=== PATIENT | male | born 1940 | race Two or more races ===

== ENCOUNTER 2017-04-09 17:23 | Inpatient (IN) | payer OTHER ==
[2017-04-09 17:38] VITALS: BMI 24.3
[2017-04-09] MEDS ORDERED: dilTIAZem HCL 50 MG/10 ML - 10 ML VIAL IVPUSH ONE ×2 (17:56→18:32)
[2017-04-09] MEDS ORDERED: ASPIRIN 81 MG CHEWABLE TABLETS PO ONE (17:56)
[2017-04-09] MEDS ORDERED: SODIUM CHLORIDE 1,000 ML IV ONE (17:57)
[2017-04-09] MEDS ORDERED: dilTIAZem HCL 50 MG/10 ML - 10 ML VIAL ONE (17:58)
[2017-04-09 18:06] LABS: BASOPHIL 0.3 % (0-2.0); EOSINOPHIL 2.3 % (0-4.5); MCH 33.9 pg (25.7-33.7); MCHC 34.9 g/dl (32.0-35.9); MEAN CELL VOLUME 97.1 fl (80-96); MEAN PLT VOLUME 10.5 fl (7.5-11.1); NEUTROPHILS 53.1 % (42.8-82.8); PLATELET COUNT 185 K/MM3 (134-434); RDW 13.5 % (11.9-15.9); WHITE BLOOD COUNT 7.1 K/mm3 (4.0-10.0)
[2017-04-09] MEDS ORDERED: dilTIAZem HCL 30 MG TABLET (FP) PO ONE (18:09)
[2017-04-09 18:16] LABS: INR 1.05 (0.82-1.09); PROTHROMBIN TIME (PATIENT) 11.6 SEC (9.98-11.88)
[2017-04-09] MEDS ORDERED: ASPIRIN 81 MG CHEWABLE TABLETS ONE (18:21)
[2017-04-09] MEDS ORDERED: dilTIAZem HCL 30 MG TABLET (FP) ONE (18:21)
[2017-04-09 18:35] LABS: ALBUMIN 3.6 g/dl (3.4-5.0); ANION GAP 14 (8-16); BILIRUBIN,TOTAL 0.2 mg/dL (0.2-1.0); CALCIUM 8.1 mg/dL (8.5-10.1); CO2 24 mmol/L (21-32); CREATININE 0.6 mg/dL (0.7-1.3); GLUCOSE,RANDOM 182 mg/dL (74-106); TOT PROT 7.8 g/dl (6.4-8.2)
[2017-04-09 18:37] LABS: ALK PHOS 143 U/L (45-117); CPK 99 IU/L (39-308); TROPONIN I < 0.02 ng/ml (0.00-0.05)
[2017-04-09 18:42] LABS: MAGNESIUM 2.1 mg/dL (1.8-2.4)
[2017-04-09] MEDS ORDERED: HEPARIN NA (PORCINE) 5,000 UNITS/ML 1ML VIAL IVPUSH ONE (19:10)
--- NOTE | 2017-04-09 19:12 | PDOC ---
History of Present Illness - General History Source: Patient Exam Limitations: No Limitations <Amelie Seymour - Last Filed: 04/09/17 22:20> <Pool Ziegler - Last Filed: 04/09/17 23:16> - General Chief Complaint: Chest Pain Stated Complaint: CHEST PAIN Time Seen by Provider: 04/09/17 17:55 - History of Present Illness Initial Comments: The patient is a 76 yo M with a past medical history significant for possible ETOH abuse and BPH who presents with chest pain. The patient states he at 1 pm today he began to feel chest pain, palpitations, feel lightheadedness and jaw pain. The patient states he typically has episodes of shortness of breath, palpitations and dry mouth that occur every 2-3 weeks but resolve spontanoeously. The patient states these episodes often subside when he drinks ETOH. The patient states his last drink was yesterday. The patient states he typically drinks 3-4 times per week. The patient states he doesn't take aspirin at baseline. Pt denies any recent history of fever/chills, cough, n/v, abd pain , back pain, neck pain, headache/dizziness. PMD: Dr wiley soriano. (Amelie Seymour) Past History <Amelie Seymour - Last Filed: 04/09/17 22:20> - Past Medical History Other medical history: URINARY - Psycho/Social/Smoking Cessation Hx Suicidal Ideation: No Smoking History: Never smoked Information on smoking cessation initiated: No <Pool Ziegler - Last Filed: 04/09/17 23:16> - Past Medical History Allergies/Adverse Reactions: Allergies Allergy/AdvReac Type Severity Reaction Status Date / Time No Known Allergies Allergy Verified 04/09/17 17:38 Home Medications: Ambulatory Orders Unobtainable [Unobtainable] 04/09/17 Review of Systems - Review of Systems Able to Perform ROS?: Yes <Amelie Seymour - Last Filed: 04/09/17 22:20> <Pool Ziegler - Last Filed: 04/09/17 23:16> - Review of Systems Comments:: Constitutional - Pt denies Fever, Chills, weakness, HEENT: +dry mouth. denies vision changes, sore throat Respiratory: Denies cough, sob, hemoptysis Cardiac: + chest pain, palpitations, lightheadedness. denies leg swelling Abd/GI: denies abd pain, nausea, vomiting, blood per rectum, melena, diarrhea : denies dysuria, frequency, discharge Musculskelatal - denies back pain, joint swelling skin - denies bruising, erythema, rash neurological: denies headache, numbness, focal weakness, tingling, ataxia, weakness hematologic: denies anemia, easy bruising, easy bleeding (Amelie Seymour) *Physical Exam <Amelie Seymour - Last Filed: 04/09/17 22:20> <Karlie,Pool - Last Filed: 04/09/17 23:16> - Vital Signs Last Vital Signs Temp Pulse Resp BP Pulse Ox 98.6 F 61 15 156/71 99 04/09/17 19:27 04/09/17 22:19 04/09/17 22:19 04/09/17 22:19 04/09/17 22:19 - Physical Exam Comments: GENERAL: The patient is awake, alert, and fully oriented, Nontoxic - in no acute distress. HEAD: Normocephalic, atraumatic. EYES: extraocular movements intact, sclera anicteric, conjunctiva clear. ENT: Normal voice, Moist mucous membranes. NECK: Normal range of motion, supple without lymphadenopathy, JVD, or masses. LUNGS: Breath sounds equal, clear to auscultation bilaterally. No wheezes, no crackles, no rales. HEART: irregularly irregular. tachcyardic, normal S1 and S2 without murmur, rub or gallop. ABDOMEN: Soft, nontender, normoactive bowel sounds. No guarding, no rebound. No masses. EXTREMITIES: Normal range of motion, no edema. NEUROLOGICAL: No facial assymetry, Normal speech, normal gait. PSYCH: Normal mood, normal affect. SKIN: Warm, Dry, normal turgor, no rashes or lesions noted. (Amelie Seymour) Heart Score/ECG Review <Amelie Seymour - Last Filed: 04/09/17 22:20> <Karlie,Pool - Last Filed: 04/09/17 23:16> - ECG Impressions Comment:: 04/09/17 20:25 Twelve-lead EKG was performed and reviewed by me. Irregularly irregular, rate of 164 Right bundle-branch block impression: A. fib with RVR 04/09/17 23:15 Twelve-lead EKG was performed and reviewed by me. ekg erfromed at 21:04 on 04/09/2017 There is normal sinus rhythm with a rate of 62 RBBB, LAFB (Pool Ziegler) ED Treatment Course - LABORATORY CBC & Chemistry Diagram: 04/09/17 18:00 04/09/17 18:00 <Amelie Seymour - Last Filed: 04/09/17 22:20> - LABORATORY CBC & Chemistry Diagram: 04/09/17 18:00 04/09/17 18:00 <Pool Ziegler - Last Filed: 04/09/17 23:16> - ADDITIONAL ORDERS Additional order review: Laboratory Results 04/09/17 04/09/17 04/09/17 18:18 18:10 18:00 INR PTT (Actin FS) 35.9 H Sodium Potassium Chloride Carbon Dioxide Anion Gap BUN Creatinine Creat Clearance w eGFR Random Glucose Calcium Magnesium Total Bilirubin AST ALT Alkaline Phosphatase Creatine Kinase Troponin I B-Natriuretic Peptide Total Protein Albumin TSH 3.85 H Alcohol, Quantitative 155.6 H* 04/09/17 04/09/17 04/09/17 18:00 18:00 18:00 INR 1.05 PTT (Actin FS) Sodium 142 Potassium 3.8 Chloride 104 Carbon Dioxide 24 Anion Gap 14 BUN 12 Creatinine 0.6 L Creat Clearance w eGFR > 60 Random Glucose 182 H Calcium 8.1 L Magnesium 2.1 Total Bilirubin 0.2 AST ALT Alkaline Phosphatase 143 H Creatine Kinase 99 Troponin I < 0.02 B-Natriuretic Peptide 101.97 Total Protein 7.8 Albumin 3.6 TSH Alcohol, Quantitative 04/09/17 18:00 RBC 4.72 MCV 97.1 H MCHC 34.9 RDW 13.5 MPV 10.5 Neutrophils % 53.1 Lymphocytes % 38.3 Monocytes % 6.0 Eosinophils % 2.3 Basophils % 0.3 - RADIOLOGY Radiology Studies Ordered: Category Date Time Status CHEST X-RAY PORTABLE* [RAD] Stat Radiology 04/09/17 17:56 Taken - Medications Given in the ED: ED Medications Discontinued Medications Generic Name Dose Route Start Last Admin Trade Name Freq PRN Reason Stop Dose Admin Aspirin 162 mg 04/09/17 17:56 04/09/17 18:21 Asa - PO 04/09/17 17:57 162 mg ONCE ONE Administration Diltiazem HCl 20 mg 04/09/17 17:56 04/09/17 18:05 Cardizem Injection - IVPUSH 04/09/17 17:57 20 mg ONCE ONE Administration Diltiazem HCl 30 mg 04/09/17 18:09 04/09/17 18:21 Cardizem - PO 04/09/17 18:10 30 mg ONCE ONE Administration Diltiazem HCl 10 mg 04/09/17 18:32 04/09/17 18:40 Cardizem Injection - IVPUSH 04/09/17 18:33 10 mg ONCE ONE Administration Heparin Sodium (Porcine) 5,000 unit 04/09/17 19:10 04/09/17 20:32 Heparin - IVPUSH 04/09/17 19:11 5,000 unit ONCE ONE Administration Sodium Chloride 1,000 mls @ 1,000 mls/hr 04/09/17 17:57 04/09/17 18:19 Normal Saline - IV 04/09/17 18:56 1,000 mls/hr .Q1H ONE Administration Metoprolol Tartrate 5 mg 04/09/17 20:18 04/09/17 20:32 Lopressor Injection - IVPUSH 04/09/17 20:19 5 mg ONCE ONE Administration Medical Decision Making <Amelie Seymour - Last Filed: 04/09/17 22:20> <Pool Ziegler - Last Filed: 04/09/17 23:16> - Medical Decision Making Call placed to Dr. Marks @ 20:20. Awaiting call back. Second call placed to Dr. Marks @ 20:46. Awaiting call back. Third call placed to Dr. Marks @ 21:17. Case was discussed. Paged Dr. Wilson (covering Dr. Adams) @21:24. Awaiting call back. Paged Dr. Wilson a second time @ 22:20. Awaiting call back. (Amelie Seymour) 04/09/17 19:38 76y M hx of frequent ETOH consumption presents with shortness of breath, patlpitations, chest pressure since 1pm. Pt arrived in rapid afib to 170s, appeared irregularly irregular. BP was slightly hypertensive. No signs of tremulous or tongue fasiculations. new onset afib labs were sent without primary causes including anemia, metabolic dernagement no clinical signs of withdrawal awaiting TSH I saw the patient immediately upon arrival the pts EKG noted for afib to 170s with RBB pt was given 20mg of dilitazem with improvemen tof HR t o120s. pt given anothe rbolus as he slowly increasd to 140s the pt will llikely need to be admitted for new afib 04/09/17 20:20 labs reviewed [id number] score of 2 will start pt on heparin pt HR averaging higher in the 160s will give pt 5mg toprol awaiting call back from dR. Marks for admission 04/09/17 21:[address] marks agree with admission for furthe rmanagment the pt also spontaneously cardioverted sinus rythum approx 30 minutes after metporlol CRITICAL CARE DOCUMENTATION: I spent ~35 minutes of Critical Care time, excluding separately billable procedures, involving high complexity decision making to assess, manipulate and support vital system function(s) to treat single or multiple vital organ system failure and/or to prevent further life threatening deterioration of the patient' s condition. 04/09/17 22:[address] wilson, agrees with managment recommends 25mg metolprolol tartrate (Pool Ziegler) *DC/Admit/Observation/Transfer <Amelie Seymour - Last Filed: 04/09/17 22:20> - Discharge Dispostion Admit: Yes <Pool Ziegler - Last Filed: 04/09/17 23:16> Diagnosis at time of Disposition: New onset a-fib Chest pain Qualifiers: Chest pain type: unspecified Qualified Code(s): R07.9 - Chest pain, unspecified - Discharge Dispostion Condition at time of disposition: Guarded - Referrals - Attestations Scribe Attestion: Documentation prepared by Amelie Seymour, acting as medical secretary teacher for Pool Ziegler MD, MD/DO. (Amelie Seymour)
[2017-04-09] MEDS ORDERED: HEPARIN INFUSION - 500 ML IVPB SCH (19:15)
[2017-04-09] MEDS ORDERED: HEPARIN NA (PORCINE) 5,000 UNITS/ML 1ML VIAL ONE (20:14)
[2017-04-09] MEDS ORDERED: HEPARIN INFUSION - 500 ML IVPB ONE (20:14)
[2017-04-09] MEDS ORDERED: METOPROLOL TARTRATE 5 MG/5 ML VIAL IVPUSH ONE (20:18)
[2017-04-09] MEDS ORDERED: METOPROLOL TARTRATE 5 MG/5 ML VIAL ONE (20:20)
[2017-04-09] MEDS ORDERED: METOPROLOL TARTRATE 25 MG TABLET (FP) PO ONE (22:35)
[2017-04-10] MEDS ORDERED: HEPARIN NA (PORCINE) 5,000 UNITS/ML 1ML VIAL IVPUSH PRN ×2 (01:56)
[2017-04-10] MEDS: HEPARIN INFUSION - 500 ML IVPB SCH ×4 (02:00→07:44)
[2017-04-10] MEDS ORDERED: LORazepam 0.5 MG TABLET PO PRN (02:07)
[2017-04-10 02:58] LABS: TROPONIN I 0.34 ng/ml (0.00-0.05)
[2017-04-10 08:05] LABS: BASOPHIL 0.9 % (0-2.0); MCHC 33.8 g/dl (32.0-35.9); MEAN CELL VOLUME 97.7 fl (80-96); MEAN PLT VOLUME 11.7 fl (7.5-11.1); NEUTROPHILS 53.6 % (42.8-82.8); PLATELET COUNT 181 K/MM3 (134-434); RDW 13.5 % (11.9-15.9); WHITE BLOOD COUNT 7.2 K/mm3 (4.0-10.0)
[2017-04-10 08:40] LABS: ALBUMIN 3.4 g/dl (3.4-5.0); ANION GAP 11 (8-16); BILIRUBIN,TOTAL 0.6 mg/dL (0.2-1.0); CALCIUM 8.1 mg/dL (8.5-10.1); CO2 28 mmol/L (21-32); CREATININE 0.6 mg/dL (0.7-1.3); GLUCOSE,RANDOM 127 mg/dL (74-106); SGOT/AST 30 U/L (15-37); SGPT/ALT 23 U/L (12-78); TOT PROT 6.8 g/dl (6.4-8.2)
[2017-04-10 08:41] LABS: ALK PHOS 111 U/L (45-117)
[2017-04-10] MEDS: THIAMINE HCL 100 MG TABLET (FP) PO SCH (09:39)
[2017-04-10] MEDS: ASPIRIN COATED 81 MG TABLET.EC PO SCH (09:39)
[2017-04-10] MEDS: FOLIC ACID 1 MG TABLET (FP) PO SCH (09:39)
[2017-04-10] MEDS: METOPROLOL SUCCINATE 25 MG TAB.SR.24H (FP) PO SCH (09:39)
--- NOTE | 2017-04-10 10:57 | CON.CARD ---
Consult Consult Specialty:: cardiology Reason for Consultation:: chest pain; tachycardia - History of Present Illness Chief Complaint: presently denies chest pain or dyspnea. History of Present Illness: The patient is a 76 [facility] man [facility] with a past medical history significant for acute/chronic ETOH abuse, ?AF (describes being on ?warfarin 10 mg alternating with 5 mg; howevere, INR 1.05), and BPH who presents with chest pain. The patient states he at 1 pm today he began to feel chest pain, palpitations, feel lightheadedness and jaw pain. The patient states he typically has episodes of shortness of breath, palpitations and dry mouth that occur every 2-3 weeks but resolve spontanoeously. The patient states these episodes often subside when he drinks ETOH. The patient states his last drink was yesterday. The patient states he typically drinks 3-4 times per week. The patient states he doesn't take aspirin at baseline. Pt denies any recent history of fever/chills, cough, n/v, abd pain, back pain, neck pain, headache/ dizziness. PMD: Dr wiley soriano. - History Source History Provided By: Patient, Medical Record Limitations to Obtaining History: Intoxication - Past Medical History Cardio/Vascular: Yes: AFIB, HTN Psych: Yes: Other (alcoholism) - Alcohol/Substance Use Hx Alcohol Use: Yes - Smoking History Smoking history: Never smoked Home Medications - Allergies Allergies/Adverse Reactions: Allergies Allergy/AdvReac Type Severity Reaction Status Date / Time No Known Allergies Allergy Verified 04/09/17 17:38 - Home Medications Home Medications: Ambulatory Orders Unobtainable [Unobtainable] 04/09/17 Family Disease History - Family Disease History Family History: Denies Review of Systems - Review of Systems Constitutional: reports: Loss of Appetite Eyes: reports: No Symptoms HENT: reports: No Symptoms Neck: reports: No Symptoms Cardiovascular: reports: Chest Pain Respiratory: reports: SOB on Exertion Gastrointestinal: reports: No Symptoms Genitourinary: reports: No Symptoms Musculoskeletal: reports: No Symptoms Integumentary: reports: No Symptoms Neurological: reports: Tremors (though denies presently), Unsteady Gait Psychiatric: reports: Other - Risk Factors Known Risk Factors: Yes: Age, Gender, Hypertension, Physical Inactivity Vital Signs: Vital Signs Temperature 98.1 F 04/10/17 07:45 Pulse Rate 57 L 04/10/17 07:45 Respiratory Rate 18 04/10/17 07:48 Blood Pressure 118/56 04/10/17 07:45 O2 Sat by Pulse Oximetry (%) 98 04/10/17 07:48 Constitutional: Yes: Calm Eyes: Yes: WNL HENT: Yes: WNL Respiratory: Yes: Regular Gastrointestinal: Yes: Soft Renal/: No: Anuria Cardiovascular: Yes: Regular Rate and Rhythm JVD: No Carotid Bruit: No PMI: Non-Displaced Heart Sounds: Yes: S1, Split S2, S4 Murmur: Yes: Systolic Murmur, Grade 1 Edema: No Peripheral Pulses WNL: Yes Integumentary: Yes: WNL Psychiatric: Yes: Other - Other Data Labs, Other Data: CBC, BMP 04/10/17 05:42 04/10/17 05:42 INR, PTT INR 1.05 (0.82-1.09) 04/09/17 18:00 Troponin, BNP 04/10/17 01:45 Troponin I 0.34 H D Troponin, BNP 04/10/17 01:45 Troponin I 0.34 H D Imaging - Results EKG: Image Reviewed (nsr; bifascicular blcck) Problem List - Problems (1) Chest pain Assessment/Plan: TNI < 0.02; f/u serially. F/u prior cardiac workup. Code(s): R07.9 - CHEST PAIN, UNSPECIFIED Qualifiers: Chest pain type: unspecified Qualified Code(s): R07.9 - Chest pain, unspecified (2) Atrial fibrillation Assessment/Plan: converted to NSR aftrer being given diltiazem and metoprolol. Continue metoprolol ER; f/u BP and HR. EKG. ECHO for LVEF, chamber sizes, valve status. Code(s): I48.91 - UNSPECIFIED ATRIAL FIBRILLATION
--- NOTE | 2017-04-10 11:21 | PN ---
Progress Note, Physician Chief Complaint: Pt alert; denies tremors or nausea (last alcoholic drink was in past 48 hours; alcohol level 156). History of Present Illness: The patient is a 76 yo man ([facility]), with a past medical history significant for acute/chronic ETOH abuse, ?AF (describes being on ?warfarin 10 mg alternating with 5 mg; howevere, INR 1.05), and BPH who presents with chest pain. The patient states he at 1 pm today he began to feel chest pain, palpitations, feel lightheadedness and jaw pain. The patient states he typically has episodes of shortness of breath, palpitations and dry mouth that occur every 2-3 weeks but resolve spontanoeously. The patient states these episodes often subside when he drinks ETOH. The patient states his last drink was yesterday. The patient states he typically drinks 3-4 times per week. The patient states he doesn't take aspirin at baseline. Pt denies any recent history of fever/chills, cough, n/v, abd pain, back pain, neck pain, headache/ dizziness. PMD: Dr wiley soriano. - Current Medication List Current Medications: Active Medications Aspirin (Ecotrin -) 81 mg PO DAILY [facility] Last Admin: 04/10/17 09:39 Dose: 81 mg Folic Acid (Folic Acid -) 1 mg PO DAILY [facility] Last Admin: 04/10/17 09:39 Dose: 1 mg Heparin Sodium (Porcine) (Heparin -) 1,000 unit IVPUSH PRN PRN PRN Reason: Heparin Heparin Sodium (Porcine) (Heparin -) 5,000 unit IVPUSH PRN PRN PRN Reason: Heparin Heparin Sodium/Dextrose (Heparin Infusion -) 500 mls @ 16 mls/hr IVPB TITR [facility] ; 800 UNITS/HR PRN Reason: Protocol Last Admin: 04/10/17 07:44 Dose: Not Given Lorazepam (Ativan -) 0.5 mg PO Q12H PRN PRN Reason: ANXIETY Metoprolol Succinate (Toprol Xl -) 25 mg PO DAILY [facility] Last Admin: 04/10/17 09:39 Dose: 25 mg Thiamine HCl (Vitamin B1 -) 100 mg PO DAILY [facility] Last Admin: 04/10/17 09:39 Dose: 100 mg - Objective Vital Signs: Vital Signs Temperature 98.1 F 04/10/17 07:45 Pulse Rate 57 L 04/10/17 07:45 Respiratory Rate 18 04/10/17 07:48 Blood Pressure 118/56 04/10/17 07:45 O2 Sat by Pulse Oximetry (%) 98 04/10/17 07:48 Constitutional: Yes: Calm Eyes: Yes: WNL HENT: Yes: WNL Neck: Yes: WNL Cardiovascular: Yes: Regular Rate and Rhythm, S1, S2 (split), S4 Respiratory: Yes: Regular ...Rectal Exam: Yes: Deferred Genitourinary: No: Anuria Peripheral Pulses WNL: Yes Integumentary: Yes: WNL Neurological: Yes: Tremors Psychiatric: Yes: Other Labs: CBC, BMP 04/10/17 05:42 04/10/17 05:42 INR, PTT INR 1.05 (0.82-1.09) 04/09/17 18:00 Abnormal Lab Results 04/10/17 04/10/17 04/10/17 00:45 01:45 05:42 MCV 97.7 H MPV 11.7 H D PTT (Actin FS) 165.7 H D Creatinine Random Glucose Calcium Troponin I 0.34 H D Triglycerides Total LDL Cholesterol 04/10/17 04/10/17 05:42 10:45 MCV MPV PTT (Actin FS) 63.1 H D Creatinine 0.6 L Random Glucose 127 H D Calcium 8.1 L Troponin I Triglycerides 232 H Total LDL Cholesterol 120 H Problem List - Problems (1) Chest pain Assessment/Plan: TNI < 0.02-->0.34 EKG: T wave abnoramilities infero-laterally. Add statin; ASA. Continue beta antionette. Coronary artery evaluation when stable. F/u ECHO for LVEF, wall motion. Code(s): R07.9 - CHEST PAIN, UNSPECIFIED Qualifiers: Chest pain type: unspecified Qualified Code(s): R07.9 - Chest pain, unspecified (2) Atrial fibrillation Assessment/Plan: converted to NSR aftrer being given diltiazem and metoprolol. Continue metoprolol ER; f/u BP and HR. IV heparin until PO AC started (? was on warfarin; however, INR 1.05). Pt's drinking habit makes anticoagulation problematic. EKG: bifascicular block. ECHO for LVEF, chamber sizes, valve status. Code(s): I48.91 - UNSPECIFIED ATRIAL FIBRILLATION (3) Alcoholism /alcohol abuse Assessment/Plan: det4ox protocol. Code(s): F10.20 - ALCOHOL DEPENDENCE, UNCOMPLICATED (4) Hypothyroid Assessment/Plan: elevated TSH; f/u free T3, free T4. Code(s): E03.9 - HYPOTHYROIDISM, UNSPECIFIED
[2017-04-10 11:43] LABS: CHOLESTEROL 193 mg/dL (50-200); LDL CHOLESTEROL (ONLY SJRH) 120 mg/dL (5-100)
[2017-04-10 11:44] LABS: FREE T4 0.86 ng/dl (0.76-1.16)
--- NOTE | 2017-04-10 12:44 | EKG ---
Test Reason : Blood Pressure : / mmHG Vent. Rate : 054 BPM Atrial Rate : 054 BPM P-R Int : 164 ms QRS Dur : 128 ms QT Int : 452 ms P-R-T Axes : 038 -87 065 degrees QTc Int : 428 ms SINUS BRADYCARDIA RIGHT BUNDLE BRANCH BLOCK LEFT ANTERIOR FASCICULAR BLOCK BIFASCICULAR BLOCK CANNOT RULE OUT INFERIOR INFARCT (CITED ON OR BEFORE 09-APR-2017) T WAVE ABNORMALITY, CONSIDER LATERAL ISCHEMIA ABNORMAL ECG WHEN COMPARED WITH ECG OF 09-APR-2017 21:04, NONSPECIFIC T WAVE ABNORMALITY NOW EVIDENT IN INFERIOR LEADS T WAVE INVERSION NOW EVIDENT IN ANTEROLATERAL LEADS Confirmed by BRIANA MONTESINOS MD ([id number]) on 04/10/2017 12:44:01 PM Referred By: Freeman MITCHELL Confirmed By:BRIANA MONTESINOS MD
--- NOTE | 2017-04-10 12:52 | EKG ---
Test Reason : Blood Pressure : / mmHG Vent. Rate : 164 BPM Atrial Rate : 166 BPM P-R Int : 000 ms QRS Dur : 118 ms QT Int : 260 ms P-R-T Axes : 000 249 028 degrees QTc Int : 429 ms ATRIAL FIBRILLATION WITH RAPID VENTRICULAR RESPONSE RIGHT BUNDLE BRANCH BLOCK ABNORMAL ECG WHEN COMPARED WITH ECG OF 18-APR-2009 17:12, ATRIAL FIBRILLATION HAS REPLACED SINUS RHYTHM VENT. RATE HAS INCREASED BY 79 BPM CRITERIA FOR INFERIOR INFARCT ARE NO LONGER PRESENT ST NOW DEPRESSED IN ANTEROLATERAL LEADS T WAVE INVERSION NOW EVIDENT IN ANTERIOR LEADS Confirmed by BRIANA MONTESINOS MD ([id number]) on 04/10/2017 12:52:06 PM Referred By: Confirmed By:BRIANA MONTESINOS MD
[2017-04-10] MEDS ORDERED: SODIUM CHLORIDE 0.45% 1,000 ML IV SCH (15:15)
[2017-04-10] MEDS: chlordiazePOXIDE HCL 25 MG CAPSULE PO SCH ×2 (15:16→21:15)
[2017-04-10] MEDS: DEXTROSE 5%-0.45% SALINE 1,000 ML IV SCH (15:17)
--- NOTE | 2017-04-10 15:49 | PN ---
Progress Note, Physician - Current Medication List Current Medications: Active Medications Aspirin (Ecotrin -) 81 mg PO DAILY [facility] Last Admin: 04/10/17 09:39 Dose: 81 mg Chlordiazepoxide HCl (Librium -) 25 mg PO Q6H-IV [facility] Last Admin: 04/10/17 15:16 Dose: 25 mg Folic Acid (Folic Acid -) 1 mg PO DAILY [facility] Last Admin: 04/10/17 09:39 Dose: 1 mg Heparin Sodium (Porcine) (Heparin -) 1,000 unit IVPUSH PRN PRN PRN Reason: Heparin Heparin Sodium (Porcine) (Heparin -) 5,000 unit IVPUSH PRN PRN PRN Reason: Heparin Heparin Sodium/Dextrose (Heparin Infusion -) 500 mls @ 16 mls/hr IVPB TITR [facility] ; 800 UNITS/HR PRN Reason: Protocol Last Titration: 04/10/17 11:56 Dose: 700 units/hr Dextrose/Sodium Chloride (D5-1/2ns -) 1,000 mls @ 75 mls/hr IV ASDIR [facility] Last Admin: 04/10/17 15:17 Dose: 75 mls/hr Lorazepam (Ativan -) 0.5 mg PO Q12H PRN PRN Reason: ANXIETY Last Admin: 04/10/17 13:20 Dose: 0.5 mg Metoprolol Succinate (Toprol Xl -) 25 mg PO DAILY [facility] Last Admin: 04/10/17 09:39 Dose: 25 mg Thiamine HCl (Vitamin B1 -) 100 mg PO DAILY [facility] Last Admin: 04/10/17 09:39 Dose: 100 mg - Objective Vital Signs: Vital Signs Temperature 98.1 F 04/10/17 07:45 Pulse Rate 57 L 04/10/17 07:45 Respiratory Rate 18 04/10/17 07:48 Blood Pressure 118/56 04/10/17 07:45 O2 Sat by Pulse Oximetry (%) 98 04/10/17 07:48 Labs: CBC, BMP 04/10/17 05:42 04/10/17 05:42 INR, PTT INR 1.05 (0.82-1.09) 04/09/17 18:00
--- NOTE | 2017-04-10 15:50 | HP ---
Admitting History and Physical - Admission History of Present Illness: Pt is a 76 y/o male w/ a PMH significant ETOH abuse(his last drink was yesterday ) and BPH. Pt presented to the ER with chest pain. The patient states he at 1 pm today he began to feel chest pain, palpitations, feel lightheadedness and jaw pain. The patient states he typically has episodes of shortness of breath, palpitations and dry mouth that occur every 2-3 weeks but resolve spontanoeously. The patient states these episodes often subside when he drinks ETOH. The patient states he typically drinks 3-4 times per week. In the ER pt found to be in rapid afib - Past Medical History Cardiovascular: Yes: AFIB, HTN Psych: Yes: Addictions - Past Surgical History Past Surgical History: Yes: None - Smoking History Smoking history: Never smoked - Alcohol/Substance Use Hx Alcohol Use: Yes Home Medications - Allergies Allergies/Adverse Reactions: Allergies Allergy/AdvReac Type Severity Reaction Status Date / Time No Known Allergies Allergy Verified 04/09/17 17:38 - Home Medications Home Medications: Ambulatory Orders Unobtainable [Unobtainable] 04/09/17 Family Disease History - Family Disease History Family History: Unremarkable Review of Systems - Review of Systems Constitutional: reports: No Symptoms Eyes: reports: No Symptoms HENT: reports: No Symptoms Neck: reports: No Symptoms Cardiovascular: reports: Palpitations, Shortness of Breath Respiratory: reports: SOB Gastrointestinal: reports: No Symptoms Physical Examination Vital Signs: Vital Signs Temperature 98.1 F 04/10/17 07:45 Pulse Rate 57 L 04/10/17 07:45 Respiratory Rate 18 04/10/17 07:48 Blood Pressure 118/56 04/10/17 07:45 O2 Sat by Pulse Oximetry (%) 98 04/10/17 07:48 Constitutional: Yes: No Distress Eyes: Yes: WNL HENT: Yes: WNL Neck: Yes: WNL, Supple Cardiovascular: Yes: Tachycardia Respiratory: Yes: WNL, Regular, CTA Bilaterally Gastrointestinal: Yes: WNL, Normal Bowel Sounds, Soft Musculoskeletal: Yes: WNL Extremities: Yes: WNL Edema: No Neurological: Yes: WNL, Alert, Oriented ...Motor Strength: WNL Labs: CBC, BMP 04/10/17 05:42 04/10/17 05:42 Problem List - Problems (1) Chest pain Assessment/Plan: Serial cpk/troponin Cardio consult Check echo Cont asa Code(s): R07.9 - CHEST PAIN, UNSPECIFIED Qualifiers: Chest pain type: unspecified Qualified Code(s): R07.9 - Chest pain, unspecified (2) New onset a-fib Assessment/Plan: Cont cardizem Cardio consult Serial cpk/troponin ?due to etoh abuse Code(s): I48.91 - UNSPECIFIED ATRIAL FIBRILLATION (3) Alcoholism /alcohol abuse Assessment/Plan: Cont thiamine/folic acid Ativan prn May need librium taper Code(s): F10.20 - ALCOHOL DEPENDENCE, UNCOMPLICATED (4) HTN (hypertension) Code(s): I10 - ESSENTIAL (PRIMARY) HYPERTENSION (5) BPH (benign prostatic hyperplasia) Code(s): N40.0 - BENIGN PROSTATIC HYPERPLASIA WITHOUT LOWER URINRY TRACT SYMP
[2017-04-11] MEDS: HEPARIN INFUSION - 500 ML IVPB SCH (02:00)
[2017-04-11] MEDS: chlordiazePOXIDE HCL 25 MG CAPSULE PO SCH ×4 (03:50→22:17)
[2017-04-11] MEDS: METOPROLOL SUCCINATE 25 MG TAB.SR.24H (FP) PO SCH (09:20)
[2017-04-11] MEDS: TAMSULOSIN HCL 0.4 MG CAP.ER.24H (FP) PO SCH (09:20)
[2017-04-11] MEDS: ASPIRIN COATED 81 MG TABLET.EC PO SCH (09:20)
[2017-04-11] MEDS: THIAMINE HCL 100 MG TABLET (FP) PO SCH (09:20)
[2017-04-11] MEDS: FOLIC ACID 1 MG TABLET (FP) PO SCH (09:20)
--- NOTE | 2017-04-11 10:42 | PN ---
Progress Note, Physician History of Present Illness: seen and examined today in nad. no overnight events. no new complaints. - Current Medication List Current Medications: Active Medications Aspirin (Ecotrin -) 81 mg PO DAILY [facility] Last Admin: 04/11/17 09:20 Dose: 81 mg Chlordiazepoxide HCl (Librium -) 25 mg PO Q6H-IV [facility] Last Admin: 04/11/17 09:20 Dose: 25 mg Folic Acid (Folic Acid -) 1 mg PO DAILY [facility] Last Admin: 04/11/17 09:20 Dose: 1 mg Heparin Sodium (Porcine) (Heparin -) 1,000 unit IVPUSH PRN PRN PRN Reason: Heparin Heparin Sodium (Porcine) (Heparin -) 5,000 unit IVPUSH PRN PRN PRN Reason: Heparin Heparin Sodium/Dextrose (Heparin Infusion -) 500 mls @ 16 mls/hr IVPB TITR RAMYA ; 800 UNITS/HR PRN Reason: Protocol Last Admin: 04/11/17 02:00 Dose: Not Given Dextrose/Sodium Chloride (D5-1/2ns -) 1,000 mls @ 75 mls/hr IV ASDIR [facility] Last Admin: 04/10/17 15:17 Dose: 75 mls/hr Lorazepam (Ativan -) 0.5 mg PO Q12H PRN PRN Reason: ANXIETY Last Admin: 04/10/17 13:20 Dose: 0.5 mg Metoprolol Succinate (Toprol Xl -) 25 mg PO DAILY [facility] Last Admin: 04/11/17 09:20 Dose: 25 mg Tamsulosin HCl (Flomax -) 0.4 mg PO DAILY@0830 [facility] Last Admin: 04/11/17 09:20 Dose: 0.4 mg Thiamine HCl (Vitamin B1 -) 100 mg PO DAILY [facility] Last Admin: 04/11/17 09:20 Dose: 100 mg - Objective Vital Signs: Vital Signs Temperature 97.9 F 04/11/17 07:10 Pulse Rate 57 L 04/11/17 07:10 Respiratory Rate 20 04/11/17 07:11 Blood Pressure 134/78 04/11/17 07:10 O2 Sat by Pulse Oximetry (%) 98 04/10/17 21:00 Constitutional: Yes: Well Nourished, No Distress, Calm Eyes: Yes: WNL, Conjunctiva Clear, EOM Intact, PERRL HENT: Yes: WNL, Atraumatic, Normocephalic Neck: Yes: WNL, Supple, Trachea Midline Cardiovascular: Yes: Regular Rate and Rhythm, S1, S2. No: Bradycardia, Tachycardia, Pulse Irregular, Bruit, JVD, Gallop, Murmur, Rub, S3, S4, Varicosities Respiratory: Yes: WNL, Regular, CTA Bilaterally. No: Rales, Rhonchi, Wheezes Gastrointestinal: Yes: WNL, Normal Bowel Sounds, Soft. No: Distention, Tenderness Musculoskeletal: Yes: WNL Extremities: Yes: WNL Edema: No Peripheral Pulses WNL: Yes Peripheral Pulses: Left Doralis Pedis: 2+, Right Dorsalis Pedis: 2+ Integumentary: Yes: WNL Neurological: Yes: Alert, Oriented Psychiatric: Yes: Alert, Oriented Labs: CBC, BMP 04/10/17 05:42 04/10/17 05:42 INR, PTT INR 1.05 (0.82-1.09) 04/09/17 18:00 - ....Imaging Chest X-ray: Report Reviewed, Image Reviewed EKG: Report Reviewed, Image Reviewed Other: Report Reviewed, Image Reviewed (tele-nsr, sb, pvcs, no afib since 4: 23am 04/10) Assessment/Plan Alcoholism Paroxysmal afib-likely etoh induced, unclear if newly diagnosed as pt had reported being prescribed warfarin Palpitations/chest tightness likely secondary to afib Recc PAfib-cont metoprolol, currently in NSR for past 24hours Clarify history and AC history, pt seems unreliable, if nonadherent with warfarin will be nonadherent with NOACs as well Correct hypothyroid f/up echo ETOH cessation essential Chest pain-atypical more likely associated with afib f/up echo cardiac enzymes did not sig trend up pt would benefit from an ischemic evaluation, this can either be done as an inpatient or soon after discharge as an outpatient
[2017-04-11 10:47] LABS: EOSINOPHIL 4.5 % (0-4.5); MCH 33.4 pg (25.7-33.7); MCHC 34.6 g/dl (32.0-35.9); MEAN CELL VOLUME 96.8 fl (80-96); MEAN PLT VOLUME 11.3 fl (7.5-11.1); NEUTROPHILS 53.5 % (42.8-82.8); PLATELET COUNT 150 K/MM3 (134-434); RDW 13.4 % (11.9-15.9)
[2017-04-11 11:20] LABS: ANION GAP 9 (8-16); BILIRUBIN,TOTAL 0.4 mg/dL (0.2-1.0); CALCIUM 8.2 mg/dL (8.5-10.1); CO2 26 mmol/L (21-32); CREATININE 0.6 mg/dL (0.7-1.3); GLUCOSE,RANDOM 213 mg/dL (74-106); SGOT/AST 25 U/L (15-37); SGPT/ALT 24 U/L (12-78); TOT PROT 6.7 g/dl (6.4-8.2); TROPONIN I 0.05 ng/ml (0.00-0.05)
[2017-04-11 11:28] LABS: ALK PHOS 122 U/L (45-117); THYROID STIMULATING HORMONE 6.85 uIU/ml (0.358-3.74)
--- NOTE | 2017-04-11 13:36 | CONSULT ---
Consult Detox [facility] Reason for Current Admission/Consult: Alcohol dependence Referred by:: Michelle Marks MD - History History of Present Illness: 76 y/o man with a long hx. of alcoholism is admitted because of AF with rapid VR. BAL 156 on admission. - History Source History Provided By: Patient, Medical Record - Alcohol/Substance Use Hx Alcohol Use: Yes - Current Drug/Alcohol Use Alcohol Route: Oral Frequency: 3-6 times per week Amount used: Beer 1-2(6packs) Date of Last Use: 04/09/17 - Past Medical History Cardio/Vascular: Yes: AFIB, HTN Psych: Yes: Addictions - Past Surgical History Past Surgical History: Yes: None - Significant Medical Findings: Laboratory Last Values WBC 5.3 K/mm3 (4.0-10.0) 04/13/17 06:00 RBC 4.51 M/mm3 (4.00-5.60) 04/13/17 06:00 Hgb 14.6 GM/dL (11.7-16.9) 04/13/17 06:00 Hct 43.9 % (35.4-49) 04/13/17 06:00 MCV 97.2 fl (80-96) H 04/13/17 06:00 MCH 32.5 pg (25.7-33.7) 04/13/17 06:00 MCHC 33.4 g/dl (32.0-35.9) 04/13/17 06:00 RDW 13.5 % (11.9-15.9) 04/13/17 06:00 Plt Count 159 K/MM3 (134-434) 04/13/17 06:00 MPV 11.4 fl (7.5-11.1) H 04/13/17 06:00 Neutrophils % 63.7 % (42.8-82.8) 04/13/17 06:00 Lymphocytes % 24.3 % (8-40) D 04/13/17 06:00 Monocytes % 6.4 % (3.8-10.2) 04/13/17 06:00 Eosinophils % 4.8 % (0-4.5) H 04/13/17 06:00 Basophils % 0.8 % (0-2.0) 04/13/17 06:00 INR 1.05 (0.82-1.09) 04/09/17 18:00 PTT (Actin FS) 36.4 SECONDS (26.9-34.4) H 04/13/17 07:00 Sodium 142 mmol/L (136-145) 04/13/17 05:35 Potassium 4.4 mmol/L (3.5-5.1) 04/13/17 05:35 Chloride 106 mmol/L (98-107) 04/13/17 05:35 Carbon Dioxide 27 mmol/L (21-32) 04/13/17 05:35 Anion Gap 9 (8-16) 04/13/17 05:35 BUN 12 mg/dL (7-18) D 04/13/17 05:35 Creatinine 0.6 mg/dL (0.7-1.3) L 04/13/17 05:35 Creat Clearance w eGFR > 60 (>60) 04/13/17 05:35 Random Glucose 127 mg/dL (74-106) H 04/13/17 05:35 Hemoglobin A1c % 6.7 % (4.8-6.0) H 04/12/17 05:35 Calcium 9.1 mg/dL (8.5-10.1) 04/13/17 05:35 Magnesium 2.1 mg/dL (1.8-2.4) 04/09/17 18:00 Total Bilirubin 0.4 mg/dL (0.2-1.0) 04/13/17 05:35 AST 37 U/L (15-37) D 04/13/17 05:35 ALT 29 U/L (12-78) D 04/13/17 05:35 Alkaline Phosphatase 122 U/L (45-117) H 04/13/17 05:35 Creatine Kinase 53 IU/L (39-308) 04/12/17 05:35 Troponin I 0.02 ng/ml (0.00-0.05) D 04/13/17 05:35 B-Natriuretic Peptide 101.97 pg/ml (5-450) 04/09/17 18:00 Total Protein 7.1 g/dl (6.4-8.2) 04/13/17 05:35 Albumin 3.3 g/dl (3.4-5.0) L 04/13/17 05:35 Triglycerides 232 mg/dL (35-160) H 04/10/17 05:42 Cholesterol 193 mg/dL (50-200) 04/10/17 05:42 Total LDL Cholesterol 120 mg/dL (5-100) H 04/10/17 05:42 HDL Cholesterol 41 mg/dL (40-60) 04/10/17 05:42 TSH 6.85 uIU/ml (0.358-3.74) H D 04/11/17 10:00 Free T4 0.86 ng/dl (0.76-1.16) 04/10/17 05:42 Free T3 4.8 pg/ml (2.0-4.4) H 04/10/17 05:42 Alcohol, Quantitative 155.6 mg/dl (0-5) H* 04/09/17 18:10 CIWA Score - CIWA Score Nausea/Vomitin-Mild Nausea/No Vomiting Muscle Tremors: 4-Moderate,w/Arms Extend Anxiety: 4-Mod. Anxious/Guarded Agitation: 4-Moderately Restless Paroxysmal Sweats: 3 Orientation: 0-Oriented Tacttile Disturbances: 0-None Auditory Disturbances: 0-None Visual Disturbances: 0-None Headache: 0-None Present CIWA-Ar Total Score: 16 Assessment Plan - Diagnosis (1) Alcohol dependence with uncomplicated withdrawal Status: Acute (2) Atrial fibrillation with rapid ventricular response Status: Acute - Plan Plan: Detox with librium, advise pt. to attend IOP at [facility] - Medication Detox Regimen/Protocol: Librium
[2017-04-11] MEDS ORDERED: chlordiazePOXIDE HCL 25 MG CAPSULE PO PRN (14:52)
[2017-04-11] MEDS: DEXTROSE 5%-0.45% SALINE 1,000 ML IV SCH (15:20)
[2017-04-11] MEDS: APIXABAN 5 MG TABLET PO SCH (22:17)
--- NOTE | 2017-04-11 22:20 | PN ---
Progress Note, Physician History of Present Illness: No new complaints Pt slightly tremulous - Current Medication List Current Medications: Active Medications Apixaban (Eliquis -) 5 mg PO BID [facility] Last Admin: 04/11/17 22:17 Dose: 5 mg Aspirin (Ecotrin -) 81 mg PO DAILY [facility] Last Admin: 04/11/17 09:20 Dose: 81 mg Chlordiazepoxide HCl (Librium -) 25 mg PO Q4H PRN PRN Reason: WITHDRAWAL(CONT SUBST) Stop: 04/14/17 14:51 Chlordiazepoxide HCl (Librium -) 50 mg PO [id number] [facility] Stop: 04/12/17 11:01 Last Admin: 04/11/17 22:17 Dose: 50 mg Chlordiazepoxide HCl (Librium -) 25 mg PO [id number] [facility] Stop: 04/13/17 11:01 Chlordiazepoxide HCl (Librium -) 15 mg PO [id number] [facility] Stop: 04/14/17 11:01 Folic Acid (Folic Acid -) 1 mg PO DAILY [facility] Last Admin: 04/11/17 09:20 Dose: 1 mg Heparin Sodium (Porcine) (Heparin -) 1,000 unit IVPUSH PRN PRN PRN Reason: Heparin Heparin Sodium (Porcine) (Heparin -) 5,000 unit IVPUSH PRN PRN PRN Reason: Heparin Dextrose/Sodium Chloride (D5-1/2ns -) 1,000 mls @ 75 mls/hr IV ASDIR [facility] Last Admin: 04/11/17 15:20 Dose: 75 mls/hr Lorazepam (Ativan -) 0.5 mg PO Q12H PRN PRN Reason: ANXIETY Last Admin: 04/10/17 13:20 Dose: 0.5 mg Metoprolol Succinate (Toprol Xl -) 25 mg PO DAILY [facility] Last Admin: 04/11/17 09:20 Dose: 25 mg Tamsulosin HCl (Flomax -) 0.4 mg PO DAILY@0830 [facility] Last Admin: 04/11/17 09:20 Dose: 0.4 mg Thiamine HCl (Vitamin B1 -) 100 mg PO DAILY [facility] Last Admin: 04/11/17 09:20 Dose: 100 mg - Objective Vital Signs: Vital Signs Temperature 98.7 F 04/11/17 18:00 Pulse Rate 60 04/11/17 18:00 Respiratory Rate 18 04/11/17 18:00 Blood Pressure 162/74 04/11/17 18:00 O2 Sat by Pulse Oximetry (%) 98 04/10/17 21:00 Neck: Yes: WNL, Supple Cardiovascular: Yes: WNL, Regular Rate and Rhythm Respiratory: Yes: WNL, Regular, CTA Bilaterally Gastrointestinal: Yes: WNL, Normal Bowel Sounds, Soft Labs: CBC, BMP 04/11/17 10:00 04/11/17 10:00 INR, PTT INR 1.05 (0.82-1.09) 04/09/17 18:00 Problem List - Problems (1) Chest pain Assessment/Plan: Pt for stress test in am Cont asa Code(s): R07.9 - CHEST PAIN, UNSPECIFIED Qualifiers: Chest pain type: unspecified Qualified Code(s): R07.9 - Chest pain, unspecified (2) New onset a-fib Assessment/Plan: Cont cardizem Heart rate controlled Pt now on eliquis Code(s): I48.91 - UNSPECIFIED ATRIAL FIBRILLATION (3) Alcoholism /alcohol abuse Assessment/Plan: Cont thiamine/folic acid Cont librium taper Code(s): F10.20 - ALCOHOL DEPENDENCE, UNCOMPLICATED (4) HTN (hypertension) Code(s): I10 - ESSENTIAL (PRIMARY) HYPERTENSION (5) BPH (benign prostatic hyperplasia) Code(s): N40.0 - BENIGN PROSTATIC HYPERPLASIA WITHOUT LOWER URINRY TRACT SYMP
[2017-04-12] MEDS: chlordiazePOXIDE HCL 25 MG CAPSULE PO SCH ×4 (05:43→22:11)
[2017-04-12 07:15] LABS: MCH 32.5 pg (25.7-33.7); MCHC 33.4 g/dl (32.0-35.9); MEAN CELL VOLUME 97.2 fl (80-96); MEAN PLT VOLUME 11.3 fl (7.5-11.1); PLATELET COUNT 136 K/MM3 (134-434); RDW 13.3 % (11.9-15.9); WHITE BLOOD COUNT 5.1 K/mm3 (4.0-10.0)
[2017-04-12 07:40] LABS: ALBUMIN 3.1 g/dl (3.4-5.0); ALK PHOS 111 U/L (45-117); ANION GAP 8 (8-16); BILIRUBIN,TOTAL 0.5 mg/dL (0.2-1.0); CALCIUM 8.2 mg/dL (8.5-10.1); CO2 29 mmol/L (21-32); CPK 53 IU/L (39-308); CREATININE 0.6 mg/dL (0.7-1.3); GLUCOSE,RANDOM 137 mg/dL (74-106); SGOT/AST 23 U/L (15-37); SGPT/ALT 23 U/L (12-78); TOT PROT 6.5 g/dl (6.4-8.2); TROPONIN I 0.04 ng/ml (0.00-0.05)
--- NOTE | 2017-04-12 13:19 | EKG ---
Test Reason : Blood Pressure : / mmHG Vent. Rate : 062 BPM Atrial Rate : 062 BPM P-R Int : 152 ms QRS Dur : 126 ms QT Int : 456 ms P-R-T Axes : 037 -85 040 degrees QTc Int : 462 ms NORMAL SINUS RHYTHM RIGHT BUNDLE BRANCH BLOCK LEFT ANTERIOR FASCICULAR BLOCK BIFASCICULAR BLOCK CANNOT RULE OUT INFERIOR INFARCT , AGE UNDETERMINED ABNORMAL ECG WHEN COMPARED WITH ECG OF 09-APR-2017 17:46, RHYTHM IS NOW CONVERTED TO SINUS RHYTHM FROM ATRIAL FIBRILLATION. ST-T WAVES ARE NOW NORMALISED IN COMPARABLE LEADS. CORRELATE CLINICALLY. Confirmed by TANVIR SIMONS MD ([id number]) on 04/12/2017 1:18:26 PM Referred By: Confirmed By:TANVIR SIMONS MD
[2017-04-12] MEDS: THIAMINE HCL 100 MG TABLET (FP) PO SCH (13:37)
[2017-04-12] MEDS: ASPIRIN COATED 81 MG TABLET.EC PO SCH (13:37)
[2017-04-12] MEDS: FOLIC ACID 1 MG TABLET (FP) PO SCH (13:37)
[2017-04-12] MEDS: APIXABAN 5 MG TABLET PO SCH (13:37)
[2017-04-12] MEDS: TAMSULOSIN HCL 0.4 MG CAP.ER.24H (FP) PO SCH (13:37)
[2017-04-12] MEDS: METOPROLOL SUCCINATE 25 MG TAB.SR.24H (FP) PO SCH (13:37)
--- NOTE | 2017-04-12 16:14 | PN ---
Progress Note, Physician - Current Medication List Current Medications: Active Medications Aspirin (Ecotrin -) 81 mg PO DAILY [facility] Last Admin: 04/12/17 13:37 Dose: 81 mg Chlordiazepoxide HCl (Librium -) 25 mg PO Q4H PRN PRN Reason: WITHDRAWAL(CONT SUBST) Stop: 04/14/17 14:51 Chlordiazepoxide HCl (Librium -) 25 mg PO [id number] [facility] Stop: 04/13/17 11:01 Chlordiazepoxide HCl (Librium -) 15 mg PO [id number] [facility] Stop: 04/14/17 11:01 Folic Acid (Folic Acid -) 1 mg PO DAILY [facility] Last Admin: 04/12/17 13:37 Dose: 1 mg Lorazepam (Ativan -) 0.5 mg PO Q12H PRN PRN Reason: ANXIETY Last Admin: 04/10/17 13:20 Dose: 0.5 mg Metoprolol Succinate (Toprol Xl -) 25 mg PO DAILY [facility] Last Admin: 04/12/17 13:37 Dose: 25 mg Tamsulosin HCl (Flomax -) 0.4 mg PO DAILY@0830 [facility] Last Admin: 04/12/17 13:37 Dose: 0.4 mg Thiamine HCl (Vitamin B1 -) 100 mg PO DAILY [facility] Last Admin: 04/12/17 13:37 Dose: 100 mg - Objective Vital Signs: Vital Signs Temperature 97.4 F L 04/12/17 15:02 Pulse Rate 72 04/12/17 15:02 Respiratory Rate 18 04/12/17 15:02 Blood Pressure 171/80 04/12/17 15:02 O2 Sat by Pulse Oximetry (%) 97 04/12/17 07:43 Labs: CBC, BMP 04/12/17 05:35 04/12/17 05:35 INR, PTT INR 1.05 (0.82-1.09) 04/09/17 18:00 Assessment/Plan Alcoholism Paroxysmal afib-likely etoh induced, unclear if newly diagnosed as pt had reported being prescribed warfarin Palpitations/chest tightness likely secondary to afib Chest pain NSVT Abnormal nuclear stress test Elevated troponin Recc Chest pain-with nsvt, slight elevated troponin, abnormal EKG, abnormal nuclear stress test -verbally nuclear stress test showed inferolateral ischemia -d/w pt and , will transfer to [facility] for cardiac cath for further definition of coronary anatomy and revascularization as needed -cont ASA and Toprol -start Lipitor -hold eliquis for cardiac cath PAfib-with episodes of RVR, sinus shoshana when in sinus rhythm -currently NSR -cont toprol xl 25mg daily -Clarify history and AC history, pt seems unreliable, if nonadherent with warfarin will be nonadherent with NOACs as well -Correct hypothyroid -f/up echo -ETOH cessation essential -hold eliquis for cardiac cath -EPS evaluation at [facility] -risk vs benefit of AC d/w pt and his and they expressed understanding, he reports bleeding in past that has since stopped and he is followed by a urologist, no other bleeding, no falls, but etoh abuse is a risk NSVT -cont toprol -ischemic evaluation with cardiac cath
--- NOTE | 2017-04-12 16:17 | PN ---
Progress Note, Physician History of Present Illness: seen and examined today in nad. no overnight events. no new complaints. - Current Medication List Current Medications: Active Medications Aspirin (Ecotrin -) 81 mg PO DAILY [facility] Last Admin: 04/12/17 13:37 Dose: 81 mg Atorvastatin Calcium (Lipitor -) 40 mg PO HS [facility] Chlordiazepoxide HCl (Librium -) 25 mg PO Q4H PRN PRN Reason: WITHDRAWAL(CONT SUBST) Stop: 04/14/17 14:51 Chlordiazepoxide HCl (Librium -) 25 mg PO [id number] [facility] Stop: 04/13/17 11:01 Chlordiazepoxide HCl (Librium -) 15 mg PO [id number] [facility] Stop: 04/14/17 11:01 Folic Acid (Folic Acid -) 1 mg PO DAILY [facility] Last Admin: 04/12/17 13:37 Dose: 1 mg Lorazepam (Ativan -) 0.5 mg PO Q12H PRN PRN Reason: ANXIETY Last Admin: 04/10/17 13:20 Dose: 0.5 mg Metoprolol Succinate (Toprol Xl -) 25 mg PO DAILY [facility] Last Admin: 04/12/17 13:37 Dose: 25 mg Tamsulosin HCl (Flomax -) 0.4 mg PO DAILY@0830 [facility] Last Admin: 04/12/17 13:37 Dose: 0.4 mg Thiamine HCl (Vitamin B1 -) 100 mg PO DAILY [facility] Last Admin: 04/12/17 13:37 Dose: 100 mg - Objective Vital Signs: Vital Signs Temperature 97.4 F L 04/12/17 15:02 Pulse Rate 72 04/12/17 15:02 Respiratory Rate 18 04/12/17 15:02 Blood Pressure 171/80 04/12/17 15:02 O2 Sat by Pulse Oximetry (%) 97 04/12/17 07:43 Constitutional: Yes: Well Nourished, No Distress, Calm Eyes: Yes: WNL, Conjunctiva Clear, EOM Intact, PERRL HENT: Yes: WNL, Atraumatic, Normocephalic Neck: Yes: WNL, Supple, Trachea Midline Cardiovascular: Yes: Regular Rate and Rhythm, S1, S2. No: Bradycardia, Tachycardia, Pulse Irregular, Bruit, JVD, Gallop, Murmur, Rub, S3, S4, Varicosities Respiratory: Yes: WNL, Regular, CTA Bilaterally. No: Rales, Rhonchi, Wheezes Gastrointestinal: Yes: WNL, Normal Bowel Sounds, Soft. No: Distention, Tenderness Musculoskeletal: Yes: WNL Extremities: Yes: WNL Edema: No Peripheral Pulses WNL: Yes Peripheral Pulses: Left Doralis Pedis: 2+, Right Dorsalis Pedis: 2+ Integumentary: Yes: WNL Neurological: Yes: WNL, Alert, Oriented, Cran Nerves II-XII Intact ...Motor Strength: WNL Psychiatric: Yes: WNL, Alert, Oriented Labs: CBC, BMP 04/12/17 05:35 04/12/17 05:35 INR, PTT INR 1.05 (0.82-1.09) 04/09/17 18:00 - ....Imaging Chest X-ray: Report Reviewed, Image Reviewed EKG: Report Reviewed, Image Reviewed Other: Report Reviewed, Image Reviewed (tele-sinus bradyc 50s, nsvt 11beats yesterday, pafib) Assessment/Plan Alcoholism Paroxysmal afib-likely etoh induced, unclear if newly diagnosed as pt had reported being prescribed warfarin Palpitations/chest tightness likely secondary to afib Chest pain NSVT Abnormal nuclear stress test Elevated troponin Recc Chest pain-with nsvt, slight elevated troponin, abnormal EKG, abnormal nuclear stress test -verbally nuclear stress test showed inferolateral ischemia -d/w pt and , will transfer to [facility] for cardiac cath for further definition of coronary anatomy and revascularization as needed -cont ASA and Toprol -start Lipitor -hold eliquis for cardiac cath PAfib-with episodes of RVR, sinus shoshana when in sinus rhythm -currently NSR -cont toprol xl 25mg daily -Clarify history and AC history, pt seems unreliable, if nonadherent with warfarin will be nonadherent with NOACs as well -Correct hypothyroid -f/up echo -ETOH cessation essential -hold eliquis for cardiac cath -EPS evaluation at [facility] -risk vs benefit of AC d/w pt and his and they expressed understanding, he reports bleeding in past that has since stopped and he is followed by a urologist, no other bleeding, no falls, but etoh abuse is a risk NSVT -cont toprol -ischemic evaluation with cardiac cath
[2017-04-12] MEDS ORDERED: chlordiazePOXIDE HCL 25 MG CAPSULE PO SCH (17:00)
[2017-04-12] MEDS ORDERED: ATORVASTATIN CA 40 MG TABLET (FP) PO SCH (22:00)
--- NOTE | 2017-04-12 22:14 | PN ---
Progress Note, Physician History of Present Illness: No new complaints No chest pain - Current Medication List Current Medications: Active Medications Aspirin (Ecotrin -) 81 mg PO DAILY [facility] Last Admin: 04/12/17 13:37 Dose: 81 mg Atorvastatin Calcium (Lipitor -) 40 mg PO HS [facility] Last Admin: 04/12/17 22:11 Dose: 40 mg Chlordiazepoxide HCl (Librium -) 25 mg PO Q4H PRN PRN Reason: WITHDRAWAL(CONT SUBST) Stop: 04/14/17 14:51 Chlordiazepoxide HCl (Librium -) 25 mg PO [id number] [facility] Stop: 04/13/17 11:01 Last Admin: 04/12/17 22:11 Dose: 25 mg Chlordiazepoxide HCl (Librium -) 15 mg PO [id number]-YTV [facility] Stop: 04/14/17 11:01 Folic Acid (Folic Acid -) 1 mg PO DAILY [facility] Last Admin: 04/12/17 13:37 Dose: 1 mg Lorazepam (Ativan -) 0.5 mg PO Q12H PRN PRN Reason: ANXIETY Last Admin: 04/10/17 13:20 Dose: 0.5 mg Metoprolol Succinate (Toprol Xl -) 25 mg PO DAILY [facility] Last Admin: 04/12/17 13:37 Dose: 25 mg Tamsulosin HCl (Flomax -) 0.4 mg PO DAILY@0830 [facility] Last Admin: 04/12/17 13:37 Dose: 0.4 mg Thiamine HCl (Vitamin B1 -) 100 mg PO DAILY [facility] Last Admin: 04/12/17 13:37 Dose: 100 mg - Objective Vital Signs: Vital Signs Temperature 98.0 F 04/12/17 17:00 Pulse Rate 59 L 04/12/17 17:00 Respiratory Rate 20 04/12/17 17:00 Blood Pressure 152/74 04/12/17 17:00 O2 Sat by Pulse Oximetry (%) 97 04/12/17 07:43 Constitutional: Yes: No Distress HENT: Yes: WNL Neck: Yes: WNL, Supple Cardiovascular: Yes: WNL, Regular Rate and Rhythm Respiratory: Yes: WNL, Regular, CTA Bilaterally Gastrointestinal: Yes: WNL, Normal Bowel Sounds, Soft Labs: CBC, BMP 04/12/17 05:35 04/12/17 05:35 INR, PTT INR 1.05 (0.82-1.09) 04/09/17 18:00 Problem List - Problems (1) Chest pain Assessment/Plan: Stress test abnormal for inferiolateral ischemia As per cardio Pt to be transferred for cardiac cath Cont asa/lipitor/toprol Trend troponin Code(s): R07.9 - CHEST PAIN, UNSPECIFIED Qualifiers: Chest pain type: unspecified Qualified Code(s): R07.9 - Chest pain, unspecified (2) New onset a-fib Assessment/Plan: Cont cardizem Eliquis on hold for cardiac cath Code(s): I48.91 - UNSPECIFIED ATRIAL FIBRILLATION (3) Alcoholism /alcohol abuse Assessment/Plan: Cont thiamine/folic acid Cont librium taper Code(s): F10.20 - ALCOHOL DEPENDENCE, UNCOMPLICATED (4) HTN (hypertension) Code(s): I10 - ESSENTIAL (PRIMARY) HYPERTENSION (5) BPH (benign prostatic hyperplasia) Code(s): N40.0 - BENIGN PROSTATIC HYPERPLASIA WITHOUT LOWER URINRY TRACT SYMP
[2017-04-13] MEDS: chlordiazePOXIDE HCL 25 MG CAPSULE PO SCH ×2 (05:00→12:09)
[2017-04-13 07:28] LABS: BASOPHIL 0.8 % (0-2.0); EOSINOPHIL 4.8 % (0-4.5); MCH 32.5 pg (25.7-33.7); MCHC 33.4 g/dl (32.0-35.9); MEAN CELL VOLUME 97.2 fl (80-96); MEAN PLT VOLUME 11.4 fl (7.5-11.1); NEUTROPHILS 63.7 % (42.8-82.8); PLATELET COUNT 159 K/MM3 (134-434); RDW 13.5 % (11.9-15.9); WHITE BLOOD COUNT 5.3 K/mm3 (4.0-10.0)
[2017-04-13 08:11] LABS: ALBUMIN 3.3 g/dl (3.4-5.0); ANION GAP 9 (8-16); BILIRUBIN,TOTAL 0.4 mg/dL (0.2-1.0); CALCIUM 9.1 mg/dL (8.5-10.1); CO2 27 mmol/L (21-32); CREATININE 0.6 mg/dL (0.7-1.3); GLUCOSE,RANDOM 127 mg/dL (74-106); SGOT/AST 37 U/L (15-37); SGPT/ALT 29 U/L (12-78); TOT PROT 7.1 g/dl (6.4-8.2)
[2017-04-13 08:14] LABS: ALK PHOS 122 U/L (45-117); TROPONIN I 0.02 ng/ml (0.00-0.05)
[2017-04-13] MEDS: METOPROLOL SUCCINATE 25 MG TAB.SR.24H (FP) PO SCH (09:47)
[2017-04-13] MEDS: FOLIC ACID 1 MG TABLET (FP) PO SCH (09:48)
[2017-04-13] MEDS: ASPIRIN COATED 81 MG TABLET.EC PO SCH (09:48)
[2017-04-13] MEDS: THIAMINE HCL 100 MG TABLET (FP) PO SCH (09:48)
[2017-04-13] MEDS: TAMSULOSIN HCL 0.4 MG CAP.ER.24H (FP) PO SCH (09:48)
--- NOTE | 2017-04-13 14:36 | PN ---
Progress Note, Physician History of Present Illness: seen and examined today in [facility]. no overnight events. no new complaints. - Current Medication List Current Medications: Active Medications Aspirin (Ecotrin -) 81 mg PO DAILY [facility] Last Admin: 04/13/17 09:48 Dose: 81 mg Atorvastatin Calcium (Lipitor -) 40 mg PO HS [facility] Last Admin: 04/12/17 22:11 Dose: 40 mg Chlordiazepoxide HCl (Librium -) 25 mg PO Q4H PRN PRN Reason: WITHDRAWAL(CONT SUBST) Stop: 04/14/17 14:51 Chlordiazepoxide HCl (Librium -) 15 mg PO [id number] [facility] Stop: 04/14/17 11:01 Folic Acid (Folic Acid -) 1 mg PO DAILY [facility] Last Admin: 04/13/17 09:48 Dose: 1 mg Metoprolol Succinate (Toprol Xl -) 25 mg PO DAILY [facility] Last Admin: 04/13/17 09:47 Dose: 25 mg Tamsulosin HCl (Flomax -) 0.4 mg PO DAILY@0830 [facility] Last Admin: 04/13/17 09:48 Dose: 0.4 mg Thiamine HCl (Vitamin B1 -) 100 mg PO DAILY [facility] Last Admin: 04/13/17 09:48 Dose: 100 mg - Objective Vital Signs: Vital Signs Temperature 98.7 F 04/13/17 10:00 Pulse Rate 76 04/13/17 10:00 Respiratory Rate 18 04/13/17 10:00 Blood Pressure 142/57 04/13/17 10:00 O2 Sat by Pulse Oximetry (%) 96 04/13/17 09:00 Constitutional: Yes: Well Nourished, No Distress, Calm Eyes: Yes: WNL, Conjunctiva Clear, EOM Intact, PERRL HENT: Yes: WNL, Atraumatic, Normocephalic Neck: Yes: WNL, Supple, Trachea Midline Cardiovascular: Yes: WNL, Regular Rate and Rhythm, S1, S2. No: Bradycardia, Tachycardia, Pulse Irregular, Bruit, JVD, Gallop, Murmur, Rub, S3, S4, Varicosities Respiratory: Yes: WNL, Regular, CTA Bilaterally. No: Rales, Rhonchi, Wheezes Gastrointestinal: Yes: WNL, Normal Bowel Sounds, Soft. No: Distention, Tenderness Musculoskeletal: Yes: WNL Extremities: Yes: WNL Edema: No Peripheral Pulses WNL: Yes Peripheral Pulses: Left Doralis Pedis: 2+, Right Dorsalis Pedis: 2+ Integumentary: Yes: WNL Neurological: Yes: WNL, Alert, Oriented, Cran Nerves II-XII Intact ...Motor Strength: WNL Psychiatric: Yes: WNL, Alert, Oriented Labs: CBC, BMP 04/13/17 06:00 04/13/17 05:35 INR, PTT INR 1.05 (0.82-1.09) 04/09/17 18:00 - ....Imaging Chest X-ray: Report Reviewed, Image Reviewed EKG: Report Reviewed, Image Reviewed Other: Report Reviewed, Image Reviewed (tele-sinus shoshana 40-50s, pvcs, couplets , no further pafib or nsvt) Assessment/Plan Alcoholism Paroxysmal afib-likely etoh induced, unclear if newly diagnosed as pt had reported being prescribed warfarin Palpitations/chest tightness likely secondary to afib Chest pain NSVT Abnormal nuclear stress test Elevated troponin Recc Chest pain-with nsvt, slight elevated troponin, abnormal EKG, abnormal nuclear stress test -nuclear stress test showed mod inferolateral ischemia with normal LVEF -echo showed grossly normal LV systolic function, mod to sev AR -will transfer to [facility] for cardiac cath for further definition of coronary anatomy and revascularization as needed -cont ASA and Toprol -cont Lipitor -hold eliquis for cardiac cath PAfib-with episodes of RVR, sinus shoshana when in sinus rhythm -currently NSR, sinus bradycardia -may have some tachy shoshana syndrome but overall tolerated at this point -cont toprol xl 25mg daily -Clarify history and AC history, pt seems unreliable, if nonadherent with warfarin will be nonadherent with NOACs as well -Correct hypothyroid -echo as above -ETOH cessation essential -hold eliquis for cardiac cath -EPS evaluation at [facility] -risk vs benefit of AC d/w pt and his and they expressed understanding, he reports bleeding in past that has since stopped and he is followed by a urologist, no other bleeding, no falls, but etoh abuse is a risk, plan to resume full AC after cardiac cath and monitor closely for bleeding NSVT-none since yesterday -cont toprol -ischemic evaluation with cardiac cath
[2017-04-13 14:50] VITALS: BP 134/66; PULSE 58; TEMP 98
[2017-04-13] MEDS ORDERED: chlordiazePOXIDE 5 MG CAPSULE PO SCH ×2 (17:00)
== END 2017-04-13 17:04 | disposition short-term general hospital (02) | DRG 309 ==
LOC: JER 17:23 → JERBED 20:22 → J4W 23:12
PROVIDERS: ADMIT Internal Medicine; ATTEND Internal Medicine
DX: I48.0 Paroxysmal atrial fibrillation (principal); F10.230 Alcohol dependence with withdrawal, uncomplicated; I45.2 Bifascicular block; Y90.6 Blood alcohol level of 120-199 mg/100 ml; N40.0 Benign prostatic hyperplasia without lower urinary tract symptoms; Z79.01 Long term (current) use of anticoagulants; I45.10 Unspecified right bundle-branch block; E03.9 Hypothyroidism, unspecified; I10 Essential (primary) hypertension
CPT/HCPCS: 36415; 71010-TC; 78452-TC; 80053; 80061; 80307; 83036; 83721; 83735; 83880; 84439; 84443; 84481; 84484; 85025; 85027; 85610; 85730; 93005; 93010; 93017; 93306-TC; 99285-25; A9502; J1644

== ENCOUNTER 2018-07-09 16:27 | Inpatient (IN) | payer OTHER ==
[2018-07-09 16:32] VITALS: BMI 23.8
--- NOTE | 2018-07-09 16:37 | PDOC ---
History of Present Illness - General Chief Complaint: Palpitations Stated Complaint: CHEST PAIN Time Seen by Provider: 07/09/18 16:34 - History of Present Illness Initial Comments: 07/09/18 17:06 The patient is a 77 year old male with a history of HTN, HLD, Afib, Alcohol abuse who presents for evaluation of chest pain, palpitations, and shortness of breath. The patient reports that he has been experiencing chest pain for many weeks for which he follows with Dr. Gaitan. He notes that today, he experienced worsening left sided chest pain with associated palpitations and shortness of breath prompting his presentation to the ED for further evaluation. On EMS arrival, the patient was noted to be in SVT in a rate of 190. He was given 6 of adenosine and then 12 mg of adenosine followed by another 12mg of adenosine. The patient was noted to be in afib with RVR and was given 5mg of lopressor prior to presentation in the ED. The patient otherwise denies fevers, chills, headache, nausea, vomiting, abdominal pain, or changes with urination or bowel movements. Past History - Past Medical History Allergies/Adverse Reactions: Allergies Allergy/AdvReac Type Severity Reaction Status Date / Time No Known Allergies Allergy Verified 07/09/18 16:30 Home Medications: Ambulatory Orders Unobtainable 04/09/17 COPD: No HTN: Yes - Suicide/Smoking/Psychosocial Hx Smoking History: Never smoked Hx Alcohol Use: Yes Drug/Substance Use Hx: No Hx Substance Use Treatment: No Review of Systems - Review of Systems Comments:: 07/09/18 17:10 Constitutional: No fevers, chills, fatigue, malaise HEENT: No Rhinorrhea, nasal congestion, visual changes Cardiovascular: Chest pain, Palpitations. No syncope, lightheadedness Respiratory: SOB. No Cough, Hemoptysis, Gastrointestinal: No Abdominal pain, Nausea, Vomiting, Constipation, Diarrhea, Melena Genitourinary: No Dysuria, Frequency, Urgency, Hesitancy, Hematuria, Flank pain Musculoskeletal: No Myalgia, arthralgia Skin: No rashes, itching, bruising, pallor Neurologic: No Headache, Dizziness, Numbness, Weakness, or Tingling Psychiatric: No Hallucinations. No SI or HI *Physical Exam - Vital Signs Last Vital Signs Temp Pulse Resp BP Pulse Ox 97.8 F 87 20 152/80 100 07/09/18 16:30 07/09/18 16:30 07/09/18 16:30 07/09/18 16:30 07/09/18 16:30 - Physical Exam Comments: 07/09/18 17:11 General Appearance: Nourished. No Apparent Distress HEENT: No Pharyngeal Erythema, Tonsillar Exudate, Tonsillar Erythema Neck: No Cervical Lymphadenopathy Respiratory/Chest: Lungs Clear, Normal Breath Sounds. No Crackles, Rales, Rhonchi, Wheezing Cardiovascular: Regular Rhythm, Regular Rate. No Murmur, Gallops, Rubs Gastrointestinal/Abdominal: Normal Bowel Sounds, Soft. No Guarding, Rebound, Tenderness Musculoskeletal: No CVA Tenderness Extremity: Normal Capillary Refill Integumentary: Normal Color, Dry, Warm Neurologic: Fully Oriented, Alert, Normal Mood/Affect, Normal Response, Heart Score/ECG Review #1 ECG reviewed & interpreted by me at: 17:11 07/09/18 17:12 Normal Sinus Rhythm Right bundle branch block Left anterior fasicular block HR 88 Unchanged from 04/10/17 ED Treatment Course - LABORATORY CBC & Chemistry Diagram: 07/09/18 16:38 07/09/18 16:38 - RADIOLOGY Radiology Studies Ordered: Category Date Time Status CHEST X-RAY PORTABLE* [RAD] Stat Radiology 07/09/18 16:34 Ordered Medical Decision Making - Medical Decision Making 07/09/18 17:13 The patient is a 77 year old male with a history of HTN, HLD, Afib, Alcohol abuse who presents for evaluation of chest pain, palpitations, and shortness of breath. On arrival to the ED, the patient was in normal sinus rhythm with a normal HR. Differential includes but is not limited to: ACS, Arrhythmia, Thyroid disfunction, Infections, Metabolic Derangement. Given the patient's history and physical exam, we will obtain a cbc, cmp, troponin, bnp, tsh, ekg, chest plain film to evaluate further. We will treat the patient with asa and continue to monitor and reassess. The patient will likely require admission for further management. 07/09/18 18:02 CBC, cmp, troponin, bnp, are unremarkable. Chest plain film is unremarkable. We discussed the case with Dr. Booth with cardiology who recommended treatment with a heparin drip and will evaluate the patient tomorrow. We discussed the case with the admitting team who accepted the patient for admission. *DC/Admit/Observation/Transfer Diagnosis at time of Disposition: Palpitations Chest pain Qualifiers: Chest pain type: unspecified Qualified Code(s): R07.9 - Chest pain, unspecified - Discharge Dispostion Condition at time of disposition: Stable Decision to Admit order: Yes - Referrals Referrals: Dorinda Guzman MD [Primary Care Provider] - - Patient Instructions - Post Discharge Activity
[2018-07-09 16:45] LABS: BASO % 0.5 % (0-2.0); EOS % 0.9 % (0-4.5); HEMATOCRIT 43.8 % (35.4-49); HEMOGLOBIN 14.9 GM/dL (11.7-16.9); LYMPH % 27.3 % (8-40); MCH 31.9 pg (25.7-33.7); MEAN CELL VOLUME 93.8 fl (80-96); MEAN PLT VOLUME 10.4 fl (7.5-11.1); MONO % 6.2 % (3.8-10.2); NEUT % 65.1 % (42.8-82.8); PLATELET COUNT 170 K/MM3 (134-434); RBC 4.67 M/mm3 (4.00-5.60); RDW 13.6 % (11.9-15.9); WHITE BLOOD COUNT 7.5 K/mm3 (4.0-10.0)
[2018-07-09] MEDS ORDERED: ASPIRIN 81 MG CHEWABLE TABLETS PO ONE (16:49)
--- NOTE | 2018-07-09 16:49 | PDOC ---
Attending Attestation - HPI HPI: 07/09/18 17:01 The patient is a 77 year old male with a significant PMH of etoh abuse, BPH, and afib who presents to the emergency department via EMS with worsening chest pain and shortness of breath since earlier today. As per EMS , the patient was found with an SVT at 190 which broke after 6 mg and 12 of adenosine. The patient then became afib with RBR on 5 of lopressor. The patient has normal sinus at time of exam but still reports some left sided chest pain. The patient denies any other symptoms or complaints. PCP: Dr. Guzman Documentation prepared by Tanmay Chaudhary, acting as medical review specialist for Jacy Wright MD. <Tanmay Chaudhary - Last Filed: 07/09/18 17:02> - Physicial Exam PE: 07/09/18 17:59 GENERAL: Well developed, well nourished. Awake and alert. No acute distress. HEENT: Normocephalic, atraumatic. PERRLA, EOMI. No conjunctival pallor. Sclera are non- icteric. Moist mucous membranes. Oropharynx is clear. NECK: Supple. Full ROM. No JVD. Carotid pulses 2+ and symmetric, without bruits. No thyromegaly. No lymphadenopathy. CARDIOVASCULAR: Regular rate and rhythm. No murmurs, rubs, or gallops. Distal pulses are 2+ and symmetric. PULMONARY: No evidence of respiratory distress. Lungs clear to auscultation bilaterally. No wheezing, rales or rhonchi. ABDOMINAL: Soft. Non-tender. Non-distended. No rebound or guarding. No organomegaly. Normoactive bowel sounds. EXTREMITIES: No cyanosis. No clubbing. No edema. No calf tenderness. SKIN: Warm and dry. Normal capillary refill. No rashes. No jaundice. NEUROLOGICAL: Alert, awake, appropriate. No motor deficits in the in face, upper extremities and lower extremities. Normoreflexic in the upper and lower extremities. Normal speech. Toes are down-going bilaterally. Gait is normal without ataxia. PSYCHIATRIC: Cooperative. Good eye contact. Appropriate mood and affect. Documentation prepared by Sina Herrmann, acting as medical review specialist for Jacy Wright MD. <Sina Herrmann - Last Filed: 07/09/18 18:48> - Resident Resident Name: MayaOrlin - ED Attending Attestation I have performed the following: I have examined & evaluated the patient, The case was reviewed & discussed with the resident, I agree w/resident's findings & plan, Exceptions are as noted - Medical Decision Making 07/09/18 16:49 77 yo male had an episode of SVT @ 190's and received adenosine, IV lopressor 07/09/18 17:42 patient had avember 13 that showed no chest pain and complaining of throat pain ST depressions in leads V2 and V3. during exercise, mild in intensity reversible defect in the inferior lateral base to the mid ventricle consistent with ischemia. imp CAD,SVT ,chest pain plan admit tele cards Dr Gaitan 07/09/18 21:14 <Jacy Wright - Last Filed: 07/09/18 21:15> Heart Score/ECG Review - ECG Impressions Comment:: 07/09/18 17:47 Final conclusion No chest pain but complained of throat pain 1mm ST depression in leads V2-3 during exercise which resolved during recovery Medium sized, mild intensity rversible defect in the inferolateral wall base to mid ventricle consistent with ischemia Normal LV systolic function with LVEF 65% with basal inferolateral hypokinesis. Documentation prepared by Sina Herrmann, acting as medical review specialist for Jacy Wright MD. <Sina Herrmann - Last Filed: 07/09/18 18:48>
[2018-07-09 16:54] LABS: INR 0.99 (0.83-1.09); PROTHROMBIN TIME (PATIENT) 11.7 SEC (9.7-13.0)
[2018-07-09 16:56] LABS: ACTIVATED PTT 34.4 SECONDS (25.2-36.5)
[2018-07-09] MEDS ORDERED: ASPIRIN 81 MG CHEWABLE TABLETS ONE (17:06)
[2018-07-09 17:13] LABS: ALK PHOS 133 U/L (45-117); ANION GAP 13 MMOL/L (8-16); BILIRUBIN,TOTAL 0.3 mg/dL (0.2-1); BLOOD UREA NITROGEN 10 mg/dL (7-18); CALCIUM 8.8 mg/dL (8.5-10.1); CHLORIDE 106 mmol/L (98-107); CO2 24 mmol/L (21-32); CREATININE 0.8 mg/dL (0.55-1.3); GLUCOSE,RANDOM 109 mg/dL (74-106); N-TERMINAL BNP 131.9 pg/ml (5-450); POTASSIUM 3.7 mmol/L (3.5-5.1); SGOT/AST 30 U/L (15-37); SGPT/ALT 25 U/L (13-61); SODIUM 143 mmol/L (136-145); TOT PROT 8.2 g/dl (6.4-8.2)
[2018-07-09] MEDS ORDERED: HEPARIN NA (PORCINE) 5,000 UNITS/ML 1ML VIAL IVPUSH PRN ×2 (18:02)
--- NOTE | 2018-07-09 18:21 | HP ---
CHIEF COMPLAINT: chest pain, shortness of breath, palpitations PCP: Dr. Guzman HISTORY OF PRESENT ILLNESS: Patient is a 77 year old male with a significant past medical history of BPH, hypertension, HLD, atrial fibrillation and ETOH Abuse (drinks vodka, half pint per day-on most days of the week-last drink today at 2pm). He is brought into the ED via ambulance when began to experience acute left sided chest pain 10/10 , shortness of breath, dizziness, nausea and palpitations today at home. He has been experiencing intermittent chest pain for a few weeks but today, the chest pain became severe, and felt his heart racing and short of breath prompting his family to call EMS. On EMS arrival, he was reported to be in SVT and was given adenosine 6mg>12mg. He was then reported to be in atrial fibrillation with RVR and was also given Lopressor 5mg en route to the ED. On admission, patient was laying in the bed, in no acute distress. NSR 80s on cardiac rn. BP 150/90. 97% oxygen-room air. Son and at bedside. Patient states he takes Eliquis 5mg BID but has not taken it since Tuesday. He also takes "another medication" for this heart that is 75mg but cannot recall name. He reports that he takes his cardiac medications only when he is not drinking ETOH, but admits to drinking 3-4 times per week. *unable to verify home meds as pt did not recall name, and his pharmacy [facility] [place] [facility] was closed* ER course was notable for: (1) heparin drip (2) ekg afib rvr, rbbb (3) trop negative x 1 (4) negative d dimer Recent Travel: PAST MEDICAL HISTORY: BPH, hypertension, HLD, atrial fibrillation and ETOH Abuse (drinks vodka, half pint per day-on most days of the week-last drink today at 2pm). PAST SURGICAL HISTORY: denies Social History: Smoking: denies Alcohol: 1/2 pint of vodka a few times per week Drugs: denies Family History: Allergies No Known Allergies Allergy (Verified 07/09/18 16:30) HOME MEDICATIONS: Home Medications Medication Instructions Recorded Unobtainable 04/09/17 PHYSICAL EXAMINATION Vital Signs - 24 hr 07/09/18 16:30 Temperature 97.8 F Pulse Rate 87 Respiratory 20 Rate Blood Pressure 152/80 O2 Sat by Pulse 100 Oximetry (%) GENERAL: Awake, alert, and fully oriented, in no acute distress. HEAD: Normal with no signs of trauma. EYES: Pupils equal, round and reactive to light, extraocular movements intact, sclera anicteric, conjunctiva clear. No lid lag. EARS, NOSE, THROAT: Ears normal, nares patent, oropharynx clear without exudates. Moist mucous membranes. NECK: Normal range of motion, supple without lymphadenopathy, JVD, or masses. LUNGS: Breath sounds equal, clear to auscultation bilaterally. No wheezes HEART: NSR cardiac monitr ABDOMEN: Soft, nontender, not distended, normoactive bowel sounds, no guarding, no rebound, no masses. No hepatomegaly or splenomegaly. MUSCULOSKELETAL: Normal range of motion at all joints. No bony deformities or tenderness. No CVA tenderness. UPPER EXTREMITIES: No peripheral edema. LOWER EXTREMITIES: No peripheral edema. NEUROLOGICAL: Normal speech. Normal gait. PSYCHIATRIC: Cooperative. Good eye contact. Appropriate mood and affect. Laboratory Results - last 24 hr 07/09/18 07/09/18 07/09/18 16:38 16:38 16:38 WBC 7.5 RBC 4.67 Hgb 14.9 Hct 43.8 MCV 93.8 MCH 31.9 MCHC 34.0 RDW 13.6 Plt Count 170 MPV 10.4 Absolute Neuts (auto) 4.9 Neutrophils % 65.1 Lymphocytes % 27.3 Monocytes % 6.2 Eosinophils % 0.9 D Basophils % 0.5 Nucleated RBC % 0 PT with INR 11.70 INR 0.99 PTT (Actin FS) 34.4 Sodium 143 Potassium 3.7 Chloride 106 Carbon Dioxide 24 Anion Gap 13 BUN 10 Creatinine 0.8 Creat Clearance w eGFR > 60 Random Glucose 109 H Calcium 8.8 Total Bilirubin 0.3 AST 30 ALT 25 Alkaline Phosphatase 133 H Creatine Kinase 84 Troponin I 0.05 B-Natriuretic Peptide 131.9 Total Protein 8.2 Albumin 4.0 TSH 3.91 H D ASSESSMENT/PLAN: Patient is a 77 year old male with a significant past medical history of BPH, hypertension, HLD, atrial fibrillation and ETOH Abuse (drinks vodka, half pint per day-on most days of the week-last drink today at 2pm). He is brought into the ED via ambulance when began to experience acute left sided chest pain 10/10 , shortness of breath, dizziness, nausea and palpitations today at home. He has been experiencing intermittent chest pain for a few weeks but today, the chest pain became severe, and felt his heart racing and short of breath prompting his family to call EMS. On EMS arrival, he was reported to be in SVT and was given adenosine 6mg>12mg. He was then reported to be in atrial fibrillation with RVR and was also given Lopressor 5mg en route to the ED. Card: chest pain. acute Rule out ACS trop negative x 1, trend follow up prior cardiac workup Monitor on tele Given ASA 324 in ED. continue asa 81mg daily Atrial fibrillation NSR on cardiac rn. given adenosine and lopressor Started on heparin drip states non compliance with eliquis Started on metoprolol 50mg bid stress test on 07/04/2018-med sized mild intensity refersible defect in the inf. wall base to mid vent.consistent with ischemia. cardiology consult Shortness of breath, improving chest xray shows clear lung rios oxygen prn Negative d dimer Hypertension. On metoprolol, monitor HLD. chronic lipid panel in a.m. Lipitor 40mg daily Psyche Alcohol abuse Low CIWA score, last drink of vodka today at 2pm. no hand tremors on exam, no other neurological signs. will give banana bag Librium 50mg prn for signs of withdrawal start folate, thiamine. consider detox/rehab consult. fen banana bag monitor electrolytes, magnesium prophy heparin gtt Visit type - Emergency Visit Emergency Visit: Yes ED Registration Date: 07/09/18 Care time: The patient presented to the Emergency Department on the above date and was hospitalized for further evaluation of their emergent condition. - New Patient This patient is new to me today: Yes Date on this admission: 07/09/18 - Critical Care Critical Care patient: No
[2018-07-09] MEDS ORDERED: METOPROLOL TARTRATE 5 MG/5 ML VIAL IVPUSH PRN (18:25)
[2018-07-09] MEDS ORDERED: HEPARIN INFUSION - 25,000 UNITS/500 ML INFUS.BAG IVPB ONE (18:26)
[2018-07-09] MEDS ORDERED: chlordiazePOXIDE HCL 25 MG CAPSULE PO PRN (18:28)
[2018-07-09] MEDS: HEPARIN - 25,000 UNIT in SODIUM CHLORIDE 495 ML IV SCH (18:33)
[2018-07-09] MEDS ORDERED: FOLIC ACID INJECTION - 1 MG, THIAMINE HCL 100 MG, MULTIVIT INJECTION ADULT 10 ML in SOD... IVPB ONE (18:45)
[2018-07-09] MEDS ORDERED: ATORVASTATIN CA 40 MG TABLET (FP) PO ONE (21:29)
[2018-07-09] MEDS ORDERED: CLOPIDOGREL BISULFATE 300 MG TABLET PO ONE (22:43)
--- NOTE | 2018-07-09 23:08 | HOSP ---
Physical Examination Vital Signs: Vital Signs Temperature 97.7 F 07/09/18 21:00 Pulse Rate 72 07/09/18 21:00 Respiratory Rate 18 07/09/18 21:00 Blood Pressure 149/74 07/09/18 21:00 O2 Sat by Pulse Oximetry (%) 96 07/09/18 21:00 Labs: CBC, BMP 07/09/18 16:38 07/09/18 16:38 Hospitalist Encounter Assessment: I was called for this patient admitted with chest pain. Repeat troponin was 5. Patient was seen by me, he is asymptomatic with normal physical exam. EKG is unchanged. He is on heparin drip, received ASA, statin, bblocker. Ordered Plavix loading dose.
[2018-07-10] MEDS ORDERED: dilTIAZem HCL 30 MG TABLET (FP) PO SCH
[2018-07-10 06:55] LABS: BASO % 0.8 % (0-2.0); EOS % 3.4 % (0-4.5); HEMATOCRIT 40.8 % (35.4-49); HEMOGLOBIN 13.3 GM/dL (11.7-16.9); LYMPH % 38.4 % (8-40); MCH 30.9 pg (25.7-33.7); MCHC 32.5 g/dl (32.0-35.9); MEAN CELL VOLUME 94.9 fl (80-96); MEAN PLT VOLUME 10.7 fl (7.5-11.1); MONO % 6.3 % (3.8-10.2); NEUT % 51.1 % (42.8-82.8); PLATELET COUNT 147 K/MM3 (134-434); RBC 4.29 M/mm3 (4.00-5.60); WHITE BLOOD COUNT 5.5 K/mm3 (4.0-10.0)
--- NOTE | 2018-07-10 08:44 | PN ---
Progress Note, Physician History of Present Illness: 77 year old male with a significant past medical history of BPH, hypertension, HLD, atrial fibrillation and ETOH Abuse (drinks vodka, half pint per day-on most days of the week-last drink today at 2pm). He is brought into the ED via ambulance when began to experience acute left sided chest pain 10/10, shortness of breath, dizziness, nausea and palpitations today at home. He has been experiencing intermittent chest pain for a few weeks but today, the chest pain became severe, and felt his heart racing and short of breath prompting his family to call EMS. On EMS arrival, he was reported to be in SVT and was given adenosine 6mg>12mg. He was then reported to be in atrial fibrillation with RVR and was also given Lopressor 5mg en route to the ED. Patient had a stress test which showed ischemia - Current Medication List Current Medications: Active Medications Aspirin (Ecotrin -) 81 mg PO DAILY [facility] Atorvastatin Calcium (Lipitor -) 40 mg PO HS [facility] Chlordiazepoxide HCl (Librium -) 50 mg PO Q6H PRN PRN Reason: withdrawals Folic Acid (Folic Acid -) 1 mg PO DAILY [facility] Heparin Sodium (Porcine) (Heparin -) 1,000 unit IVPUSH PRN PRN PRN Reason: Heparin Heparin Sodium (Porcine) (Heparin -) 5,000 unit IVPUSH PRN PRN PRN Reason: Heparin Heparin Sodium (Porcine) 25, (000 unit/ Sodium Chloride) 500 mls @ 20 mls/hr IV TITR [facility]; Protocol Last Admin: 07/09/18 18:33 Dose: 1,000 unit/hr, 20 mls/hr Metoprolol Succinate (Toprol Xl -) 50 mg PO BID [facility] Last Admin: 07/09/18 21:43 Dose: 50 mg Metoprolol Tartrate (Lopressor Injection -) 5 mg IVPUSH Q4H PRN PRN Reason: tachycardia Thiamine HCl (Vitamin B1 -) 100 mg PO DAILY [facility] - Objective Vital Signs: Vital Signs Temperature 98 F 07/10/18 05:00 Pulse Rate 54 L 07/10/18 05:00 Respiratory Rate 18 07/10/18 05:00 Blood Pressure 146/71 07/10/18 05:00 O2 Sat by Pulse Oximetry (%) 96 07/09/18 21:00 Cardiovascular: Yes: S1, S2 Respiratory: Yes: Regular, CTA Bilaterally Gastrointestinal: Yes: Normal Bowel Sounds, Soft Labs: CBC, BMP 07/10/18 05:30 INR, PTT INR 0.99 (0.83-1.09) 07/09/18 16:38 Problem List - Problems (1) Myocardial infarct Assessment/Plan: -Poisive stress test -Follow trop -Cardiology--for cath -On heparin/statin/b-antionette -Tele Code(s): I21.9 - ACUTE MYOCARDIAL INFARCTION, UNSPECIFIED (2) Chest pain Assessment/Plan: -Resolved -As above Code(s): R07.9 - CHEST PAIN, UNSPECIFIED Qualifiers: Chest pain type: unspecified Qualified Code(s): R07.9 - Chest pain, unspecified (3) Atrial fibrillation Assessment/Plan: -On heparin Code(s): I48.91 - UNSPECIFIED ATRIAL FIBRILLATION (4) HTN (hypertension) Assessment/Plan: -Controlled Code(s): I10 - ESSENTIAL (PRIMARY) HYPERTENSION
[2018-07-10 09:16] LABS: ALBUMIN 3.3 g/dl (3.4-5.0); ALK PHOS 107 U/L (45-117); ANION GAP 8 MMOL/L (8-16); BILIRUBIN,TOTAL 0.4 mg/dL (0.2-1); BLOOD UREA NITROGEN 12 mg/dL (7-18); CALCIUM 7.9 mg/dL (8.5-10.1); CHLORIDE 108 mmol/L (98-107); CHOLESTEROL 181 mg/dL (50-200); CO2 24 mmol/L (21-32); CREATININE 0.6 mg/dL (0.55-1.3); GLUCOSE,RANDOM 117 mg/dL (74-106); HDL CHOLESTEROL 55 mg/dL (40-60); MAGNESIUM 2.1 mg/dL (1.8-2.4); POTASSIUM 3.7 mmol/L (3.5-5.1); SGOT/AST 43 U/L (15-37); SGPT/ALT 21 U/L (13-61); SODIUM 140 mmol/L (136-145); TOT PROT 6.8 g/dl (6.4-8.2); TRIGLYCERIDES 121 mg/dL (0-150)
[2018-07-10] MEDS: THIAMINE HCL 100 MG TABLET (FP) PO SCH (09:55)
[2018-07-10] MEDS: FOLIC ACID 1 MG TABLET (FP) PO SCH (09:56)
[2018-07-10] MEDS: ASPIRIN COATED 81 MG TABLET.EC PO SCH (09:56)
--- NOTE | 2018-07-10 14:49 | CON.CARD ---
Consult Consult Specialty:: Cardiology Referred by:: Louis Reason for Consultation:: chest pain, paf - History of Present Illness Chief Complaint: chest pain History of Present Illness: 77 year old man with pmh afib dx 03/2017, cad s/p stent 03/2017, at [facility], prior etoh abuse, HTN, admitted with chest pain, found to be in atrial fibrillation with RVR, converted to NSR. Pt states that since 04/2018 he has had approx 3-4 episodes of chest pain. States that when he is walking up hills he feels dyspnea on exertion and throat tightness. Echo 07/04/18: normal EF 60%, trace MR/TR, trace to mild AI Nuclear Stress Test 07/04/18: ST depressions v2, v3. medium sized, mild intensity inferolateral defect from base to mid ventricle, EF 65%. - History Source History Provided By: Patient, Medical Record Limitations to Obtaining History: No Limitations - Past Medical History Cardio/Vascular: Yes: AFIB, HTN Psych: Yes: Addictions - Past Surgical History Past Surgical History: Yes: None - Alcohol/Substance Use Hx Alcohol Use: Yes - Smoking History Smoking history: Never smoked Have you smoked in the past 12 months: No Home Medications - Allergies Allergies/Adverse Reactions: Allergies Allergy/AdvReac Type Severity Reaction Status Date / Time No Known Allergies Allergy Verified 07/09/18 16:30 - Home Medications Home Medications: Ambulatory Orders Apixaban [Eliquis] 1 tab PO BID 07/09/18 Metoprolol Tartrate 75 mg PO DAILY 07/09/18 Vital Signs: Vital Signs Temperature 98.3 F 07/10/18 09:00 Pulse Rate 54 L 07/10/18 09:00 Respiratory Rate 18 07/10/18 09:00 Blood Pressure 133/62 07/10/18 09:00 O2 Sat by Pulse Oximetry (%) 98 07/10/18 09:00 - Other Data Labs, Other Data: CBC, BMP 07/10/18 05:30 07/10/18 05:30 INR, PTT INR 0.99 (0.83-1.09) 07/09/18 16:38 Troponin, BNP 07/09/18 07/09/18 07/10/18 16:38 21:43 05:30 Troponin I 0.05 5.44 H* Cancelled B-Natriuretic Peptide 131.9 07/10/18 07/10/18 05:30 05:30 Troponin I 4.29 H* Cancelled B-Natriuretic Peptide Troponin, BNP 07/09/18 07/09/18 07/10/18 16:38 21:43 05:30 Troponin I 0.05 5.44 H* Cancelled B-Natriuretic Peptide 131.9 07/10/18 07/10/18 05:30 05:30 Troponin I 4.29 H* Cancelled B-Natriuretic Peptide Imaging - Results Chest X-ray: Report Reviewed EKG: Report Reviewed (nsr rbbb) Assessment/Plan 77 year old man with pmh afib dx 03/2017, cad s/p stent 03/2017, at [facility], prior etoh abuse, HTN, admitted with chest pain, found to be in atrial fibrillation with RVR, converted to NSR. Pt states that since 04/2018 he has had approx 3-4 episodes of chest pain. States that when he is walking up hills he feels dyspnea on exertion and throat tightness. Echo 07/04/18: normal EF 60%, trace MR/TR, trace to mild AI Nuclear Stress Test 07/04/18: ST depressions v2, v3. medium sized, mild intensity inferolateral defect from base to mid ventricle, EF 65%. 1. Unstable angina -risk factors and abnormal stress test on medications, history of prior stent. -continue asa, plavix and heparin -transfer to [facility] 07/11/18 for cardiac catheterization. 2. PAF -holding Eliquis -Continue BB -need to get prior records from [facility]
[2018-07-10] MEDS: HEPARIN - 25,000 UNIT in SODIUM CHLORIDE 495 ML IV SCH ×2 (15:32→18:39)
--- NOTE | 2018-07-10 18:28 | EKG ---
Test Reason : Blood Pressure : / mmHG Vent. Rate : 064 BPM Atrial Rate : 064 BPM P-R Int : 160 ms QRS Dur : 136 ms QT Int : 454 ms P-R-T Axes : 043 -81 038 degrees QTc Int : 468 ms NORMAL SINUS RHYTHM RIGHT BUNDLE BRANCH BLOCK LEFT ANTERIOR FASCICULAR BLOCK BIFASCICULAR BLOCK ABNORMAL ECG WHEN COMPARED WITH ECG OF 09-JUL-2018 16:44, T WAVE INVERSION NO LONGER EVIDENT IN INFERIOR LEADS Confirmed by BRUNA ALANIZ MD ([id number]) on 07/10/2018 6:28:32 PM Referred By: Confirmed By:BRUNA ALANIZ MD
--- NOTE | 2018-07-10 18:29 | EKG ---
Test Reason : Blood Pressure : / mmHG Vent. Rate : 088 BPM Atrial Rate : 088 BPM P-R Int : 162 ms QRS Dur : 136 ms QT Int : 414 ms P-R-T Axes : 026 -79 -12 degrees QTc Int : 500 ms NORMAL SINUS RHYTHM RIGHT BUNDLE BRANCH BLOCK LEFT ANTERIOR FASCICULAR BLOCK BIFASCICULAR BLOCK CANNOT RULE OUT INFERIOR INFARCT (CITED ON OR BEFORE 09-APR-2017) ABNORMAL ECG WHEN COMPARED WITH ECG OF 10-APR-2017 12:00, VENT. RATE HAS INCREASED BY 34 BPM T WAVE INVERSION NO LONGER EVIDENT IN ANTEROLATERAL LEADS QT HAS LENGTHENED Confirmed by CORBIN CHUN, BRUNA ([id number]) on 07/10/2018 6:29:24 PM Referred By: Confirmed By:BRUNA ALANIZ MD
[2018-07-10] MEDS ORDERED: ATORVASTATIN CA 40 MG TABLET (FP) PO SCH (22:00)
[2018-07-11 07:17] VITALS: TEMP 97.6
--- NOTE | 2018-07-11 08:51 | PN ---
Progress Note, Physician Chief Complaint: no chest pain tele neg History of Present Illness: 77 year old man with pmh afib dx 03/2017, cad s/p stent 03/2017, at [facility], prior etoh abuse, HTN, admitted with chest pain, found to be in atrial fibrillation with RVR, converted to NSR. Pt states that since 04/2018 he has had approx 3-4 episodes of chest pain. States that when he is walking up hills he feels dyspnea on exertion and throat tightness. Troponin I normal then elevated to 5. Echo 07/04/18: normal EF 60%, trace MR/TR, trace to mild AI Nuclear Stress Test 07/04/18: ST depressions v2, v3. medium sized, mild intensity inferolateral defect from base to mid ventricle, EF 65%. awaiting transfer to [facility] for cardiac catheterization. - Current Medication List Current Medications: Active Medications Aspirin (Ecotrin -) 81 mg PO DAILY [facility] Last Admin: 07/10/18 09:56 Dose: 81 mg Atorvastatin Calcium (Lipitor -) 40 mg PO HS [facility] Last Admin: 07/10/18 22:14 Dose: 40 mg Chlordiazepoxide HCl (Librium -) 50 mg PO Q6H PRN PRN Reason: withdrawals Last Admin: 07/10/18 22:17 Dose: 50 mg Folic Acid (Folic Acid -) 1 mg PO DAILY [facility] Last Admin: 07/10/18 09:56 Dose: 1 mg Heparin Sodium (Porcine) (Heparin -) 1,000 unit IVPUSH PRN PRN PRN Reason: Heparin Heparin Sodium (Porcine) (Heparin -) 5,000 unit IVPUSH PRN PRN PRN Reason: Heparin Heparin Sodium (Porcine) 25, (000 unit/ Sodium Chloride) 500 mls @ 20 mls/hr IV TITR RAMYA; Protocol Last Admin: 07/10/18 18:39 Dose: 850 unit/hr, 17 mls/hr Metoprolol Succinate (Toprol Xl -) 50 mg PO BID [facility] Last Admin: 07/10/18 22:14 Dose: 50 mg Metoprolol Tartrate (Lopressor Injection -) 5 mg IVPUSH Q4H PRN PRN Reason: tachycardia Thiamine HCl (Vitamin B1 -) 100 mg PO DAILY [facility] Last Admin: 07/10/18 09:55 Dose: 100 mg - Objective Vital Signs: Vital Signs Temperature 97.6 F 07/11/18 05:20 Pulse Rate 52 L 07/11/18 05:20 Respiratory Rate 20 07/11/18 05:20 Blood Pressure 141/61 07/11/18 05:20 O2 Sat by Pulse Oximetry (%) 98 07/10/18 21:00 Constitutional: Yes: No Distress, Calm Eyes: Yes: Conjunctiva Clear, EOM Intact HENT: Yes: Atraumatic, Normocephalic Neck: Yes: Supple, Trachea Midline Cardiovascular: Yes: Regular Rate and Rhythm Respiratory: Yes: CTA Bilaterally Gastrointestinal: Yes: Normal Bowel Sounds, Soft Extremities: Yes: WNL Edema: No Peripheral Pulses WNL: Yes Labs: CBC, BMP 07/10/18 05:30 07/10/18 05:30 INR, PTT INR 0.99 (0.83-1.09) 07/09/18 16:38 Assessment/Plan 77 year old man with pmh afib dx 03/2017, cad s/p stent 03/2017, at [facility], prior etoh abuse, HTN, admitted with chest pain, found to be in atrial fibrillation with RVR, converted to NSR. Pt states that since 04/2018 he has had approx 3-4 episodes of chest pain. States that when he is walking up hills he feels dyspnea on exertion and throat tightness. Echo 07/04/18: normal EF 60%, trace MR/TR, trace to mild AI Nuclear Stress Test 07/04/18: ST depressions v2, v3. medium sized, mild intensity inferolateral defect from base to mid ventricle, EF 65%. 1. NSTEMI -recent abnormal stress test on medications, history of prior stent. -continue asa, plavix and heparin -transfer to [facility] today for cardiac catheterization with possible PCI. 2. PAF -holding Eliquis -Continue BB -need to get prior records from [facility]
--- NOTE | 2018-07-11 09:25 | DS ---
Physical Examination Vital Signs: Vital Signs Temperature 97.6 F 07/11/18 05:20 Pulse Rate 52 L 07/11/18 05:20 Respiratory Rate 20 07/11/18 05:20 Blood Pressure 141/61 07/11/18 05:20 O2 Sat by Pulse Oximetry (%) 98 07/10/18 21:00 Cardiovascular: Yes: S1, S2 Respiratory: Yes: Regular, CTA Bilaterally Gastrointestinal: Yes: Normal Bowel Sounds, Soft. No: Tenderness Labs: CBC, BMP 07/10/18 05:30 07/10/18 05:30 Discharge Summary Reason For Visit: CHEST PAIN, PALPITATIONS Current Active Problems Chest pain (Acute) Myocardial infarct (Acute) Palpitations (Acute) Hospital Course: - Problems (1) Myocardial infarct Assessment/Plan: -Positive stress test -Follow trop -Cardiology--for cath -On heparin/statin/b-antionette -Tele Code(s): I21.9 - ACUTE MYOCARDIAL INFARCTION, UNSPECIFIED (2) Chest pain Assessment/Plan: -Resolved -As above Code(s): R07.9 - CHEST PAIN, UNSPECIFIED Qualifiers: Chest pain type: unspecified Qualified Code(s): R07.9 - Chest pain, unspecified (3) Atrial fibrillation Assessment/Plan: -On heparin Code(s): I48.91 - UNSPECIFIED ATRIAL FIBRILLATION (4) HTN (hypertension) Assessment/Plan: -Controlled Code(s): I10 - ESSENTIAL (PRIMARY) HYPERTENSION Condition: Stable - Instructions Referrals: Dorinda Guzman MD [Primary Care Provider] - - Home Medications Comprehensive Discharge Medication List: Ambulatory Orders Apixaban [Eliquis] 1 tab PO BID 07/09/18 Metoprolol Tartrate 75 mg PO DAILY 07/09/18
[2018-07-11] MEDS: ASPIRIN COATED 81 MG TABLET.EC PO SCH (09:35)
[2018-07-11] MEDS: THIAMINE HCL 100 MG TABLET (FP) PO SCH (09:35)
[2018-07-11] MEDS: FOLIC ACID 1 MG TABLET (FP) PO SCH (09:35)
[2018-07-11 12:11] VITALS: BP 132/59; PULSE 55
== END 2018-07-11 12:00 | disposition home or self-care (01) | DRG 282 ==
LOC: JER 16:27 → JERBED 17:41 → J4W 20:30 → OBSVTOIN 07-10 08:25
PROVIDERS: ADMIT Family Medicine; ATTEND Family Medicine
DX: I21.4 Non-ST elevation (NSTEMI) myocardial infarction (principal); E78.5 Hyperlipidemia, unspecified; I10 Essential (primary) hypertension; F10.10 Alcohol abuse, uncomplicated; N40.0 Benign prostatic hyperplasia without lower urinary tract symptoms; I48.0 Paroxysmal atrial fibrillation
CPT/HCPCS: 36415; 71045-TC-FY; 80053; 80061; 82550; 82553; 83036; 83721; 83735; 83880; 84443; 84484; 85025; 85379; 85610; 85730; 93005; 93010; 99284-25; G0378; J1644; J7030

== ENCOUNTER 2018-09-19 13:51 | Inpatient (IN) | payer OTHER ==
[2018-09-19] MEDS ORDERED: ADENOSINE 6 MG/2 ML VIAL IVPUSH ONE (14:13)
--- NOTE | 2018-09-19 14:23 | PDOC ---
History of Present Illness - General Stated Complaint: CHEST PAIN Time Seen by Provider: 09/19/18 14:09 History Source: Patient Exam Limitations: No Limitations - History of Present Illness Initial Comments: 09/19/18 14:20 The patient is a 78M with a PMH of a-fib, HTN, and possible EtOH abuse who presents to the ER from PCP's office for evaluation of CP. The patient states that he had 1 hour of retrosternal CP without radiation associated with diaphoresis and nausea with SOB. He went to his PCP's office who gave him 325 asa, plavix, and sent him to our facility. The patient complains of palpitations but states he feels "a little better". The patient denies active CP now. The patient admits to having multiple episodes of pain similar to this in the past year, most recently in June, but does not remember what they did except for transfer him to another facility. Past History - Past Medical History Allergies/Adverse Reactions: Allergies Allergy/AdvReac Type Severity Reaction Status Date / Time No Known Allergies Allergy Verified 09/19/18 14:14 Home Medications: Ambulatory Orders Apixaban [Eliquis] 1 tab PO BID 07/09/18 Metoprolol Tartrate 100 mg PO DAILY 07/09/18 Aspirin 81 mg PO DAILY 09/19/18 Atorvastatin Ca [Lipitor] 80 mg PO HS 09/19/18 Clopidogrel Bisulfate [Plavix] 75 mg PO DAILY 09/19/18 Lisinopril 20 mg PO DAILY 09/19/18 Rosuvastatin Calcium [Crestor] 10 mg PO DAILY 09/19/18 Cardiac Disorders: Yes (AFIB) COPD: No HTN: Yes Hypercholesterolemia: Yes - Suicide/Smoking/Psychosocial Hx Smoking History: Never smoked Have you smoked in the past 12 months: No Information on smoking cessation initiated: No Hx Alcohol Use: No Drug/Substance Use Hx: No Hx Substance Use Treatment: No Review of Systems - Review of Systems Able to Perform ROS?: Yes Comments:: 09/19/18 15:31 GENERAL/CONSTITUTIONAL: No fever or chills. No weakness. HEAD, EYES, EARS, NOSE AND THROAT: No change in vision. No ear pain or discharge. No sore throat. CARDIOVASCULAR: Positive for CP and palpitations. RESPIRATORY: Positive for shortness of breath and diaphoresis. No cough, wheezing, or hemoptysis. GASTROINTESTINAL: No nausea, vomiting, diarrhea, constipation, or abdominal pain. GENITOURINARY: No dysuria, frequency, hematuria, or change in urination. MUSCULOSKELETAL: No joint or muscle swelling or pain. No neck or back pain. SKIN: No rash or lesions. NEUROLOGIC: No headache, numbness, tingling, focal weakness, loss of consciousness, or change in strength/sensation. Is the patient limited Setswana proficient: No *Physical Exam - Vital Signs Last Vital Signs Temp Pulse Resp BP Pulse Ox 98.2 F 148 H 18 183/108 H 97 09/19/18 14:14 09/19/18 14:14 09/19/18 14:14 09/19/18 14:14 09/19/18 14:14 - Physical Exam Comments: 09/19/18 15:35 GENERAL: Well developed, well nourished. Awake and alert. In mild distress. HEENT: Normocephalic, atraumatic. Hearing grossly normal. Moist mucous membranes. PERRLA, EOMI. No conjunctival pallor. Sclera are non-icteric. NECK: Supple. Full ROM. No JVD. CARDIOVASCULAR: Tachycardic with regular rhythm. No murmurs, rubs, or gallops. PULMONARY: No evidence of respiratory distress. Lungs clear to auscultation bilaterally. No wheezing, rales or rhonchi. ABDOMINAL: Soft. Non-tender. Non-distended. No rebound or guarding. GENITOURINARY: No CVA tenderness bilaterally. MUSCULOSKELETAL: Normal range of motion at all joints. No bony deformities or tenderness. EXTREMITIES: No cyanosis. No clubbing. No edema. No calf tenderness or swelling. SKIN: Warm and dry. Normal capillary refill. No rashes. No jaundice. NEUROLOGICAL: Alert, awake, appropriate. Cranial nerves 2-12 grossly intact. Normal speech. Gait is normal without ataxia. PSYCHIATRIC: Cooperative. Good eye contact. Appropriate mood and affect. Moderate Sedation - Procedure Monitoring Vital Signs: Procedure Monitoring Vital Signs Temperature 98.2 F 09/19/18 14:14 Pulse Rate 148 H 09/19/18 14:14 Respiratory Rate 18 09/19/18 14:14 Blood Pressure 183/108 H 09/19/18 14:14 O2 Sat by Pulse Oximetry (%) 97 09/19/18 14:14 ED Treatment Course - LABORATORY CBC & Chemistry Diagram: 09/19/18 14:00 09/19/18 14:00 Medical Decision Making - Medical Decision Making 09/19/18 15:44 The patient is a 78M with a PMH of a-fib, HTN, and possible EtOH abuse who presents to the ER from his PCP's office for concerning CP (ACS). Pt was already given medications at PCP's office, Dr. Guzman. Upon arrival, the patient was noted to be in sinus tach which converted to SVT. Pt converted to NSR with the use of vagal maneuvers. Pt is currently stable and in NSR. Hemodynamically stable with his pain being "a little better". Will d/w cards and admit to our facility. Trop and mag WNL. CBC WNL. 09/19/18 15:49 CXR negative on preliminary read. Pending official read. 09/19/18 15:55 I have endorsed the patient to Dr. Guzman for admission. He requests Dr. Couch for consultation. *DC/Admit/Observation/Transfer Diagnosis at time of Disposition: Palpitations, Atrial fibrillation with rapid ventricular response Atrial fibrillation Qualifiers: Atrial fibrillation type: unspecified Qualified Code(s): I48.91 - Unspecified atrial fibrillation - Discharge Dispostion Condition at time of disposition: Guarded Decision to Admit order: Yes - Referrals Referrals: Dorinda Guzman MD [Primary Care Provider] - - Patient Instructions - Post Discharge Activity
--- NOTE | 2018-09-19 14:25 | PDOC ---
Attending Attestation - HPI HPI: 09/19/18 15:34 70 year old male with a PMH of CAD, [place], paroxysmal AFIB on eliquis , HTN, abnormal myocardial stress test (06/2018) BIBEMS who presents to the emergency department for evaluation of intermittent episodes of R sided chest pain. Patient was at doctors office this morning where he felt right sided chest pain with associated diaphoresis and nausea. Patient had PCI done in June 2018. EMS reports patient was given 4 baby aspirin, 300mg of plavix, and a 100mg of metoprolol at 1:35pm at PCPs office. PCP: Dr. 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 Gaitan - Medical Decision Making Documentation prepared by Fabiano Garcia, acting as medical oncology physician for Cici Syed MD. <Fabiano Garcia - Last Filed: 09/19/18 16:17> - Resident Resident Name: Derik Hanks - ED Attending Attestation I have performed the following: I have examined & evaluated the patient, The case was reviewed & discussed with the resident, I agree w/resident's findings & plan - HPI HPI: 09/19/18 16:09 - Physicial Exam PE: 09/19/18 14:28 NAD, EOMI, PERRL, MMM, nl conjunctiva, anicteric; neck supple. lungs clear, + tachycardia, no murmurs. abdomen soft nontender. BERNARD x4, no focal neuro deficits. No peripheral edema. normal color for ethnicity, WWP - Critical Care Time Total Critical Care Time: 40 (SVT/arrhythmia) Critical Care Statement: The care of this patient involved high complexity decision making to prevent further life threatening deterioration of the patient 's condition and/or to evaluate & treat vital organ system(s) failure or risk of failure. - Medical Decision Making I, Cici Syed MD, attest that this document has been prepared under my direction and personally reviewed by me in its entirety. I further attest, that it accurately reflects all work, treatment, procedures and medical decision -making performed by me. See HPI for details DDx chest pain: ACS, coronary vasospasm, NSTEMI, arrhythmia, SVT, AVNRT, unstable angina, PUD, esophageal spasm, GERD, gastritis, costochondritis, pneumonia, pleurisy, pericarditis/myocarditis. dehydration, electrolyte/ metabolic derangements. unlikely PE/dissection with history. Vital signs reviewed, +tachycardic, normal respirations and mildly hypertensive. Prior notes reviewed, including admissions, discharges and consultations. laboratory results and imaging reviewed, basic labs and lytes wnl, notable for hypothyroid state. Mg normal CXR_clear, no edema/effusion. Cardiac panel_neg trop. EKG SVT, no interval abnormalities, incomplete RBBB, ST and T wave segments and morphology abnormal. Nonspecific T wave abnormalities with depressions in ST segment anterior leads likely rate related. ED course: HEART score elevated, in moderate category, admit for r/o ACS and tele given recent PCI/CAD history in 06/2018. valsalva performed at bedside for SVT that slowed down the rate to 90s-100s, with P waves returning back to sinus rhythm on multiple checks no additional BB/CCB, adenosine required 'BP improving on own. already had extra dose of metoprolol at pcp office already received PO ASA and Plavix. cards cs to Dr Martinez, who had PCI Performed admit for arrhythmia, r/o ACS and cards eval for sx and SVT presentation. 09/19/18 16:09 09/19/18 19:32 <Cici Syed - Last Filed: 09/19/18 19:32> Heart Score/ECG Review - History History: Moderately suspicious - Electrocardiogram EKG: Significant ST-depression - Age Age: >/= 65 - Risk Factors Risk Factors Heart Score: Yes Hx Hypercholesterolemia, Yes Hx Hypertension Based on the list above the patient has:: 1-2 risk factors - Troponin Troponin: </= normal limit - Score Heart Score - Total: 6 - ECG Impressions Normal ECG: No Comment:: 09/19/18 16:16 EKG SVT rate 140s, no interval abnormalities, incomplete RBBB, ST and T wave segments and morphology abnormal. Nonspecific T wave abnormalities with depressions in ST segment anterior leads likely rate related. <Cici Syed - Last Filed: 09/19/18 19:32>
[2018-09-19] MEDS ORDERED: ASPIRIN 81 MG CHEWABLE TABLETS PO ONE (14:26)
[2018-09-19 14:49] LABS: BASO % 0.7 % (0-2.0); EOS % 1.4 % (0-4.5); HEMATOCRIT 38.9 % (35.4-49); HEMOGLOBIN 13.1 GM/dL (11.7-16.9); LYMPH % 23.4 % (8-40); MCH 29.6 pg (25.7-33.7); MCHC 33.7 g/dl (32.0-35.9); MEAN CELL VOLUME 87.9 fl (80-96); MEAN PLT VOLUME 11.1 fl (7.5-11.1); NEUT % 65.5 % (42.8-82.8); PLATELET COUNT 178 K/MM3 (134-434); RBC 4.43 M/mm3 (4.00-5.60); WHITE BLOOD COUNT 7.6 K/mm3 (4.0-10.0)
[2018-09-19 15:02] LABS: INR 1.01 (0.83-1.09); PROTHROMBIN TIME (PATIENT) 11.9 SEC (9.7-13.0)
[2018-09-19 15:21] LABS: ALBUMIN 3.9 g/dl (3.4-5.0); ALK PHOS 163 U/L (45-117); ANION GAP 7 MMOL/L (8-16); BILIRUBIN,TOTAL 0.4 mg/dL (0.2-1); BLOOD UREA NITROGEN 13 mg/dL (7-18); CALCIUM 8.4 mg/dL (8.5-10.1); CHLORIDE 101 mmol/L (98-107); CO2 30 mmol/L (21-32); CREATININE 0.7 mg/dL (0.55-1.3); GLUCOSE,RANDOM 134 mg/dL (74-106); POTASSIUM 3.7 mmol/L (3.5-5.1); SGOT/AST 21 U/L (15-37); SGPT/ALT 21 U/L (13-61); SODIUM 137 mmol/L (136-145); TOT PROT 8.2 g/dl (6.4-8.2)
--- NOTE | 2018-09-19 16:41 | CON.CARD ---
Consult Consult Specialty:: Cardiology Referred by:: Dr. Guzman Reason for Consultation:: Chest pain, arrhythmia - History of Present Illness Chief Complaint: chest pain History of Present Illness: 78 year old man with pmhPafibwith RVRdx 03/2017on eliquis considered for ablation in the past, pafib with RVR on last admission 06/2018,[facility], most recently PCI with GRIFFIN RCA 2017 [facility] with plan for possible staged PCI for chronic total occluded LCx, Moderate to severe Aortic regurgitation in the past, prior etoh abuse, HTN,HLD He was admitted to [facility] 07/10/18 with chest pain and found to be in Afib with RVR that spontaneously converted to NSR and with a Troponin I of 5 with relatively normal CK level transferred to [facility] for cardiac cath andfound to have results as below [facility] and severe dLAD with mild prox and mid LAD disease He did well post PCI with no further chest pain. Pt was then seen in the office after discharge 06/2018 and c/o GI bleeding. He went to GI Dr. Kennedy that day but did not follow up after that. He states that he did have a colonoscopy but does not know the results and that he was considered for EGD but was not done. He went to routine office visit with PMD Dr. Guzman today and while in the exam room began feeling substernal chest pressure. He was sent to the ER where he was found to have PSVT at 147 bpm that broke with Valsalva prior to receiving medications. He was seen and examined in the ER in [facility]. No further chest pain currently. States he ran out of Aspirin this week tuesday and did not get a refill. states he has been taking his Plavix and Eliquis as well as his other meds. Denies etoh use. No sob, pnd, orthopnea, or LE edema. Echo(07/04/18): Nl EF-60% NST (07/04/18): ST depressions V2-V3 Medium sized, mild intensity inferolateral defect from base-->mid LV, EF-65% ECHO 07/12/18 Interpretation Summary Normal left ventricular wall motion and ejection fraction. Mild to moderate aortic valve regurgitation. Mild mitral valve regurgitation. Normal right ventricular function. Cardiac Cath The ejection fraction is to be 55%. 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 - History Source History Provided By: Patient, Medical Record Limitations to Obtaining History: Language Barrier - Past Medical History Cardio/Vascular: Yes: AFIB, CAD, HTN Psych: Yes: Addictions - Past Surgical History Past Surgical History: Yes: None - Alcohol/Substance Use Hx Alcohol Use: No - Smoking History Smoking history: Never smoked Have you smoked in the past 12 months: No Home Medications - Allergies Allergies/Adverse Reactions: Allergies Allergy/AdvReac Type Severity Reaction Status Date / Time No Known Allergies Allergy Verified 09/19/18 14:14 - Home Medications Home Medications: Ambulatory Orders Apixaban [Eliquis] 1 tab PO BID 07/09/18 Metoprolol Tartrate 100 mg PO DAILY 07/09/18 Aspirin 81 mg PO DAILY 09/19/18 Atorvastatin Ca [Lipitor] 80 mg PO HS 09/19/18 Clopidogrel Bisulfate [Plavix] 75 mg PO DAILY 09/19/18 Lisinopril 20 mg PO DAILY 09/19/18 Rosuvastatin Calcium [Crestor] 10 mg PO DAILY 09/19/18 Family Disease History - Family Disease History Family History: Denies Review of Systems - Review of Systems Constitutional: denies: No Symptoms, Chills, Diaphoresis, Fever, Lethargy, Loss of Appetite, Malaise, Night Sweats, Unintentional Wgt. Loss, Weakness, Other Eyes: denies: No Symptoms, Blind Spots, Blurred Vision, Double Vision, Eye Pain , Floaters, Photophobia, Recent Change in Vision, Other HENT: denies: No Symptoms, Difficult Swallowing, Ear Discharge, Ear Pain, Epistaxis, Gingival Bleeding, Hearing Loss, Mouth Swelling, Nasal Congestion, Ocular Prosthesis, Throat Pain, Toothache, Ringing in Ears, Other Neck: denies: No Symptoms, Decreased ROM, Lumps, Pain on Movement, Stiffness, Swollen Glands, Tenderness, Other Cardiovascular: reports: Chest Pain. denies: No Symptoms, Edema, Palpitations, Shortness of Breath, Other Respiratory: denies: No Symptoms, Cough, Exercise Intolerance, Hemoptysis, Orthopnea, PND, Snoring, SOB, SOB on Exertion, Wheezing, Other Gastrointestinal: denies: No Symptoms, Abdominal Pain, Bloating, Constipation, Diarrhea, Dysphagia, Indigestion, Melena, Nausea, Rectal Bleeding, Vomiting, Vomiting Blood, Other Breasts: denies: No Symptoms Reported, See HPI, Breast Implants, Discharge from Nipple, Lumps, Pain, Skin Changes, Other Musculoskeletal: denies: No Symptoms, Back Pain, Crepitus, Decreased ROM, Extremity Pain, Joint Pain, Joint Swelling, Muscle Pain, Muscle Cramps, Muscle Weakness, Other Integumentary: denies: No Symptoms, Blister, Bruising, Change in Color, Eczema, Erythema, Incision, Lesions, Lump, Pallor, Pruritis, Rash, Wound, Other Neurological: denies: No Symptoms, Change in LOC, Change in Speech, Confusion, Dizziness, Headache, Incoordination, Numbness, Parasthesia, Pre-Existing Deficit , Seizure, Syncope, Tremors, Unsteady Gait, Weakness, Other Endocrine: denies: No Symptoms, Excessive Sweating, Flushing, Increased Hunger, Increased Thirst, Intolerance to Cold, Intolerance to Heat, Unexplained Weight Gain, Unexplained Weight Loss, Other Hematology/Lymphatic: denies: No Symptoms, Easily Bruised, Excessive Bleeding, Swollen Glands, Other Psychiatric: denies: No Symptoms, Altered Sleep Pattern, Anxiety, Depression, Hallucinations, Panic, Paranoia, Suicidal, Other - Risk Factors Known Risk Factors: Yes: Diabetes Mellitus, Hypercholesterolemia, Hypertension, Prior KS /Emb Stroke Vital Signs: Vital Signs Temperature 98.2 F 09/19/18 14:14 Pulse Rate 62 09/19/18 16:24 Respiratory Rate 20 09/19/18 15:51 Blood Pressure 162/87 09/19/18 15:51 O2 Sat by Pulse Oximetry (%) 98 09/19/18 15:51 Constitutional: Yes: Well Nourished, No Distress, Calm Eyes: Yes: WNL, Conjunctiva Clear, EOM Intact, PERRL HENT: Yes: WNL, Atraumatic, Normocephalic Neck: Yes: WNL, Supple, Trachea Midline Respiratory: Yes: WNL, Regular, CTA Bilaterally. No: Rales, Rhonchi, Tachypnea , Wheezes Gastrointestinal: Yes: WNL, Normal Bowel Sounds, Soft. No: Distention, Tenderness Renal/: Yes: WNL Cardiovascular: Yes: WNL, Regular Rate and Rhythm. No: Bradycardia, Tachycardia , Pulse Irregular, Gallop, Rub, Varicosities JVD: No Carotid Bruit: No PMI: Non-Displaced Heart Sounds: Yes: S1, S2. No: Split S2, S3, S4, Clicks, Gallop, Rub, Bruit Murmur: No: Systolic Murmur, Diastolic Murmur Musculoskeletal: Yes: WNL Extremities: Yes: WNL Edema: No Peripheral Pulses WNL: Yes Peripheral Pulses: 2+ Left Doralis Pedis, 2+ Right Dorsalis Pedis Integumentary: Yes: WNL Neurological: Yes: WNL, Alert, Oriented, Cran Nerves II-XII Intact ...Motor Strength: WNL Psychiatric: Yes: WNL, Alert, Oriented - Other Data Labs, Other Data: CBC, BMP 09/19/18 14:00 09/19/18 14:00 INR, PTT INR 1.01 (0.83-1.09) 09/19/18 14:00 Troponin, BNP 09/19/18 14:00 Troponin I 0.02 Troponin, BNP 09/19/18 14:00 Troponin I 0.02 PSVT 147bpm with a RBBB, full EKG in NSR pending Echo: Report Reviewed Prior Cardiac Procedures: PTCA with Stent Imaging - Results Chest X-ray: Report Reviewed, Image Reviewed EKG: Report Reviewed, Image Reviewed Other: Report Reviewed, Image Reviewed Assessment/Plan 78 year old man with pmhPafibwith RVRdx 03/2017on eliquis considered for ablation in the past, pafib with RVR on last admission 06/2018,[facility], most recently PCI with GRIFFIN RCA 2017 [facility] with plan for possible staged PCI for chronic total occluded LCx, Moderate to severe Aortic regurgitation in the past, prior etoh abuse, HTN,HLD He was admitted to [facility] 07/10/18 with chest pain and found to be in Afib with RVR that spontaneously converted to NSR and with a Troponin I of 5 with relatively normal CK level transferred to [facility] for cardiac cath andfound to have results as below underwent PCI with GRIFFIN pRCA to [facility] with residual occluded LCx and severe dLAD with mild prox and mid LAD disease He did well post PCI with no further chest pain. Pt was then seen in the office after discharge 06/2018 and c/o GI bleeding. He went to GI Dr. Kennedy that day but did not follow up after that. He states that he did have a colonoscopy but does not know the results and that he was considered for EGD but was not done. He went to routine office visit with PMD Dr. Guzman today and while in the exam room began feeling substernal chest pressure. He was sent to the ER where he was found to have PSVT at 147 bpm that broke with Valsalva prior to receiving medications. He was seen and examined in the ER in [place]. No further chest pain currently. States he ran out of Aspirin this week tuesday and did not get a refill. states he has been taking his Plavix and Eliquis as well as his other meds. Denies etoh use. No sob, pnd, orthopnea, or LE edema. Echo(07/04/18): Nl EF-60% NST (07/04/18): ST depressions V2-V3 Medium sized, mild intensity inferolateral defect from base-->mid LV, EF-65% ECHO 07/12/18 Interpretation Summary Normal left ventricular wall motion and ejection fraction. Mild to moderate aortic valve regurgitation. Mild mitral valve regurgitation. Normal right ventricular function. Cardiac Cath The ejection fraction is to be 55%. 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 -normal LV function on echo as above -pain maybe due to tachyarrhythmia -pain resolved when back in NSR -1st set cardiac enzymes wnl -pt does have known CAD with prior PCIs last 06/2018 PCI RCA with GRIFFIN, ran out of his Aspirin -admit to tele -serial ekgs and cardiac enzymes -resume home ASA 81mg daily, Plavix 75mg daily -cont Toprol XL 100mg daily -if cardiac enzymes trend up start heparin gtt -recent GI bleed after PCI when on ASA, Plavix, ELiquis -need to confirm with GI Dr. 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
[2018-09-19] MEDS ORDERED: APIXABAN 5 MG TABLET PO ONE (22:28)
[2018-09-19] MEDS ORDERED: METOPROLOL TARTRATE 50 MG TABLET (FP) ONE (22:28)
[2018-09-19] MEDS ORDERED: ATORVASTATIN CA 80 MG TABLET (FP) ONE (22:29)
[2018-09-19] MEDS: APIXABAN 5 MG TABLET PO SCH (22:35)
[2018-09-19] MEDS: METOPROLOL TARTRATE 50 MG TABLET (FP) PO SCH (22:35)
[2018-09-19] MEDS: ATORVASTATIN CA 80 MG TABLET (FP) PO SCH (22:35)
[2018-09-20 02:32] VITALS: BMI 29.9
[2018-09-20 06:33] LABS: BASO % 0.9 % (0-2.0); EOS % 3.3 % (0-4.5); HEMATOCRIT 35.7 % (35.4-49); HEMOGLOBIN 11.9 GM/dL (11.7-16.9); LYMPH % 31.9 % (8-40); MCH 29.2 pg (25.7-33.7); MCHC 33.2 g/dl (32.0-35.9); MEAN CELL VOLUME 87.9 fl (80-96); MEAN PLT VOLUME 10.8 fl (7.5-11.1); NEUT % 54.9 % (42.8-82.8); PLATELET COUNT 168 K/MM3 (134-434); RBC 4.07 M/mm3 (4.00-5.60); RDW 15.4 % (11.9-15.9); WHITE BLOOD COUNT 5.3 K/mm3 (4.0-10.0)
[2018-09-20 07:43] LABS: ALBUMIN 3.3 g/dl (3.4-5.0); ALK PHOS 133 U/L (45-117); ANION GAP 8 MMOL/L (8-16); BILIRUBIN,TOTAL 0.5 mg/dL (0.2-1); BLOOD UREA NITROGEN 13 mg/dL (7-18); CALCIUM 8.2 mg/dL (8.5-10.1); CHLORIDE 106 mmol/L (98-107); CO2 27 mmol/L (21-32); CREATININE 0.6 mg/dL (0.55-1.3); GLUCOSE,RANDOM 110 mg/dL (74-106); POTASSIUM 4.3 mmol/L (3.5-5.1); SGOT/AST 20 U/L (15-37); SGPT/ALT 18 U/L (13-61); SODIUM 141 mmol/L (136-145); TOT PROT 6.8 g/dl (6.4-8.2)
--- NOTE | 2018-09-20 10:27 | PN ---
Progress Note, Physician History of Present Illness: Patient evaluated and case discussed with Dr. Kennedy Patient was admitted for SVT. Consulted to see patient due to history of GI bleed. Current medication regimen includes Aspirin, Eliquis, and Plavix. 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 Patient has history of rectal bleeding due to presence of radiation proctitis in past. Complains of heartburn. Denies rectal bleeding, blood in stool, melena, abdominal pain, unexplained weight loss. - Current Medication List Current Medications: Active Medications Apixaban (Eliquis -) 5 mg PO BID [facility] Last Admin: 09/19/18 22:35 Dose: 5 mg Aspirin (Asa -) 81 mg PO DAILY [facility] Atorvastatin Calcium (Lipitor -) 80 mg PO HS [facility] Last Admin: 09/19/18 22:35 Dose: 80 mg Clopidogrel Bisulfate (Plavix -) 75 mg PO DAILY [facility] Lisinopril (Prinivil) 20 mg PO DAILY [facility] Metoprolol Tartrate (Lopressor -) 50 mg PO BID [facility] Last Admin: 09/19/18 22:35 Dose: 50 mg - Objective Vital Signs: Vital Signs Temperature 98.4 F 09/20/18 05:35 Pulse Rate 50 L 09/20/18 05:35 Respiratory Rate 18 09/20/18 05:35 Blood Pressure 126/69 09/20/18 05:35 O2 Sat by Pulse Oximetry (%) 99 09/20/18 02:10 Constitutional: Yes: Well Nourished, No Distress, Calm Eyes: Yes: Conjunctiva Clear Cardiovascular: Yes: Bradycardia Respiratory: Yes: Regular, CTA Bilaterally Gastrointestinal: Yes: Normal Bowel Sounds, Soft, Other (tympany). No: WNL, Abdomen, Obese, Ascites, Distention, Hematemesis, Hemorrhoids, Hepatomegaly, Hernia, Hyperactive Bowel Sounds, Hypoactive Bowel Sounds, Melena, Palpable Mass , Pulsatile Mass, Rectal Bleeding, Splenomegaly, Tenderness, Tenderness, Epigastrium, Tenderness, Rebound, Vomiting Neurological: Yes: Alert, Oriented Psychiatric: Yes: Alert, Oriented Additional Findings/Remarks: Patient admits to drinking 2 pints of vodka in a week x 20 yrs Labs: CBC, BMP 09/20/18 05:30 09/20/18 05:30 INR, PTT INR 1.01 (0.83-1.09) 09/19/18 14:00 Active Medications Generic Name Dose Route Start Last Admin Trade Name Diamond PRN Reason Stop Dose Admin Apixaban 5 mg 09/19/18 22:00 09/19/18 22:35 Eliquis - PO 5 mg BID RAMYA Administration Aspirin 81 mg 09/20/18 10:00 Asa - PO DAILY RAMYA Atorvastatin Calcium 80 mg 09/19/18 22:00 09/19/18 22:35 Lipitor - PO 80 mg HS RAMYA Administration Clopidogrel Bisulfate 75 mg 09/20/18 10:00 Plavix - PO DAILY RAMYA Lisinopril 20 mg 09/20/18 10:00 Prinivil PO DAILY [facility] Metoprolol Tartrate 50 mg 09/19/18 22:00 09/19/18 22:35 Lopressor - PO 50 mg BID RAMYA Administration Pantoprazole Sodium 40 mg 09/21/18 10:00 Protonix - PO DAILY [facility] Home Medications Medication Instructions Recorded Apixaban [Eliquis] 1 tab PO BID 07/09/18 Metoprolol Tartrate 100 mg PO DAILY 07/09/18 Aspirin 81 mg PO DAILY 09/19/18 Atorvastatin Ca [Lipitor] 80 mg PO HS 09/19/18 Clopidogrel Bisulfate [Plavix] 75 mg PO DAILY 09/19/18 Lisinopril 20 mg PO DAILY 09/19/18 Rosuvastatin Calcium [Crestor] 10 mg PO DAILY 09/19/18 Problem List - Problems (1) Anemia Assessment/Plan: > 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
[2018-09-20] MEDS: APIXABAN 5 MG TABLET PO SCH (13:18)
[2018-09-20] MEDS: LISINOPRIL 20 MG TABLET (FP) PO SCH (13:18)
[2018-09-20] MEDS: METOPROLOL TARTRATE 50 MG TABLET (FP) PO SCH ×2 (13:18→21:53)
[2018-09-20] MEDS: ASPIRIN 81 MG CHEWABLE TABLETS PO SCH (13:18)
[2018-09-20] MEDS: CLOPIDOGREL BISULFATE 75 MG TABLET (FP) PO SCH (13:18)
[2018-09-20 14:43] LABS: URINE APPEARANCE CLEAR; URINE BILIRUBIN NEGATIVE (<2.0 mg/dL); URINE COLOR YELLOW; URINE GLUCOSE (UA) NEGATIVE (NEGATIVE); URINE KETONE NEGATIVE (NEGATIVE); URINE LEUK ESTERASE NEGATIVE (NEGATIVE); URINE NITRITE NEGATIVE (NEGATIVE); URINE PROTEIN 1+ (NEGATIVE)
[2018-09-20 14:51] LABS: URINE MUCUS RARE
--- NOTE | 2018-09-20 14:56 | EKG ---
Test Reason : Blood Pressure : / mmHG Vent. Rate : 060 BPM Atrial Rate : 060 BPM P-R Int : 156 ms QRS Dur : 136 ms QT Int : 474 ms P-R-T Axes : 031 -83 055 degrees QTc Int : 474 ms NORMAL SINUS RHYTHM RIGHT BUNDLE BRANCH BLOCK LEFT ANTERIOR FASCICULAR BLOCK BIFASCICULAR BLOCK ABNORMAL ECG WHEN COMPARED WITH ECG OF 19-SEP-2018 14:15, SIGNIFICANT CHANGES HAVE OCCURRED Confirmed by LUIS FOSTER MD ([id number]) on 09/20/2018 2:56:11 PM Referred By: Confirmed By:LUIS FOSTER MD
--- NOTE | 2018-09-20 14:57 | EKG ---
Test Reason : Blood Pressure : / mmHG Vent. Rate : 147 BPM Atrial Rate : 150 BPM P-R Int : 000 ms QRS Dur : 124 ms QT Int : 350 ms P-R-T Axes : 000 257 023 degrees QTc Int : 547 ms WIDE QRS TACHYCARDIA RIGHT BUNDLE BRANCH BLOCK INFERIOR INFARCT , AGE UNDETERMINED ABNORMAL ECG WHEN COMPARED WITH ECG OF 09-JUL-2018 22:54, WIDE QRS TACHYCARDIA HAS REPLACED SINUS RHYTHM VENT. RATE HAS INCREASED BY 83 BPM Confirmed by LUIS FSOTER MD ([id number]) on 09/20/2018 2:57:16 PM Referred By: Confirmed By:LUIS FOSTER MD
--- NOTE | 2018-09-20 15:00 | EKG ---
Test Reason : Blood Pressure : / mmHG Vent. Rate : 141 BPM Atrial Rate : 166 BPM P-R Int : 000 ms QRS Dur : 120 ms QT Int : 310 ms P-R-T Axes : 000 260 016 degrees QTc Int : 474 ms ATRIAL FIBRILLATION WITH RAPID VENTRICULAR RESPONSE RIGHT BUNDLE BRANCH BLOCK ABNORMAL ECG WHEN COMPARED WITH ECG OF 19-SEP-2018 14:05, ATRIAL FIBRILLATION HAS REPLACED WIDE QRS TACHYCARDIA Confirmed by KRISTIN CHUN, LUIS ([id number]) on 09/20/2018 3:00:17 PM Referred By: Confirmed By:LUIS FOSTER MD
--- NOTE | 2018-09-20 15:02 | EKG ---
Test Reason : Blood Pressure : / mmHG Vent. Rate : 098 BPM Atrial Rate : 098 BPM P-R Int : 160 ms QRS Dur : 122 ms QT Int : 364 ms P-R-T Axes : 039 260 017 degrees QTc Int : 464 ms SINUS RHYTHM WITH PREMATURE ATRIAL COMPLEXES RIGHT BUNDLE BRANCH BLOCK ABNORMAL ECG WHEN COMPARED WITH ECG OF 19-SEP-2018 14:15, SINUS RHYTHM HAS REPLACED ATRIAL FIBRILLATION ST NO LONGER DEPRESSED IN ANTERIOR LEADS Confirmed by KRISTIN CHUN, LUIS ([id number]) on 09/20/2018 3:01:56 PM Referred By: Confirmed By:LUIS FOSTER MD
--- NOTE | 2018-09-20 15:59 | PN ---
Progress Note, Physician History of Present Illness: seen and examined today in [facility]. stress test was done today, pt had chest pain during exam. - Current Medication List Current Medications: Active Medications Apixaban (Eliquis -) 5 mg PO BID [facility] Last Admin: 09/20/18 13:18 Dose: 5 mg Aspirin (Asa -) 81 mg PO DAILY [facility] Last Admin: 09/20/18 13:18 Dose: 81 mg Atorvastatin Calcium (Lipitor -) 80 mg PO HS [facility] Last Admin: 09/19/18 22:35 Dose: 80 mg Clopidogrel Bisulfate (Plavix -) 75 mg PO DAILY [facility] Last Admin: 09/20/18 13:18 Dose: 75 mg Lisinopril (Prinivil) 20 mg PO DAILY [facility] Last Admin: 09/20/18 13:18 Dose: 20 mg Metoprolol Tartrate (Lopressor -) 50 mg PO BID [facility] Last Admin: 09/20/18 13:18 Dose: 50 mg Pantoprazole Sodium (Protonix -) 40 mg PO DAILY [facility] - Objective Vital Signs: Vital Signs Temperature 97.6 F 09/20/18 14:22 Pulse Rate 51 L 09/20/18 14:22 Respiratory Rate 20 09/20/18 14:22 Blood Pressure 122/56 L 09/20/18 14:22 O2 Sat by Pulse Oximetry (%) 98 09/20/18 09:00 Constitutional: Yes: No Distress, Calm Eyes: Yes: Conjunctiva Clear, EOM Intact, PERRL HENT: Yes: Atraumatic, Normocephalic Neck: Yes: Supple, Trachea Midline Cardiovascular: Yes: Regular Rate and Rhythm, S1, S2. No: Bradycardia, Tachycardia, Pulse Irregular, Bruit, JVD, Gallop, Murmur, Rub, S3, S4, Varicosities Respiratory: Yes: Regular, CTA Bilaterally. No: Rales, Rhonchi, Wheezes Gastrointestinal: Yes: Normal Bowel Sounds, Soft. No: Distention, Tenderness Musculoskeletal: Yes: WNL Extremities: Yes: WNL Edema: No Peripheral Pulses WNL: Yes Peripheral Pulses: Left Doralis Pedis: 2+, Right Dorsalis Pedis: 2+ Neurological: Yes: Alert, Oriented Psychiatric: Yes: Alert, Oriented Labs: CBC, BMP 09/20/18 05:30 09/20/18 05:30 INR, PTT INR 1.01 (0.83-1.09) 09/19/18 14:00 - ....Imaging Chest X-ray: Report Reviewed, Image Reviewed EKG: Report Reviewed, Image Reviewed Other: Report Reviewed, Image Reviewed (tele-nsr, sinus shoshana, no further PSVT or afib) Assessment/Plan 78 year old man with pmhPafibwith RVRdx 03/2017on eliquis considered for ablation in the past, pafib with RVR on last admission 06/2018,[facility], most recently PCI with GRIFFIN RCA 2017 [facility] with plan for possible staged PCI for chronic total occluded LCx, Moderate to severe Aortic regurgitation in the past, prior etoh abuse, HTN,HLD He was admitted to [facility] 07/10/18 with chest pain and found to be in Afib with RVR that spontaneously converted to NSR and with a Troponin I of 5 with relatively normal CK level transferred to [facility] for cardiac cath andfound to have results as below [facility] and severe dLAD with mild prox and mid LAD disease He did well post PCI with no further chest pain. Pt was then seen in the office after discharge 06/2018 and c/o GI bleeding. He went to GI Dr. Kennedy that day but did not follow up after that. He states that he did have a colonoscopy but does not know the results and that he was considered for EGD but was not done. He went to routine office visit with PMD Dr. Guzman today and while in the exam room began feeling substernal chest pressure. He was sent to the ER where he was found to have PSVT at 147 bpm that broke with Valsalva prior to receiving medications. He was seen and examined in the ER in [facility]. No further chest pain currently. States he ran out of Aspirin this week tuesday and did not get a refill. states he has been taking his Plavix and Eliquis as well as his other meds. Denies etoh use. No sob, pnd, orthopnea, or LE edema. Echo(07/04/18): Nl EF-60% NST (07/04/18): ST depressions V2-V3 Medium sized, mild intensity inferolateral defect from base-->mid LV, EF-65% ECHO 07/12/18 Interpretation Summary Normal left ventricular wall motion and ejection fraction. Mild to moderate aortic valve regurgitation. Mild mitral valve regurgitation. Normal right ventricular function. Cardiac Cath The ejection fraction is to be 55%. 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 -normal LV function on echo as above -pain maybe due to tachyarrhythmia -pain resolved when back in NSR -cardiac enzymes wnl -pt does have known CAD with prior PCIs last 06/2018 PCI RCA with GRIFFIN, ran out of his Aspirin -admit to tele -cont home ASA 81mg daily, Plavix 75mg daily -cont Toprol XL 100mg daily -recent GI bleed after PCI when on ASA, Plavix, ELiquis -GI note appreciated, as per note no contraindication to AC regimen as above -does have known other CAD including total occluded LCx for which staged PCI was being considered -Nuclear stress test was done today--pt did not reach target heart rate, test was stopped due to chest pain, inferior wall ischemia was seen at achieved heart rate. -will transfer for cardiac cath to 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 or as outpatient Aortic Regurgitation-moderate to severe in the past -currently euvolemic -last echo as above showed mild to mod AR, mild MR -follow as outpatient HTN- -cont Toprol and lisinopril ETOH abuse-denies currently -confirm none recently and monitor for DTs
--- NOTE | 2018-09-20 17:34 | HP ---
Admitting History and Physical - Primary Care Physician PCP: Dorinda Guzman - Admission Chief Complaint: Chest pain History of Present Illness: 70 year old male with a PMH of CAD, GA, paroxysmal AFIB on eliquis , HTN, abnormal myocardial stress test (06/2018) BIBEMS who presents to the emergency department for evaluation of intermittent episodes of R sided chest pain. Patient was at doctors office this morning where he felt right sided chest pain with associated diaphoresis and nausea. Patient had PCI done in June 2018. EMS reports patient was given 4 baby aspirin, 300mg of plavix, and a 100mg of metoprolol at 1:35pm at PCPs office. Had positive stress test done today Seen by Cardiology AC on hold for Cardiac cath in AM. Pt to be transferred to [facility]. - Past Medical History Cardiovascular: Yes: AFIB, CAD, HTN Psych: Yes: Addictions - Past Surgical History Past Surgical History: Yes: None - Smoking History Smoking history: Never smoked Have you smoked in the past 12 months: No - Alcohol/Substance Use Hx Alcohol Use: No Home Medications - Allergies Allergies/Adverse Reactions: Allergies Allergy/AdvReac Type Severity Reaction Status Date / Time No Known Allergies Allergy Verified 09/19/18 14:14 - Home Medications Home Medications: Ambulatory Orders Apixaban [Eliquis] 1 tab PO BID 07/09/18 Metoprolol Tartrate 100 mg PO DAILY 07/09/18 Aspirin 81 mg PO DAILY 09/19/18 Atorvastatin Ca [Lipitor] 80 mg PO HS 09/19/18 Clopidogrel Bisulfate [Plavix] 75 mg PO DAILY 09/19/18 Lisinopril 20 mg PO DAILY 09/19/18 Rosuvastatin Calcium [Crestor] 10 mg PO DAILY 09/19/18 Review of Systems - Review of Systems Constitutional: reports: No Symptoms Eyes: reports: No Symptoms HENT: reports: No Symptoms Neck: reports: No Symptoms Cardiovascular: reports: Chest Pain Respiratory: reports: No Symptoms Gastrointestinal: reports: No Symptoms Genitourinary: reports: No Symptoms Breasts: reports: No Symptoms Reported Musculoskeletal: reports: No Symptoms Integumentary: reports: No Symptoms Neurological: reports: No Symptoms Endocrine: reports: No Symptoms Hematology/Lymphatic: reports: No Symptoms Psychiatric: reports: No Symptoms Physical Examination Vital Signs: Vital Signs Temperature 97.6 F 09/20/18 14:22 Pulse Rate 51 L 09/20/18 14:22 Respiratory Rate 20 09/20/18 14:22 Blood Pressure 122/56 L 09/20/18 14:22 O2 Sat by Pulse Oximetry (%) 98 09/20/18 09:00 Constitutional: Yes: Well Nourished, No Distress, Calm Cardiovascular: Yes: Regular Rate and Rhythm Respiratory: Yes: Regular Gastrointestinal: Yes: Normal Bowel Sounds, Soft Musculoskeletal: Yes: WNL Extremities: Yes: WNL Edema: No Peripheral Pulses WNL: Yes Neurological: Yes: Alert, Oriented Psychiatric: Yes: Alert, Oriented Labs: CBC, BMP 09/20/18 05:30 09/20/18 05:30 Problem List - Problems (1) Atrial fibrillation with rapid ventricular response Assessment/Plan: -Tele monitor -Eliquis on hold for cardiac cath-resume post procedure -rate controlled Code(s): I48.91 - UNSPECIFIED ATRIAL FIBRILLATION (2) Chest pain Assessment/Plan: -Nuclear stress test done today--pt unable to reach target heart rate, test was stopped due to chest pain, inferior wall ischemia was seen at achieved heart rate. -Cardiac cath in AM -Pt to be transferred to [facility] past midnight Code(s): R07.9 - CHEST PAIN, UNSPECIFIED Qualifiers: Chest pain type: unspecified Qualified Code(s): R07.9 - Chest pain, unspecified (3) Hypothyroid Assessment/Plan: -Check FT4 before considering initiating therapy -Likely Euthyroid sick syndrome in event of acute cardiac disease Code(s): E03.9 - HYPOTHYROIDISM, UNSPECIFIED Assessment/Plan see problem list Spoke to Son and at bedside
[2018-09-20] MEDS: ATORVASTATIN CA 80 MG TABLET (FP) PO SCH (21:53)
[2018-09-21] MEDS: ASPIRIN 81 MG CHEWABLE TABLETS PO SCH (09:10)
[2018-09-21] MEDS: CLOPIDOGREL BISULFATE 75 MG TABLET (FP) PO SCH (09:11)
[2018-09-21] MEDS: LISINOPRIL 20 MG TABLET (FP) PO SCH (09:11)
[2018-09-21] MEDS: METOPROLOL TARTRATE 50 MG TABLET (FP) PO SCH (09:11)
--- NOTE | 2018-09-21 09:29 | PN ---
Progress Note, Physician History of Present Illness: Patient evaluated and case discussed with Dr. Kennedy Patient is being transferred to [facility] for cardiac cath today. Denies rectal bleeding, blood in stool, melena, abdominal pain, unexplained weight loss. - Current Medication List Current Medications: Active Medications Aspirin (Asa -) 81 mg PO DAILY [facility] Last Admin: 09/21/18 09:10 Dose: 81 mg Atorvastatin Calcium (Lipitor -) 80 mg PO HS [facility] Last Admin: 09/20/18 21:53 Dose: 80 mg Clopidogrel Bisulfate (Plavix -) 75 mg PO DAILY [facility] Last Admin: 09/21/18 09:11 Dose: 75 mg Lisinopril (Prinivil) 20 mg PO DAILY [facility] Last Admin: 09/21/18 09:11 Dose: 20 mg Metoprolol Tartrate (Lopressor -) 50 mg PO BID [facility] Last Admin: 09/21/18 09:11 Dose: Not Given Pantoprazole Sodium (Protonix -) 40 mg PO DAILY [facility] Last Admin: 09/21/18 09:11 Dose: 40 mg - Objective Vital Signs: Vital Signs Temperature 97.8 F 09/21/18 06:00 Pulse Rate 46 L 09/21/18 06:00 Respiratory Rate 20 09/21/18 06:00 Blood Pressure 115/48 L 09/21/18 06:00 O2 Sat by Pulse Oximetry (%) 97 09/20/18 20:13 Constitutional: Yes: No Distress, Calm Eyes: Yes: Conjunctiva Clear Neck: Yes: Supple Cardiovascular: Yes: Bradycardia Respiratory: Yes: Regular, CTA Bilaterally Gastrointestinal: Yes: Normal Bowel Sounds, Soft. No: WNL, Abdomen, Obese, Ascites, Distention, Hematemesis, Hemorrhoids, Hepatomegaly, Hernia, Hyperactive Bowel Sounds, Hypoactive Bowel Sounds, Melena, Palpable Mass, Pulsatile Mass, Rectal Bleeding, Splenomegaly, Tenderness, Tenderness, Epigastrium, Tenderness, Rebound, Vomiting, Other Musculoskeletal: Yes: WNL Neurological: Yes: Alert, Oriented Labs: CBC, BMP 09/20/18 05:30 09/20/18 05:30 INR, PTT INR 1.01 (0.83-1.09) 09/19/18 14:00 Home Medication List Medication Instructions Recorded Confirmed Type Apixaban [Eliquis] 1 tab PO BID 07/09/18 09/19/18 History Metoprolol Tartrate 100 mg PO DAILY 07/09/18 09/19/18 History Aspirin 81 mg PO DAILY 09/19/18 09/19/18 History Atorvastatin Ca [Lipitor] 80 mg PO HS 09/19/18 09/19/18 History Clopidogrel Bisulfate [Plavix] 75 mg PO DAILY 09/19/18 09/19/18 History Lisinopril 20 mg PO DAILY 09/19/18 09/19/18 History Rosuvastatin Calcium [Crestor] 10 mg PO DAILY 09/19/18 09/19/18 History Active Medications Generic Name Dose Route Start Last Admin Trade Name Freq PRN Reason Stop Dose Admin Aspirin 81 mg 09/20/18 10:00 09/21/18 09:10 Asa - PO 81 mg DAILY RAMYA Administration Atorvastatin Calcium 80 mg 09/19/18 22:00 09/20/18 21:53 Lipitor - PO 80 mg HS RAMYA Administration Clopidogrel Bisulfate 75 mg 09/20/18 10:00 09/21/18 09:11 Plavix - PO 75 mg DAILY RAMYA Administration Lisinopril 20 mg 09/20/18 10:00 09/21/18 09:11 Prinivil PO 20 mg DAILY RAMYA Administration Metoprolol Tartrate 50 mg 09/19/18 22:00 09/21/18 09:11 Lopressor - PO Not Given BID RAMYA Pantoprazole Sodium 40 mg 09/21/18 10:00 09/21/18 09:11 Protonix - PO 40 mg DAILY RAMYA Administration Problem List - Problems (1) Anemia Assessment/Plan: > 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
[2018-09-21] MEDS ORDERED: PANTOPRAZOLE 40 MG TABLET (FP) PO SCH (10:00)
[2018-09-21 10:17] VITALS: BP 140/68; PULSE 41; TEMP 98.2
--- NOTE | 2018-09-21 16:23 | PN ---
Progress Note (short form) - Note Progress Note: Cardiac cath done today at [facility]. Findings similar to previous cardiac cath. RCA stent patent. 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 distal LAD disease. No PCI performed today. 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 LCx most likely culprit for patients angina and ischemia.
== END 2018-09-21 10:36 | disposition short-term general hospital (02) | DRG 282 ==
LOC: JER 13:51 → JERBED 15:49 → J4W 09-20 02:14
PROVIDERS: ADMIT Family Medicine; ATTEND Family Medicine
DX: I21.4 Non-ST elevation (NSTEMI) myocardial infarction (principal); I10 Essential (primary) hypertension; F10.10 Alcohol abuse, uncomplicated; E78.5 Hyperlipidemia, unspecified; I48.0 Paroxysmal atrial fibrillation; I25.10 Atherosclerotic heart disease of native coronary artery without angina pectoris; Z95.5 Presence of coronary angioplasty implant and graft; I35.1 Nonrheumatic aortic (valve) insufficiency; D64.9 Anemia, unspecified
CPT/HCPCS: 36415; 71045-TC-FY; 78452-TC; 80053; 81003; 81015; 82550; 83036; 83735; 84439; 84443; 84484; 85025; 85610; 93005; 93010; 93017; 99285-25; A9502

== ENCOUNTER 2018-11-23 10:31 | Inpatient (IN) | payer OTHER ==
--- NOTE | 2018-11-23 11:24 | PDOC ---
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 The pain is rated 5/10. He denies any nausea or vomiting. He states that he feels warm and hot whenever the blood comes out. His stool is diarrhea in form and bloody. His problems began yesterday afternoon around 12 midday and then they continued throughout the night. The bloody diarrhea is not painful. Denies recent fevers or chills. Last time he was in the hospital was [facility] 2 weeks prior and he endorses taking antibiotics at that time. The patient says he ate many vegetables and fruits yesterday but nothing else. PCP: Dr. Guzman GI: Brent Promotions Manager: Laz Gaitan Social Hx: Denies smoking, alcohol, or other substance usage Allergies: NKA, NKDA PSH: Left eye surgery - 1989 Past History - Past Medical History Allergies/Adverse Reactions: Allergies Allergy/AdvReac Type Severity Reaction Status Date / Time No Known Allergies Allergy Verified 09/19/18 14:14 Home Medications: Ambulatory Orders Apixaban [Eliquis] 1 tab PO BID 07/09/18 Aspirin 81 mg PO DAILY 09/19/18 Atorvastatin Ca [Lipitor] 80 mg PO HS 09/19/18 Lisinopril 20 mg PO DAILY 09/19/18 Clopidogrel Bisulfate [Clopidogrel] 75 mg PO DAILY 11/23/18 Folic Acid 1 mg PO DAILY 11/23/18 Metoprolol Succinate 100 mg PO DAILY 11/23/18 Multivit-Min/Iron Fum/Folic AC [Wprbu-Chdserc-Awolepwb Tablet] 1 tab PO DAILY Cardiac Disorders: (Yes, paroxysmal AFib) COPD: No HTN: Yes Hypercholesterolemia: Yes - Surgical History Cardiac Surgery: Yes (PCI) GI Surgery: No - Immunization History Immunization Up to Date: No - Suicide/Smoking/Psychosocial Hx Smoking History: Never smoked Have you smoked in the past 12 months: No Information on smoking cessation initiated: No Hx Alcohol Use: No Drug/Substance Use Hx: No Hx Substance Use Treatment: No Review of Systems - Review of Systems Able to Perform ROS?: Yes Comments:: CONSTITUTIONAL: Absent: fever, no chills, no fatigue EYES: Absent: visual changes ENT: Absent: ear pain, no sore throat CARDIOVASCULAR: Absent: chest pain, no palpitations RESPIRATORY: Absent: cough, no SOB GI: Present: Abdominal pain, diarrhea. Absent: no nausea, no vomiting, no constipation GENITOURINARY: Absent: dysuria, no frequency, no hematuria MUSKULOSKELETAL: Absent: back pain, no arthralgia, no myalgia SKIN: Absent: rash NEURO: Absent: headache *Physical Exam - Vital Signs Last Vital Signs Temp Pulse Resp BP Pulse Ox 98.4 F 80 16 107/48 L 99 11/23/18 10:41 11/23/18 10:41 11/23/18 10:41 11/23/18 10:41 11/23/18 11:00 - Physical Exam Comments: GENERAL: Well-appearing, well-nourished. No apparent distress. HEENT: Normocephalic, atraumatic. PERRL, EOM intact. CARDIOVASCULAR: Normal S1, S2. Regular rate and rhythm. PULMONARY: No evidence of respiratory distress. Lungs clear to auscultation bilaterally. No wheezing, rales or rhonchi. ABDOMEN: Normal bowel sounds. Mild tenderness to deep palpation in the isiah-umbilical area. Soft, non-distended. EXTREMITIES: Normal ROM in all four extremities. No gross deformities. SKIN: Warm, dry. No rash NEUROLOGICAL: No focal neurological deficits. ED Treatment Course - LABORATORY CBC & Chemistry Diagram: 11/23/18 12:20 11/23/18 11:39 Medical Decision Making - Medical Decision Making 78 yo M w a pmh of CAD, CA, paroxysmal AFIB on eliquis , HTN, abnormal myocardial stress test (06/2018) presents to the ER with 6 episodes of rectal bleeding that was associated with isiah-umbilical abdominal pain. The pain is rated 5/10. He denies any nausea or vomiting. He states that he feels warm and hot whenever the blood comes out. His stool is diarrhea in form and bloody. His problems began yesterday afternoon around 12 midday and then they continued throughout the night. The bloody diarrhea is not painful. Denies recent fevers or chills. Last time he was in the hospital was [facility] 2 weeks prior and he endorses taking antibiotics at that time. The patient says he ate many vegetables and fruits yesterday but nothing else. VS: Diastolic bp low, otherwise wnl. DDx IBNLT: Upper GI bleed vs lower. hemorrhoids, diverticular bleed, angiodysplasion, colon cancer, anal fissure, IBD, ischemic colitis, elliquis related bleed, c-diff, PUD, gastroenteritis, infectious bloody diarrhea. Plan: Labs, Stool occult and c-diff, CTAP, EKG, IV hydration, re-assess. Patient is drinking oral contrast and will get CTAP at 2:30 Hb is decreased to 7.3 associated with CAD - Will give patient blood transfusion and then admit to [facility] Patient was scoped by Dr. Kennedy in July Probably a diverticular bleed vs radiation proctitis. Consult GI: Dr. Kennedy - Patient had scope inDecember which showed multiple diverticular disease all over - hence it being the most likely source for this patient's GI bleed. Will give the patient multiple units of PRBC and a good amount of IV hydration then admit to the ICU for further care. *DC/Admit/Observation/Transfer Diagnosis at time of Disposition: Rectal bleed, Hypotension, Anemia - Discharge Dispostion Condition at time of disposition: Stable Decision to Admit order: Yes - Referrals - Patient Instructions - Post Discharge Activity
--- NOTE | 2018-11-23 11:39 | PDOC ---
Attending Attestation - Resident Resident Name: Jake Friedman - ED Attending Attestation I have performed the following: I have examined & evaluated the patient, The case was reviewed & discussed with the resident, I agree w/resident's findings & plan, Exceptions are as noted - HPI HPI: 11/23/18 11:34 78 yo male h/;o afib, cad htn hld recent cardiac cath with stents 2 weeks ago, here with c/o rectal bleed and abd pain. pain and bloody stools started yesterday evening. today happened again. large bright red blood mixed with small stool. has had same in the past. has had colonoscopy with inflammation in past by DR Daley. no n/v no cp not lightheaded. currently on eliquis, asa 81, and plavix 75. no f/c no travel. 11/23/18 11:39 - Physicial Exam PE: 11/23/18 11:36 awake alert NAD lungs clear bilaterally heart rrr no m rg abd soft mild llq and rlq ttp. no rebound no guarding. ext wwp no edema no calf tenderness. skin warm and dry. - Medical Decision Making 11/23/18 11:38 78 yo on two antiplatelet agents, and eliquis here with bloody stool. ttp on left lower quadrant. differential diverticulitis, colitis, ischemia. plan labs ua ekg type and screen coags. ct a/p pt isidra likely require admission. lactate. 11/23/18 11:42 chart review. pt with h/o diverticulosis on old ct a/p. likely diverticular bleed isidra obtain ct a/p with constrast. po and IV 11/23/18 15:51 ct with diverticuli, no colitis. pt anemic with hgb 7. will given 2 units prbc. second line placed. ICU consulted due to large bloody BM in ed. accepted to ICU. dr daley consulted. repeat bp 112/ 39 Heart Score/ECG Review #1 General ECG Interpretation: Sinus Rhythm, Normal Intervals, No acute ischemic changes Compared to previous ECG there are: Other (rBBB, no st elevation or depression. comparison 09/20/18)
[2018-11-23] MEDS ORDERED: SODIUM CHLORIDE 0.9% 500 ML INFUS.BAG IV ONE ×2 (11:41→14:34)
[2018-11-23] MEDS ORDERED: SODIUM CHLORIDE 1,000 ML IV STA (11:41)
[2018-11-23 12:30] LABS: BASO % 0.6 % (0-2.0); EOS % 1.1 % (0-4.5); HEMATOCRIT 22.8 % (35.4-49); HEMOGLOBIN 7.4 GM/dL (11.7-16.9); LYMPH % 14.8 % (8-40); MCH 26.3 pg (25.7-33.7); MCHC 32.2 g/dl (32.0-35.9); MEAN CELL VOLUME 81.6 fl (80-96); MEAN PLT VOLUME 9.9 fl (7.5-11.1); MONO % 6.6 % (3.8-10.2); NEUT % 76.9 % (42.8-82.8); PLATELET COUNT 220 K/MM3 (134-434); RDW 16.5 % (11.9-15.9); WHITE BLOOD COUNT 8.3 K/mm3 (4.0-10.0)
[2018-11-23 12:43] LABS: INR 1.08 (0.83-1.09); PROTHROMBIN TIME (PATIENT) 12.7 SEC (9.7-13.0)
[2018-11-23 12:46] LABS: ACTIVATED PTT 33.4 SECONDS (25.2-36.5)
[2018-11-23 13:01] LABS: ALBUMIN 3.3 g/dl (3.4-5.0); ALK PHOS 144 U/L (45-117); ANION GAP 5 MMOL/L (8-16); BILIRUBIN,TOTAL 0.2 mg/dL (0.2-1); BLOOD UREA NITROGEN 16 mg/dL (7-18); CALCIUM 8.2 mg/dL (8.5-10.1); CHLORIDE 106 mmol/L (98-107); CO2 26 mmol/L (21-32); CREATININE 0.7 mg/dL (0.55-1.3); GLUCOSE,RANDOM 138 mg/dL (74-106); POTASSIUM 4.8 mmol/L (3.5-5.1); SGOT/AST 14 U/L (15-37); SGPT/ALT 15 U/L (13-61); SODIUM 138 mmol/L (136-145)
--- NOTE | 2018-11-23 15:39 | CONSULT ---
Consultation: REQUESTING PROVIDER: Dr. Fernandez CONSULT REQUEST: We have been asked to medically evaluate this patient for GI bleeding. HISTORY OF PRESENT ILLNESS: 78 year old male with PMH diverticulosis (last colonoscopy 08/03/[address] Kennedy), AF on Eliquis, HTN, HLD, recent coronary stenting (x2 08/2018), CAD, OR presented to ED for blood in stool x2 days. Pt stated yesterday there was a small amount of red blood mixed in the stool, and today had 4 episodes of red blood mixed in stool that was a larger amount than yesterday. Pt stated he has lower abdominal pain that started today. Pt denied chest pain, shortness of breath, fever, chills, nausea, vomiting. Pt had active bleeding in the ED, around 500cc. REVIEW OF SYSTEMS: CONSTITUTIONAL: Absent: fever, chills, diaphoresis, generalized weakness, malaise, loss of appetite, weight change HEENT: Absent: rhinorrhea, nasal congestion, throat pain, throat swelling, difficulty swallowing, mouth swelling, ear pain, eye pain, visual changes CARDIOVASCULAR: Absent: chest pain, syncope, palpitations, irregular heart rate, lightheadedness , peripheral edema RESPIRATORY: Absent: cough, shortness of breath, dyspnea with exertion, orthopnea, wheezing, stridor, hemoptysis GASTROINTESTINAL: admitted to: abdominal pain, blood in stool Absent: abdominal distension, nausea, vomiting, diarrhea, constipation. GENITOURINARY: Absent: dysuria, frequency, urgency, hesitancy, hematuria, flank pain, genital pain MUSCULOSKELETAL: Absent: myalgia, arthralgia, joint swelling, back pain, neck pain SKIN: Absent: rash, itching, pallor HEMATOLOGIC/IMMUNOLOGIC: Absent: easy bleeding, easy bruising, lymphadenopathy, frequent infections ENDOCRINE: Absent: unexplained weight gain, unexplained weight loss, heat intolerance, cold intolerance NEUROLOGIC: Absent: headache, focal weakness or paresthesias, dizziness, unsteady gait, seizure, mental status changes, bladder or bowel incontinence PSYCHIATRIC: Absent: anxiety, depression, suicidal or homicidal ideation, hallucinations. PHYSICAL EXAMINATION Vital Signs - 24 hr 11/23/18 11/23/18 11/23/18 10:41 11:00 12:20 Temperature 98.4 F Pulse Rate 80 Pulse Rate [ 58 L Apical] Respiratory 16 18 Rate Blood Pressure 107/48 L Blood Pressure 111/59 L [Right Arm] O2 Sat by Pulse 99 99 99 Oximetry (%) 11/23/18 14:00 Temperature Pulse Rate Pulse Rate [ 61 Apical] Respiratory 18 Rate Blood Pressure Blood Pressure 104/58 L [Right Arm] O2 Sat by Pulse 99 Oximetry (%) GENERAL: Awake, alert, and fully oriented, in no acute distress. HEAD: Normal with no signs of trauma. EYES: Pupils equal, round and reactive to light, extraocular movements intact, sclera anicteric, conjunctiva clear. No lid lag. EARS, NOSE, THROAT: Ears normal, nares patent, oropharynx clear without exudates. Moist mucous membranes. NECK: Normal range of motion, supple without lymphadenopathy, JVD, or masses. LUNGS: Breath sounds equal, clear to auscultation bilaterally. No wheezes, and no crackles. No accessory muscle use. HEART: Regular rate and rhythm, normal S1 and S2 without murmur, rub or gallop. ABDOMEN: Soft, nontender, distended, decreased bowel sounds, no guarding, no rebound, no masses. No hepatomegaly or splenomegaly. MUSCULOSKELETAL: Normal range of motion at all joints. No bony deformities or tenderness. No CVA tenderness. UPPER EXTREMITIES: 2+ pulses, warm, well-perfused. No cyanosis. No clubbing. Cap refill <2 seconds. No peripheral edema. LOWER EXTREMITIES: 2+ pulses, warm, well-perfused. No calf tenderness. No peripheral edema. NEUROLOGICAL: Cranial nerves II-XII intact. Normal speech. Normal gait. PSYCHIATRIC: Cooperative. Good eye contact. Appropriate mood and affect. SKIN: Warm, dry, normal turgor, no rashes or lesions noted. Laboratory Results - last 24 hr 11/23/18 11/23/18 11/23/18 11:39 12:20 12:20 WBC 8.3 RBC 2.80 L Hgb 7.4 L Hct 22.8 L D MCV 81.6 MCH 26.3 MCHC 32.2 RDW 16.5 H Plt Count 220 MPV 9.9 Absolute Neuts (auto) 6.4 Neutrophils % 76.9 D Lymphocytes % 14.8 D Monocytes % 6.6 Eosinophils % 1.1 Basophils % 0.6 Nucleated RBC % 0 PT with INR 12.70 INR 1.08 PTT (Actin FS) 33.4 Sodium 138 Potassium 4.8 Chloride 106 Carbon Dioxide 26 Anion Gap 5 L BUN 16 Creatinine 0.7 Creat Clearance w eGFR 108.79 Random Glucose 138 H Lactic Acid Calcium 8.2 L Total Bilirubin 0.2 AST 14 L ALT 15 Alkaline Phosphatase 144 H Creatine Kinase 57 Troponin I 0.02 Total Protein 7.0 Albumin 3.3 L Stool Occult Blood Blood Type Antibody Screen Crossmatch 11/23/18 11/23/18 11/23/18 12:20 12:25 12:25 WBC RBC Hgb Hct MCV MCH MCHC RDW Plt Count MPV Absolute Neuts (auto) Neutrophils % Lymphocytes % Monocytes % Eosinophils % Basophils % Nucleated RBC % PT with INR INR PTT (Actin FS) Sodium Potassium Chloride Carbon Dioxide Anion Gap BUN Creatinine Creat Clearance w eGFR Random Glucose Lactic Acid 1.8 Calcium Total Bilirubin AST ALT Alkaline Phosphatase Creatine Kinase Troponin I Total Protein Albumin Stool Occult Blood Positive Blood Type O POSITIVE Antibody Screen Negative Crossmatch See Detail Vital Signs Temperature 97.5 F L 11/23/18 15:49 Pulse Rate 70 11/23/18 15:49 Respiratory Rate 16 11/23/18 15:49 Blood Pressure 112/39 L 11/23/18 15:49 O2 Sat by Pulse Oximetry (%) 96 11/23/18 15:49 ASSESSMENT/PLAN: 8 year old male with PMH diverticulosis (last colonoscopy 08/03/[address] Kennedy ), AF on Eliquis, HTN, HLD, recent coronary stenting (x2 08/2018), CAD, OR presented to ED for blood in stool x2 days. Pt had active GI bleeding in ED, around 500 cc. NEURO -Alert and oriented -Continue to monitor RESPIRATORY -No labored breathing, no shortness of breath on room air -Continue to monitor CARDIOVASCULAR #HX Coronary Stenting/CAD -Hold home Plavix 75 mg PO daily -Hold home ASA 81 mg PO daily -Cardiology consulted #HX Atrial Fibrillation -DC Eliquis #HX HTN -Hold home Lisinopril 20 mg PO daily while hypotensive -Hold home Metoprolol 100 mg PO daily while hypotensive #HX HLD -Continue home Lipitor 80 mg PO HS GI #Suspected Lower GIB -Hx diverticulosis on last colonoscopy 07/2019 -2U PRBC ordered -2L NS being given in ED -NPO -No protonix drip -CT abdomen/pelvis IV/PO contrast: sigmoid diverticulosis without diverticulitis. HEMATOLOGY -H/H 7.4/.8 -2U PRBC ordered FEN -NPO -2L normal saline in ED -NS 75 cc/hour -Monitor electrolytes -No kendy Dispo: ICU Visit type - Emergency Visit Emergency Visit: Yes ED Registration Date: 11/23/18 Care time: The patient presented to the Emergency Department on the above date and was hospitalized for further evaluation of their emergent condition. - New Patient This patient is new to me today: Yes Date on this admission: 11/23/18 - Critical Care Critical Care patient: Yes Total Critical Care Time (in minutes): 35 Critical Care Statement: The care of this patient involved high complexity decision making to prevent further life threatening deterioration of the patient 's condition and/or to evaluate & treat vital organ system(s) failure or risk of failure.
--- NOTE | 2018-11-23 15:43 | PN ---
Progress Note, Physician Chief Complaint: patient in bed feeling tired per he had BRPBR 4 episodes at home yesterday and today in ER he had a bigger episode of hematochezia with stool and complaining of abdominal pain no chest pain no lightheadedness h/;o afib, cad htn hld recent cardiac cath with stents 2 weeks ago, . has had colonoscopy with inflammation in past by DR Daley. currently on eliquis, asa 81 , and plavix 75. no f/c no travel. - Objective Vital Signs: Vital Signs Temperature 98.4 F 11/23/18 10:41 Pulse Rate 61 11/23/18 14:00 Respiratory Rate 18 11/23/18 14:00 Blood Pressure 104/58 L 11/23/18 14:00 O2 Sat by Pulse Oximetry (%) 99 11/23/18 14:00 Constitutional: Yes: Calm Cardiovascular: Yes: Regular Rate and Rhythm, S1, S2 Respiratory: Yes: CTA Bilaterally Gastrointestinal: Yes: Normal Bowel Sounds, Soft Edema: No Neurological: Yes: Alert, Oriented Labs: CBC, BMP 11/23/18 12:20 11/23/18 11:39 INR, PTT INR 1.08 (0.83-1.09) 11/23/18 12:20 Assessment/Plan GIB NPO transfuse [address] daley consult recheck cbc every [address] scan noted telemetry- monitor vitals hold all AC aspirin plavix and eliquis Dr nixon cardiology given low/borderline BP hold lopressors and lisinopril for now lipid panel
[2018-11-23] MEDS ORDERED: PANTOPRAZOLE SODIUM 80 MG in SODIUM CHLORIDE 100 ML IVPB SCH (15:45)
--- NOTE | 2018-11-23 15:47 | HP ---
Admitting History and Physical - Primary Care Physician PCP: Dorinda Guzman - Admission Chief Complaint: Bright red blood per rectum History of Present Illness: per he had BRPBR 4 episodes at home yesterday and today in ER he had a bigger episode of hematochezia with stool and complaining of abdominal pain no chest pain no lightheadedness h/;o afib, cad htn hld recent cardiac cath with stents 2 weeks ago, . has had colonoscopy with inflammation in past by DR Daley. currently on eliquis, asa 81 , and plavix 75. no f/c no travel. History Source: Patient, Family Member - Past Medical History Cardiovascular: Yes: AFIB, CAD, HTN Psych: Yes: Addictions - Past Surgical History Past Surgical History: Yes: None - Smoking History Smoking history: Never smoked Have you smoked in the past 12 months: No - Alcohol/Substance Use Hx Alcohol Use: No Home Medications - Allergies Allergies/Adverse Reactions: Allergies Allergy/AdvReac Type Severity Reaction Status Date / Time No Known Allergies Allergy Verified 09/19/18 14:14 - Home Medications Home Medications: Ambulatory Orders Apixaban [Eliquis] 1 tab PO BID 07/09/18 Aspirin 81 mg PO DAILY 09/19/18 Atorvastatin Ca [Lipitor] 80 mg PO HS 09/19/18 Lisinopril 20 mg PO DAILY 09/19/18 Clopidogrel Bisulfate [Clopidogrel] 75 mg PO DAILY 11/23/18 Folic Acid 1 mg PO DAILY 11/23/18 Metoprolol Succinate 100 mg PO DAILY 11/23/18 Multivit-Min/Iron Fum/Folic AC [Gqdgt-Hwiprmt-Mbrnzpyc Tablet] 1 tab PO DAILY Review of Systems - Review of Systems Constitutional: reports: Other (tired) Gastrointestinal: reports: Abdominal Pain Physical Examination Vital Signs: Vital Signs Temperature 98.4 F 11/23/18 10:41 Pulse Rate 61 11/23/18 14:00 Respiratory Rate 18 11/23/18 14:00 Blood Pressure 104/58 L 11/23/18 14:00 O2 Sat by Pulse Oximetry (%) 99 11/23/18 14:00 Constitutional: Yes: Calm Cardiovascular: Yes: Regular Rate and Rhythm, S1, S2 Respiratory: Yes: CTA Bilaterally Gastrointestinal: Yes: Soft, Distention Edema: No Neurological: Yes: Alert, Oriented Labs: CBC, BMP 11/23/18 12:20 11/23/18 11:39 Imaging - Results Cat Scan: Report Reviewed (sigmoid diverticulosis) Assessment/Plan GIB NPO transfuse [address] daley consult recheck cbc every [address] scan noted telemetry- monitor vitals hold all AC aspirin plavix and eliquis Dr nixon cardiology given low/borderline BP hold lopressors and lisinopril for now lipid panel
[2018-11-23] MEDS ORDERED: PANTOPRAZOLE SODIUM 40 MG VIAL ONE (15:53)
--- NOTE | 2018-11-23 15:58 | EKG ---
Test Reason : Blood Pressure : / mmHG Vent. Rate : 060 BPM Atrial Rate : 060 BPM P-R Int : 148 ms QRS Dur : 132 ms QT Int : 458 ms P-R-T Axes : 009 -54 052 degrees QTc Int : 458 ms NORMAL SINUS RHYTHM RIGHT BUNDLE BRANCH BLOCK LEFT ANTERIOR FASCICULAR BLOCK BIFASCICULAR BLOCK ABNORMAL ECG WHEN COMPARED WITH ECG OF 20-SEP-2018 13:42, NONSPECIFIC T WAVE ABNORMALITY NO LONGER EVIDENT IN INFERIOR LEADS NONSPECIFIC T WAVE ABNORMALITY NO LONGER EVIDENT IN LATERAL LEADS Confirmed by WILLY CHUN, CELINE ([id number]) on 11/23/2018 3:58:30 PM Referred By: Confirmed By:CELINE AGUILERA MD
--- NOTE | 2018-11-23 17:09 | CON.CARD ---
Consult Consult Specialty:: Cardiology Reason for Consultation:: CAD/GI bleeding - History of Present Illness History of Present Illness: 78 M with diverticulosis, Paroxysmal Afib on Eliquis severe 3 VD with normal EF sp multivessel PCI last steting was on 10/30 and then 11/14/18. Had been on Eiquis , ASA and Plavix. Admitted after recurrent BRBPR. No chest pain, dyspnea or dizziness. Last took Eliquis 2 days ago and took ASA and Plavix today. - History Source Limitations to Obtaining History: No Limitations - Past Medical History Cardio/Vascular: Yes: AFIB, CAD, HTN Psych: Yes: Addictions - Past Surgical History Past Surgical History: Yes: None - Alcohol/Substance Use Hx Alcohol Use: No - Smoking History Smoking history: Never smoked Have you smoked in the past 12 months: No Home Medications - Allergies Allergies/Adverse Reactions: Allergies Allergy/AdvReac Type Severity Reaction Status Date / Time No Known Allergies Allergy Verified 09/19/18 14:14 - Home Medications Home Medications: Ambulatory Orders Apixaban [Eliquis] 1 tab PO BID 07/09/18 Aspirin 81 mg PO DAILY 09/19/18 Atorvastatin Ca [Lipitor] 80 mg PO HS 09/19/18 Lisinopril 20 mg PO DAILY 09/19/18 Clopidogrel Bisulfate [Clopidogrel] 75 mg PO DAILY 11/23/18 Folic Acid 1 mg PO DAILY 11/23/18 Metoprolol Succinate 100 mg PO DAILY 11/23/18 Multivit-Min/Iron Fum/Folic AC [Qdlyx-Qeajddk-Tcgingin Tablet] 1 tab PO DAILY Review of Systems - Review of Systems Constitutional: reports: No Symptoms Eyes: reports: No Symptoms HENT: reports: No Symptoms Neck: reports: No Symptoms Cardiovascular: reports: No Symptoms Respiratory: reports: No Symptoms Genitourinary: reports: No Symptoms Breasts: reports: No Symptoms Reported Musculoskeletal: reports: No Symptoms Integumentary: reports: No Symptoms Neurological: reports: No Symptoms Endocrine: reports: No Symptoms Hematology/Lymphatic: reports: Easily Bruised Vital Signs: Vital Signs Temperature 97.9 F 11/23/18 16:04 Pulse Rate 70 11/23/18 16:04 Respiratory Rate 18 11/23/18 16:04 Blood Pressure 122/75 11/23/18 16:04 O2 Sat by Pulse Oximetry (%) 99 11/23/18 16:04 Constitutional: Yes: Well Nourished, No Distress Eyes: Yes: WNL, Conjunctiva Clear HENT: Yes: Atraumatic, Normocephalic Neck: Yes: Supple, Trachea Midline Respiratory: Yes: Regular, CTA Bilaterally Gastrointestinal: Yes: Normal Bowel Sounds, Soft Renal/: Yes: WNL Cardiovascular: Yes: Regular Rate and Rhythm JVD: No Carotid Bruit: No PMI: Non-Displaced Heart Sounds: Yes: S1, S2 Murmur: No: Systolic Murmur, Diastolic Murmur Edema: No Peripheral Pulses WNL: Yes - Other Data Labs, Other Data: CBC, BMP 11/23/18 12:20 11/23/18 11:39 INR, PTT INR 1.08 (0.83-1.09) 11/23/18 12:20 Troponin, BNP 11/23/18 11:39 Troponin I 0.02 Troponin, BNP 11/23/18 11:39 Troponin I 0.02 NSR LAHB and RBBB Problem List - Problems (1) CAD (coronary artery disease) Code(s): I25.10 - ATHSCL HEART DISEASE OF [place] CORONARY ARTERY W/O ANG PCTRS (2) Anemia Code(s): D64.9 - ANEMIA, UNSPECIFIED (3) Hypotension Code(s): I95.9 - HYPOTENSION, UNSPECIFIED (4) Rectal bleed Code(s): K62.5 - HEMORRHAGE OF ANUS AND RECTUM (5) Atrial fibrillation Code(s): I48.91 - UNSPECIFIED ATRIAL FIBRILLATION Qualifiers: Atrial fibrillation type: unspecified Qualified Code(s): I48.91 - Unspecified atrial fibrillation Assessment/Plan 78 M with diverticulosis, Paroxysmal Afib on Eliquis severe 3 VD with normal EF sp multivessel PCI last steting was on 10/30 and then 11/14/18. Had been on Eiquis , ASA and Plavix. Admitted after recurrent BRBPR. No chest pain, dyspnea or dizziness. Last took Eliquis 2 days ago and took ASA and Plavix today. Recent PCI/stent due to multivessel CAD and ID. Normal LV function Given active GI bleeding, agree with holding DAPT and AC. Will decide regarding optimal antithrombotic therapy and AC once bleeding has resolved (DPAT alone vs Plavix +Eliquis) Reduce Metoprolol 50mg BID.
--- NOTE | 2018-11-23 17:25 | CON.GI ---
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 He denies Chest pain , LOC and abdominal pain. He received oral contrast which seem to have increased his bopwel movement. He was seen n the ER. He had stable vital signs and no further bleeding episodes. Case was discussed with Dr Fields, the patient is to be aditted at the ICU and patient to reecive 2 units of PRBC - Past Medical History Cardio/Vascular: Yes: AFIB, CAD, HTN Psych: Yes: Addictions - Past Surgical History Past Surgical History: Yes: None - Alcohol/Substance Use Hx Alcohol Use: No - Smoking History Smoking history: Never smoked Have you smoked in the past 12 months: No Home Medications - Allergies Allergies/Adverse Reactions: Allergies Allergy/AdvReac Type Severity Reaction Status Date / Time No Known Allergies Allergy Verified 09/19/18 14:14 - Home Medications Home Medications: Ambulatory Orders Apixaban [Eliquis] 1 tab PO BID 07/09/18 Aspirin 81 mg PO DAILY 09/19/18 Atorvastatin Ca [Lipitor] 80 mg PO HS 09/19/18 Lisinopril 20 mg PO DAILY 09/19/18 Clopidogrel Bisulfate [Clopidogrel] 75 mg PO DAILY 11/23/18 Folic Acid 1 mg PO DAILY 11/23/18 Metoprolol Succinate 100 mg PO DAILY 11/23/18 Multivit-Min/Iron Fum/Folic AC [Tuxlu-Nhkwuhv-Ycchcxjg Tablet] 1 tab PO DAILY Physical Exam-GI Vital Signs: Vital Signs Temperature 97.9 F 11/23/18 17:04 Pulse Rate 70 11/23/18 17:04 Respiratory Rate 18 11/23/18 17:04 Blood Pressure 122/75 11/23/18 17:04 O2 Sat by Pulse Oximetry (%) 99 11/23/18 17:04 Constitutional: Yes: Well Nourished Eyes: Yes: Conjunctiva Clear HENT: Yes: Atraumatic Neck: Yes: Supple Cardiovascular: Yes: Regular Rate and Rhythm Respiratory: Yes: CTA Bilaterally ...Palpate: Yes: Soft. No: Firm/Rigid, Guarding, Hepatomegaly, Pulsatile Mass, Splenomegaly, Tenderness Labs: CBC, BMP 11/23/18 12:20 11/23/18 11:39 INR, PTT INR 1.08 (0.83-1.09) 11/23/18 12:20 Problem List - Problems (1) Rectal bleed Assessment/Plan: r/o diverticular bleeding vs secondary to bleeding from radiation proctitis R> transfuse to Hgb [place] 8 IV Protonix daily cardiology follow-up Code(s): K62.5 - HEMORRHAGE OF ANUS AND RECTUM
[2018-11-23] MEDS ORDERED: SODIUM CHLORIDE 1,000 ML IV SCH (18:00)
[2018-11-23] MEDS: PANTOPRAZOLE SODIUM 40 MG VIAL IVPUSH SCH (19:00)
[2018-11-23] MEDS ORDERED: ATORVASTATIN CA 80 MG TABLET (FP) PO SCH (22:00)
[2018-11-24 01:32] LABS: HEMATOCRIT 27.4 % (35.4-49); HEMOGLOBIN 9.1 GM/dL (11.7-16.9); MCH 27.7 pg (25.7-33.7); MCHC 33.3 g/dl (32.0-35.9); MEAN CELL VOLUME 83.3 fl (80-96); MEAN PLT VOLUME 10.5 fl (7.5-11.1); PLATELET COUNT 160 K/MM3 (134-434); RBC 3.29 M/mm3 (4.00-5.60); RDW 15.9 % (11.9-15.9)
[2018-11-24 06:23] LABS: HEMATOCRIT 24.4 % (35.4-49); HEMOGLOBIN 8.2 GM/dL (11.7-16.9); MCH 27.7 pg (25.7-33.7); MCHC 33.5 g/dl (32.0-35.9); MEAN CELL VOLUME 82.5 fl (80-96); MEAN PLT VOLUME 10.2 fl (7.5-11.1); PLATELET COUNT 148 K/MM3 (134-434); RBC 2.96 M/mm3 (4.00-5.60); RDW 15.3 % (11.9-15.9); WHITE BLOOD COUNT 6.2 K/mm3 (4.0-10.0)
[2018-11-24 06:59] LABS: ALBUMIN 2.6 g/dl (3.4-5.0); ALK PHOS 112 U/L (45-117); ANION GAP 8 MMOL/L (8-16); BILIRUBIN,TOTAL 0.4 mg/dL (0.2-1); BLOOD UREA NITROGEN 9 mg/dL (7-18); CHLORIDE 113 mmol/L (98-107); CHOLESTEROL 90 mg/dL (50-200); CO2 24 mmol/L (21-32); CREATININE 0.6 mg/dL (0.55-1.3); GLUCOSE,RANDOM 97 mg/dL (74-106); HDL CHOLESTEROL 28 mg/dL (40-60); POTASSIUM 3.9 mmol/L (3.5-5.1); SGOT/AST 14 U/L (15-37); SGPT/ALT 12 U/L (13-61); SODIUM 145 mmol/L (136-145); TOT PROT 5.2 g/dl (6.4-8.2); TRIGLYCERIDES 129 mg/dL (0-150)
[2018-11-24 07:12] LABS: CALCIUM 6.5 mg/dL (8.5-10.1)
--- NOTE | 2018-11-24 07:17 | PN ---
Physical Exam: SUBJECTIVE: Patient seen and examined at bedside, reported 1 episode of bloody diarrhea overnight. Pt had no other complaints. OBJECTIVE: Vital Signs Period Temp Pulse Resp BP Sys/Rankin Pulse Ox Last 24 Hr 97.5 F-99.6 F 55-80 12-18 91-143/39-75 96-99 GENERAL: The patient is awake, alert, and fully oriented, in no acute distress. HEAD: Normal with no signs of trauma. EYES: PERRL, extraocular movements intact, sclera anicteric, conjunctiva clear. No ptosis. ENT: Ears normal, nares patent, oropharynx clear without exudates, moist mucous membranes. NECK: Trachea midline, full range of motion, supple. LUNGS: Breath sounds equal, clear to auscultation bilaterally, no wheezes, no crackles, no accessory muscle use. HEART: Regular rate and rhythm, S1, S2 without murmur, rub or gallop. ABDOMEN: Soft, nontender, nondistended, decreased bowel sounds, no guarding, no rebound, no hepatosplenomegaly, no masses. EXTREMITIES: 2+ pulses, warm, well-perfused, no edema. NEUROLOGICAL: Cranial nerves II through XII grossly intact. Normal speech, gait not observed. PSYCH: Normal mood, normal affect. SKIN: Warm, dry, normal turgor, no rashes or lesions noted Laboratory Results - last 24 hr 11/23/18 11/23/18 11/23/18 11:39 12:20 12:20 WBC 8.3 RBC 2.80 L Hgb 7.4 L Hct 22.8 L D MCV 81.6 MCH 26.3 MCHC 32.2 RDW 16.5 H Plt Count 220 MPV 9.9 Absolute Neuts (auto) 6.4 Neutrophils % 76.9 D Lymphocytes % 14.8 D Monocytes % 6.6 Eosinophils % 1.1 Basophils % 0.6 Nucleated RBC % 0 PT with INR 12.70 INR 1.08 PTT (Actin FS) 33.4 Sodium 138 Potassium 4.8 Chloride 106 Carbon Dioxide 26 Anion Gap 5 L BUN 16 Creatinine 0.7 Creat Clearance w eGFR 108.79 Random Glucose 138 H Lactic Acid Calcium 8.2 L Magnesium Total Bilirubin 0.2 AST 14 L ALT 15 Alkaline Phosphatase 144 H Creatine Kinase 57 Troponin I 0.02 Total Protein 7.0 Albumin 3.3 L Triglycerides Cholesterol Total LDL Cholesterol HDL Cholesterol Stool Occult Blood Blood Type Antibody Screen Crossmatch 11/23/18 11/23/18 11/23/18 12:20 12:25 12:25 WBC RBC Hgb Hct MCV MCH MCHC RDW Plt Count MPV Absolute Neuts (auto) Neutrophils % Lymphocytes % Monocytes % Eosinophils % Basophils % Nucleated RBC % PT with INR INR PTT (Actin FS) Sodium Potassium Chloride Carbon Dioxide Anion Gap BUN Creatinine Creat Clearance w eGFR Random Glucose Lactic Acid 1.8 Calcium Magnesium Total Bilirubin AST ALT Alkaline Phosphatase Creatine Kinase Troponin I Total Protein Albumin Triglycerides Cholesterol Total LDL Cholesterol HDL Cholesterol Stool Occult Blood Positive Blood Type O POSITIVE Antibody Screen Negative Crossmatch See Detail 11/24/18 11/24/18 11/24/18 00:40 05:30 05:30 WBC 8.0 6.2 RBC 3.29 L 2.96 L Hgb 9.1 L 8.2 L Hct 27.4 L D 24.4 L MCV 83.3 82.5 MCH 27.7 27.7 MCHC 33.3 33.5 RDW 15.9 15.3 Plt Count 160 D 148 MPV 10.5 10.2 Absolute Neuts (auto) Neutrophils % Lymphocytes % Monocytes % Eosinophils % Basophils % Nucleated RBC % PT with INR INR PTT (Actin FS) Sodium 145 Potassium 3.9 Chloride 113 H Carbon Dioxide 24 Anion Gap 8 BUN 9 Creatinine 0.6 Creat Clearance w eGFR 129.97 Random Glucose 97 Lactic Acid Calcium 6.5 L* Magnesium 2.0 Total Bilirubin 0.4 AST 14 L ALT 12 L Alkaline Phosphatase 112 Creatine Kinase 61 Troponin I 0.07 H Total Protein 5.2 L Albumin 2.6 L Triglycerides 129 Cholesterol 90 Total LDL Cholesterol 52 HDL Cholesterol 28 L Stool Occult Blood Blood Type Antibody Screen Crossmatch Active Medications Generic Name Dose Route Start Last Admin Trade Name Freq PRN Reason Stop Dose Admin Atorvastatin Calcium 80 mg 11/23/18 22:00 11/23/18 21:12 Lipitor - PO 80 mg HS RAMYA Administration Pantoprazole Sodium 40 mg 11/23/18 19:00 11/23/18 19:00 Protonix Iv IVPUSH 40 mg DAILY RAMYA Administration ASSESSMENT/PLAN: 78 year old male with PMH diverticulosis (last colonoscopy 08/03/[address] Kennedy), AF on Eliquis, HTN, HLD, prostate CA, recent coronary stenting (x2 2018), CAD, [place] presented to ED for blood in stool x2 days. Pt had active GI bleeding in ED, around 500 cc. NEURO -Alert and oriented -Continue to monitor RESPIRATORY -No labored breathing, no shortness of breath on room air -Continue to monitor CARDIOVASCULAR #HX Coronary Stenting/CAD -Hold home Plavix 75 mg PO daily -Hold home ASA 81 mg PO daily -Cardiology consulted #HX Atrial Fibrillation -Hold Eliquis #HX HTN -Hold home Lisinopril 20 mg PO daily while hypotensive -Hold home Metoprolol 100 mg PO daily while hypotensive #HX HLD -Continue home Lipitor 80 mg PO HS GI #Suspected Lower GIB -Hx diverticulosis on last colonoscopy 07/2019 -2U PRBC given 11/23/18 -2L NS given in ED -NPO -Protonix 40 mg IV daily per GI -No protonix drip -CT abdomen/pelvis IV/PO contrast: sigmoid diverticulosis without diverticulitis. HEMATOLOGY -H/H 7.4/22.8>>9.1/27.4>>8.2/24.4 -2U PRBC given 11/23/18 -Continue to monitor FEN -NPO -2L normal saline in ED -NS 75 cc/hour -Monitor electrolytes -Replete calcium s/p 2U PRBC -No larry Dispo: TELE Visit type - Emergency Visit Emergency Visit: Yes ED Registration Date: 11/23/18 Care time: The patient presented to the Emergency Department on the above date and was hospitalized for further evaluation of their emergent condition. - New Patient This patient is new to me today: No - Critical Care Critical Care patient: Yes Total Critical Care Time (in minutes): 35 Critical Care Statement: The care of this patient involved high complexity decision making to prevent further life threatening deterioration of the patient 's condition and/or to evaluate & treat vital organ system(s) failure or risk of failure. - Discharge Referral Referred to [facility] Med P.C.: No
[2018-11-24] MEDS ORDERED: CALCIUM GLUCONATE 10% - 1,000 MG/10 ML VIAL IVPUSH ONE (07:44)
[2018-11-24] MEDS: PANTOPRAZOLE SODIUM 40 MG VIAL IVPUSH SCH (09:34)
[2018-11-24] MEDS ORDERED: FUROSEMIDE 40 MG/4 ML INJECTABLE VIAL IVPUSH SCH (09:52)
--- NOTE | 2018-11-24 09:52 | PN ---
Progress Note, Physician - Current Medication List Current Medications: Active Medications Atorvastatin Calcium (Lipitor -) 80 mg PO HS [facility] Last Admin: 11/23/18 21:12 Dose: 80 mg Pantoprazole Sodium (Protonix Iv) 40 mg IVPUSH DAILY [facility] Last Admin: 11/24/18 09:34 Dose: 40 mg - Objective Vital Signs: Vital Signs Temperature 99.6 F 11/24/18 02:00 Pulse Rate 55 L 11/24/18 08:00 Respiratory Rate 15 11/24/18 08:18 Blood Pressure 136/86 11/24/18 08:00 O2 Sat by Pulse Oximetry (%) 99 11/24/18 08:18 Labs: CBC, BMP 11/24/18 05:30 11/24/18 05:30 INR, PTT INR 1.08 (0.83-1.09) 11/23/18 12:20 Assessment/Plan GIB NPO transfuse [address] daley consult recheck cbc every [address] scan noted telemetry- monitor vitals hold all AC aspirin plavix and eliquis Dr nixon cardiology given low/borderline BP hold lopressors and lisinopril for now lipid panel
[2018-11-24 11:13] LABS: PLATELET ESTIMATE ADEQUATE
--- NOTE | 2018-11-24 12:21 | PN ---
Teaching Attending Note Name of Resident: Nusrat Calvin ATTENDING PHYSICIAN STATEMENT I saw and evaluated the patient. I reviewed the resident's note and discussed the case with the resident. I agree with the resident's findings and plan as documented. SUBJECTIVE: Patient seen and examined in the ICU. Awake and alert. Small bloody BM this AM but was. Hemodynamics stable. No CP or SOB. Intake & Output 11/21/18 11/22/18 11/23/18 11/24/18 23:59 23:59 23:59 23:59 Intake Total 3350 Output Total 850 Balance 2500 Weight 157 lb 2 oz Last Vital Signs Temp Pulse Resp BP Pulse Ox 98.3 F 56 L 13 144/46 L 99 11/24/18 10:07 11/24/18 10:07 11/24/18 10:07 11/24/18 10:07 11/24/18 08:18 Active Medications Atorvastatin Calcium (Lipitor -) 80 mg PO HS [facility] Last Admin: 11/23/18 21:12 Dose: 80 mg Furosemide (Lasix Injection -) 40 mg IVPUSH [employer] [facility] Stop: 11/24/18 22:00 Pantoprazole Sodium (Protonix Iv) 40 mg IVPUSH DAILY [facility] Last Admin: 11/24/18 09:34 Dose: 40 mg GENERAL: The patient is awake, alert, and fully oriented, in no acute distress. HEAD: Normal with no signs of trauma. EYES: sclera anicteric, conjunctiva clear. No ptosis. ENT: Ears normal, nares patent, oropharynx clear without exudates, moist mucous membranes. NECK: Trachea midline, full range of motion, supple. LUNGS: Breath sounds equal, clear to auscultation bilaterally, no wheezes, no crackles, no accessory muscle use. HEART: Regular rate and rhythm, S1, S2 without murmur, rub or gallop. ABDOMEN: Soft, nontender, nondistended, decreased bowel sounds, no guarding, no rebound, no hepatosplenomegaly, no masses. EXTREMITIES: 2+ pulses, warm, well-perfused, no edema. NEUROLOGICAL: Non-focal PSYCH: Normal mood, normal affect. SKIN: Warm, dry, normal turgor, no rashes or lesions noted Laboratory Results - last 24 hr 11/23/18 11/23/18 11/23/18 11:39 12:20 12:20 WBC 8.3 Corrected WBC (auto) RBC 2.80 L Hgb 7.4 L Hct 22.8 L D MCV 81.6 MCH 26.3 MCHC 32.2 RDW 16.5 H Plt Count 220 MPV 9.9 Absolute Neuts (auto) 6.4 Total Counted Neutrophils % 76.9 D Neutrophils % (Manual) Lymphocytes % 14.8 D Lymphocytes % (Manual) Monocytes % 6.6 Monocytes % (Manual) Eosinophils % 1.1 Eosinophils % (Manual) Basophils % 0.6 Nucleated RBC % 0 Platelet Estimate Platelet Comment PT with INR 12.70 INR 1.08 PTT (Actin FS) 33.4 Sodium 138 Potassium 4.8 Chloride 106 Carbon Dioxide 26 Anion Gap 5 L BUN 16 Creatinine 0.7 Creat Clearance w eGFR 108.79 Random Glucose 138 H Lactic Acid Calcium 8.2 L Magnesium Total Bilirubin 0.2 AST 14 L ALT 15 Alkaline Phosphatase 144 H Creatine Kinase 57 Troponin I 0.02 Total Protein 7.0 Albumin 3.3 L Triglycerides Cholesterol Total LDL Cholesterol HDL Cholesterol Stool Occult Blood Blood Type Antibody Screen Crossmatch 11/23/18 11/23/18 11/23/18 12:20 12:25 12:25 WBC Corrected WBC (auto) RBC Hgb Hct MCV MCH MCHC RDW Plt Count MPV Absolute Neuts (auto) Total Counted Neutrophils % Neutrophils % (Manual) Lymphocytes % Lymphocytes % (Manual) Monocytes % Monocytes % (Manual) Eosinophils % Eosinophils % (Manual) Basophils % Nucleated RBC % Platelet Estimate Platelet Comment PT with INR INR PTT (Actin FS) Sodium Potassium Chloride Carbon Dioxide Anion Gap BUN Creatinine Creat Clearance w eGFR Random Glucose Lactic Acid 1.8 Calcium Magnesium Total Bilirubin AST ALT Alkaline Phosphatase Creatine Kinase Troponin I Total Protein Albumin Triglycerides Cholesterol Total LDL Cholesterol HDL Cholesterol Stool Occult Blood Positive Blood Type O POSITIVE Antibody Screen Negative Crossmatch See Detail 11/24/18 11/24/18 11/24/18 00:40 05:30 05:30 WBC 8.0 6.2 Corrected WBC (auto) RBC 3.29 L 2.96 L Hgb 9.1 L 8.2 L Hct 27.4 L D 24.4 L MCV 83.3 82.5 MCH 27.7 27.7 MCHC 33.3 33.5 RDW 15.9 15.3 Plt Count 160 D 148 MPV 10.5 10.2 Absolute Neuts (auto) Total Counted 100 Neutrophils % No Result Required. Neutrophils % (Manual) 73.0 Lymphocytes % No Result Required. Lymphocytes % (Manual) 18.0 Monocytes % Monocytes % (Manual) 6 Eosinophils % Eosinophils % (Manual) 3.0 Basophils % Nucleated RBC % Platelet Estimate Adequate Platelet Comment PT with INR INR PTT (Actin FS) Sodium 145 Potassium 3.9 Chloride 113 H Carbon Dioxide 24 Anion Gap 8 BUN 9 Creatinine 0.6 Creat Clearance w eGFR 129.97 Random Glucose 97 Lactic Acid Calcium 6.5 L* Magnesium 2.0 Total Bilirubin 0.4 AST 14 L ALT 12 L Alkaline Phosphatase 112 Creatine Kinase 61 Troponin I 0.07 H Total Protein 5.2 L Albumin 2.6 L Triglycerides 129 Cholesterol 90 Total LDL Cholesterol 52 HDL Cholesterol 28 L Stool Occult Blood Blood Type Antibody Screen Crossmatch 11/24/18 05:30 WBC Cancelled Corrected WBC (auto) Cancelled RBC Cancelled Hgb Cancelled Hct Cancelled MCV Cancelled MCH Cancelled MCHC Cancelled RDW Cancelled Plt Count Cancelled MPV Cancelled Absolute Neuts (auto) Cancelled Total Counted Neutrophils % Cancelled Neutrophils % (Manual) Lymphocytes % Cancelled Lymphocytes % (Manual) Monocytes % Cancelled Monocytes % (Manual) Eosinophils % Cancelled Eosinophils % (Manual) Basophils % Cancelled Nucleated RBC % Cancelled Platelet Estimate Cancelled Platelet Comment Cancelled PT with INR INR PTT (Actin FS) Sodium Potassium Chloride Carbon Dioxide Anion Gap BUN Creatinine Creat Clearance w eGFR Random Glucose Lactic Acid Calcium Magnesium Total Bilirubin AST ALT Alkaline Phosphatase Creatine Kinase Troponin I Total Protein Albumin Triglycerides Cholesterol Total LDL Cholesterol HDL Cholesterol Stool Occult Blood Blood Type Antibody Screen Crossmatch ASSESSMENT/PLAN: Suspected Acute Diverticular Bleed (?) component of bleeding from proctitis History of diverticulosis (last colonoscopy 08/03/[address] Kennedy) AFib on Eliquis HTN HLD Prostate CA Recent coronary stenting (x2 08/2018) CAD AMI Follow H & H AC and anti-platelet on hold Normal transfusion threshold: Hb mg/dL O2 as needed Mechanical VTE prophylaxis PO when OK with GI IVF Cardiac Telemetry monitoring Dr Malhotra
--- NOTE | 2018-11-24 13:14 | PN.GI ---
GI Progress Note Subjective: saw the patient in the ICU this morning, no active bleeding for more than 12 hours - Objective Vital Signs: Vital Signs Temperature 98.3 F 11/24/18 10:07 Pulse Rate 56 L 11/24/18 10:07 Respiratory Rate 13 11/24/18 10:07 Blood Pressure 144/46 L 11/24/18 10:07 O2 Sat by Pulse Oximetry (%) 99 11/24/18 08:18 Constitutional: Well Nourished Eyes: Yes: Conjunctiva Clear HENT: Yes: Atraumatic Neck: Yes: Supple Cardiovascular: Yes: Regular Rate and Rhythm Respiratory: Yes: CTA Bilaterally ...Palpate: Yes: Soft. No: Firm/Rigid, Guarding, Hepatomegaly, Mass, Pulsatile Mass, Splenomegaly, Tenderness Labs: CBC, BMP 11/24/18 05:30 11/24/18 05:30 INR, PTT INR 1.08 (0.83-1.09) 11/23/18 12:20 Problem List - Problems (1) Rectal bleed Assessment/Plan: hold AC for another 24 hours if no bleeding start on Heparin drip clear liquids Code(s): K62.5 - HEMORRHAGE OF ANUS AND RECTUM
--- NOTE | 2018-11-24 15:18 | PN ---
Progress Note, Physician Chief Complaint: Telem NSR No arrhythmia No chest pain Still with rectal bleeding although less. History of Present Illness: 78 M with diverticulosis, Paroxysmal Afib on Eliquis severe 3 VD with normal EF sp multivessel PCI last steting was on 10/30 and then 11/14/18. Had been on Eiquis , ASA and Plavix. Admitted after recurrent BRBPR. No chest pain, dyspnea or dizziness. - Current Medication List Current Medications: Active Medications Atorvastatin Calcium (Lipitor -) 80 mg PO HS [facility] Last Admin: 11/23/18 21:12 Dose: 80 mg Furosemide (Lasix Injection -) 40 mg IVPUSH RN [facility] Stop: 11/24/18 22:00 Last Admin: 11/24/18 13:56 Dose: 40 mg Pantoprazole Sodium (Protonix Iv) 40 mg IVPUSH DAILY [facility] Last Admin: 11/24/18 09:34 Dose: 40 mg - Objective Vital Signs: Vital Signs Temperature 98.2 F 11/24/18 14:00 Pulse Rate 59 L 11/24/18 14:00 Respiratory Rate 11 11/24/18 14:00 Blood Pressure 151/66 11/24/18 14:00 O2 Sat by Pulse Oximetry (%) 99 11/24/18 08:18 Constitutional: Yes: Well Nourished, No Distress Eyes: Yes: Conjunctiva Clear, EOM Intact HENT: Yes: Atraumatic, Normocephalic Neck: Yes: Supple, Trachea Midline Cardiovascular: Yes: Regular Rate and Rhythm, S1, S2 Respiratory: Yes: Regular, CTA Bilaterally Gastrointestinal: Yes: Normal Bowel Sounds Labs: CBC, BMP 11/24/18 05:30 11/24/18 05:30 INR, PTT INR 1.08 (0.83-1.09) 11/23/18 12:20 Problem List - Problems (1) CAD (coronary artery disease) Code(s): I25.10 - ATHSCL HEART DISEASE OF [place] CORONARY ARTERY W/O ANG PCTRS (2) Anemia Code(s): D64.9 - ANEMIA, UNSPECIFIED (3) Hypotension Code(s): I95.9 - HYPOTENSION, UNSPECIFIED (4) Rectal bleed Code(s): K62.5 - HEMORRHAGE OF ANUS AND RECTUM (5) Atrial fibrillation Code(s): I48.91 - UNSPECIFIED ATRIAL FIBRILLATION Qualifiers: Atrial fibrillation type: unspecified Qualified Code(s): I48.91 - Unspecified atrial fibrillation Assessment/Plan 78 M with diverticulosis, radiation proctitis, previous prostate CA, Paroxysmal Afib on Eliquis severe 3 VD with normal EF sp multivessel PCI last stenting was on 10/30 and then 11/14/18. Had been on Eiquis, ASA and Plavix. Admitted after recurrent BRBPR. No chest pain, dyspnea or dizziness. Last took Eliquis 2 days ago and took ASA and Plavix today. Recent PCI/stent in addition to PAF Normal LV function Given active GI bleeding, agree with holding DAPT and AC. Will decide regarding optimal antithrombotic therapy and AC once bleeding has resolved and in consultation with GI. Would eventually consider placing on Plavix+Eliquis and stop ASA or any other NSAID. Mild TP elevation is due to demand medicated ischemia from GI bleeding.
[2018-11-24 17:21] LABS: BASO % 0.6 % (0-2.0); EOS % 2.7 % (0-4.5); HEMATOCRIT 30.2 % (35.4-49); HEMOGLOBIN 9.9 GM/dL (11.7-16.9); LYMPH % 22.9 % (8-40); MCH 26.7 pg (25.7-33.7); MCHC 32.8 g/dl (32.0-35.9); MEAN CELL VOLUME 81.2 fl (80-96); MEAN PLT VOLUME 10.3 fl (7.5-11.1); MONO % 7.4 % (3.8-10.2); NEUT % 66.4 % (42.8-82.8); PLATELET COUNT 162 K/MM3 (134-434); RBC 3.72 M/mm3 (4.00-5.60); RDW 16.1 % (11.9-15.9); WHITE BLOOD COUNT 6.5 K/mm3 (4.0-10.0)
[2018-11-24] MEDS: ATORVASTATIN CA 80 MG TABLET (FP) PO SCH (21:32)
[2018-11-24 22:04] LABS: BASO % 0.6 % (0-2.0); EOS % 2.6 % (0-4.5); HEMATOCRIT 30.4 % (35.4-49); HEMOGLOBIN 10.1 GM/dL (11.7-16.9); LYMPH % 18.7 % (8-40); MCH 26.8 pg (25.7-33.7); MCHC 33.3 g/dl (32.0-35.9); MEAN CELL VOLUME 80.4 fl (80-96); MEAN PLT VOLUME 10.1 fl (7.5-11.1); MONO % 6.8 % (3.8-10.2); NEUT % 71.3 % (42.8-82.8); PLATELET COUNT 176 K/MM3 (134-434); RBC 3.79 M/mm3 (4.00-5.60); RDW 16.8 % (11.9-15.9); WHITE BLOOD COUNT 8.3 K/mm3 (4.0-10.0)
[2018-11-25 06:21] LABS: BASO % 0.6 % (0-2.0); EOS % 2.5 % (0-4.5); HEMATOCRIT 26.1 % (35.4-49); HEMOGLOBIN 8.6 GM/dL (11.7-16.9); LYMPH % 18.3 % (8-40); MCH 26.6 pg (25.7-33.7); MCHC 33.1 g/dl (32.0-35.9); MEAN CELL VOLUME 80.5 fl (80-96); MEAN PLT VOLUME 9.8 fl (7.5-11.1); MONO % 6.2 % (3.8-10.2); NEUT % 72.4 % (42.8-82.8); PLATELET COUNT 181 K/MM3 (134-434); RBC 3.24 M/mm3 (4.00-5.60); RDW 16.4 % (11.9-15.9); WHITE BLOOD COUNT 7.3 K/mm3 (4.0-10.0)
[2018-11-25 07:35] LABS: ALBUMIN 2.9 g/dl (3.4-5.0); ALK PHOS 115 U/L (45-117); ANION GAP 10 MMOL/L (8-16); BILIRUBIN,TOTAL 0.8 mg/dL (0.2-1); BLOOD UREA NITROGEN 17 mg/dL (7-18); CALCIUM 8.2 mg/dL (8.5-10.1); CHLORIDE 106 mmol/L (98-107); CO2 25 mmol/L (21-32); CREATININE 0.7 mg/dL (0.55-1.3); GLUCOSE,RANDOM 97 mg/dL (74-106); MAGNESIUM 2.2 mg/dL (1.8-2.4); PHOSPHOROUS 4.9 mg/dL (2.5-4.9); POTASSIUM 3.8 mmol/L (3.5-5.1); SGOT/AST 15 U/L (15-37); SGPT/ALT 14 U/L (13-61); SODIUM 140 mmol/L (136-145)
[2018-11-25] MEDS: PANTOPRAZOLE SODIUM 40 MG VIAL IVPUSH SCH (09:34)
--- NOTE | 2018-11-25 09:51 | PN.GI ---
GI Progress Note Subjective: For Dr. Kennedy, who resumes care 11/27 No bleeding today 2 small blood BM's noted by day shift yesterday - Objective Vital Signs: Vital Signs Temperature 97.5 F L 11/25/18 06:00 Pulse Rate 88 11/25/18 08:00 Respiratory Rate 10 11/25/18 08:00 Blood Pressure 136/68 11/25/18 08:00 O2 Sat by Pulse Oximetry (%) 99 11/25/18 07:33 Constitutional: Calm Eyes: No: Sclera Icterus Cardiovascular: Yes: Tachycardia, Pulse Irregular Respiratory: Yes: CTA Bilaterally Gastrointestinal Inspection: No: Distention ...Auscultate: Yes: Normoactive Bowel Sounds ...Palpate: Yes: Soft. No: Hepatomegaly, Splenomegaly, Tenderness Edema: No (No LE edema) Neurological: Yes: Alert Labs: CBC, BMP 11/25/18 05:30 11/25/18 05:30 INR, PTT INR 1.08 (0.83-1.09) 11/23/18 12:20 Problem List - Problems (1) Rectal bleed Assessment/Plan: Patient hemodynamically stable: Continue clears If significant rectal bleeding continues, CTA Continue ICU monitoring Monitor H / H Code(s): K62.5 - HEMORRHAGE OF ANUS AND RECTUM
--- NOTE | 2018-11-25 12:36 | PN ---
Progress Note, Physician - Current Medication List Current Medications: Active Medications Atorvastatin Calcium (Lipitor -) 80 mg PO HS [facility] Last Admin: 11/24/18 21:32 Dose: 80 mg Pantoprazole Sodium (Protonix Iv) 40 mg IVPUSH DAILY [facility] Last Admin: 11/25/18 09:34 Dose: 40 mg - Objective Vital Signs: Vital Signs Temperature 97.5 F L 11/25/18 06:00 Pulse Rate 88 11/25/18 08:00 Respiratory Rate 10 11/25/18 08:00 Blood Pressure 136/68 11/25/18 08:00 O2 Sat by Pulse Oximetry (%) 99 11/25/18 07:33 Cardiovascular: Yes: Regular Rate and Rhythm Respiratory: Yes: Regular, CTA Bilaterally Gastrointestinal: Yes: Normal Bowel Sounds, Soft Labs: CBC, BMP 11/25/18 05:30 11/25/18 05:30 INR, PTT INR 1.08 (0.83-1.09) 11/23/18 12:20 Problem List - Problems (1) GI bleed Assessment/Plan: NPO transfuse [address] daley consult noted recheck cbc ct scan noted hold all AC aspirin plavix and eliquis Code(s): K92.2 - GASTROINTESTINAL HEMORRHAGE, UNSPECIFIED (2) Anemia Assessment/Plan: as above Code(s): D64.9 - ANEMIA, UNSPECIFIED (3) CAD (coronary artery disease) Assessment/Plan: s/p stenting Dr nixon cardiology given low/borderline BP hold lopressors and lisinopril for now hold ac Code(s): I25.10 - ATHSCL HEART DISEASE OF [place] CORONARY ARTERY W/O ANG PCTRS
[2018-11-25 13:02] LABS: HEMATOCRIT 24.1 % (35.4-49); MCH 26.9 pg (25.7-33.7); MCHC 33.1 g/dl (32.0-35.9); MEAN CELL VOLUME 81.3 fl (80-96); MEAN PLT VOLUME 9.7 fl (7.5-11.1); PLATELET COUNT 179 K/MM3 (134-434); RBC 2.96 M/mm3 (4.00-5.60); RDW 16.9 % (11.9-15.9); WHITE BLOOD COUNT 8.7 K/mm3 (4.0-10.0)
[2018-11-25] MEDS ORDERED: AMIODARONE HCL 150 MG/3 ML VIAL IVPUSH STA ×2 (16:05→16:29)
[2018-11-25] MEDS ORDERED: PNEUMOC 13-VAL CONJ-DIP CRM/PF 0.5 ML DISP.SYRIN IM ONE (16:05)
[2018-11-25] MEDS: AMIODARONE IN DEXTROSE,ISO-OSM 360 MG/200 ML BAG IVPB SCH (16:50)
[2018-11-25] MEDS ORDERED: FLU VACCINE QUAD 60 MCG/0.5 ML (MDV 18-19) IM ONE (18:00)
[2018-11-25] MEDS ORDERED: PNEUMOCOCCAL 23 VACCINE 0.5 ML VIAL IM ONE (18:00)
[2018-11-25] MEDS ORDERED: ZOLPIDEM TARTRATE 5 MG TABLET PO PRN (21:21)
[2018-11-25] MEDS: ATORVASTATIN CA 80 MG TABLET (FP) PO SCH (21:41)
--- NOTE | 2018-11-25 22:58 | PN ---
Progress Note (short form) - Note Progress Note: PULM/CCM Pt seen & Examined in the ICU. CA+OX3. Bleeding seems to be slowing. Residual Melena persists Active Medications Atorvastatin Calcium (Lipitor -) 80 mg PO HS [facility] Last Admin: 11/25/18 21:41 Dose: 80 mg Amiodarone HCl/Dextrose (Nexterone 360 Mg/200 Ml Bag) 360 mg in 200 mls @ 16.667 mls/hr IVPB TITR [facility]; Protocol Last Admin: 11/25/18 16:50 Dose: 16.667 mls/hr Pantoprazole Sodium (Protonix Iv) 40 mg IVPUSH DAILY [facility] Last Admin: 11/25/18 09:34 Dose: 40 mg Vital Signs Period Temp Pulse Resp BP Sys/Rankin Pulse Ox Last 24 Hr 97.5 F-98.8 F 78-157 10-20 127-169/60-78 99-99 Intake & Output 11/22/18 11/23/18 11/24/18 11/25/18 23:59 23:59 23:59 23:59 Intake Total 3350 350 550 Output Total 850 1650 1400 Balance 2500 -1300 -850 Weight 71.271 kg 71.214 kg GEN: CA+OX3, NAD, appears much younger than his declared age HEENT: PERRL, an-icteric, Dry MMM PULM: CTAB CV: Regular rate and rhythm, S1, S2 without murmur, rub or gallop. ABD: Soft, nontender, nondistended, decreased bowel sounds, no guarding, no rebound, no hepatosplenomegaly, no masses. EXT: 2+ pulses, warm, well-perfused, no edema SKIN: Warm, dry, normal turgor, no rashes or lesions noted CBC, BMP 11/25/18 12:22 11/25/18 05:30 INR, PTT INR 1.08 (0.83-1.09) 11/23/18 12:20 Microbiology 11/24/18 08:40 Stool Clostridioides difficile Antigen - Final 11/24/18 08:40 Stool Clostridioides difficile Toxin Assay - Final CTAP 11/23: Sigmoid diverticulosis with no evidence of diverticulitis or acute pathology within the abdomen or pelvis. ASSESSMENT/PLAN: Suspected Acute Diverticular Bleed (?) component of bleeding from proctitis History of diverticulosis (last colonoscopy 08/03/[address] Kennedy) AFib on Eliquis HTN HLD Prostate CA Recent coronary stenting (x2 08/2018) CAD AMI NPO Follow H & H AC and anti-platelet on hold PPI gtt Trend CBC Normal transfusion threshold: Hb mg/dL GI O2 as needed Mechanical VTE prophylaxis PO when OK with GI IVF Cardiac Telemetry monitoring [facility] ICU PULM/CCM [id number]
[2018-11-26] MEDS: PANTOPRAZOLE SODIUM 40 MG VIAL IVPUSH SCH (09:02)
--- NOTE | 2018-11-26 12:04 | PN.GI ---
GI Progress Note Subjective: for Dr. Kennedy who resumes care 11/27 Scant blood BM's described yesterday and overnight A Fib w/ RVR yesterday, Now rate controlled - Objective Vital Signs: Vital Signs Temperature 98.2 F 11/26/18 10:00 Pulse Rate 69 11/26/18 10:00 Respiratory Rate 15 11/26/18 10:00 Blood Pressure 140/77 11/26/18 10:00 O2 Sat by Pulse Oximetry (%) 99 11/26/18 09:00 Constitutional: Calm Eyes: No: Sclera Icterus Cardiovascular: Yes: Pulse Irregular (regular rate) Respiratory: Yes: CTA Bilaterally Gastrointestinal Inspection: No: Distention ...Auscultate: Yes: Normoactive Bowel Sounds ...Palpate: Yes: Soft. No: Tenderness ...Rectal Exam: Yes: Other (No external lesions, no masses, dark red blood mixed with scant stool) Edema: No (No LE edema) Neurological: Yes: Alert Labs: CBC, BMP 11/25/18 12:22 11/25/18 05:30 INR, PTT INR 1.08 (0.83-1.09) 11/23/18 12:20 Problem List - Problems (1) Rectal bleed Assessment/Plan: H/H trending doewn and still with some scant rectal bleeding. Discussed repeat colonoscopy with Mr. Dangelo and his , in order to assess known radiation proctitis and for alternate source of bleeding prior to reinitiation of A/C. Patient in agreement. Discussed plan with Dr. Kennedy. Clear liquids Repeat CBC @ 1pm Golytely NPO after MN except meds Code(s): K62.5 - HEMORRHAGE OF ANUS AND RECTUM
[2018-11-26 13:14] LABS: HEMATOCRIT 22.6 % (35.4-49); HEMOGLOBIN 7.3 GM/dL (11.7-16.9); MCH 26.6 pg (25.7-33.7); MCHC 32.2 g/dl (32.0-35.9); MEAN CELL VOLUME 82.7 fl (80-96); MEAN PLT VOLUME 9.7 fl (7.5-11.1); PLATELET COUNT 177 K/MM3 (134-434); RBC 2.74 M/mm3 (4.00-5.60); RDW 17.1 % (11.9-15.9); WHITE BLOOD COUNT 9.1 K/mm3 (4.0-10.0)
--- NOTE | 2018-11-26 13:23 | PN ---
Progress Note (short form) - Note Progress Note: PULM/CCM Pt seen & Examined in the ICU. CA+OX3. Bleeding continues to ooze 10.1 --> 8.6 - -> 8.0 --> 7.3. Scanty Melena persists Active Medications Atorvastatin Calcium (Lipitor -) 80 mg PO HS [facility] Last Admin: 11/25/18 21:41 Dose: 80 mg Amiodarone HCl/Dextrose (Nexterone 360 Mg/200 Ml Bag) 360 mg in 200 mls @ 16.667 mls/hr IVPB TITR [facility]; Protocol Last Admin: 11/25/18 16:50 Dose: 16.667 mls/hr Pantoprazole Sodium (Protonix Iv) 40 mg IVPUSH DAILY [facility] Last Admin: 11/25/18 09:34 Dose: 40 mg Vital Signs Period Temp Pulse Resp BP Sys/Rankin Pulse Ox Last 24 Hr 97.5 F-98.8 F 78-157 10-20 127-169/60-78 99-99 Intake & Output 11/22/18 11/23/18 11/24/18 11/25/18 23:59 23:59 23:59 23:59 Intake Total 3350 350 550 Output Total 850 1650 1400 Balance 2500 -1300 -850 Weight 71.271 kg 71.214 kg GEN: CA+OX3, NAD, appears much younger than his declared age HEENT: PERRL, an-icteric, Dry MMM PULM: CTAB CV: Regular rate and rhythm, S1, S2 without murmur, rub or gallop. ABD: Soft, nontender, nondistended, decreased bowel sounds, no guarding, no rebound, no hepatosplenomegaly, no masses. EXT: 2+ pulses, warm, well-perfused, no edema SKIN: Warm, dry, normal turgor, no rashes or lesions noted CBC, BMP 11/26/18 13:00 11/25/18 05:30 INR, PTT INR 1.08 (0.83-1.09) 11/23/18 12:20 Microbiology 11/24/18 08:40 Stool Clostridioides difficile Antigen - Final 11/24/18 08:40 Stool Clostridioides difficile Toxin Assay - Final CTAP 11/23: Sigmoid diverticulosis with no evidence of diverticulitis or acute pathology within the abdomen or pelvis. ASSESSMENT/PLAN: Suspected Acute Diverticular Bleed (?) component of bleeding from proctitis History of diverticulosis (last colonoscopy 08/03/[address] Kennedy) AFib on Eliquis HTN HLD Prostate CA Recent coronary stenting (x2 08/2018) CAD AMI NPO Follow H & H AC and anti-platelet on hold PPI gtt Trend CBC Normal transfusion thresholds GI O2 as needed Mechanical VTE prophylaxis PO when OK with GI IVF Cardiac Telemetry monitoring [facility] ICU PULM/CCM [id number]
[2018-11-26] MEDS ORDERED: PEG 3350/NA SULF BICARB CL/KCL 4000 ML SOLN.RECON PO ONE (14:00)
[2018-11-26] MEDS ORDERED: FUROSEMIDE 40 MG/4 ML INJECTABLE VIAL IVPUSH SCH (14:10)
--- NOTE | 2018-11-26 14:12 | PN ---
Progress Note, Physician - Current Medication List Current Medications: Active Medications Atorvastatin Calcium (Lipitor -) 80 mg PO HS [facility] Last Admin: 11/25/18 21:41 Dose: 80 mg Furosemide (Lasix Injection -) 40 mg IVPUSH ONCE ONE Stop: 11/26/18 14:11 Amiodarone HCl/Dextrose (Nexterone 360 Mg/200 Ml Bag) 360 mg in 200 mls @ 16.667 mls/hr IVPB TITR [facility]; Protocol Last Admin: 11/25/18 16:50 Dose: 16.667 mls/hr Pantoprazole Sodium (Protonix Iv) 40 mg IVPUSH DAILY [facility] Last Admin: 11/26/18 09:02 Dose: 40 mg - Objective Vital Signs: Vital Signs Temperature 98.2 F 11/26/18 10:00 Pulse Rate 65 11/26/18 12:00 Respiratory Rate 10 11/26/18 12:00 Blood Pressure 126/64 11/26/18 12:00 O2 Sat by Pulse Oximetry (%) 99 11/26/18 09:00 Cardiovascular: Yes: S1, S2 Respiratory: Yes: Regular, CTA Bilaterally Gastrointestinal: Yes: Normal Bowel Sounds, Soft. No: Tenderness Labs: CBC, BMP 11/26/18 13:00 11/25/18 05:30 INR, PTT INR 1.08 (0.83-1.09) 11/23/18 12:20 Problem List - Problems (1) GI bleed Assessment/Plan: on clear transfuse [address] daley consult noted recheck cbc ct scan noted hold all AC aspirin plavix and eliquis Code(s): K92.2 - GASTROINTESTINAL HEMORRHAGE, UNSPECIFIED (2) Anemia Assessment/Plan: as above Code(s): D64.9 - ANEMIA, UNSPECIFIED (3) CAD (coronary artery disease) Assessment/Plan: s/p stenting Dr nixon cardiology given low/borderline BP hold lopressors and lisinopril for now hold ac Code(s): I25.10 - ATHSCL HEART DISEASE OF [place] CORONARY ARTERY W/O ANG PCTRS
--- NOTE | 2018-11-26 15:32 | PN ---
Progress Note, Physician Chief Complaint: Comfortable appearing History of Present Illness: This is a 78 M with diverticulosis, Paroxysmal Afib on Eliquis severe 3 VD with normal EF sp multivessel PCI last steting was on 10/30 and then 11/14/18. Had been on Eiquis, ASA and Plavix. Admitted after recurrent BRBPR. No chest pain, dyspnea or dizziness. HCT continues to trend down. - Current Medication List Current Medications: Active Medications Atorvastatin Calcium (Lipitor -) 80 mg PO HS [facility] Last Admin: 11/25/18 21:41 Dose: 80 mg Furosemide (Lasix Injection -) 40 mg IVPUSH PST [facility] Amiodarone HCl/Dextrose (Nexterone 360 Mg/200 Ml Bag) 360 mg in 200 mls @ 16.667 mls/hr IVPB TITR [facility]; Protocol Last Admin: 11/25/18 16:50 Dose: 16.667 mls/hr Pantoprazole Sodium (Protonix Iv) 40 mg IVPUSH DAILY [facility] Last Admin: 11/26/18 09:02 Dose: 40 mg - Objective Vital Signs: Vital Signs Temperature 98.2 F 11/26/18 10:00 Pulse Rate 65 11/26/18 12:00 Respiratory Rate 10 11/26/18 12:00 Blood Pressure 126/64 11/26/18 12:00 O2 Sat by Pulse Oximetry (%) 99 11/26/18 09:00 Constitutional: Yes: No Distress Eyes: Yes: WNL HENT: Yes: WNL Neck: Yes: WNL Cardiovascular: Yes: Regular Rate and Rhythm (NL S1S2, No MRHG) Respiratory: Yes: CTA Bilaterally Gastrointestinal: Yes: Normal Bowel Sounds Neurological: Yes: Alert, Oriented Labs: CBC, BMP 11/26/18 13:00 11/25/18 05:30 INR, PTT INR 1.08 (0.83-1.09) 11/23/18 12:20 Assessment/Plan 78 M with diverticulosis, radiation proctitis, previous prostate CA, Paroxysmal Afib on Eliquis severe 3 VD with normal EF sp multivessel PCI last stenting was on 10/30 and then 11/14/18. Had been on Eiquis, ASA and Plavix. Admitted after recurrent BRBPR. No chest pain, dyspnea or dizziness. Last took Eliquis 4 days ago and took ASA and Plavix 2 days ago. Recent PCI/stent in addition to PAF Normal LV function Given active GI bleeding, agree with holding DAPT and AC. Will decide regarding optimal antithrombotic therapy and AC once bleeding has resolved and in consultation with GI. Would eventually consider placing on Plavix+Eliquis and stop ASA or any other NSAID. Mild TP elevation is due to demand medicated ischemia from GI bleeding Agree with amiodarone to try to maintain NSR given that he is off AC HCT 22.6% Colonoscopy is planned Taking Golytely Will follow with you.
[2018-11-26] MEDS ORDERED: FUROSEMIDE 40 MG/4 ML INJECTABLE VIAL IVPUSH ONE (20:45)
[2018-11-26] MEDS: AMIODARONE IN DEXTROSE,ISO-OSM 360 MG/200 ML BAG IVPB SCH (22:18)
[2018-11-26] MEDS: ATORVASTATIN CA 80 MG TABLET (FP) PO SCH (22:19)
[2018-11-27 07:00] LABS: BASO % 0.6 % (0-2.0); EOS % 2.2 % (0-4.5); HEMATOCRIT 27.6 % (35.4-49); HEMOGLOBIN 9.4 GM/dL (11.7-16.9); LYMPH % 14.9 % (8-40); MCH 27.5 pg (25.7-33.7); MCHC 34.1 g/dl (32.0-35.9); MEAN CELL VOLUME 80.6 fl (80-96); MEAN PLT VOLUME 9.5 fl (7.5-11.1); MONO % 7.6 % (3.8-10.2); NEUT % 74.7 % (42.8-82.8); PLATELET COUNT 172 K/MM3 (134-434); RBC 3.42 M/mm3 (4.00-5.60); RDW 15.7 % (11.9-15.9); WHITE BLOOD COUNT 8.9 K/mm3 (4.0-10.0)
[2018-11-27 07:28] LABS: INR 1.04 (0.83-1.09); PROTHROMBIN TIME (PATIENT) 12.3 SEC (9.7-13.0)
[2018-11-27 07:38] LABS: ALBUMIN 2.8 g/dl (3.4-5.0); ALK PHOS 112 U/L (45-117); ANION GAP 8 MMOL/L (8-16); BLOOD UREA NITROGEN 9 mg/dL (7-18); CALCIUM 7.7 mg/dL (8.5-10.1); CHLORIDE 102 mmol/L (98-107); CO2 30 mmol/L (21-32); CREATININE 0.6 mg/dL (0.55-1.3); GLUCOSE,RANDOM 113 mg/dL (74-106); PHOSPHOROUS 3.6 mg/dL (2.5-4.9); POTASSIUM 3.4 mmol/L (3.5-5.1); SGOT/AST 18 U/L (15-37); SGPT/ALT 11 U/L (13-61); SODIUM 140 mmol/L (136-145); TOT PROT 5.6 g/dl (6.4-8.2)
--- NOTE | 2018-11-27 08:00 | PN.GI ---
GI Progress Note Subjective: Patient seen in ICU states having some lower abdominal discomfort which started while drinking golytely last night. As per RN reports scant blood noted in BM, no clots noted. Currently on amiodarone drip at 0.5mg/min with HR in 60s. Current Hg 9.4. Patient is scheduled for colonoscopy and NPO status maintianed. Patient poorly compliant to bowel preparation. Continue to have dark stool at 130 pm. No rectal bleeding noted. Acute episode resolved.. - Objective Vital Signs: Vital Signs Temperature 98.7 F 11/27/18 06:00 Pulse Rate 65 11/27/18 06:00 Respiratory Rate 14 11/27/18 06:00 Blood Pressure 140/57 L 11/27/18 06:00 O2 Sat by Pulse Oximetry (%) 100 11/26/18 22:00 Constitutional: No Distress, Calm Eyes: Yes: Conjunctiva Clear HENT: Yes: Atraumatic Cardiovascular: Yes: Regular Rate and Rhythm Respiratory: Yes: Regular, CTA Bilaterally, On Nasal O2 Gastrointestinal Inspection: Yes: Distention (mild). No: WNL, Ascites, Hernia, Scars, Other ...Auscultate: Yes: Normoactive Bowel Sounds. No: Hyperactive Bowel Sounds, Hypoactive Bowel Sounds, No Bowel Sounds, Other ...Palpate: Yes: Soft, Tenderness (RLQ and LLQ). No: Firm/Rigid, Guarding, Hepatomegaly, Mass, Pulsatile Mass, Splenomegaly, Tenderness, Epigastium, Tenderness, Rebound, Other ...Percussion: Yes: Other (high tympany). No: Dullness, Fluid Wave, Tympanitic Neurological: Yes: Alert, Oriented Psychiatric: Yes: Alert, Oriented Labs: CBC, BMP 11/27/18 05:30 11/27/18 05:30 INR, PTT INR 1.04 (0.83-1.09) 11/27/18 05:30 Problem List - Problems (1) Rectal bleed Assessment/Plan: R> colonoscopy cancelled because of poor bowel preparation >Hgb (130 pm) currently stable 9.4 >citroma x 1 STAT and fleet enema x 1 at 11am as part of bowel prep depite citroma patient still passing out dark > advance to clear liquids and start IV heparin > poorly prepped despite enemas. Patient not actively bleeding recent colonoscopy revealed vascular ectasias > consider Coumadin because of history of recurrent GI bleeding. First episode was in July. Code(s): K62.5 - HEMORRHAGE OF ANUS AND RECTUM
[2018-11-27] MEDS ORDERED: POTASSIUM CHLORIDE TABS 20 MEQ TABLET.ER (FP) PO ONE (08:15)
[2018-11-27] MEDS: PANTOPRAZOLE SODIUM 40 MG VIAL IVPUSH SCH (09:04)
[2018-11-27] MEDS ORDERED: MAGNESIUM CITRATE 300 ML BOTTLE PO ONE (09:09)
--- NOTE | 2018-11-27 09:42 | PN ---
Progress Note, Physician Chief Complaint: GI bleed A-fib History of Present Illness: Previous notes and events reviewed awake and alert NAD patient scheduled for colonoscopy this morning Hg stable 9.4 LUE-warm and tender to touch, erythema noted-US ordered - Current Medication List Current Medications: Active Medications Atorvastatin Calcium (Lipitor -) 80 mg PO HS [facility] Last Admin: 11/26/18 22:19 Dose: 80 mg Amiodarone HCl/Dextrose (Nexterone 360 Mg/200 Ml Bag) 360 mg in 200 mls @ 16.667 mls/hr IVPB TITR [facility]; Protocol Last Admin: 11/26/18 22:18 Dose: 16.667 mls/hr Pantoprazole Sodium (Protonix Iv) 40 mg IVPUSH DAILY [facility] Last Admin: 11/27/18 09:04 Dose: 40 mg Sodium Phosphate (Fleet Adult Rectal Enema -) 133 ml WA ONCE ONE Stop: 11/27/18 11:01 - Objective Vital Signs: Vital Signs Temperature 98.7 F 11/27/18 06:00 Pulse Rate 65 11/27/18 06:00 Respiratory Rate 14 11/27/18 06:00 Blood Pressure 140/57 L 11/27/18 06:00 O2 Sat by Pulse Oximetry (%) 100 11/26/18 22:00 Constitutional: Yes: No Distress, Calm Eyes: Yes: Conjunctiva Clear HENT: Yes: Atraumatic Cardiovascular: Yes: Regular Rate and Rhythm Respiratory: Yes: Regular, CTA Bilaterally Gastrointestinal: Yes: Normal Bowel Sounds, Soft, Tenderness (RLQ and LLQ) Genitourinary: Yes: Incontinence Musculoskeletal: Yes: Muscle Weakness Extremities: Yes: WNL Edema: No Neurological: Yes: Alert, Oriented Psychiatric: Yes: Alert, Oriented Labs: CBC, BMP 11/27/18 05:30 11/27/18 05:30 INR, PTT INR 1.04 (0.83-1.09) 11/27/18 05:30 Microbiology 11/24/18 08:40 Stool Clostridioides difficile Antigen - Final 11/24/18 08:40 Stool Clostridioides difficile Toxin Assay - Final Problem List - Problems (1) Anemia Assessment/Plan: -monitor Hg daily -GI on board -current Hg 9.4 -transfuse if Hg <8.0 Code(s): D64.9 - ANEMIA, UNSPECIFIED (2) CAD (coronary artery disease) Assessment/Plan: -cardiology on board -plavix on hold due to GI bleed -continue atorvastatin 80mg HS Code(s): I25.10 - ATHSCL HEART DISEASE OF [place] CORONARY ARTERY W/O ANG PCTRS (3) GI bleed Assessment/Plan: -GI on board -stool OB positive -Hg stable @ 9.4 -scheduled for colonoscopy this AM -continue pantoprazole IV Code(s): K92.2 - GASTROINTESTINAL HEMORRHAGE, UNSPECIFIED (4) Atrial fibrillation Assessment/Plan: -Eliquis held due to GI bleed-will resume when bleeding resolved -Amiodarone drip 0.5mg/min - Code(s): I48.91 - UNSPECIFIED ATRIAL FIBRILLATION Qualifiers: Atrial fibrillation type: unspecified Qualified Code(s): I48.91 - Unspecified atrial fibrillation (5) HTN (hypertension) Assessment/Plan: -lopressor and lisinopril on hold due to hypotension Code(s): I10 - ESSENTIAL (PRIMARY) HYPERTENSION Assessment/Plan see problem list SCD's B/L
[2018-11-27] MEDS ORDERED: SODIUM PHOSPHATE/NA BIPHOS 133 ML ENEMA PR ONE (11:00)
--- NOTE | 2018-11-27 12:31 | PN ---
Teaching Attending Note Name of Resident: Amelie Jose J ATTENDING PHYSICIAN STATEMENT I saw and evaluated the patient. I reviewed the resident's note and discussed the case with the resident. I agree with the resident's findings and plan as documented. SUBJECTIVE: I saw and evaluated the patient. I reviewed the resident's note and discussed the case with the resident. I agree with the resident's findings and plan as documented. SUBJECTIVE: Patient seen and examined in the ICU. Awake and alert. Required 3 units of pRBCs due to recurrent bleeding. Reports some mild LLQ discomfort. No CP or SOB. Intake & Output 11/24/18 11/25/18 11/26/18 11/27/18 23:59 23:59 23:59 23:59 Intake Total 750 451 0555.4 1000.4 Output Total 1650 1400 450 Balance -1300 -850 2374.4 1000.4 Weight 157 lb 147 lb 2 oz Last Vital Signs Temp Pulse Resp BP Pulse Ox 99.0 F 66 18 140/56 L 100 11/27/18 10:00 11/27/18 10:00 11/27/18 10:00 11/27/18 10:00 11/26/18 22:00 Active Medications Atorvastatin Calcium (Lipitor -) 80 mg PO HS [facility] Last Admin: 11/26/18 22:19 Dose: 80 mg Amiodarone HCl/Dextrose (Nexterone 360 Mg/200 Ml Bag) 360 mg in 200 mls @ 16.667 mls/hr IVPB TITR [facility]; Protocol Last Admin: 11/26/18 22:18 Dose: 16.667 mls/hr Pantoprazole Sodium (Protonix Iv) 40 mg IVPUSH DAILY [facility] Last Admin: 11/27/18 09:04 Dose: 40 mg GENERAL: The patient is awake, alert, and fully oriented, in no acute distress. HEAD: Normal with no signs of trauma. EYES: sclera anicteric, conjunctiva clear. No ptosis. ENT: Ears normal, nares patent, oropharynx clear without exudates, moist mucous membranes. NECK: Trachea midline, full range of motion, supple. LUNGS: Breath sounds equal, clear to auscultation bilaterally, no wheezes, no crackles, no accessory muscle use. HEART: Regular rate and rhythm, S1, S2 without murmur, rub or gallop. ABDOMEN: Soft, nontender, nondistended, decreased bowel sounds, no guarding, no rebound, no hepatosplenomegaly, no masses. EXTREMITIES: 2+ pulses, warm, well-perfused, no edema. NEUROLOGICAL: Non-focal PSYCH: Normal mood, normal affect. SKIN: Warm, dry, normal turgor, no rashes or lesions noted Laboratory Results - last 24 hr 11/23/18 11/26/18 11/26/18 12:25 13:00 15:18 WBC 9.1 RBC 2.74 L Hgb 7.3 L Hct 22.6 L MCV 82.7 MCH 26.6 MCHC 32.2 RDW 17.1 H Plt Count 177 MPV 9.7 Absolute Neuts (auto) Neutrophils % Lymphocytes % Monocytes % Eosinophils % Basophils % Nucleated RBC % PT with INR INR Sodium Potassium Chloride Carbon Dioxide Anion Gap BUN Creatinine Creat Clearance w eGFR Random Glucose Calcium Phosphorus Magnesium Total Bilirubin AST ALT Alkaline Phosphatase Total Protein Albumin Blood Type O POSITIVE O POSITIVE Antibody Screen Negative Negative Crossmatch See Detail See Detail 11/27/18 11/27/18 11/27/18 05:30 05:30 05:30 WBC 8.9 RBC 3.42 L Hgb 9.4 L Hct 27.6 L D MCV 80.6 MCH 27.5 MCHC 34.1 RDW 15.7 Plt Count 172 MPV 9.5 Absolute Neuts (auto) 6.6 Neutrophils % 74.7 Lymphocytes % 14.9 Monocytes % 7.6 Eosinophils % 2.2 Basophils % 0.6 Nucleated RBC % 0 PT with INR 12.30 INR 1.04 Sodium 140 Potassium 3.4 L Chloride 102 Carbon Dioxide 30 Anion Gap 8 BUN 9 Creatinine 0.6 Creat Clearance w eGFR 129.97 Random Glucose 113 H Calcium 7.7 L Phosphorus 3.6 Magnesium 2.0 Total Bilirubin 1.0 AST 18 ALT 11 L Alkaline Phosphatase 112 Total Protein 5.6 L Albumin 2.8 L Blood Type Antibody Screen Crossmatch ASSESSMENT/PLAN: Suspected Acute Diverticular Bleed (?) component of bleeding from proctitis History of diverticulosis (last colonoscopy 08/03/[address] Kennedy) AFib on Eliquis HTN HLD Prostate CA Recent coronary stenting (x2 08/2018) CAD AMI For Colonoscopy Follow H & H AC and anti-platelet on hold Normal transfusion threshold: Hb mg/dL O2 as needed Mechanical VTE prophylaxis PO when OK with GI IVF Cardiac Telemetry monitoring if otherwise stable Dr Malhotra
[2018-11-27] MEDS: AMIODARONE IN DEXTROSE,ISO-OSM 360 MG/200 ML BAG IVPB SCH (14:00)
--- NOTE | 2018-11-27 14:28 | PN ---
Physical Exam: SUBJECTIVE: Patient seen this morning and without complaint. He notes there was still a little blood in the toilet. Vitals have been stable and no acute events overnight. OBJECTIVE: Vital Signs Temperature 99.0 F 11/27/18 10:00 Pulse Rate 69 11/27/18 12:00 Respiratory Rate 13 11/27/18 12:00 Blood Pressure 163/80 11/27/18 12:00 O2 Sat by Pulse Oximetry (%) 100 11/27/18 09:00 GENERAL: The patient is awake, alert, and fully oriented HEAD: Normal with no signs of trauma. EYES: PERRL, extraocular movements intact, LUNGS: Breath sounds equal, clear to auscultation bilaterally, no wheezes, no crackles, no accessory muscle use. HEART: Regular rate and rhythm, S1, S2 without murmur, rub or gallop. ABDOMEN: Soft, nontender, nondistended, normoactive bowel sounds, no guarding EXTREMITIES: erythema and tenderness in right AC PSYCH: Normal mood, normal affect. SKIN: Warm, dry, normal turgor, no rashes or lesions noted CBCD WBC 8.9 K/mm3 (4.0-10.0) 11/27/18 05:30 RBC 3.42 M/mm3 (4.00-5.60) L 11/27/18 05:30 Hgb 9.4 GM/dL (11.7-16.9) L 11/27/18 05:30 Hct 27.6 % (35.4-49) L D 11/27/18 05:30 MCV 80.6 fl (80-96) 11/27/18 05:30 MCHC 34.1 g/dl (32.0-35.9) 11/27/18 05:30 RDW 15.7 % (11.9-15.9) 11/27/18 05:30 Plt Count 172 K/MM3 (134-434) 11/27/18 05:30 MPV 9.5 fl (7.5-11.1) 11/27/18 05:30 CMP Sodium 140 mmol/L (136-145) 11/27/18 05:30 Potassium 3.4 mmol/L (3.5-5.1) L 11/27/18 05:30 Chloride 102 mmol/L (98-107) 11/27/18 05:30 Carbon Dioxide 30 mmol/L (21-32) 11/27/18 05:30 Anion Gap 8 MMOL/L (8-16) 11/27/18 05:30 BUN 9 mg/dL (7-18) 11/27/18 05:30 Creatinine 0.6 mg/dL (0.55-1.3) 11/27/18 05:30 Creat Clearance w eGFR 129.97 (>60) 11/27/18 05:30 Calcium 7.7 mg/dL (8.5-10.1) L 11/27/18 05:30 Total Bilirubin 1.0 mg/dL (0.2-1) 11/27/18 05:30 AST 18 U/L (15-37) 11/27/18 05:30 ALT 11 U/L (13-61) L 11/27/18 05:30 Alkaline Phosphatase 112 U/L (45-117) 11/27/18 05:30 Total Protein 5.6 g/dl (6.4-8.2) L 11/27/18 05:30 Albumin 2.8 g/dl (3.4-5.0) L 11/27/18 05:30 Active Medications Atorvastatin Calcium (Lipitor -) 80 mg PO HS [facility] Last Admin: 11/26/18 22:19 Dose: 80 mg Amiodarone HCl/Dextrose (Nexterone 360 Mg/200 Ml Bag) 360 mg in 200 mls @ 16.667 mls/hr IVPB TITR [facility]; Protocol Last Admin: 11/26/18 22:18 Dose: 16.667 mls/hr Pantoprazole Sodium (Protonix Iv) 40 mg IVPUSH DAILY [facility] Last Admin: 11/27/18 09:04 Dose: 40 mg ASSESSMENT/PLAN: Patient is a 78 y/o male with a history of CAD, afib, HTN, and HLD, who is admitted for GI bleed. Neuro - A&O x3 Cardio - continue Atorvastatin - continue lisinopril and metoprolol - Amiodarone for rhythm control, will f/u with Cardio for amiodarone treatment - patient in sinus today - hx of CAD, continue plavix and asa - bleed on elliquis, consider alternative anticoagulation for afib Pulm - stable GI - per Dr. Lantin patient does have active bleed and scope not necessary, per GI can restart anticoagulation - protonix 40 daily - restart food Nephro - stable Heme - Heparin drip for anticoagulation, f/u ptt - transfusion threshold 8 FEN - clear liquid diet and advance as tolerated - f/u morning labs Dispo: can D/C to tele Visit type - Emergency Visit Emergency Visit: No - New Patient This patient is new to me today: Yes Date on this admission: 11/27/18 - Critical Care Critical Care patient: Yes Total Critical Care Time (in minutes): 40 Critical Care Statement: The care of this patient involved high complexity decision making to prevent further life threatening deterioration of the patient 's condition and/or to evaluate & treat vital organ system(s) failure or risk of failure.
--- NOTE | 2018-11-27 14:38 | PN ---
Progress Note, Physician Chief Complaint: No chest pain or sob Sinus on tele with no significant events History of Present Illness: 78 M with diverticulosis, radiation proctitis, previous prostate CA, Paroxysmal Afib on Eliquis severe 3 VD with normal EF sp multivessel PCI last stenting was on 10/30 and then 11/14/18. Had been on Eiquis, ASA and Plavix. Admitted after recurrent BRBPR. No chest pain, dyspnea or dizziness. - Current Medication List Current Medications: Active Medications Atorvastatin Calcium (Lipitor -) 80 mg PO HS [facility] Last Admin: 11/26/18 22:19 Dose: 80 mg Heparin Sodium (Porcine) (Heparin -) 5,000 unit SQ TID [facility] Amiodarone HCl/Dextrose (Nexterone 360 Mg/200 Ml Bag) 360 mg in 200 mls @ 16.667 mls/hr IVPB TITR [facility]; Protocol Last Admin: 11/26/18 22:18 Dose: 16.667 mls/hr Pantoprazole Sodium (Protonix Iv) 40 mg IVPUSH DAILY [facility] Last Admin: 11/27/18 09:04 Dose: 40 mg - Objective Vital Signs: Vital Signs Temperature 99.0 F 11/27/18 10:00 Pulse Rate 69 11/27/18 12:00 Respiratory Rate 13 11/27/18 12:00 Blood Pressure 163/80 11/27/18 12:00 O2 Sat by Pulse Oximetry (%) 100 11/27/18 09:00 Constitutional: Yes: No Distress Neck: Yes: Supple Cardiovascular: Yes: Regular Rate and Rhythm, S1, S2. No: JVD Respiratory: Yes: CTA Bilaterally Gastrointestinal: Yes: Soft Edema: No Labs: CBC, BMP 11/27/18 05:30 11/27/18 05:30 INR, PTT INR 1.04 (0.83-1.09) 11/27/18 05:30 Assessment/Plan 78 M with diverticulosis, radiation proctitis, previous prostate CA, Paroxysmal Afib on Eliquis severe 3 VD with normal EF sp multivessel PCI last stenting was on 10/30 and then 11/14/18. Had been on Eiquis, ASA and Plavix. Admitted after recurrent BRBPR. No chest pain, dyspnea or dizziness. Last took Eliquis 4 days ago and took ASA and Plavix 2 days ago. Recent PCI/stent in addition to PAF Normal LV function Given active GI bleeding holding DAPT and AC. Once bleeding has resolved and in consultation with GI would eventually consider placing on Plavix+Eliquis and stop ASA or any other NSAID. On amiodarone to try to maintain NSR given that he is off AC Transfuse as needed Colonoscopy is planned for tomorrow Will follow with you.
[2018-11-27] MEDS ORDERED: HEPARIN NA (PORCINE) 5,000 UNITS/ML 1ML VIAL IVPUSH PRN ×2 (14:57)
[2018-11-27] MEDS ORDERED: ACETAMINOPHEN 325 MG TABLET (FP) PO ONE (16:04)
[2018-11-27] MEDS: HEPARIN SOD,PORK IN 0.45% NACL 25,000 UNIT/500 ML INFUS.BAG IVPB SCH (16:43)
[2018-11-27] MEDS ORDERED: HEPARIN NA (PORCINE) 5,000 UNITS/ML 1ML VIAL SQ SCH (22:00)
[2018-11-27] MEDS: ATORVASTATIN CA 80 MG TABLET (FP) PO SCH (22:05)
[2018-11-27] MEDS ORDERED: diphenhydrAMINE HCL 25 MG CAPSULE (FP) PO ONE (22:42)
[2018-11-28] MEDS ORDERED: diphenhydrAMINE HCL 25 MG CAPSULE (FP) PO ONE ×2 (00:30→20:36)
[2018-11-28 06:43] LABS: HEMATOCRIT 27.5 % (35.4-49); HEMOGLOBIN 9.4 GM/dL (11.7-16.9); MCH 27.9 pg (25.7-33.7); MEAN CELL VOLUME 81.8 fl (80-96); MEAN PLT VOLUME 9.6 fl (7.5-11.1); PLATELET COUNT 167 K/MM3 (134-434); RBC 3.36 M/mm3 (4.00-5.60); RDW 16.1 % (11.9-15.9); WHITE BLOOD COUNT 8.6 K/mm3 (4.0-10.0)
[2018-11-28 07:16] LABS: ALBUMIN 2.7 g/dl (3.4-5.0); ALK PHOS 117 U/L (45-117); ANION GAP 5 MMOL/L (8-16); BILIRUBIN,TOTAL 0.8 mg/dL (0.2-1); BLOOD UREA NITROGEN 10 mg/dL (7-18); CALCIUM 7.4 mg/dL (8.5-10.1); CHLORIDE 106 mmol/L (98-107); CO2 30 mmol/L (21-32); CREATININE 0.6 mg/dL (0.55-1.3); GLUCOSE,RANDOM 100 mg/dL (74-106); MAGNESIUM 2.5 mg/dL (1.8-2.4); PHOSPHOROUS 3.4 mg/dL (2.5-4.9); POTASSIUM 4.1 mmol/L (3.5-5.1); SGOT/AST 12 U/L (15-37); SGPT/ALT 11 U/L (13-61); SODIUM 141 mmol/L (136-145); TOT PROT 5.7 g/dl (6.4-8.2)
--- NOTE | 2018-11-28 07:21 | PN.GI ---
GI Progress Note Subjective: Patient denies abdominal pain, nausea, vomiting, blood in stool, or diarrhea. Patient Hg 9.4 on this morning labs. He is tolerating clear liquid diet. Colonoscopy not performed due to non-compliance with bowel prep. - Objective Vital Signs: Vital Signs Temperature 98.6 F 11/28/18 06:00 Pulse Rate 66 11/28/18 06:00 Respiratory Rate 14 11/28/18 06:00 Blood Pressure 112/50 L 11/28/18 06:00 O2 Sat by Pulse Oximetry (%) 100 11/27/18 22:00 Constitutional: No Distress, Calm Eyes: Yes: Conjunctiva Clear HENT: Yes: Atraumatic Cardiovascular: Yes: Regular Rate and Rhythm Respiratory: Yes: Regular, CTA Bilaterally Gastrointestinal Inspection: Yes: WNL. No: Ascites, Distention, Hernia, Scars, Other ...Auscultate: Yes: Normoactive Bowel Sounds. No: Hyperactive Bowel Sounds, Hypoactive Bowel Sounds, No Bowel Sounds, Other ...Palpate: Yes: Soft. No: Firm/Rigid, Guarding, Hepatomegaly, Mass, Pulsatile Mass, Splenomegaly, Tenderness, Tenderness, Epigastium, Tenderness, Rebound, Other ...Percussion: Yes: Other (high tympany). No: Dullness, Fluid Wave, Tympanitic Neurological: Yes: Alert, Oriented Psychiatric: Yes: Alert, Oriented Labs: CBC, BMP 11/28/18 05:30 11/28/18 05:30 INR, PTT INR 1.04 (0.83-1.09) 11/27/18 05:30 Problem List - Problems (1) Rectal bleed Code(s): K62.5 - HEMORRHAGE OF ANUS AND RECTUM
[2018-11-28] MEDS: PANTOPRAZOLE SODIUM 40 MG VIAL IVPUSH SCH (09:25)
--- NOTE | 2018-11-28 09:29 | PN ---
Progress Note, Physician - Current Medication List Current Medications: Active Medications Atorvastatin Calcium (Lipitor -) 80 mg PO HS [facility] Last Admin: 11/27/18 22:05 Dose: 80 mg Heparin Sodium (Porcine) (Heparin -) 1,000 unit IVPUSH PRN PRN PRN Reason: Heparin Heparin Sodium (Porcine) (Heparin -) 5,000 unit IVPUSH PRN PRN PRN Reason: Heparin HEPARIN SOD,PORK IN 0.45% NACL (Heparin-1/2ns 25,000 Units/500) 25,000 unit in 500 mls @ 16 mls/hr IVPB TITR [facility]; Protocol Last Titration: 11/28/18 08:27 Dose: 650 units/hr, 13 mls/hr Pantoprazole Sodium (Protonix Iv) 40 mg IVPUSH DAILY [facility] Last Admin: 11/28/18 09:25 Dose: 40 mg - Objective Vital Signs: Vital Signs Temperature 98.6 F 11/28/18 06:00 Pulse Rate 60 11/28/18 08:00 Respiratory Rate 17 11/28/18 08:00 Blood Pressure 128/53 L 11/28/18 08:00 O2 Sat by Pulse Oximetry (%) 100 11/27/18 22:00 Labs: CBC, BMP 11/28/18 05:30 11/28/18 05:30 INR, PTT INR 1.04 (0.83-1.09) 11/27/18 05:30 Problem List - Problems (1) GI bleed Code(s): K92.2 - GASTROINTESTINAL HEMORRHAGE, UNSPECIFIED (2) Anemia Code(s): D64.9 - ANEMIA, UNSPECIFIED (3) CAD (coronary artery disease) Code(s): I25.10 - ATHSCL HEART DISEASE OF [place] CORONARY ARTERY W/O ANG PCTRS
[2018-11-28] MEDS ORDERED: ENOXAPARIN NA (PORCINE) 40 MG/0.4 ML DISP.SYRIN SQ SCH (10:00)
[2018-11-28] MEDS ORDERED: METOPROLOL TARTRATE 5 MG/5 ML VIAL IVPUSH ONE (10:15)
--- NOTE | 2018-11-28 10:34 | PN ---
Progress Note, Physician History of Present Illness: seen and examined today in [facility]. no overnight events. no new complaints. no reported further bleeding. - Current Medication List Current Medications: Active Medications Atorvastatin Calcium (Lipitor -) 80 mg PO HS [facility] Last Admin: 11/27/18 22:05 Dose: 80 mg Heparin Sodium (Porcine) (Heparin -) 1,000 unit IVPUSH PRN PRN PRN Reason: Heparin Heparin Sodium (Porcine) (Heparin -) 5,000 unit IVPUSH PRN PRN PRN Reason: Heparin HEPARIN SOD,PORK IN 0.45% NACL (Heparin-1/2ns 25,000 Units/500) 25,000 unit in 500 mls @ 16 mls/hr IVPB TITR [facility]; Protocol Last Titration: 11/28/18 08:27 Dose: 650 units/hr, 13 mls/hr Metoprolol Succinate (Toprol Xl -) 100 mg PO DAILY [facility] Last Admin: 11/28/18 10:08 Dose: 100 mg Pantoprazole Sodium (Protonix Iv) 40 mg IVPUSH DAILY [facility] Last Admin: 11/28/18 09:25 Dose: 40 mg - Objective Vital Signs: Vital Signs Temperature 98.6 F 11/28/18 06:00 Pulse Rate 116 H 11/28/18 10:00 Respiratory Rate 12 11/28/18 10:00 Blood Pressure 113/70 11/28/18 10:00 O2 Sat by Pulse Oximetry (%) 100 11/28/18 09:00 Constitutional: Yes: No Distress, Calm Eyes: Yes: Conjunctiva Clear, EOM Intact HENT: Yes: Atraumatic, Normocephalic Neck: Yes: Supple, Trachea Midline Cardiovascular: Yes: Regular Rate and Rhythm, S1, S2. No: Bradycardia, Tachycardia, Pulse Irregular, Bruit, JVD, Gallop, Murmur, Rub, S3, S4, Varicosities Respiratory: Yes: Regular, CTA Bilaterally. No: Rales, Rhonchi, SOB, Wheezes Gastrointestinal: Yes: Normal Bowel Sounds, Soft. No: Distention, Tenderness Musculoskeletal: Yes: WNL Extremities: Yes: WNL Edema: No Peripheral Pulses WNL: Yes Peripheral Pulses: Left Doralis Pedis: 2+, Right Dorsalis Pedis: 2+ Neurological: Yes: Alert, Oriented Psychiatric: Yes: Alert, Oriented Labs: CBC, BMP 11/28/18 05:30 04/09/19 05:30 INR, PTT INR 1.04 (0.83-1.09) 11/27/18 05:30 - ....Imaging Chest X-ray: Report Reviewed, Image Reviewed EKG: Report Reviewed, Image Reviewed Other: Report Reviewed, Image Reviewed Assessment/Plan 78 M with diverticulosis, radiation proctitis, previous prostate CA, Paroxysmal Afib on Eliquis severe 3 VD with normal EF sp multivessel PCI last stenting was on 10/30 and then 11/14/18. Had been on Eiquis, ASA and Plavix. Admitted after recurrent BRBPR. No chest pain, dyspnea or dizziness. Last took Eliquis 4 days ago and took ASA and Plavix 2 days ago. Recent PCI/stent in addition to PAF Normal LV function Given active GI bleeding DAPT and eliquis were held Now on heparin gtt for to evaluate tolerance of AC. Colonoscopy was cancelled Once felt safe from a GI standpoint plan to resume Plavix + oral AC (eliquis or coumadin) and stop ASA Afib -amiodarone was stopped -cont toprol -GI suggests considering switching from eliquis to coumadin given recurrent GI bleed, decision to be made prior to discharge once ensure tolerating AC with heparin
[2018-11-28] MEDS ORDERED: ACETAMINOPHEN 325 MG TABLET (FP) PO ONE (11:52)
--- NOTE | 2018-11-28 11:59 | PN ---
Teaching Attending Note Name of Resident: Amelie Lux ATTENDING PHYSICIAN STATEMENT I saw and evaluated the patient. I reviewed the resident's note and discussed the case with the resident. I agree with the resident's findings and plan as documented. SUBJECTIVE: Patient seen and examined in the ICU. Awake and alert. No occult bleeding overnight. Tolerated some PO intake. No abdominal discomfort. No CP or SOB. Intake & Output 11/25/18 11/26/18 11/27/18 11/28/18 23:59 23:59 23:59 23:59 Intake Total 550 2824.4 2115.2 575 Output Total 1400 450 Balance -850 2374.4 2115.2 575 Weight 157 lb 147 lb 2 oz 148 lb 9 oz Last Vital Signs Temp Pulse Resp BP Pulse Ox 98.6 F 116 H 12 113/70 100 11/28/18 06:00 11/28/18 10:00 11/28/18 10:00 11/28/18 10:00 11/28/18 09:00 Active Medications Acetaminophen (Tylenol -) 650 mg PO ONCE ONE Stop: 11/28/18 11:53 Atorvastatin Calcium (Lipitor -) 80 mg PO HS [facility] Last Admin: 11/27/18 22:05 Dose: 80 mg Clopidogrel Bisulfate (Plavix -) 75 mg PO DAILY [facility] Heparin Sodium (Porcine) (Heparin -) 1,000 unit IVPUSH PRN PRN PRN Reason: Heparin Heparin Sodium (Porcine) (Heparin -) 5,000 unit IVPUSH PRN PRN PRN Reason: Heparin HEPARIN SOD,PORK IN 0.45% NACL (Heparin-1/2ns 25,000 Units/500) 25,000 unit in 500 mls @ 16 mls/hr IVPB TITR [facility]; Protocol Last Titration: 11/28/18 08:27 Dose: 650 units/hr, 13 mls/hr Metoprolol Succinate (Toprol Xl -) 100 mg PO DAILY [facility] Last Admin: 11/28/18 10:08 Dose: 100 mg Pantoprazole Sodium (Protonix Iv) 40 mg IVPUSH DAILY [facility] Last Admin: 11/28/18 09:25 Dose: 40 mg Warfarin Sodium (Coumadin -) 10 mg PO DAILY@1800 [facility] GENERAL: The patient is awake, alert, and fully oriented, in no acute distress. HEAD: Normal with no signs of trauma. EYES: sclera anicteric, conjunctiva clear. No ptosis. ENT: Ears normal, nares patent, oropharynx clear without exudates, moist mucous membranes. NECK: Trachea midline, full range of motion, supple. LUNGS: Breath sounds equal, clear to auscultation bilaterally, no wheezes, no crackles, no accessory muscle use. HEART: Regular rate and rhythm, S1, S2 without murmur, rub or gallop. ABDOMEN: Soft, nontender, nondistended, decreased bowel sounds, no guarding, no rebound, no hepatosplenomegaly, no masses. EXTREMITIES: 2+ pulses, warm, well-perfused, no edema. NEUROLOGICAL: Non-focal PSYCH: Normal mood, normal affect. SKIN: Warm, dry, normal turgor, no rashes or lesions noted Laboratory Results - last 24 hr 11/27/18 11/27/18 11/28/18 16:20 23:50 05:30 WBC 8.6 RBC 3.36 L Hgb 9.4 L Hct 27.5 L MCV 81.8 MCH 27.9 MCHC 34.0 RDW 16.1 H Plt Count 167 MPV 9.6 PTT (Actin FS) 31.3 88.3 H Sodium Potassium Chloride Carbon Dioxide Anion Gap BUN Creatinine Creat Clearance w eGFR Random Glucose Calcium Phosphorus Magnesium Total Bilirubin AST ALT Alkaline Phosphatase Total Protein Albumin 11/28/18 11/28/18 05:30 05:30 WBC RBC Hgb Hct MCV MCH MCHC RDW Plt Count MPV PTT (Actin FS) 85.5 H Sodium 141 Potassium 4.1 Chloride 106 Carbon Dioxide 30 Anion Gap 5 L BUN 10 Creatinine 0.6 Creat Clearance w eGFR 129.97 Random Glucose 100 Calcium 7.4 L Phosphorus 3.4 Magnesium 2.5 H Total Bilirubin 0.8 AST 12 L ALT 11 L Alkaline Phosphatase 117 Total Protein 5.7 L Albumin 2.7 L ASSESSMENT/PLAN: Suspected Acute Diverticular Bleed (?) component of bleeding from proctitis History of diverticulosis (last colonoscopy 08/03/[address] Kennedy) AFib on Eliquis HTN HLD Prostate CA Recent coronary stenting (x2 08/2018) CAD AMI PO as tolerated Colonoscopy has been deferred Follow H & H AC and Plavix on hold: to discuss with GI when to restart Normal transfusion threshold: Hb mg/dL O2 as needed Mechanical VTE prophylaxis IVF Cardiac Telemetry monitoring Dr Malhotra
[2018-11-28] MEDS: CLOPIDOGREL BISULFATE 75 MG TABLET (FP) PO SCH (12:38)
--- NOTE | 2018-11-28 14:32 | PN ---
Physical Exam: SUBJECTIVE: Patient seen and only reports pain in his left AC joint. patient has no other complaints. OBJECTIVE: Vital Signs Temperature 98.6 F 11/28/18 06:00 Pulse Rate 61 11/28/18 14:00 Respiratory Rate 16 11/28/18 14:00 Blood Pressure 126/55 L 11/28/18 14:00 O2 Sat by Pulse Oximetry (%) 100 11/28/18 09:00 GENERAL: The patient is awake, alert, and fully oriented HEAD: Normal with no signs of trauma. EYES: PERRL, extraocular movements intact, LUNGS: Breath sounds equal, clear to auscultation bilaterally, no wheezes, no crackles, no accessory muscle use. HEART: Regular rate and rhythm, S1, S2 without murmur, rub or gallop. ABDOMEN: Soft, nontender, nondistended, normoactive bowel sounds, no guarding EXTREMITIES: erythema and tenderness in left AC PSYCH: Normal mood, normal affect. SKIN: Warm, dry, normal turgor, no rashes or lesions noted CBCD WBC 8.6 K/mm3 (4.0-10.0) 11/28/18 05:30 RBC 3.36 M/mm3 (4.00-5.60) L 11/28/18 05:30 Hgb 9.4 GM/dL (11.7-16.9) L 11/28/18 05:30 Hct 27.5 % (35.4-49) L 11/28/18 05:30 MCV 81.8 fl (80-96) 11/28/18 05:30 MCHC 34.0 g/dl (32.0-35.9) 11/28/18 05:30 RDW 16.1 % (11.9-15.9) H 11/28/18 05:30 Plt Count 167 K/MM3 (134-434) 11/28/18 05:30 MPV 9.6 fl (7.5-11.1) 11/28/18 05:30 CMP Sodium 141 mmol/L (136-145) 11/28/18 05:30 Potassium 4.1 mmol/L (3.5-5.1) 11/28/18 05:30 Chloride 106 mmol/L (98-107) 11/28/18 05:30 Carbon Dioxide 30 mmol/L (21-32) 11/28/18 05:30 Anion Gap 5 MMOL/L (8-16) L 11/28/18 05:30 BUN 10 mg/dL (7-18) 11/28/18 05:30 Creatinine 0.6 mg/dL (0.55-1.3) 11/28/18 05:30 Creat Clearance w eGFR 129.97 (>60) 11/28/18 05:30 Calcium 7.4 mg/dL (8.5-10.1) L 11/28/18 05:30 Total Bilirubin 0.8 mg/dL (0.2-1) 11/28/18 05:30 AST 12 U/L (15-37) L 11/28/18 05:30 ALT 11 U/L (13-61) L 11/28/18 05:30 Alkaline Phosphatase 117 U/L (45-117) 11/28/18 05:30 Total Protein 5.7 g/dl (6.4-8.2) L 11/28/18 05:30 Albumin 2.7 g/dl (3.4-5.0) L 11/28/18 05:30 Active Medications Atorvastatin Calcium (Lipitor -) 80 mg PO HS [facility] Last Admin: 11/27/18 22:05 Dose: 80 mg Clopidogrel Bisulfate (Plavix -) 75 mg PO DAILY [facility] Last Admin: 11/28/18 12:38 Dose: 75 mg Heparin Sodium (Porcine) (Heparin -) 1,000 unit IVPUSH PRN PRN PRN Reason: Heparin Heparin Sodium (Porcine) (Heparin -) 5,000 unit IVPUSH PRN PRN PRN Reason: Heparin HEPARIN SOD,PORK IN 0.45% NACL (Heparin-1/2ns 25,000 Units/500) 25,000 unit in 500 mls @ 16 mls/hr IVPB TITR [facility]; Protocol Last Titration: 11/28/18 08:27 Dose: 650 units/hr, 13 mls/hr Metoprolol Succinate (Toprol Xl -) 100 mg PO DAILY [facility] Last Admin: 11/28/18 10:08 Dose: 100 mg Pantoprazole Sodium (Protonix Iv) 40 mg IVPUSH DAILY [facility] Last Admin: 11/28/18 09:25 Dose: 40 mg Warfarin Sodium (Coumadin -) 10 mg PO DAILY@1800 [facility] ASSESSMENT/PLAN: Patient is a 78 y/o male with a history of CAD, afib, HTN, and HLD, who is admitted for GI bleed. Neuro - A&O x3 Cardio - continue Atorvastatin - continue lisinopril and metoprolol succinate 100 daily - spoke with Dr. Kennedy, will restart Coumadin 10 mg daily, f/u daily INR - per cardio and GI can restart plavix 75 mg daily, D/C aspirin - continue heparin drip until therapeutic on coumadin Pulm - stable GI - Patient did not have colonoscopy and is not necessary as per GI - protonix 40 daily - patient tolerating diet - no recent GI bleeding Nephro - stable Heme - Heparin drip for anticoagulation, coumadin 10 mg today, and 10 mg tomorrow as per GI, change dosing as needed with INR - transfusion threshold 8 - US of left AC shows thrombophlebitis in cephalic vein, warm compress to area and tylenol as needed for the pain FEN - patient tolerating regular low sodium diet Dispo: can D/C to tele Visit type - Emergency Visit Emergency Visit: No - New Patient This patient is new to me today: No - Critical Care Critical Care patient: Yes Total Critical Care Time (in minutes): 35 Critical Care Statement: The care of this patient involved high complexity decision making to prevent further life threatening deterioration of the patient 's condition and/or to evaluate & treat vital organ system(s) failure or risk of failure.
[2018-11-28] MEDS: WARFARIN NA 10 MG TABLET (FP) PO SCH (17:14)
[2018-11-28] MEDS ORDERED: PT OWN MED DRAWER 7, Y5N ONE (17:17)
[2018-11-28] MEDS: HEPARIN SOD,PORK IN 0.45% NACL 25,000 UNIT/500 ML INFUS.BAG IVPB SCH (17:19)
[2018-11-28] MEDS: ATORVASTATIN CA 80 MG TABLET (FP) PO SCH (22:06)
[2018-11-29] MEDS: HEPARIN SOD,PORK IN 0.45% NACL 25,000 UNIT/500 ML INFUS.BAG IVPB SCH ×2 (04:00→15:00)
[2018-11-29 06:40] LABS: HEMATOCRIT 25.8 % (35.4-49); HEMOGLOBIN 8.7 GM/dL (11.7-16.9); MCHC 33.7 g/dl (32.0-35.9); MEAN PLT VOLUME 9.6 fl (7.5-11.1); PLATELET COUNT 182 K/MM3 (134-434); RBC 3.11 M/mm3 (4.00-5.60); RDW 16.3 % (11.9-15.9); WHITE BLOOD COUNT 7.2 K/mm3 (4.0-10.0)
[2018-11-29 07:10] LABS: INR 1.06 (0.83-1.09); PROTHROMBIN TIME (PATIENT) 12.5 SEC (9.7-13.0)
[2018-11-29 07:19] LABS: ALBUMIN 2.4 g/dl (3.4-5.0); ALK PHOS 115 U/L (45-117); ANION GAP 6 MMOL/L (8-16); BILIRUBIN,TOTAL 0.4 mg/dL (0.2-1); BLOOD UREA NITROGEN 11 mg/dL (7-18); CALCIUM 7.5 mg/dL (8.5-10.1); CHLORIDE 108 mmol/L (98-107); CO2 27 mmol/L (21-32); CREATININE 0.6 mg/dL (0.55-1.3); GLUCOSE,RANDOM 142 mg/dL (74-106); MAGNESIUM 2.2 mg/dL (1.8-2.4); PHOSPHOROUS 3.6 mg/dL (2.5-4.9); POTASSIUM 3.9 mmol/L (3.5-5.1); SGOT/AST 12 U/L (15-37); SGPT/ALT 12 U/L (13-61); SODIUM 141 mmol/L (136-145); TOT PROT 5.4 g/dl (6.4-8.2)
--- NOTE | 2018-11-29 07:37 | PN.GI ---
GI Progress Note Subjective: Patient examined lying in bed, no further reports of rectal bleeding or blood in stool. Hg noted to be 8.7 this morning. Patient is tolerating regular diet and denies abdominal pain, nausea, vomiting, diarrhea. - Objective Vital Signs: Vital Signs Temperature 98 F 11/29/18 06:00 Pulse Rate 54 L 11/29/18 06:00 Respiratory Rate 18 11/29/18 06:00 Blood Pressure 117/50 L 11/29/18 06:00 O2 Sat by Pulse Oximetry (%) 100 11/28/18 21:01 Constitutional: No Distress, Calm Eyes: Yes: Conjunctiva Clear HENT: Yes: Atraumatic Cardiovascular: Yes: Bradycardia Respiratory: Yes: Regular, CTA Bilaterally Gastrointestinal Inspection: Yes: WNL. No: Ascites, Distention, Hernia, Scars, Other ...Auscultate: Yes: Normoactive Bowel Sounds. No: Hyperactive Bowel Sounds, Hypoactive Bowel Sounds, No Bowel Sounds, Other ...Palpate: Yes: Soft. No: Firm/Rigid, Guarding, Hepatomegaly, Mass, Pulsatile Mass, Splenomegaly, Tenderness, Tenderness, Epigastium, Tenderness, Rebound, Other ...Percussion: Yes: Tympanitic. No: Dullness, Fluid Wave, Other Neurological: Yes: Alert, Oriented Psychiatric: Yes: Alert, Oriented Labs: CBC, BMP 11/29/18 05:30 11/29/18 05:30 INR, PTT INR 1.06 (0.83-1.09) 11/29/18 05:30 Active Medications Generic Name Dose Route Start Last Admin Trade Name Freq PRN Reason Stop Dose Admin Atorvastatin Calcium 80 mg 11/24/18 22:00 11/28/18 22:06 Lipitor - PO 80 mg HS [facility] Administration Clopidogrel Bisulfate 75 mg 11/28/18 12:00 11/28/18 12:38 Plavix - PO 75 mg DAILY [facility] Administration Heparin Sodium (Porcine) 1,000 unit 11/27/18 14:57 Heparin - IVPUSH PRN PRN Heparin Heparin Sodium (Porcine) 5,000 unit 11/27/18 14:57 Heparin - IVPUSH PRN PRN Heparin HEPARIN SOD,PORK IN 0.45% NACL 25,000 unit in 500 mls @ 16 mls/hr 11/27/18 15: 00 11/29/18 04:00 Heparin-1/2ns 25,000 Units/500 IVPB 650 units/hr TITR [facility] 13 mls/hr Administration Protocol 800 UNITS/HR Metoprolol Succinate 100 mg 11/28/18 10:00 11/28/18 10:08 Toprol Xl - PO 100 mg DAILY [facility] Administration Pantoprazole Sodium 40 mg 11/25/18 10:00 11/28/18 09:25 Protonix Iv IVPUSH 40 mg DAILY [facility] Administration Warfarin Sodium 10 mg 11/28/18 18:00 11/28/18 17:14 Coumadin - PO 10 mg DAILY@1800 [facility] Administration Problem List - Problems (1) Rectal bleed Assessment/Plan: R> colonoscopy cancelled because of poor bowel preparation >Hgb 8.7 > tolerating low Na diet > poorly prepped despite enemas. Patient not actively bleeding recent colonoscopy revealed vascular ectasias > consider Coumadin because of history of recurrent GI bleeding. First episode was in July, continue with IV Heparin until therapeutic range to start coumadin Code(s): K62.5 - HEMORRHAGE OF ANUS AND RECTUM
[2018-11-29] MEDS ORDERED: ACETAMINOPHEN 325 MG TABLET (FP) PO ONE (08:16)
[2018-11-29] MEDS ORDERED: PT OWN MED DRAWER 7, Y5N ONE (08:27)
[2018-11-29] MEDS: PANTOPRAZOLE SODIUM 40 MG VIAL IVPUSH SCH (09:29)
[2018-11-29] MEDS: CLOPIDOGREL BISULFATE 75 MG TABLET (FP) PO SCH (09:29)
--- NOTE | 2018-11-29 09:41 | PN ---
Physical Exam: SUBJECTIVE: Patient seen this morning and complains of pain in his arm. He reports he has gone to the bathroom and has not had ay further episodes of bleeding. No acute events overnight. OBJECTIVE: Vital Signs Temperature 98.2 F 11/29/18 08:00 Pulse Rate 52 L 11/29/18 08:00 Respiratory Rate 17 11/29/18 08:00 Blood Pressure 149/53 L 11/29/18 08:00 O2 Sat by Pulse Oximetry (%) 100 11/29/18 08:50 GENERAL: The patient is awake, alert, and fully oriented HEAD: Normal with no signs of trauma. EYES: PERRL, extraocular movements intact, LUNGS: Breath sounds equal, clear to auscultation bilaterally, no wheezes, no crackles, no accessory muscle use. HEART: Regular rate and rhythm, S1, S2 without murmur, rub or gallop. ABDOMEN: Soft, nontender, nondistended, normoactive bowel sounds, no guarding EXTREMITIES: erythema and tenderness in left AC PSYCH: Normal mood, normal affect. SKIN: Warm, dry, normal turgor, no rashes or lesions noted CBCD WBC 7.2 K/mm3 (4.0-10.0) 11/29/18 05:30 RBC 3.11 M/mm3 (4.00-5.60) L 11/29/18 05:30 Hgb 8.7 GM/dL (11.7-16.9) L 11/29/18 05:30 Hct 25.8 % (35.4-49) L 11/29/18 05:30 MCV 83.0 fl (80-96) 11/29/18 05:30 MCHC 33.7 g/dl (32.0-35.9) 11/29/18 05:30 RDW 16.3 % (11.9-15.9) H 11/29/18 05:30 Plt Count 182 K/MM3 (134-434) 11/29/18 05:30 MPV 9.6 fl (7.5-11.1) 11/29/18 05:30 CMP Sodium 141 mmol/L (136-145) 11/29/18 05:30 Potassium 3.9 mmol/L (3.5-5.1) 11/29/18 05:30 Chloride 108 mmol/L (98-107) H 11/29/18 05:30 Carbon Dioxide 27 mmol/L (21-32) 11/29/18 05:30 Anion Gap 6 MMOL/L (8-16) L 11/29/18 05:30 BUN 11 mg/dL (7-18) 11/29/18 05:30 Creatinine 0.6 mg/dL (0.55-1.3) 11/29/18 05:30 Creat Clearance w eGFR 129.97 (>60) 11/29/18 05:30 Calcium 7.5 mg/dL (8.5-10.1) L 11/29/18 05:30 Total Bilirubin 0.4 mg/dL (0.2-1) 11/29/18 05:30 AST 12 U/L (15-37) L 11/29/18 05:30 ALT 12 U/L (13-61) L 11/29/18 05:30 Alkaline Phosphatase 115 U/L (45-117) 11/29/18 05:30 Total Protein 5.4 g/dl (6.4-8.2) L 11/29/18 05:30 Albumin 2.4 g/dl (3.4-5.0) L 11/29/18 05:30 Active Medications Atorvastatin Calcium (Lipitor -) 80 mg PO HS [facility] Last Admin: 11/28/18 22:06 Dose: 80 mg Clopidogrel Bisulfate (Plavix -) 75 mg PO DAILY [facility] Last Admin: 11/29/18 09:29 Dose: 75 mg Heparin Sodium (Porcine) (Heparin -) 1,000 unit IVPUSH PRN PRN PRN Reason: Heparin Heparin Sodium (Porcine) (Heparin -) 5,000 unit IVPUSH PRN PRN PRN Reason: Heparin HEPARIN SOD,PORK IN 0.45% NACL (Heparin-1/2ns 25,000 Units/500) 25,000 unit in 500 mls @ 16 mls/hr IVPB TITR [facility]; Protocol Last Admin: 11/29/18 04:00 Dose: 650 units/hr, 13 mls/hr Metoprolol Succinate (Toprol Xl -) 100 mg PO DAILY [facility] Last Admin: 11/29/18 09:30 Dose: Not Given Pantoprazole Sodium (Protonix Iv) 40 mg IVPUSH DAILY [facility] Last Admin: 11/29/18 09:29 Dose: 40 mg Warfarin Sodium (Coumadin -) 10 mg PO DAILY@1800 [facility] Last Admin: 11/28/18 17:14 Dose: 10 mg ASSESSMENT/PLAN: Patient is a 78 y/o male with a history of CAD, afib, HTN, and HLD, who is admitted for GI bleed. Neuro - A&O x3 Cardio - continue Atorvastatin 80 hs - continue lisinopril and metoprolol succinate 100 daily - spoke with Dr. Kennedy, will restart Coumadin 10 mg daily, f/u daily INR - per cardio and GI can restart plavix 75 mg daily, D/C aspirin - continue heparin drip until therapeutic on coumadin Pulm - stable GI - Patient did not have colonoscopy and is not necessary as per GI - protonix 40 daily - patient tolerating diet - no recent GI bleeding Nephro - stable Heme - Heparin drip for anticoagulation, coumadin 10 mg today, change dosing as needed with INR - transfusion threshold 8 - US of left AC shows thrombophlebitis in cephalic vein, warm compress to area and tylenol as needed for the pain FEN - patient tolerating regular low sodium diet Dispo: D/C to tele, monitor until INR therapeutic for coumadin Visit type - Emergency Visit Emergency Visit: No - New Patient This patient is new to me today: No - Critical Care Critical Care patient: Yes Total Critical Care Time (in minutes): 35 Critical Care Statement: The care of this patient involved high complexity decision making to prevent further life threatening deterioration of the patient 's condition and/or to evaluate & treat vital organ system(s) failure or risk of failure.
--- NOTE | 2018-11-29 12:54 | PN ---
Teaching Attending Note Name of Resident: Amelie Lux ATTENDING PHYSICIAN STATEMENT I saw and evaluated the patient. I reviewed the resident's note and discussed the case with the resident. I agree with the resident's findings and plan as documented. SUBJECTIVE: Pt seen and examined in the ICU. Episode of sinus tachycardia overnight now resolved. Tolerating PO. Brown stools yesterday. OBJECTIVE: Vital Signs Period Temp Pulse Resp BP Sys/Rankin Pulse Ox Last 24 Hr 98 F-98.9 F 50-66 16-20 113-149/46-60 100-100 Intake & Output 11/26/18 11/27/18 11/28/18 11/29/18 23:59 23:59 23:59 23:59 Intake Total 2824.4 2115.2 731 846 Output Total 450 Balance 2374.4 2115.2 731 846 Weight 66.735 kg 67.387 kg 68.719 kg Gen: NAD at rest Heart: RRR Lung: decreased breath sounds at the bases Abd: soft, nontender Ext: no edema CBC, BMP 11/29/18 05:30 11/29/18 05:30 Active Medications Atorvastatin Calcium (Lipitor -) 80 mg PO HS [facility] Last Admin: 11/28/18 22:06 Dose: 80 mg Clopidogrel Bisulfate (Plavix -) 75 mg PO DAILY [facility] Last Admin: 11/29/18 09:29 Dose: 75 mg Heparin Sodium (Porcine) (Heparin -) 1,000 unit IVPUSH PRN PRN PRN Reason: Heparin Heparin Sodium (Porcine) (Heparin -) 5,000 unit IVPUSH PRN PRN PRN Reason: Heparin HEPARIN SOD,PORK IN 0.45% NACL (Heparin-1/2ns 25,000 Units/500) 25,000 unit in 500 mls @ 16 mls/hr IVPB TITR [facility]; Protocol Last Titration: 11/29/18 11:41 Dose: 600 units/hr, 12 mls/hr Metoprolol Succinate (Toprol Xl -) 100 mg PO DAILY [facility] Last Admin: 11/29/18 09:30 Dose: Not Given Pantoprazole Sodium (Protonix Iv) 40 mg IVPUSH DAILY [facility] Last Admin: 11/29/18 09:29 Dose: 40 mg Warfarin Sodium (Coumadin -) 10 mg PO DAILY@1800 [facility] Last Admin: 11/28/18 17:14 Dose: 10 mg ASSESSMENT AND PLAN: GI Bleed suspect diverticular Acute Blood Loss Anemia Atrial Fibrillation HTN HLD Prostate CA CAD - continue anticoagulation - monitor H/H - protonix - rate controlled - PO as tolerated - can monitor on telemetry
--- NOTE | 2018-11-29 13:19 | PN ---
Progress Note, Physician - Current Medication List Current Medications: Active Medications Atorvastatin Calcium (Lipitor -) 80 mg PO HS [facility] Last Admin: 11/28/18 22:06 Dose: 80 mg Clopidogrel Bisulfate (Plavix -) 75 mg PO DAILY [facility] Last Admin: 11/29/18 09:29 Dose: 75 mg Heparin Sodium (Porcine) (Heparin -) 1,000 unit IVPUSH PRN PRN PRN Reason: Heparin Heparin Sodium (Porcine) (Heparin -) 5,000 unit IVPUSH PRN PRN PRN Reason: Heparin HEPARIN SOD,PORK IN 0.45% NACL (Heparin-1/2ns 25,000 Units/500) 25,000 unit in 500 mls @ 16 mls/hr IVPB TITR [facility]; Protocol Last Titration: 11/29/18 11:41 Dose: 600 units/hr, 12 mls/hr Metoprolol Succinate (Toprol Xl -) 100 mg PO DAILY [facility] Last Admin: 11/29/18 09:30 Dose: Not Given Pantoprazole Sodium (Protonix Iv) 40 mg IVPUSH DAILY [facility] Last Admin: 11/29/18 09:29 Dose: 40 mg Warfarin Sodium (Coumadin -) 10 mg PO DAILY@1800 [facility] Last Admin: 11/28/18 17:14 Dose: 10 mg - Objective Vital Signs: Vital Signs Temperature 98.1 F 11/29/18 10:00 Pulse Rate 51 L 11/29/18 12:00 Respiratory Rate 20 11/29/18 12:00 Blood Pressure 131/60 11/29/18 12:00 O2 Sat by Pulse Oximetry (%) 100 11/29/18 08:50 Cardiovascular: Yes: S1, S2 Respiratory: Yes: Regular, CTA Bilaterally Gastrointestinal: Yes: Normal Bowel Sounds, Soft Labs: CBC, BMP 11/29/18 05:30 11/29/18 05:30 INR, PTT INR 1.06 (0.83-1.09) 11/29/18 05:30 Problem List - Problems (1) GI bleed Assessment/Plan: diet per gi transfusion PPI dr daley consult noted recheck cbc ct scan noted on AC Heparin/coumaadin) plavix Code(s): K92.2 - GASTROINTESTINAL HEMORRHAGE, UNSPECIFIED (2) Anemia Assessment/Plan: as above Code(s): D64.9 - ANEMIA, UNSPECIFIED (3) CAD (coronary artery disease) Assessment/Plan: s/p stenting Dr nixon cardiology on AC Heparin/coumaadin) plavix Code(s): I25.10 - ATHSCL HEART DISEASE OF [place] CORONARY ARTERY W/O ANG PCTRS (4) Atrial fibrillation Assessment/Plan: on AC Heparin/coumaadin) plavix Code(s): I48.91 - UNSPECIFIED ATRIAL FIBRILLATION Qualifiers: Atrial fibrillation type: unspecified Qualified Code(s): I48.91 - Unspecified atrial fibrillation
[2018-11-29 14:33] VITALS: BMI 25.1
[2018-11-29 15:28] LABS: HEMATOCRIT 27.9 % (35.4-49); HEMOGLOBIN 9.2 GM/dL (11.7-16.9); MCH 27.7 pg (25.7-33.7); MCHC 32.9 g/dl (32.0-35.9); MEAN CELL VOLUME 84.2 fl (80-96); MEAN PLT VOLUME 10.3 fl (7.5-11.1); PLATELET COUNT 195 K/MM3 (134-434); RBC 3.31 M/mm3 (4.00-5.60); RDW 16.1 % (11.9-15.9); WHITE BLOOD COUNT 7.3 K/mm3 (4.0-10.0)
--- NOTE | 2018-11-29 15:35 | PN ---
Progress Note, Physician Chief Complaint: Tolerating PO No bleeding H/h stable History of Present Illness: 78 M with diverticulosis, radiation proctitis, previous prostate CA, Paroxysmal Afib on Eliquis severe 3 VD with normal EF sp multivessel PCI last stenting was on 10/30 and then 11/14/18. Had been on Eiquis, ASA and Plavix. Admitted after recurrent BRBPR. No chest pain, dyspnea or dizziness. - Current Medication List Current Medications: Active Medications Atorvastatin Calcium (Lipitor -) 80 mg PO HS [facility] Last Admin: 11/28/18 22:06 Dose: 80 mg Clopidogrel Bisulfate (Plavix -) 75 mg PO DAILY [facility] Last Admin: 11/29/18 09:29 Dose: 75 mg Heparin Sodium (Porcine) (Heparin -) 1,000 unit IVPUSH PRN PRN PRN Reason: Heparin Heparin Sodium (Porcine) (Heparin -) 5,000 unit IVPUSH PRN PRN PRN Reason: Heparin HEPARIN SOD,PORK IN 0.45% NACL (Heparin-1/2ns 25,000 Units/500) 25,000 unit in 500 mls @ 16 mls/hr IVPB TITR [facility]; Protocol Last Admin: 11/29/18 15:00 Dose: Not Given Metoprolol Succinate (Toprol Xl -) 100 mg PO DAILY [facility] Last Admin: 11/29/18 09:30 Dose: Not Given Pantoprazole Sodium (Protonix Iv) 40 mg IVPUSH DAILY [facility] Last Admin: 11/29/18 09:29 Dose: 40 mg Warfarin Sodium (Coumadin -) 10 mg PO DAILY@1800 [facility] Last Admin: 11/28/18 17:14 Dose: 10 mg - Objective Vital Signs: Vital Signs Temperature 97.9 F 11/29/18 14:00 Pulse Rate 53 L 11/29/18 14:00 Respiratory Rate 20 11/29/18 14:00 Blood Pressure 100/60 11/29/18 14:00 O2 Sat by Pulse Oximetry (%) 100 11/29/18 08:50 Constitutional: Yes: No Distress Cardiovascular: Yes: Regular Rate and Rhythm, S1, S2. No: JVD, Murmur Respiratory: Yes: CTA Bilaterally Gastrointestinal: Yes: Soft Edema: No Labs: CBC, BMP 11/29/18 15:05 11/29/18 05:30 INR, PTT INR 1.06 (0.83-1.09) 11/29/18 05:30 Assessment/Plan 78 M with diverticulosis, radiation proctitis, previous prostate CA, Paroxysmal Afib on Eliquis severe 3 VD with normal EF sp multivessel PCI last stenting was on 10/30 and then 11/14/18. Had been on Eiquis, ASA and Plavix. Admitted after recurrent BRBPR. No chest pain, dyspnea or dizziness. Recent PCI/stent in addition to PAF Normal LV function Given active GI bleeding DAPT and eliquis were held. Has been on heparin drip with no recurrent bleeding. Plavix started yesterday. Warfarin was started last night and plan to transition. Will monitor h/h on Plavix/warfarin Afib -continue toprol Sinus on tele On heparin and warfarin started
[2018-11-29] MEDS: WARFARIN NA 10 MG TABLET (FP) PO SCH (17:09)
[2018-11-29] MEDS: ATORVASTATIN CA 80 MG TABLET (FP) PO SCH (21:14)
[2018-11-29] MEDS ORDERED: diphenhydrAMINE HCL 25 MG CAPSULE (FP) PO ONE (22:18)
[2018-11-30 06:30] LABS: HEMATOCRIT 25.5 % (35.4-49); HEMOGLOBIN 8.4 GM/dL (11.7-16.9); MCH 27.7 pg (25.7-33.7); MCHC 32.8 g/dl (32.0-35.9); MEAN CELL VOLUME 84.3 fl (80-96); MEAN PLT VOLUME 9.8 fl (7.5-11.1); PLATELET COUNT 190 K/MM3 (134-434); RBC 3.02 M/mm3 (4.00-5.60); RDW 16.5 % (11.9-15.9); WHITE BLOOD COUNT 6.8 K/mm3 (4.0-10.0)
[2018-11-30 06:53] LABS: ALBUMIN 2.4 g/dl (3.4-5.0); ALK PHOS 109 U/L (45-117); ANION GAP 3 MMOL/L (8-16); BILIRUBIN,TOTAL 0.3 mg/dL (0.2-1); BLOOD UREA NITROGEN 11 mg/dL (7-18); CALCIUM 7.5 mg/dL (8.5-10.1); CHLORIDE 110 mmol/L (98-107); CO2 27 mmol/L (21-32); CREATININE 0.5 mg/dL (0.55-1.3); GLUCOSE,RANDOM 115 mg/dL (74-106); INR 1.8 (0.83-1.09); MAGNESIUM 2.2 mg/dL (1.8-2.4); PHOSPHOROUS 3.8 mg/dL (2.5-4.9); POTASSIUM 3.9 mmol/L (3.5-5.1); PROTHROMBIN TIME (PATIENT) 21.4 SEC (9.7-13.0); SGOT/AST 13 U/L (15-37); SGPT/ALT 12 U/L (13-61); SODIUM 141 mmol/L (136-145); TOT PROT 5.4 g/dl (6.4-8.2)
[2018-11-30] MEDS: PANTOPRAZOLE SODIUM 40 MG VIAL IVPUSH SCH (09:21)
[2018-11-30] MEDS: CLOPIDOGREL BISULFATE 75 MG TABLET (FP) PO SCH (09:21)
--- NOTE | 2018-11-30 10:37 | PN ---
Progress Note, Physician Chief Complaint: AWAKE ALERT IN ICU EVENTS AND NOTES REVIEWED DENIES CHEST PAIN OR SOB - Current Medication List Current Medications: Active Medications Atorvastatin Calcium (Lipitor -) 80 mg PO HS [facility] Last Admin: 11/29/18 21:14 Dose: 80 mg Clopidogrel Bisulfate (Plavix -) 75 mg PO DAILY [facility] Last Admin: 11/30/18 09:21 Dose: 75 mg Heparin Sodium (Porcine) (Heparin -) 1,000 unit IVPUSH PRN PRN PRN Reason: Heparin Heparin Sodium (Porcine) (Heparin -) 5,000 unit IVPUSH PRN PRN PRN Reason: Heparin HEPARIN SOD,PORK IN 0.45% NACL (Heparin-1/2ns 25,000 Units/500) 25,000 unit in 500 mls @ 16 mls/hr IVPB TITR [facility]; Protocol Last Admin: 11/29/18 15:00 Dose: Not Given Metoprolol Succinate (Toprol Xl -) 100 mg PO DAILY [facility] Last Admin: 11/30/18 09:21 Dose: 100 mg Pantoprazole Sodium (Protonix Iv) 40 mg IVPUSH DAILY [facility] Last Admin: 11/30/18 09:21 Dose: 40 mg Warfarin Sodium (Coumadin -) 10 mg PO DAILY@1800 [facility] Last Admin: 11/29/18 17:09 Dose: 10 mg - Objective Vital Signs: Vital Signs Temperature 98.8 F 11/30/18 06:00 Pulse Rate 66 11/30/18 09:24 Respiratory Rate 15 11/30/18 09:24 Blood Pressure 136/59 L 11/30/18 09:24 O2 Sat by Pulse Oximetry (%) 96 11/30/18 07:40 Constitutional: Yes: Mild Distress Eyes: Yes: WNL HENT: Yes: WNL Neck: Yes: WNL Cardiovascular: Yes: Pulse Irregular Respiratory: Yes: WNL Gastrointestinal: Yes: Soft Genitourinary: Yes: WNL Musculoskeletal: Yes: WNL Extremities: Yes: WNL Edema: No Peripheral Pulses WNL: Yes Integumentary: Yes: WNL Wound/Incision: Yes: Clean/Dry Neurological: Yes: WNL ...Motor Strength: WNL Psychiatric: Yes: WNL Labs: CBC, BMP 11/30/18 05:30 11/30/18 05:30 INR, PTT INR 1.80 (0.83-1.09) H 11/30/18 05:30 Problem List - Problems (1) Anemia Code(s): D64.9 - ANEMIA, UNSPECIFIED (2) CAD (coronary artery disease) Code(s): I25.10 - ATHSCL HEART DISEASE OF [place] CORONARY ARTERY W/O ANG PCTRS (3) GI bleed Code(s): K92.2 - GASTROINTESTINAL HEMORRHAGE, UNSPECIFIED (4) Rectal bleed Code(s): K62.5 - HEMORRHAGE OF ANUS AND RECTUM (5) Alcohol dependence with uncomplicated withdrawal Code(s): F10.230 - ALCOHOL DEPENDENCE WITH WITHDRAWAL, UNCOMPLICATED (6) Atrial fibrillation Code(s): I48.91 - UNSPECIFIED ATRIAL FIBRILLATION Qualifiers: Atrial fibrillation type: unspecified Qualified Code(s): I48.91 - Unspecified atrial fibrillation (7) BPH (benign prostatic hyperplasia) Code(s): N40.0 - BENIGN PROSTATIC HYPERPLASIA WITHOUT LOWER URINRY TRACT SYMP Assessment/Plan NO ACTIVE BLEEDS AT THIS TIME PER RECTUM IV HEPARIN BRIDGE TO COUMADIN OUTPATIENT THERAPY F/U WITH PMD FOR INR CHECKS AND H/HH MONITORING AFIB CONTROLLED CARDIO/GI F/U DC PLANNING IN AM IF INR THERAPEUTIC
--- NOTE | 2018-11-30 12:41 | PN ---
Teaching Attending Note Name of Resident: Trevor Alcaraz ATTENDING PHYSICIAN STATEMENT I saw and evaluated the patient. I reviewed the resident's note and discussed the case with the resident. I agree with the resident's findings and plan as documented. SUBJECTIVE: Patient seen and examined in the ICU. Awake and alert. No occult bleeding overnight. Tolerated PO intake. No abdominal discomfort. No CP or SOB. Intake & Output 11/27/18 11/28/18 11/29/18 11/30/18 23:59 23:59 23:59 23:59 Intake Total 2115.2 731 1089.6 109 Balance 2115.2 731 1089.6 109 Weight 147 lb 2 oz 148 lb 9 oz 151 lb 8 oz 153 lb 4.8 oz Last Vital Signs Temp Pulse Resp BP Pulse Ox 98.8 F 68 16 123/53 L 96 11/30/18 06:00 11/30/18 11:00 11/30/18 11:00 11/30/18 11:00 11/30/18 07:40 Active Medications Atorvastatin Calcium (Lipitor -) 80 mg PO HS [facility] Last Admin: 11/29/18 21:14 Dose: 80 mg Clopidogrel Bisulfate (Plavix -) 75 mg PO DAILY [facility] Last Admin: 11/30/18 09:21 Dose: 75 mg Heparin Sodium (Porcine) (Heparin -) 1,000 unit IVPUSH PRN PRN PRN Reason: Heparin Heparin Sodium (Porcine) (Heparin -) 5,000 unit IVPUSH PRN PRN PRN Reason: Heparin HEPARIN SOD,[place] IN 0.45% NACL (Heparin-1/2ns 25,000 Units/500) 25,000 unit in 500 mls @ 16 mls/hr IVPB TITR [facility]; Protocol Last Admin: 11/29/18 15:00 Dose: Not Given Metoprolol Succinate (Toprol Xl -) 100 mg PO DAILY [facility] Last Admin: 11/30/18 09:21 Dose: 100 mg Pantoprazole Sodium (Protonix Iv) 40 mg IVPUSH DAILY [facility] Last Admin: 11/30/18 09:21 Dose: 40 mg Warfarin Sodium (Coumadin -) 10 mg PO DAILY@1800 [facility] Last Admin: 11/29/18 17:09 Dose: 10 mg GENERAL: The patient is awake, alert, and fully oriented, in no acute distress. HEAD: Normal with no signs of trauma. EYES: sclera anicteric, conjunctiva clear. No ptosis. ENT: Ears normal, nares patent, oropharynx clear without exudates, moist mucous membranes. NECK: Trachea midline, full range of motion, supple. LUNGS: Breath sounds equal, clear to auscultation bilaterally, no wheezes, no crackles, no accessory muscle use. HEART: Regular rate and rhythm, S1, S2 without murmur, rub or gallop. ABDOMEN: Soft, nontender, nondistended, decreased bowel sounds, no guarding, no rebound, no hepatosplenomegaly, no masses. EXTREMITIES: 2+ pulses, warm, well-perfused, no edema. NEUROLOGICAL: Non-focal PSYCH: Normal mood, normal affect. SKIN: Warm, dry, normal turgor, no rashes or lesions noted Laboratory Results - last 24 hr 11/26/18 11/29/18 11/30/18 15:18 15:05 05:30 WBC 7.3 RBC 3.31 L Hgb 9.2 L Hct 27.9 L MCV 84.2 MCH 27.7 MCHC 32.9 RDW 16.1 H Plt Count 195 MPV 10.3 PT with INR INR PTT (Actin FS) Cancelled Sodium Potassium Chloride Carbon Dioxide Anion Gap BUN Creatinine Creat Clearance w eGFR Random Glucose Calcium Phosphorus Magnesium Total Bilirubin AST ALT Alkaline Phosphatase Total Protein Albumin Blood Type O POSITIVE Antibody Screen Negative Crossmatch See Detail 11/30/18 11/30/18 11/30/18 05:30 05:30 05:30 WBC 6.8 RBC 3.02 L Hgb 8.4 L Hct 25.5 L MCV 84.3 MCH 27.7 MCHC 32.8 RDW 16.5 H Plt Count 190 MPV 9.8 PT with INR 21.40 H INR 1.80 H PTT (Actin FS) 69.0 H Sodium 141 Potassium 3.9 Chloride 110 H Carbon Dioxide 27 Anion Gap 3 L BUN 11 Creatinine 0.5 L Creat Clearance w eGFR 160.40 Random Glucose 115 H Calcium 7.5 L Phosphorus 3.8 Magnesium 2.2 Total Bilirubin 0.3 AST 13 L ALT 12 L Alkaline Phosphatase 109 Total Protein 5.4 L Albumin 2.4 L Blood Type Antibody Screen Crossmatch 2 ASSESSMENT/PLAN: Suspected Acute Diverticular Bleed (?) component of bleeding from proctitis History of diverticulosis (last colonoscopy 08/03/[address] Kennedy) AFib on Eliquis HTN HLD Prostate CA Recent coronary stenting (x2 08/2018) CAD AMI PO as tolerated IV Heparin bridge with Coumadin Normal transfusion threshold: Hb mg/dL ASA O2 as needed Mechanical VTE prophylaxis Cardiac Telemetry monitoring Dr Malhotra
--- NOTE | 2018-11-30 12:58 | PN ---
Progress Note, Physician History of Present Illness: Seen and examined at bedside. No acute event overnight. Feeling OK. No bleeding noted. A little out of breath when ambulating. - Current Medication List Current Medications: Active Medications Atorvastatin Calcium (Lipitor -) 80 mg PO HS [facility] Last Admin: 11/29/18 21:14 Dose: 80 mg Clopidogrel Bisulfate (Plavix -) 75 mg PO DAILY [facility] Last Admin: 11/30/18 09:21 Dose: 75 mg Heparin Sodium (Porcine) (Heparin -) 1,000 unit IVPUSH PRN PRN PRN Reason: Heparin Heparin Sodium (Porcine) (Heparin -) 5,000 unit IVPUSH PRN PRN PRN Reason: Heparin HEPARIN SOD,[place] IN 0.45% NACL (Heparin-1/2ns 25,000 Units/500) 25,000 unit in 500 mls @ 16 mls/hr IVPB TITR [facility]; Protocol Last Admin: 11/29/18 15:00 Dose: Not Given Metoprolol Succinate (Toprol Xl -) 100 mg PO DAILY [facility] Last Admin: 11/30/18 09:21 Dose: 100 mg Pantoprazole Sodium (Protonix Iv) 40 mg IVPUSH DAILY [facility] Last Admin: 11/30/18 09:21 Dose: 40 mg Warfarin Sodium (Coumadin -) 10 mg PO DAILY@1800 [facility] Last Admin: 11/29/18 17:09 Dose: 10 mg - Objective Vital Signs: Vital Signs Temperature 98.8 F 11/30/18 06:00 Pulse Rate 68 11/30/18 11:00 Respiratory Rate 16 11/30/18 11:00 Blood Pressure 123/53 L 11/30/18 11:00 O2 Sat by Pulse Oximetry (%) 96 11/30/18 07:40 Constitutional: Yes: Calm. No: Mild Distress HENT: Yes: Atraumatic, Normocephalic Cardiovascular: Yes: Regular Rate and Rhythm, S1, S2 Respiratory: Yes: Regular, CTA Bilaterally Gastrointestinal: Yes: Normal Bowel Sounds, Soft. No: Tenderness Neurological: Yes: Alert, Oriented Labs: CBC, BMP 11/30/18 05:30 11/30/18 05:30 INR, PTT INR 1.80 (0.83-1.09) H 11/30/18 05:30 Impression/Plan Impression/Plan: 78 y/o M h/o CAD, afib, HTN, and HLD admitted for GI bleed. A: - CAD s/p stent - afib - GI bleed P: - c/w statin, gil-i and bb - c/w hep gtt bridge to coumadin and trend INR - restart plavix - protonix daily - PT, OOB Visit type - Emergency Visit Emergency Visit: No - New Patient This patient is new to me today: No - Critical Care Critical Care patient: Yes Total Critical Care Time (in minutes): 35 Critical Care Statement: The care of this patient involved high complexity decision making to prevent further life threatening deterioration of the patient 's condition and/or to evaluate & treat vital organ system(s) failure or risk of failure.
--- NOTE | 2018-11-30 15:47 | PN ---
Progress Note, Physician Chief Complaint: No complaints Sinus on tele with a pvc No occult bleeding History of Present Illness: 78 M with diverticulosis, radiation proctitis, previous prostate CA, Paroxysmal Afib on Eliquis severe 3 VD with normal EF sp multivessel PCI last stenting was on 10/30 and then 11/14/18. Had been on Eiquis, ASA and Plavix. Admitted after recurrent BRBPR. No chest pain, dyspnea or dizziness. - Current Medication List Current Medications: Active Medications Atorvastatin Calcium (Lipitor -) 80 mg PO HS [facility] Last Admin: 11/29/18 21:14 Dose: 80 mg Clopidogrel Bisulfate (Plavix -) 75 mg PO DAILY [facility] Last Admin: 11/30/18 09:21 Dose: 75 mg Heparin Sodium (Porcine) (Heparin -) 1,000 unit IVPUSH PRN PRN PRN Reason: Heparin Heparin Sodium (Porcine) (Heparin -) 5,000 unit IVPUSH PRN PRN PRN Reason: Heparin HEPARIN SOD,[place] IN 0.45% NACL (Heparin-1/2ns 25,000 Units/500) 25,000 unit in 500 mls @ 16 mls/hr IVPB TITR [facility]; Protocol Last Admin: 11/29/18 15:00 Dose: Not Given Metoprolol Succinate (Toprol Xl -) 100 mg PO DAILY [facility] Last Admin: 11/30/18 09:21 Dose: 100 mg Pantoprazole Sodium (Protonix Iv) 40 mg IVPUSH DAILY [facility] Last Admin: 11/30/18 09:21 Dose: 40 mg Tetrahydrozoline HCl (Visine -) 1 drop OU Q12H PRN PRN Reason: FOR ITCHING Warfarin Sodium (Coumadin -) 10 mg PO DAILY@1800 [facility] Last Admin: 11/29/18 17:09 Dose: 10 mg - Objective Vital Signs: Vital Signs Temperature 98.8 F 11/30/18 13:26 Pulse Rate 68 11/30/18 13:26 Respiratory Rate 18 11/30/18 13:26 Blood Pressure 128/56 L 11/30/18 13:26 O2 Sat by Pulse Oximetry (%) 96 11/30/18 07:40 Constitutional: Yes: No Distress Neck: Yes: Supple Cardiovascular: Yes: Regular Rate and Rhythm. No: JVD Respiratory: Yes: CTA Bilaterally Gastrointestinal: Yes: Soft Edema: No Labs: CBC, BMP 11/30/18 05:30 11/30/18 05:30 INR, PTT INR 1.80 (0.83-1.09) H 11/30/18 05:30 Assessment/Plan 78 M with diverticulosis, radiation proctitis, previous prostate CA, Paroxysmal Afib on Eliquis severe 3 VD with normal EF sp multivessel PCI last stenting was on 10/30 and then 11/14/18. Had been on Eiquis, ASA and Plavix. Admitted after recurrent BRBPR. No chest pain, dyspnea or dizziness. Recent PCI/stent in addition to PAF Normal LV function Given active GI bleeding DAPT and eliquis were held. Has been on heparin drip bridging to warfarin with no recurrent bleeding. On Plavix . Monitoring h/h as little lower today but no occult bleeding Afib -continue toprol Sinus on tele On heparin and warfarin being bridged
[2018-11-30] MEDS: TETRAHYDROZOLINE HCL EYE DROPS OU PRN (16:25)
[2018-11-30] MEDS: WARFARIN NA 10 MG TABLET (FP) PO SCH (17:09)
[2018-11-30] MEDS: HEPARIN SOD,PORK IN 0.45% NACL 25,000 UNIT/500 ML INFUS.BAG IVPB SCH (17:12)
[2018-11-30] MEDS ORDERED: diphenhydrAMINE HCL 25 MG CAPSULE (FP) PO ONE (20:49)
[2018-11-30] MEDS: ATORVASTATIN CA 80 MG TABLET (FP) PO SCH (21:51)
[2018-12-01] MEDS ORDERED: PT OWN MED DRAWER 7, Y5N ONE (00:21)
[2018-12-01 06:01] LABS: HEMATOCRIT 26.6 % (35.4-49); HEMOGLOBIN 8.9 GM/dL (11.7-16.9); MCH 27.8 pg (25.7-33.7); MCHC 33.2 g/dl (32.0-35.9); MEAN CELL VOLUME 83.7 fl (80-96); PLATELET COUNT 222 K/MM3 (134-434); RBC 3.18 M/mm3 (4.00-5.60); RDW 16.2 % (11.9-15.9)
[2018-12-01 06:28] LABS: INR 3.52 (0.83-1.09); PROTHROMBIN TIME (PATIENT) 42.1 SEC (9.7-13.0)
[2018-12-01 06:31] LABS: ANION GAP 6 MMOL/L (8-16); BLOOD UREA NITROGEN 11 mg/dL (7-18); CALCIUM 7.7 mg/dL (8.5-10.1); CHLORIDE 108 mmol/L (98-107); CO2 28 mmol/L (21-32); CREATININE 0.6 mg/dL (0.55-1.3); GLUCOSE,RANDOM 125 mg/dL (74-106); POTASSIUM 4.1 mmol/L (3.5-5.1); SODIUM 142 mmol/L (136-145)
[2018-12-01] MEDS: CLOPIDOGREL BISULFATE 75 MG TABLET (FP) PO SCH (09:55)
[2018-12-01] MEDS: TETRAHYDROZOLINE HCL EYE DROPS OU PRN (09:58)
[2018-12-01] MEDS ORDERED: PANTOPRAZOLE 40 MG TABLET (FP) PO SCH (10:00)
--- NOTE | 2018-12-01 11:17 | PN ---
Physical Exam: SUBJECTIVE: Patient seen this morning and without complaint. Reports his arm is feeling better. OBJECTIVE: Vital Signs Temperature 98.1 F 12/01/18 10:00 Pulse Rate 64 12/01/18 10:00 Respiratory Rate 17 12/01/18 10:00 Blood Pressure 125/57 L 12/01/18 10:00 O2 Sat by Pulse Oximetry (%) 95 12/01/18 07:39 GENERAL: The patient is awake, alert, and fully oriented HEAD: Normal with no signs of trauma. EYES: PERRL, extraocular movements intact, LUNGS: Breath sounds equal, clear to auscultation bilaterally, no wheezes, no crackles, no accessory muscle use. HEART: Regular rate and rhythm, S1, S2 without murmur, rub or gallop. ABDOMEN: Soft, nontender, nondistended, normoactive bowel sounds, no guarding EXTREMITIES: erythema and tenderness in left AC PSYCH: Normal mood, normal affect. SKIN: Warm, dry, normal turgor, no rashes or lesions noted CBCD WBC 7.0 K/mm3 (4.0-10.0) 12/01/18 05:30 RBC 3.18 M/mm3 (4.00-5.60) L 12/01/18 05:30 Hgb 8.9 GM/dL (11.7-16.9) L 12/01/18 05:30 Hct 26.6 % (35.4-49) L 12/01/18 05:30 MCV 83.7 fl (80-96) 12/01/18 05:30 MCHC 33.2 g/dl (32.0-35.9) 12/01/18 05:30 RDW 16.2 % (11.9-15.9) H 12/01/18 05:30 Plt Count 222 K/MM3 (134-434) 12/01/18 05:30 MPV 10.0 fl (7.5-11.1) 12/01/18 05:30 CMP Sodium 142 mmol/L (136-145) 12/01/18 05:30 Potassium 4.1 mmol/L (3.5-5.1) 12/01/18 05:30 Chloride 108 mmol/L (98-107) H 12/01/18 05:30 Carbon Dioxide 28 mmol/L (21-32) 12/01/18 05:30 Anion Gap 6 MMOL/L (8-16) L 12/01/18 05:30 BUN 11 mg/dL (7-18) 12/01/18 05:30 Creatinine 0.6 mg/dL (0.55-1.3) 12/01/18 05:30 Creat Clearance w eGFR 129.97 (>60) 12/01/18 05:30 Calcium 7.7 mg/dL (8.5-10.1) L 12/01/18 05:30 Total Bilirubin 0.3 mg/dL (0.2-1) 11/30/18 05:30 AST 13 U/L (15-37) L 11/30/18 05:30 ALT 12 U/L (13-61) L 11/30/18 05:30 Alkaline Phosphatase 109 U/L (45-117) 11/30/18 05:30 Total Protein 5.4 g/dl (6.4-8.2) L 11/30/18 05:30 Albumin 2.4 g/dl (3.4-5.0) L 11/30/18 05:30 Active Medications Atorvastatin Calcium (Lipitor -) 80 mg PO HS FORMERLY [facility], [facility]1983 Last Admin: 11/30/18 21:51 Dose: 80 mg Clopidogrel Bisulfate (Plavix -) 75 mg PO DAILY FOR[facility]LY [facility], [facility] Last Admin: 12/01/18 09:55 Dose: 75 mg Metoprolol Succinate (Toprol Xl -) 100 mg PO DAILY FOR[facility]LY [facility], [facility] Last Admin: 12/01/18 09:55 Dose: 100 mg Pantoprazole Sodium (Protonix -) 40 mg PO DAILY FOR[facility]LY [facility], [facility] Last Admin: 12/01/18 09:55 Dose: 40 mg Tetrahydrozoline HCl (Visine -) 1 drop OU Q12H PRN PRN Reason: FOR ITCHING Last Admin: 12/01/18 09:58 Dose: 1 drop Warfarin Sodium (Coumadin -) 10 mg PO DAILY@1800 FOR[facility]LY [facility], [facility] Last Admin: 11/30/18 17:09 Dose: 10 mg ASSESSMENT/PLAN: Patient is a 78 y/o male with a history of CAD, afib, HTN, and HLD, who is admitted for GI bleed. Neuro - A&O x3 Cardio - continue Atorvastatin 80 hs - continue lisinopril and metoprolol succinate 100 daily - INR 3.52, supratherapeutic, hold warfarin overnight - per cardio and GI can restart plavix 75 mg daily, D/C aspirin - heparin dripped stopped - orthostatics negative supine 66 134/63, sitting 64 136/55, standing 68 138/ 70 Pulm - stable GI - Patient did not have colonoscopy and is not necessary as per GI - protonix 40 daily - patient tolerating diet - no recent GI bleeding Nephro - stable Heme - Heparin drip for anticoagulation, hold coumadin for supratherapeutic INR - transfusion threshold 8 - US of left AC shows thrombophlebitis in cephalic vein, warm compress to area and tylenol as needed for the pain - NOAC higher incidence for GI bleed, patient switched to warfarin, easier to reverse or hold for any future GI bleed FEN - patient tolerating regular low sodium diet Dispo: patient can go home today, discuss with primary team Visit type - Emergency Visit Emergency Visit: No - New Patient This patient is new to me today: No - Critical Care Critical Care patient: Yes Total Critical Care Time (in minutes): 35 Critical Care Statement: The care of this patient involved high complexity decision making to prevent further life threatening deterioration of the patient 's condition and/or to evaluate & treat vital organ system(s) failure or risk of failure.
--- NOTE | 2018-12-01 11:24 | PN ---
Teaching Attending Note Name of Resident: Amelie Lux ATTENDING PHYSICIAN STATEMENT I saw and evaluated the patient. I reviewed the resident's note and discussed the case with the resident. I agree with the resident's findings and plan as documented. SUBJECTIVE: Patient seen and examined in the ICU. Awake and alert. No occult bleeding overnight. Tolerated PO intake. No abdominal discomfort. No CP or SOB. Intake & Output 11/28/18 11/29/18 11/30/18 12/01/18 23:59 23:59 23:59 23:59 Intake Total 731 1089.6 409 91.2 Output Total 400 1000 Balance 731 1089.6 9 -908.8 Weight 148 lb 9 oz 151 lb 8 oz 153 lb 4.8 oz 153 lb 3.54 oz Last Vital Signs Temp Pulse Resp BP Pulse Ox 98.1 F 64 17 125/57 L 95 12/01/18 10:00 12/01/18 10:00 12/01/18 10:00 12/01/18 10:00 12/01/18 07:39 Active Medications Atorvastatin Calcium (Lipitor -) 80 mg PO HS [facility] Last Admin: 11/30/18 21:51 Dose: 80 mg Clopidogrel Bisulfate (Plavix -) 75 mg PO DAILY [facility] Last Admin: 12/01/18 09:55 Dose: 75 mg Metoprolol Succinate (Toprol Xl -) 100 mg PO DAILY [facility] Last Admin: 12/01/18 09:55 Dose: 100 mg Pantoprazole Sodium (Protonix -) 40 mg PO DAILY [facility] Last Admin: 12/01/18 09:55 Dose: 40 mg Tetrahydrozoline HCl (Visine -) 1 drop OU Q12H PRN PRN Reason: FOR ITCHING Last Admin: 12/01/18 09:58 Dose: 1 drop Warfarin Sodium (Coumadin -) 10 mg PO DAILY@1800 [facility] Last Admin: 11/30/18 17:09 Dose: 10 mg GENERAL: The patient is awake, alert, and fully oriented, in no acute distress. HEAD: Normal with no signs of trauma. EYES: sclera anicteric, conjunctiva clear. No ptosis. ENT: Ears normal, nares patent, oropharynx clear without exudates, moist mucous membranes. NECK: Trachea midline, full range of motion, supple. LUNGS: Breath sounds equal, clear to auscultation bilaterally, no wheezes, no crackles, no accessory muscle use. HEART: Regular rate and rhythm, S1, S2 without murmur, rub or gallop. ABDOMEN: Soft, nontender, nondistended, decreased bowel sounds, no guarding, no rebound, no hepatosplenomegaly, no masses. EXTREMITIES: 2+ pulses, warm, well-perfused, no edema. NEUROLOGICAL: Non-focal PSYCH: Normal mood, normal affect. SKIN: Warm, dry, normal turgor, no rashes or lesions noted Laboratory Results - last 24 hr 12/01/18 12/01/18 12/01/18 05:30 05:30 05:30 WBC 7.0 RBC 3.18 L Hgb 8.9 L Hct 26.6 L MCV 83.7 MCH 27.8 MCHC 33.2 RDW 16.2 H Plt Count 222 MPV 10.0 PT with INR 42.10 H INR 3.52 H Sodium 142 Potassium 4.1 Chloride 108 H Carbon Dioxide 28 Anion Gap 6 L BUN 11 Creatinine 0.6 Creat Clearance w eGFR 129.97 Random Glucose 125 H Calcium 7.7 L ASSESSMENT/PLAN: Suspected Acute Diverticular Bleed No suspected component of bleeding from proctitis at this time History of diverticulosis (last colonoscopy 08/03/[address] Kennedy) AFib on Eliquis HTN HLD Prostate CA Recent coronary stenting (x2 08/2018) CAD AMI PO as tolerated IV Heparin bridge with Coumadin (Coumadin over DOAC due to GI bleed risk) Normal transfusion threshold: Hb mg/dL ASA O2 as needed Mechanical VTE prophylaxis D/C planning Dr Malhotra
[2018-12-01 13:41] VITALS: BP 151/55; PULSE 58; TEMP 98
--- NOTE | 2018-12-01 14:09 | DS ---
Physical Examination Vital Signs: Vital Signs Temperature 98.0 F 12/01/18 13:40 Pulse Rate 58 L 12/01/18 13:40 Respiratory Rate 17 12/01/18 13:40 Blood Pressure 151/55 L 12/01/18 13:40 O2 Sat by Pulse Oximetry (%) 95 12/01/18 07:39 Constitutional: Yes: Calm, Thin Cardiovascular: Yes: Regular Rate and Rhythm, S1, S2 Respiratory: Yes: CTA Bilaterally Gastrointestinal: Yes: Normal Bowel Sounds, Soft Edema: No Neurological: Yes: Alert, Oriented Labs: CBC, BMP 12/01/18 05:30 12/01/18 05:30 Discharge Summary Reason For Visit: ANEMIA RECTAL HEM Current Active Problems Anemia (Acute) CAD (coronary artery disease) (Acute) GI bleed (Acute) Hypotension (Acute) Rectal bleed (Acute) Hospital Course: PCP: Dorinda Guzman - Admission Chief Complaint: Bright red blood per rectum History of Present Illness: per he had BRPBR 4 episodes at home yesterday and today in ER he had a bigger episode of hematochezia with stool and complaining of abdominal pain no chest pain no lightheadedness h/;o afib, cad htn hld recent cardiac cath with stents 2 weeks ago, . has had colonoscopy with inflammation in past by DR Kennedy. currently on eliquis, asa 81 , and plavix 75. no f/c no travel. patient seen in icu colonscopy deffered stooped eliquis now on heparin drip to couamdin bc can be reversed was on amiodarone dripp now ready to go home Condition: Stable - Instructions Diet, Activity, Other Instructions: no couamdin tonight or tmw on tuesday night take couamdin 4mg go to pmd on tuesday for INR check Referrals: Dorinda Guzman MD [Primary Care Provider] - Disposition: HOME - Home Medications Comprehensive Discharge Medication List: Ambulatory Orders Apixaban [Eliquis] 1 tab PO BID 07/09/18 Aspirin 81 mg PO DAILY 09/19/18 Atorvastatin Ca [Lipitor] 80 mg PO HS 09/19/18 Lisinopril 20 mg PO DAILY 09/19/18 Clopidogrel Bisulfate [Clopidogrel] 75 mg PO DAILY 11/23/18 Folic Acid 1 mg PO DAILY 11/23/18 Metoprolol Succinate 100 mg PO DAILY 11/23/18 Multivit-Min/Iron Fum/Folic AC [Nkoow-Mweyqwt-Lttkjooe Tablet] 1 tab PO DAILY
== END 2018-12-01 15:38 | disposition home or self-care (01) | DRG 378 ==
LOC: JER 10:31 → UNDOADMIN 14:01 → JERBED 14:01 → JICU 18:09
PROVIDERS: ADMIT Family Medicine; ATTEND Family Medicine
PROC: 30233N1 Transfusion of Nonautologous Red Blood Cells into Peripheral Vein, Percutaneous Approach (ICD-10-PCS; principal; 2018-11-23)
DX: K62.5 Hemorrhage of anus and rectum (principal); I24.8 Other forms of acute ischemic heart disease; D62 Acute posthemorrhagic anemia; I82.621 Acute embolism and thrombosis of deep veins of right upper extremity; I25.10 Atherosclerotic heart disease of native coronary artery without angina pectoris; I48.0 Paroxysmal atrial fibrillation; I95.9 Hypotension, unspecified; I80.8 Phlebitis and thrombophlebitis of other sites; I25.2 Old myocardial infarction; Z79.01 Long term (current) use of anticoagulants; D64.9 Anemia, unspecified; K57.30 Diverticulosis of large intestine without perforation or abscess without bleeding; Z95.5 Presence of coronary angioplasty implant and graft; Z91.19 Patient's noncompliance with other medical treatment and regimen; Z85.46 Personal history of malignant neoplasm of prostate
CPT/HCPCS: 36415; 36430; 36511; 74177-TC; 80048; 80053; 80061; 82272; 82550; 83605; 83721; 83735; 84100; 84484; 85025; 85027; 85610; 85730; 86850; 86900; 86901; 86922; 87324; 87449; 93005; 93010; 93971; 97116-GP; 97161-GP; 99284-25; J7030; P9038; P9058; Q9967

== ENCOUNTER → 2018-12-15 | Emergency (ER) | payer OTHER ==
[2018-12-15 13:34] VITALS: BP 144/81; PULSE 70; TEMP 98; BMI 25.7
--- NOTE | 2018-12-15 15:43 | PDOC ---
History of Present Illness - General Chief Complaint: Rectal Bleed Stated Complaint: RECTAL BLEED Time Seen by Provider: 12/15/18 15:39 Past History - Past Medical History Allergies/Adverse Reactions: Allergies Allergy/AdvReac Type Severity Reaction Status Date / Time No Known Allergies Allergy Verified 12/15/18 13:30 Home Medications: Ambulatory Orders Atorvastatin Ca [Lipitor] 80 mg PO HS 09/19/18 Clopidogrel Bisulfate [Clopidogrel] 75 mg PO DAILY 11/23/18 Folic Acid 1 mg PO DAILY 11/23/18 Metoprolol Succinate 100 mg PO DAILY 11/23/18 Multivit-Min/Iron Fum/Folic AC [Mifms-Exukzbt-Unsmqbxf Tablet] 1 tab PO DAILY Lisinopril [Prinivil] 20 mg PO DAILY #30 tablet 12/01/18 Warfarin Sodium [Coumadin] 4 mg PO HS #14 tablet MDD 1 12/01/18 Cardiac Disorders: (Yes, paroxysmal AFib) COPD: No HTN: Yes Hypercholesterolemia: Yes Other medical history: RECTAL BLEED - Surgical History Cardiac Surgery: Yes (PCI) GI Surgery: No - Immunization History Immunization Up to Date: No - Suicide/Smoking/Psychosocial Hx Smoking History: Never smoked Have you smoked in the past 12 months: No Hx Alcohol Use: No Drug/Substance Use Hx: No Hx Substance Use Treatment: No *Physical Exam - Vital Signs Last Vital Signs Temp Pulse Resp BP Pulse Ox 98.0 F 70 18 144/81 99 12/15/18 13:30 12/15/18 13:30 12/15/18 13:30 12/15/18 13:30 12/15/18 13:30 *DC/Admit/Observation/Transfer - Referrals Referrals: Dorinda Guzman MD [Primary Care Provider] - - Patient Instructions - Post Discharge Activity
== END | disposition left against medical advice (07) ==
LOC: JER 13:26
DX: Z53.21 Procedure and treatment not carried out due to patient leaving prior to being seen by health care provider (principal)
CPT/HCPCS: 99281-25

== ENCOUNTER 2018-12-16 08:54 | Inpatient (IN) | payer OTHER ==
--- NOTE | 2018-12-16 09:44 | PDOC ---
History of Present Illness - General Chief Complaint: Rectal Bleed Stated Complaint: ANAL BLEEDING Time Seen by Provider: 12/16/18 09:12 History Source: Patient Exam Limitations: Language Barrier - History of Present Illness Initial Comments: 12/16/18 09:42 78 y/o male with PMH of Afib (on eliquis), CAD (s/p stents), HTN, HLD, prostate ca who presented to the ED with ongoing rectal bleeding. Of note, patient was here about 3 weeks ago with similar complaints where he was in the ICU- colonoscopy was not performed due to poor bowel prep. Patient states that he did have a colonoscopy in August with Dr. Kennedy, as he rectal bleeding started back in July. 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 Patient states that the bleeding has been on and off since leaving the hospital on November 29. He has not been taking his eliquis since then as per Dr. Kennedy, however, he is continuing to take his Plavix. He does endorse that he has to strain when he moves his bowels; he states that he notices blood when he wipes as well as in the toilet itself. He states that the bleeding got bad yesterday around 11am, so he came to the hospital last night, however he left due to a long wait time. He states that he does feel weak and does have some dizziness. he denies any chest pains, shortness of breath, nausea/vomiting nor does he have any recent travel. He denies any family history of any colon CA . 12/16/18 09:45 12/16/18 09:49 Timing/Duration: constant Severity: moderate Associated Symptoms: reports: weakness. denies: chest pain Past History - Travel Traveled outside of the country in the last 30 days: No Close contact w/someone who was outside of country & ill: No - Past Medical History Allergies/Adverse Reactions: Allergies Allergy/AdvReac Type Severity Reaction Status Date / Time No Known Allergies Allergy Verified 12/15/18 13:30 Home Medications: Ambulatory Orders Atorvastatin Ca [Lipitor] 80 mg PO HS 09/19/18 Clopidogrel Bisulfate [Clopidogrel] 75 mg PO DAILY 11/23/18 Folic Acid 1 mg PO DAILY 11/23/18 Metoprolol Succinate 100 mg PO DAILY 11/23/18 Multivit-Min/Iron Fum/Folic AC [Wwein-Enmmpmi-Njrkajpq Tablet] 1 tab PO DAILY Lisinopril [Prinivil] 20 mg PO DAILY #30 tablet 12/01/18 Warfarin Sodium [Coumadin] 4 mg PO HS #14 tablet MDD 1 12/01/18 Cardiac Disorders: Yes (Yes, paroxysmal AFib) COPD: No HTN: Yes Hypercholesterolemia: Yes Other medical history: prostate CA s/p radiation in 2007 - Surgical History Cardiac Surgery: Yes (PCI) GI Surgery: No - Immunization History Immunization Up to Date: No - Suicide/Smoking/Psychosocial Hx Smoking History: Unknown if ever smoked Have you smoked in the past 12 months: No Hx Alcohol Use: No Drug/Substance Use Hx: No Hx Substance Use Treatment: No Review of Systems - Review of Systems Able to Perform ROS?: Yes Is the patient limited Setswana proficient: No Constitutional: Yes: Weakness HEENTM: No: Blurred Vision Respiratory: No: Shortness of Breath Cardiac (ROS): No: Chest Pain ABD/GI: Yes: Rectal Bleeding, Tarry Stools : No: Burning, Dysuria Neurological: Yes: Dizziness *Physical Exam - Vital Signs Last Vital Signs Temp Pulse Resp BP Pulse Ox 98.1 F 70 17 138/48 L 99 12/16/18 08:56 12/16/18 08:56 12/16/18 08:56 12/16/18 08:56 12/16/18 08:56 - Physical Exam General Appearance: Yes: Nourished Neck: positive: Normal Thyroid Respiratory/Chest: positive: Lungs Clear, Normal Breath Sounds Cardiovascular: positive: Regular Rhythm, Regular Rate, S1, S2 Gastrointestinal/Abdominal: positive: Flat, Soft Rectal Exam: positive: heme positive stool, other (no massses; no fissures present ). negative: hemorrhoids Musculoskeletal: negative: CVA Tenderness Integumentary: positive: Normal Color Neurologic: positive: Fully Oriented, Alert ED Treatment Course - LABORATORY CBC & Chemistry Diagram: 12/16/18 09:50 12/16/18 09:50 Medical Decision Making - Medical Decision Making 12/16/18 09:51 cbc/cmp/FOBT EKG HGb 7.0- transfuse 2 units awaiting PT/INR - possibly reversal of coumadin FOBT positive placing call to Dr. Kennedy; DR Winters called back: said to speak to cardio before reversal of coumadin spoke to Dr. Starr from cardio- said to just hold coumadin no reversal agent at this time 12/16/18 10:11 12/16/18 10:40 12/16/18 10:42 12/16/18 11:09 12/16/18 12:39 *DC/Admit/Observation/Transfer Diagnosis at time of Disposition: Rectal bleed, Anemia, Atrial fibrillation - Referrals Referrals: Kody Singleton MD [Primary Care Provider] - - Patient Instructions - Post Discharge Activity - Attestations Physician Attestion: 12/16/18 13:10 Niya Pelayo
[2018-12-16 10:06] LABS: BASO % 1.3 % (0-2.0); EOS % 1.6 % (0-4.5); HEMATOCRIT 21.9 % (35.4-49); LYMPH % 21.3 % (8-40); MCH 25.9 pg (25.7-33.7); MCHC 32.2 g/dl (32.0-35.9); MEAN CELL VOLUME 80.3 fl (80-96); MEAN PLT VOLUME 9.9 fl (7.5-11.1); MONO % 7.8 % (3.8-10.2); PLATELET COUNT 259 K/MM3 (134-434); RBC 2.72 M/mm3 (4.00-5.60); RDW 17.4 % (11.9-15.9); WHITE BLOOD COUNT 5.1 K/mm3 (4.0-10.0)
--- NOTE | 2018-12-16 10:25 | PDOC ---
Attending Attestation - Resident Resident Name: GabrielamarcNiya - ED Attending Attestation I have performed the following: I have examined & evaluated the patient, The case was reviewed & discussed with the resident, I agree w/resident's findings & plan, Exceptions are as noted - HPI HPI: 12/16/18 10:14 78 yo male HTN CAD HLD afib prostate ca ( 2007 s/p radiation) prior gi bleed here with bloody stools. pt states he was admitted earlier in november 2 weeks prior for GI bleed. did receive a transfusion at that time. had colonoscopy with vascular ectasias. GI dr daley. dc home. since has had intermittent bleeding. since yestereday noted bleeding has gotten worse. was dark now bright red blood. has blood with stools and between stools. also co feeling sob, and lightheaded. denies cp. still take coumadin and plavix ( previously on eliquis, which was switched to coumadin last admission) no abd pain. no f/c no other complaints. came to ED day prior, however left due to long wait to be seen, and returned for evaluation today. pcp dr yu. - Physicial Exam PE: 12/16/18 10:25 awake alert lungs clear bilaterally heart rrr no mrg abd soft nt nd.ext wwp no edema. no calf tenderness. skin warm and dry. alert oriented x 3. moves all four ext. - Medical Decision Making 12/16/18 10:26 78 yo h/o htn cad hld gi bleed here with bright red blood per rectum. nontedner abd exam. rectum with bright red blood. differential bleeding ecstasia, diverticular bleed. anemia, secondary acs. plan ekg labs type and scrren. inr r/o coagulopathy from coumadin. will d/w gi dr daley, dr trinh system trainer and dr yu for admission. Heart Score/ECG Review #1 General ECG Interpretation: Sinus Rhythm, Normal Rate (58), Normal Intervals, No acute ischemic changes Compared to previous ECG there are: No significant change (compariosn 11/23/18 RBBB)
[2018-12-16 10:33] LABS: ALBUMIN 3.1 g/dl (3.4-5.0); ALK PHOS 143 U/L (45-117); ANION GAP 6 MMOL/L (8-16); BILIRUBIN,TOTAL 0.3 mg/dL (0.2-1); BLOOD UREA NITROGEN 22 mg/dL (7-18); CALCIUM 8.3 mg/dL (8.5-10.1); CHLORIDE 106 mmol/L (98-107); CO2 25 mmol/L (21-32); CREATININE 0.9 mg/dL (0.55-1.3); GLUCOSE,RANDOM 151 mg/dL (74-106); POTASSIUM 4.2 mmol/L (3.5-5.1); SGOT/AST 13 U/L (15-37); SGPT/ALT 13 U/L (13-61); SODIUM 136 mmol/L (136-145); TOT PROT 6.7 g/dl (6.4-8.2)
[2018-12-16 11:05] LABS: INR 2.47 (0.83-1.09); PROTHROMBIN TIME (PATIENT) 29.4 SEC (9.7-13.0)
--- NOTE | 2018-12-16 15:02 | EKG ---
Test Reason : Blood Pressure : / mmHG Vent. Rate : 058 BPM Atrial Rate : 058 BPM P-R Int : 162 ms QRS Dur : 128 ms QT Int : 488 ms P-R-T Axes : 049 -38 059 degrees QTc Int : 479 ms SINUS BRADYCARDIA LEFT AXIS DEVIATION RIGHT BUNDLE BRANCH BLOCK ABNORMAL ECG WHEN COMPARED WITH ECG OF 23-NOV-2018 11:43, NO SIGNIFICANT CHANGE WAS FOUND Confirmed by SHAI PARISI MD ([id number]) on 12/16/2018 3:02:36 PM Referred By: Confirmed By:SHAI PARISI MD
--- NOTE | 2018-12-16 15:58 | PN ---
Progress Note (short form) - Note Progress Note: GI consult dictated npo / ivf's ; may have ice chips transfuse prbc reverse coagulopathy PPI see full consult
--- NOTE | 2018-12-16 16:31 | CONS ---
GASTROINTESTINAL CONSULTATION DATE OF CONSULTATION: DATE OF DICTATION: 12/16/2018 HISTORY OF PRESENT ILLNESS: The patient is a 78-year-old man. He has a past medical history significant for atrial fibrillation. Was on Eliquis. Now currently on Coumadin and Plavix therapy. Also with a history of CAD, stents, hypertension, hyperlipidemia, prostate cancer. He presented to the emergency room after developing episodes of hematochezia yesterday. He admits to straining while having a bowel movement and subsequently developed bleeding. He states there is no associated abdominal pain. He did feel some dizziness during this episode. He states his last colonoscopy was in August with Dr. Kennedy. He was also recently hospitalized and was discharged on the , after staying in the ICU for a GI bleed; at which time, a colonoscopy could not be done secondary to inadequate bowel preparation. Apparently, his previous colonoscopy revealed vascular ectasias. He has never had an upper endoscopy in the past. He denies any nausea, vomiting, hematemesis, syncope, chest pain or shortness of breath. PAST MEDICAL AND SURGICAL HISTORY: As listed in the HPI. ALLERGIES: No known drug allergies. HOME MEDICATIONS: Include Lipitor, clopidogrel, folic acid, metoprolol, multivitamin, lisinopril, and warfarin therapy. SOCIAL HISTORY: Does not smoke or drink or use drugs. FAMILY HISTORY: There is no history of GI or gynecological malignancy. REVIEW OF SYSTEMS: As per the HPI. PHYSICAL EXAMINATION: Vital Signs: Temperature 97, pulse 50, blood pressure 138/48, saturation 100% on room air, and respiratory rate is 18. General: No acute distress. Pleasant man. HEENT: Anicteric sclera. Cardiovascular: S1, S2. Regular rate and rhythm. Lungs: Bilaterally clear to auscultation. Abdomen: Soft and nontender. Extremities: No edema. LABORATORIES: White blood cell count 5.1, hemoglobin 7 and hematocrit 21, baseline hemoglobin appears to be between 9 and 10, platelet count 259. INR 2.47. Sodium 136, potassium 4.2, BUN 22, creatinine 0.9. Total bilirubin 0.3, AST 13, ALT 13, alkaline phosphatase 141. Stool for occult blood is positive. No imaging done on this admission so far. IMPRESSION: Hematochezia with a questionable history of vascular ectasias on previous colonoscopy; also, on Coumadin and Plavix therapy. He is hemodynamically stable at this time without sign of an overt gastrointestinal bleed. RECOMMENDATIONS: Reverse coagulopathy. Considering he was actively bleeding, would also obtain risk stratification regarding his anticoagulation in the future. Hold Coumadin and Plavix. Trend hemoglobin and hematocrit daily while hospitalized. Transfuse to a hemoglobin of 10. N.p.o. IV fluids. May have ice chips. If his hemoglobin and hematocrit remain stable, he can be advanced to clear liquid diet tomorrow. He will need to be scheduled for an upper endoscopy and colonoscopy which can likely be done on Tuesday. If he were to develop signs of an overt GI bleed, urgent upper endoscopy will be done over the weekend. Patient will be followed. DO SCOTT HARPER/[id number]
--- NOTE | 2018-12-16 22:14 | HP ---
Admitting History and Physical - Primary Care Physician PCP: Dorinda Guzman - Admission Chief Complaint: Rectal bleeding History of Present Illness: Patient is a 78 y/o male with past medical history of Afib, CAD s/p stents, HTN , HLD, prostate CA. Patient presented to the ER with complaints of rectal bleeding and melena. Patient was recently admitted to [facility] 3 weeks ago with similar complaints. Patient was scheduled for colonoscopy but was unable to done due to poor bowel prep. Since discharge patient has been taking Plavix and since discharge has had rectal bleeding but it worsened yesterday. In ER noted with Hg 7.0. History Source: Patient Limitations to Obtaining History: No Limitations - Past Medical History Cardiovascular: Yes: AFIB, CAD, HTN Renal/: Yes: Cancer (prostate) Psych: Yes: Addictions - Past Surgical History Past Surgical History: Yes: Stent - Smoking History Smoking history: Unknown if ever smoked Have you smoked in the past 12 months: No - Alcohol/Substance Use Hx Alcohol Use: No - Social History Usual Living Arrangement: Yes: With Spouse ADL: Independent Home Medications - Allergies Allergies/Adverse Reactions: Allergies Allergy/AdvReac Type Severity Reaction Status Date / Time No Known Allergies Allergy Verified 12/15/18 13:30 - Home Medications Home Medications: Ambulatory Orders Atorvastatin Ca [Lipitor] 80 mg PO HS 09/19/18 Clopidogrel Bisulfate [Clopidogrel] 75 mg PO DAILY 11/23/18 Folic Acid 1 mg PO DAILY 11/23/18 Metoprolol Succinate 100 mg PO DAILY 11/23/18 Multivit-Min/Iron Fum/Folic AC [Fspvw-Yfekpqk-Lhjkcvni Tablet] 1 tab PO DAILY Lisinopril [Prinivil] 20 mg PO DAILY #30 tablet 12/01/18 Warfarin Sodium [Coumadin] 4 mg PO HS #14 tablet MDD 1 12/01/18 Review of Systems - Review of Systems Constitutional: reports: Unintentional Wgt. Loss Eyes: reports: No Symptoms HENT: reports: No Symptoms Neck: reports: No Symptoms Cardiovascular: reports: No Symptoms Respiratory: reports: No Symptoms Gastrointestinal: reports: Diarrhea, Rectal Bleeding Genitourinary: reports: No Symptoms Breasts: reports: No Symptoms Reported Musculoskeletal: reports: No Symptoms Integumentary: reports: No Symptoms Neurological: reports: No Symptoms Endocrine: reports: No Symptoms Hematology/Lymphatic: reports: No Symptoms Psychiatric: reports: No Symptoms Physical Examination Vital Signs: Vital Signs Temperature 98.3 F 12/16/18 19:20 Pulse Rate 53 L 12/16/18 19:20 Respiratory Rate 17 12/16/18 19:20 Blood Pressure 135/49 L 12/16/18 19:20 O2 Sat by Pulse Oximetry (%) 100 12/16/18 19:20 Constitutional: Yes: Well Nourished, No Distress, Calm Eyes: Yes: Conjunctiva Clear HENT: Yes: Atraumatic Neck: Yes: Supple Cardiovascular: Yes: Regular Rate and Rhythm Respiratory: Yes: Regular, CTA Bilaterally Gastrointestinal: Yes: Normal Bowel Sounds, Soft Musculoskeletal: Yes: WNL Extremities: Yes: WNL Edema: No Neurological: Yes: Alert, Oriented Psychiatric: Yes: Alert, Oriented Labs: CBC, BMP 12/16/18 09:50 12/16/18 09:50 Imaging - Results EKG: Report Reviewed Problem List - Problems (1) Anemia Assessment/Plan: -Hg 7.0 -2U PRBC ordered for tranfusion -monitor Hg daily -transfuse if Hg <7.0 -GI consult -AC on hold Code(s): D64.9 - ANEMIA, UNSPECIFIED (2) Atrial fibrillation Assessment/Plan: -continue Metoprolol for rate control -AC on hold due to rectal bleeding -cardiology consult Code(s): I48.91 - UNSPECIFIED ATRIAL FIBRILLATION (3) Rectal bleed Assessment/Plan: -GI consult -AC on hold -tranfuse 2U PRBC for Hg 7.0 -NPO -possible colonoscopy and endoscopy Tuesday Code(s): K62.5 - HEMORRHAGE OF ANUS AND RECTUM (4) CAD (coronary artery disease) Assessment/Plan: -Plavix on hold 2/ rectal bleeding Code(s): I25.10 - ATHSCL HEART DISEASE OF [place] CORONARY ARTERY W/O ANG PCTRS (5) HTN (hypertension) Assessment/Plan: -continue lisinopril Code(s): I10 - ESSENTIAL (PRIMARY) HYPERTENSION Assessment/Plan see problem list
[2018-12-16] MEDS: ATORVASTATIN CA 80 MG TABLET (FP) PO SCH (23:04)
[2018-12-17 00:51] VITALS: BMI 24.4
--- NOTE | 2018-12-17 07:10 | PN.GI ---
GI Progress Note Subjective: no new complaints ; states he is feeling much better today - Objective Vital Signs: Vital Signs Temperature 97.9 F 12/17/18 06:51 Pulse Rate 56 L 12/17/18 06:51 Respiratory Rate 20 12/17/18 06:51 Blood Pressure 166/71 12/17/18 06:51 O2 Sat by Pulse Oximetry (%) 100 12/17/18 00:14 Constitutional: No Distress Eyes: Yes: WNL HENT: Yes: WNL Neck: Yes: WNL Cardiovascular: Yes: WNL Respiratory: Yes: WNL, Regular, CTA Bilaterally Gastrointestinal Inspection: Yes: WNL ...Auscultate: Yes: Normoactive Bowel Sounds Musculoskeletal: Yes: WNL Extremities: Yes: WNL Edema: No Labs: CBC, BMP 12/16/18 09:50 12/16/18 09:50 INR, PTT INR 2.47 (0.83-1.09) H 12/16/18 09:50 Problem List - Problems (1) GI bleeding Assessment/Plan: transfuse prbc to HG of 10 f/u inr hold a/c trend h/h q12 PPI infusion clear liquid diet npo midnight for diagnostic egd Tuesday Dr. Kennedy to resume care Tuesday Code(s): K92.2 - GASTROINTESTINAL HEMORRHAGE, UNSPECIFIED (2) Anemia Code(s): D64.9 - ANEMIA, UNSPECIFIED (3) Atrial fibrillation with rapid ventricular response Code(s): I48.91 - UNSPECIFIED ATRIAL FIBRILLATION (4) CAD (coronary artery disease) Code(s): I25.10 - ATHSCL HEART DISEASE OF [place] CORONARY ARTERY W/O ANG PCTRS
[2018-12-17 07:52] LABS: BASO % 0.7 % (0-2.0); EOS % 2.7 % (0-4.5); HEMATOCRIT 25.8 % (35.4-49); HEMOGLOBIN 8.5 GM/dL (11.7-16.9); LYMPH % 28.3 % (8-40); MCH 27.4 pg (25.7-33.7); MEAN CELL VOLUME 83.1 fl (80-96); MEAN PLT VOLUME 10.1 fl (7.5-11.1); MONO % 7.4 % (3.8-10.2); NEUT % 60.9 % (42.8-82.8); PLATELET COUNT 219 K/MM3 (134-434); RBC 3.11 M/mm3 (4.00-5.60); RDW 16.6 % (11.9-15.9); WHITE BLOOD COUNT 5.6 K/mm3 (4.0-10.0)
[2018-12-17 08:43] LABS: ALK PHOS 110 U/L (45-117); ANION GAP 8 MMOL/L (8-16); BILIRUBIN,TOTAL 0.8 mg/dL (0.2-1); BLOOD UREA NITROGEN 18 mg/dL (7-18); CALCIUM 8.1 mg/dL (8.5-10.1); CHLORIDE 108 mmol/L (98-107); CHOLESTEROL 120 mg/dL (50-200); CO2 25 mmol/L (21-32); CREATININE 0.7 mg/dL (0.55-1.3); GLUCOSE,RANDOM 104 mg/dL (74-106); HDL CHOLESTEROL 38 mg/dL (40-60); MAGNESIUM 2.2 mg/dL (1.8-2.4); PHOSPHOROUS 4.3 mg/dL (2.5-4.9); POTASSIUM 4.1 mmol/L (3.5-5.1); SGOT/AST 12 U/L (15-37); SGPT/ALT 12 U/L (13-61); SODIUM 142 mmol/L (136-145); TRIGLYCERIDES 164 mg/dL (0-150)
[2018-12-17] MEDS: MULTIVITAMINS (DAILY MVI) TABLET (FP) PO SCH (09:58)
[2018-12-17] MEDS: PANTOPRAZOLE SODIUM 80 MG in SODIUM CHLORIDE 100 ML IVPB SCH ×2 (09:58→18:54)
[2018-12-17] MEDS: FOLIC ACID 1 MG TABLET (FP) PO SCH (09:58)
[2018-12-17] MEDS ORDERED: LISINOPRIL 20 MG TABLET (FP) PO SCH (10:00)
[2018-12-17 10:44] LABS: INR 1.46 (0.83-1.09); PROTHROMBIN TIME (PATIENT) 17.3 SEC (9.7-13.0)
[2018-12-17 10:47] LABS: ACTIVATED PTT 39.3 SECONDS (25.2-36.5)
--- NOTE | 2018-12-17 10:54 | CON.CARD ---
Consult Consult Specialty:: Cardiology Reason for Consultation:: Afib on AC and CAD s/p recent PCI on aspirin and plavix - History of Present Illness Chief Complaint: GI bleeding History of Present Illness: 78 year-old man with a PMHx of HTN, HLD, paroxysmal atrial fibrillation on apixaban, CAD s/p PCI/stents 03/2017 at [facility] and s/p stent to ISR RCA 2017, s/p IVUS-guided PCI of LCx ([employer]) with GRIFFIN (x1) 10/30/2018, s/p PCI/DESX2 of LAD 11/14/2018, mod to sev AR, alcohol abuse and GI bleeding with evidence of vascular ectasia from colonoscopy in July 2018, prostate cancer presented to the ER 12/16/2018 with complaints of rectal bleeding and melena. He was found to have severe anemia and received PRBC transfusion. Patient was recently admitted with GI bleeding, colonoscopy but was unable to done due to poor bowel prep. Since discharge patient has been taking Plavix and since discharge has had rectal bleeding but it worsened yesterday. In ER noted with Hg 7.0. Seen by GI. Stop AC and Plavix suggested. Tele shows sinus rhythm with mild bradycardia. No evidence of atrial fibrillation or pauses. ECG 12/16/2018 sinus rhythm at 58 BPM. LAD, RBBB. Echo 07/04/2019: Normal LV size, wall motion and systolic function. LVEF 60%. Normal RV. Normal LA and RA. No significant valvular abnormalities. - History Source History Provided By: Patient, Medical Record Limitations to Obtaining History: No Limitations - Past Medical History Cardio/Vascular: Yes: AFIB, CAD, HTN Renal/: Yes: Cancer (prostate) Psych: Yes: Addictions - Past Surgical History Past Surgical History: Yes: Stent - Alcohol/Substance Use Hx Alcohol Use: No - Smoking History Smoking history: Never smoked Have you smoked in the past 12 months: No - Social History ADL: Independent Home Medications - Allergies Allergies/Adverse Reactions: Allergies Allergy/AdvReac Type Severity Reaction Status Date / Time No Known Allergies Allergy Verified 12/15/18 13:30 - Home Medications Home Medications: Ambulatory Orders Atorvastatin Ca [Lipitor] 80 mg PO HS 09/19/18 Clopidogrel Bisulfate [Clopidogrel] 75 mg PO DAILY 11/23/18 Folic Acid 1 mg PO DAILY 11/23/18 Metoprolol Succinate 100 mg PO DAILY 11/23/18 Multivit-Min/Iron Fum/Folic AC [Hojqz-Skictcr-Ssxgmhte Tablet] 1 tab PO DAILY Lisinopril [Prinivil] 20 mg PO DAILY #30 tablet 12/01/18 Warfarin Sodium [Coumadin] 4 mg PO HS #14 tablet MDD 1 12/01/18 Review of Systems - Review of Systems Constitutional: reports: Weakness Eyes: reports: No Symptoms HENT: reports: No Symptoms Neck: reports: No Symptoms Cardiovascular: reports: No Symptoms Respiratory: reports: No Symptoms Gastrointestinal: reports: Melena Genitourinary: reports: No Symptoms Breasts: reports: No Symptoms Reported Musculoskeletal: reports: No Symptoms Integumentary: reports: Pallor Neurological: reports: No Symptoms Endocrine: reports: No Symptoms Hematology/Lymphatic: reports: Excessive Bleeding Psychiatric: reports: No Symptoms Vital Signs: Vital Signs Temperature 97.9 F 12/17/18 06:51 Pulse Rate 56 L 12/17/18 06:51 Respiratory Rate 20 12/17/18 06:51 Blood Pressure 166/71 12/17/18 06:51 O2 Sat by Pulse Oximetry (%) 100 12/17/18 00:14 WD, WN, elderly , AAX3, comfortable, NAD. Head: Normocephalic, Atraumatic, Eyes: PERRLA, EOMI, sclerae aniteric and conjunctivae pale. ENT: Oropharynx, nares clear, mucosa moist without pallor or cyanosis Neck: Supple, no JVD, no bruits. No thyromegaly or lymphadenopathy, Heart: Normal S1, S2: regular rhythm and bradycardia. II/ LICHA and DM. No gallop or rub. Lungs: Symmetrical good air entry and clear to auscultation and percussion. Abdomen: Bowel sound positive. Soft, no tender, no masses, no hepatosplenomegaly. Extremities: No edema, clubbing or cyanosis; peripheral pulses 2+, equal bilaterally. Skin: Normal turgor. warm and dry, no lesion. - Other Data Labs, Other Data: CBC, BMP 12/17/18 06:30 12/17/18 06:30 INR, PTT INR 1.46 (0.83-1.09) H 12/17/18 10:20 Troponin, BNP 12/17/18 06:30 Troponin I < 0.02 Troponin, BNP 12/17/18 06:30 Troponin I < 0.02 Imaging - Results EKG: Image Reviewed (SINUS BRADYCARDIA LEFT AXIS DEVIATION RIGHT BUNDLE BRANCH BLOCK) Assessment/Plan 78 year-old man with a PMHx of HTN, HLD, paroxysmal atrial fibrillation on apixaban, CAD s/p PCI/stents 03/2017 at [facility] and s/p stent to ISR RCA 2017, s/p IVUS-guided PCI of LCx ([employer]) with GRIFFIN (x1) 10/30/2018, s/p PCI/DESX2 of LAD 11/14/2018, mod to sev AR, alcohol abuse and GI bleeding with evidence of vascular ectasia from colonoscopy in July 2018, prostate cancer presented to the ER 12/16/2018 with complaints of rectal bleeding and melena. He was found to have severe anemia and received PRBC transfusion. Patient was recently admitted with GI bleeding, colonoscopy but was unable to done due to poor bowel prep. Since discharge patient has been taking Plavix and since discharge has had rectal bleeding but it worsened yesterday. In ER noted with Hg 7.0. Seen by GI. Stop AC and Plavix suggested. Tele shows sinus rhythm with mild bradycardia. No evidence of atrial fibrillation or pauses. ECG 12/16/2018 sinus rhythm at 58 BPM. LAD, RBBB. Echo 07/04/2019: Normal LV size, wall motion and systolic function. LVEF 60%. Normal RV. Normal LA and RA. No significant valvular abnormalities. 1) Recurrent GI bleeding while on warfarin and Plavix because of paroxysmal atrial fibrillation and recently PCIs with GRIFFIN. Agree to stop Warfarin, may use vitamin K as needed. Transfuse PRBCs to keep HB around 10. Start aspirin 81 mg daily. He needs dual antiplatelet therapy (DAPT) for recent multiple drug eluting stents. DO NOT stop Plavix and aspirin: The patient had recent (10/30/18 and 11/14/18) angioplasties with 3 drug eluting stents to his two major coronary arteries. Acute in-stent thrombosis may happen if he is not on DAPT. Aspirin and Plavix should be continued at this time. No cardiac contraindication to planned GI endoscopies. 2) Atrial fibrillation: Paroxysmal atrial fibrillation was on Eliquis and recently on warfarin with recurrent GI and severe anemia. Agree to stop warfarin. Start Amiodarone 200 mg daily for rhythm control to prevent recurrent atrial fibrillation. May consider Watchman procedure in future to avoid long-term AC. Decrease metoprolol succinate to 50 mg daily due to sinus bradycardia, and starting amiodarone. 3) HTN: BP is elevated. Increase lisinopril to 40 mg daily while decreasing metoprolol. We will follow the patient with you.
[2018-12-17] MEDS: CLOPIDOGREL BISULFATE 75 MG TABLET (FP) PO SCH (13:19)
[2018-12-17] MEDS: AMIODARONE HCL 200 MG TABLET (FP) PO SCH (16:07)
--- NOTE | 2018-12-17 17:32 | PN ---
Progress Note, Physician Chief Complaint: Rectal bleeding A-fib CAD History of Present Illness: Previous notes and events reviewed awake and alert NAD Hg 8.5--receiving 2U PRBC transfusion patient states only experiencing one episode of rectal bleeding and melena this morning, no further episodes reported during the day - Current Medication List Current Medications: Active Medications Amiodarone HCl (Cordarone -) 200 mg PO DAILY [facility] Last Admin: 12/17/18 16:07 Dose: 200 mg Aspirin (Ecotrin -) 81 mg PO DAILY [facility] Atorvastatin Calcium (Lipitor -) 80 mg PO HS [facility] Last Admin: 12/16/18 23:04 Dose: 80 mg Clopidogrel Bisulfate (Plavix -) 75 mg PO DAILY [facility] Last Admin: 12/17/18 13:19 Dose: 75 mg Folic Acid (Folic Acid -) 1 mg PO DAILY [facility] Last Admin: 12/17/18 09:58 Dose: 1 mg Pantoprazole Sodium 80 mg/ (Sodium Chloride) 100 mls @ 10 mls/hr IVPB Q10H [facility] Last Admin: 12/17/18 09:58 Dose: 10 mls/hr Levothyroxine Sodium (Synthroid -) 50 mcg PO DAILY@0700 [facility] Lisinopril (Prinivil) 40 mg PO DAILY [facility] Metoprolol Succinate (Toprol Xl -) 50 mg PO DAILY [facility] Multivitamins/Minerals/Vitamin C (Tab-A-Vit -) 1 tab PO DAILY [facility] Last Admin: 12/17/18 09:58 Dose: 1 tab - Objective Vital Signs: Vital Signs Temperature 98.1 F 12/17/18 14:00 Pulse Rate 76 12/17/18 14:00 Respiratory Rate 18 12/17/18 14:00 Blood Pressure 148/45 L 12/17/18 14:00 O2 Sat by Pulse Oximetry (%) 99 12/17/18 09:00 Constitutional: Yes: No Distress, Calm Eyes: Yes: Conjunctiva Clear HENT: Yes: Atraumatic Cardiovascular: Yes: Bradycardia Respiratory: Yes: Regular, CTA Bilaterally Gastrointestinal: Yes: Normal Bowel Sounds, Soft Musculoskeletal: Yes: WNL Extremities: Yes: WNL Edema: No Neurological: Yes: Alert, Oriented Psychiatric: Yes: Alert, Oriented Labs: CBC, BMP 12/17/18 06:30 12/17/18 06:30 INR, PTT INR 1.46 (0.83-1.09) H 12/17/18 10:20 Problem List - Problems (1) Anemia Assessment/Plan: -Hg 8.5 -2U PRBC ordered for tranfusion -monitor Hg daily -transfuse if Hg <7.0 -GI on board Code(s): D64.9 - ANEMIA, UNSPECIFIED (2) Atrial fibrillation Assessment/Plan: -continue Metoprolol and Amiodarone for rate control -AC on hold due to rectal bleeding -cardiology on board Code(s): I48.91 - UNSPECIFIED ATRIAL FIBRILLATION (3) Rectal bleed Assessment/Plan: -GI on board -AC on hold -tranfuse 2U PRBC for Hg 8.5 -NPO -continue Plavix and Aspirin as benefits outweighs risk -possible colonoscopy and endoscopy Tuesday Code(s): K62.5 - HEMORRHAGE OF ANUS AND RECTUM (4) CAD (coronary artery disease) Assessment/Plan: -continue Plavix and Aspirin as benefits outweigh the risks Code(s): I25.10 - ATHSCL HEART DISEASE OF [place] CORONARY ARTERY W/O ANG PCTRS (5) HTN (hypertension) Assessment/Plan: -continue lisinopril 40mg daily Code(s): I10 - ESSENTIAL (PRIMARY) HYPERTENSION Assessment/Plan see problem list
[2018-12-17 18:11] LABS: HEMATOCRIT 34.4 % (35.4-49); HEMOGLOBIN 11.7 GM/dL (11.7-16.9); MCH 28.3 pg (25.7-33.7); MCHC 34.2 g/dl (32.0-35.9); MEAN CELL VOLUME 82.9 fl (80-96); MEAN PLT VOLUME 9.6 fl (7.5-11.1); PLATELET COUNT 207 K/MM3 (134-434); RBC 4.14 M/mm3 (4.00-5.60); RDW 15.6 % (11.9-15.9); WHITE BLOOD COUNT 6.4 K/mm3 (4.0-10.0)
[2018-12-17] MEDS ORDERED: MAGNESIUM CITRATE 300 ML BOTTLE PO ONE (20:40)
[2018-12-17] MEDS: ATORVASTATIN CA 80 MG TABLET (FP) PO SCH (21:14)
[2018-12-17] MEDS: MAGNESIUM CITRATE 300 ML BOTTLE PO SCH (23:45)
[2018-12-18] MEDS: PANTOPRAZOLE SODIUM 80 MG in SODIUM CHLORIDE 100 ML IVPB SCH ×2 (05:33→15:29)
[2018-12-18] MEDS: MAGNESIUM CITRATE 300 ML BOTTLE PO SCH (05:33)
[2018-12-18] MEDS: LEVOTHYROXINE NA 50 MCG TABLET (FP) PO SCH ×2 (05:33→06:11)
[2018-12-18 07:04] LABS: INR 1.31 (0.83-1.09); PROTHROMBIN TIME (PATIENT) 15.5 SEC (9.7-13.0)
[2018-12-18 07:06] LABS: HEMATOCRIT 34.5 % (35.4-49); HEMOGLOBIN 11.9 GM/dL (11.7-16.9); MCH 28.7 pg (25.7-33.7); MCHC 34.5 g/dl (32.0-35.9); MEAN CELL VOLUME 83.2 fl (80-96); MEAN PLT VOLUME 10.1 fl (7.5-11.1); PLATELET COUNT 219 K/MM3 (134-434); RBC 4.15 M/mm3 (4.00-5.60); RDW 15.8 % (11.9-15.9); WHITE BLOOD COUNT 7.2 K/mm3 (4.0-10.0)
[2018-12-18 07:22] LABS: ALK PHOS 108 U/L (45-117); ANION GAP 7 MMOL/L (8-16); BILIRUBIN,TOTAL 0.8 mg/dL (0.2-1); BLOOD UREA NITROGEN 16 mg/dL (7-18); CALCIUM 8.3 mg/dL (8.5-10.1); CHLORIDE 111 mmol/L (98-107); CO2 23 mmol/L (21-32); CREATININE 0.7 mg/dL (0.55-1.3); GLUCOSE,RANDOM 100 mg/dL (74-106); POTASSIUM 3.9 mmol/L (3.5-5.1); SGOT/AST 11 U/L (15-37); SGPT/ALT 14 U/L (13-61); SODIUM 140 mmol/L (136-145); TOT PROT 6.6 g/dl (6.4-8.2)
--- NOTE | 2018-12-18 09:06 | PN.GI ---
GI Progress Note Subjective: Patient continues to have melena and experienced 2 episodes of BRBPR last night. Patient is s/p 4U PRBC transfusion with most recent Hg 11.7 this morning. Patient receiving bowel prep for possible colonoscopy. Patient is noted to be bradycardic with HR in 40s. Patient states having diarrhea after beginning bowel prep. Denies abdominal pain, rectal pain, nausea, vomiting. - Objective Vital Signs: Vital Signs Temperature 97.5 F L 12/18/18 05:36 Pulse Rate 56 L 12/18/18 05:36 Respiratory Rate 18 12/18/18 05:36 Blood Pressure 114/59 L 12/18/18 05:36 O2 Sat by Pulse Oximetry (%) 99 12/17/18 20:16 Constitutional: No Distress, Calm Eyes: Yes: Conjunctiva Clear HENT: Yes: Atraumatic Cardiovascular: Yes: Bradycardia Respiratory: Yes: Regular, CTA Bilaterally Gastrointestinal Inspection: Yes: WNL. No: Ascites, Distention, Hernia, Scars, Other ...Auscultate: Yes: Normoactive Bowel Sounds. No: Hyperactive Bowel Sounds, Hypoactive Bowel Sounds, No Bowel Sounds, Other ...Palpate: Yes: Soft. No: Firm/Rigid, Guarding, Hepatomegaly, Mass, Pulsatile Mass, Splenomegaly, Tenderness, Tenderness, Epigastium, Tenderness, Rebound, Other ...Percussion: Yes: Tympanitic. No: Dullness, Fluid Wave, Other Neurological: Yes: Alert, Oriented Psychiatric: Yes: Alert, Oriented Labs: CBC, BMP 12/18/18 05:30 12/18/18 05:30 INR, PTT INR 1.31 (0.83-1.09) H 12/18/18 05:30 Active Medications Generic Name Dose Route Start Last Admin Trade Name Freq PRN Reason Stop Dose Admin Amiodarone HCl 200 mg 12/17/18 15:45 12/17/18 16:07 Cordarone - PO 200 mg DAILY [facility] Administration Aspirin 81 mg 12/17/18 15:42 Ecotrin - PO DAILY RAMYA Atorvastatin Calcium 80 mg 12/16/18 22:00 12/17/18 21:14 Lipitor - PO 80 mg HS RAMYA Administration Clopidogrel Bisulfate 75 mg 12/17/18 13:15 12/17/18 13:19 Plavix - PO 75 mg DAILY RAMYA Administration Folic Acid 1 mg 12/17/18 10:00 12/17/18 09:58 Folic Acid - PO 1 mg DAILY RAMYA Administration Pantoprazole Sodium 80 mg/ 100 mls @ 10 mls/hr 12/17/18 09:15 12/18/18 05:33 Sodium Chloride IVPB 10 mls/hr Q10H RAMYA Administration 8 MG/HR Levothyroxine Sodium 50 mcg 12/18/18 07:00 12/18/18 06:11 Synthroid - PO Not Given DAILY@0700 [facility] Lisinopril 40 mg 12/17/18 15:39 Prinivil PO DAILY [facility] Metoprolol Succinate 50 mg 12/17/18 15:38 Toprol Xl - PO DAILY [facility] Multivitamins/Minerals/Vitamin C 1 tab 12/17/18 10:00 12/17/18 09:58 Tab-A-Vit - PO 1 tab DAILY [facility] Administration Sodium Phosphate 133 ml 12/18/18 10:00 Fleet Adult Rectal Enema - MS 12/18/18 18:01 Q4H [facility] Problem List - Problems (1) Anemia Assessment/Plan: >monitor Hg daily >current Hg 11.4 >transfusion protocol >pending endoscopy and colonoscopy if cleared by cardiology Code(s): D64.9 - ANEMIA, UNSPECIFIED (2) GI bleeding Assessment/Plan: >continue Pantoprazole drip >monitor Hg daily and transfuse if needed >IV hydration >NPO for possible endoscopy and colonoscopy--needs cardiology clearance due to bradycardia Code(s): K92.2 - GASTROINTESTINAL HEMORRHAGE, UNSPECIFIED (3) Rectal bleed Assessment/Plan: >continue Pantoprazole drip >monitor Hg daily and transfuse if needed >IV hydration >NPO for possible endoscopy and colonoscopy--needs cardiology clearance due to bradycardia Code(s): K62.5 - HEMORRHAGE OF ANUS AND RECTUM
[2018-12-18 09:44] LABS: MAGNESIUM 2.7 mg/dL (1.8-2.4)
[2018-12-18] MEDS ORDERED: ASPIRIN COATED 81 MG TABLET.EC PO SCH (10:00)
[2018-12-18] MEDS ORDERED: metoPROLOL SUCCINATE 25 MG TAB.SR.24H (FP) PO SCH (10:09)
[2018-12-18] MEDS: CLOPIDOGREL BISULFATE 75 MG TABLET (FP) PO SCH (10:34)
[2018-12-18] MEDS: ASPIRIN COATED 81 MG TABLET.EC PO SCH (10:35)
[2018-12-18] MEDS: SODIUM PHOSPHATE/NA BIPHOS 133 ML ENEMA PR SCH ×3 (10:36→17:40)
[2018-12-18] MEDS: LISINOPRIL 20 MG TABLET (FP) PO SCH (10:36)
[2018-12-18] MEDS: FOLIC ACID 1 MG TABLET (FP) PO SCH (10:36)
[2018-12-18] MEDS: AMIODARONE HCL 200 MG TABLET (FP) PO SCH (10:37)
[2018-12-18] MEDS: MULTIVITAMINS (DAILY MVI) TABLET (FP) PO SCH (10:37)
--- NOTE | 2018-12-18 12:34 | PN ---
Progress Note, Physician Chief Complaint: patient seen and examined awaiting endoscopy today NPO - Current Medication List Current Medications: Active Medications Amiodarone HCl (Cordarone -) 200 mg PO DAILY [facility] Last Admin: 12/18/18 10:37 Dose: 200 mg Aspirin (Ecotrin -) 81 mg PO DAILY [facility] Last Admin: 12/18/18 10:35 Dose: 81 mg Atorvastatin Calcium (Lipitor -) 80 mg PO HS [facility] Last Admin: 12/17/18 21:14 Dose: 80 mg Clopidogrel Bisulfate (Plavix -) 75 mg PO DAILY [facility] Last Admin: 12/18/18 10:34 Dose: 75 mg Folic Acid (Folic Acid -) 1 mg PO DAILY [facility] Last Admin: 12/18/18 10:36 Dose: 1 mg Pantoprazole Sodium 80 mg/ (Sodium Chloride) 100 mls @ 10 mls/hr IVPB Q10H [facility] Last Admin: 12/18/18 05:33 Dose: 10 mls/hr Levothyroxine Sodium (Synthroid -) 50 mcg PO DAILY@0700 [facility] Last Admin: 12/18/18 06:11 Dose: Not Given Lisinopril (Prinivil) 40 mg PO DAILY [facility] Last Admin: 12/18/18 10:36 Dose: 40 mg Metoprolol Succinate (Toprol Xl -) 25 mg PO DAILY [facility] Multivitamins/Minerals/Vitamin C (Tab-A-Vit -) 1 tab PO DAILY [facility] Last Admin: 12/18/18 10:37 Dose: 1 tab Sodium Phosphate (Fleet Adult Rectal Enema -) 133 ml MO Q4H [facility] Stop: 12/18/18 18:01 Last Admin: 12/18/18 10:36 Dose: 133 ml - Objective Vital Signs: Vital Signs Temperature 98 F 12/18/18 10:00 Pulse Rate 50 L 12/18/18 10:00 Respiratory Rate 20 12/18/18 10:00 Blood Pressure 115/56 L 12/18/18 10:00 O2 Sat by Pulse Oximetry (%) 99 12/17/18 20:16 Constitutional: Yes: Calm Cardiovascular: Yes: Regular Rate and Rhythm, S1, S2 Respiratory: Yes: CTA Bilaterally Gastrointestinal: Yes: Normal Bowel Sounds, Soft Edema: No Labs: CBC, BMP 12/18/18 05:30 12/18/18 05:30 INR, PTT INR 1.31 (0.83-1.09) H 12/18/18 05:30 Problem List - Problems (1) Anemia Assessment/Plan: s/p 4 unit sprbc h/h stable egd colonscopy today Code(s): D64.9 - ANEMIA, UNSPECIFIED (2) Atrial fibrillation Assessment/Plan: stop torpol give bradycardia and low BP Code(s): I48.91 - UNSPECIFIED ATRIAL FIBRILLATION (3) GI bleeding Assessment/Plan: NPO egd today gi on board cleared by cardiology Code(s): K92.2 - GASTROINTESTINAL HEMORRHAGE, UNSPECIFIED (4) CAD (coronary artery disease) Assessment/Plan: drug eluding stents conitnue aspirin and plavix Code(s): I25.10 - ATHSCL HEART DISEASE OF [place] CORONARY ARTERY W/O ANG PCTRS
--- NOTE | 2018-12-18 13:00 | PN ---
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 He was found to have severe anemia and received PRBC transfusion. Patient was recently admitted with GI bleeding, colonoscopy but was unable to done due to poor bowel prep. Since discharge patient has been taking Plavix and since discharge has had rectal bleeding but it worsened yesterday. In ER noted with Hg 7.0. Seen by GI. Stop AC and Plavix suggested. Tele shows sinus rhythm with mild bradycardia. No evidence of atrial fibrillation or pauses. ECG 12/16/2018 sinus rhythm at 58 BPM. LAD, RBBB. Echo 07/04/2019: Normal LV size, wall motion and systolic function. LVEF 60%. Normal RV. Normal LA and RA. No significant valvular abnormalities. - Current Medication List Current Medications: Active Medications Amiodarone HCl (Cordarone -) 200 mg PO DAILY [facility] Last Admin: 12/18/18 10:37 Dose: 200 mg Aspirin (Ecotrin -) 81 mg PO DAILY [facility] Last Admin: 12/18/18 10:35 Dose: 81 mg Atorvastatin Calcium (Lipitor -) 80 mg PO HS [facility] Last Admin: 12/17/18 21:14 Dose: 80 mg Clopidogrel Bisulfate (Plavix -) 75 mg PO DAILY [facility] Last Admin: 12/18/18 10:34 Dose: 75 mg Folic Acid (Folic Acid -) 1 mg PO DAILY [facility] Last Admin: 12/18/18 10:36 Dose: 1 mg Pantoprazole Sodium 80 mg/ (Sodium Chloride) 100 mls @ 10 mls/hr IVPB Q10H [facility] Last Admin: 12/18/18 05:33 Dose: 10 mls/hr Levothyroxine Sodium (Synthroid -) 50 mcg PO DAILY@0700 [facility] Last Admin: 12/18/18 06:11 Dose: Not Given Lisinopril (Prinivil) 40 mg PO DAILY [facility] Last Admin: 12/18/18 10:36 Dose: 40 mg Multivitamins/Minerals/Vitamin C (Tab-A-Vit -) 1 tab PO DAILY [facility] Last Admin: 12/18/18 10:37 Dose: 1 tab Sodium Phosphate (Fleet Adult Rectal Enema -) 133 ml CA Q4H [facility] Stop: 12/18/18 18:01 Last Admin: 12/18/18 10:36 Dose: 133 ml - Objective Vital Signs: Vital Signs Temperature 98 F 12/18/18 10:00 Pulse Rate 50 L 12/18/18 10:00 Respiratory Rate 20 12/18/18 10:00 Blood Pressure 115/56 L 12/18/18 10:00 O2 Sat by Pulse Oximetry (%) 99 12/17/18 20:16 Constitutional: Yes: Well Nourished, No Distress, Calm Eyes: Yes: WNL, Conjunctiva Clear, EOM Intact HENT: Yes: WNL, Atraumatic, Normocephalic Neck: Yes: WNL, Supple, Trachea Midline Cardiovascular: Yes: WNL, Regular Rate and Rhythm Respiratory: Yes: WNL, Regular, CTA Bilaterally Gastrointestinal: Yes: WNL, Normal Bowel Sounds, Soft, Melena ...Rectal Exam: Yes: Deferred Genitourinary: Yes: WNL Musculoskeletal: Yes: WNL Extremities: Yes: WNL Edema: No Peripheral Pulses WNL: Yes Integumentary: Yes: WNL Neurological: Yes: WNL, Alert, Oriented ...Motor Strength: WNL Labs: CBC, BMP 12/18/18 05:30 12/18/18 05:30 INR, PTT INR 1.31 (0.83-1.09) H 12/18/18 05:30 Assessment/Plan 78 year-old man with a PMHx of HTN, HLD, paroxysmal atrial fibrillation on apixaban, CAD s/p PCI/stents 03/[address] [facility] and s/p stent to ISR RCA 2017, s/p 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 He was found to have severe anemia and received PRBC transfusion. Patient was recently admitted with GI bleeding, colonoscopy but was unable to done due to poor bowel prep. Since discharge patient has been taking Plavix and since discharge has had rectal bleeding but it worsened yesterday. In ER noted with Hg 7.0. Seen by GI. Stop AC and Plavix suggested. Tele shows sinus rhythm with mild bradycardia. No evidence of atrial fibrillation or pauses. ECG 12/16/2018 sinus rhythm at 58 BPM. LAD, RBBB. Echo 07/04/2019: Normal LV size, wall motion and systolic function. LVEF 60%. Normal RV. Normal LA and RA. No significant valvular abnormalities. Would continue aspirin and Plavix at this point. Hemoglobin is stable. The patient is medically optimized for endoscopy. Please proceed as planned. If deemed absolutely necessary, would hold aspirin, and continue Plavix. Would not stop Plavix, unless active bleeding which cannot be controlled. The patient is stable at this point.
[2018-12-19] MEDS: ATORVASTATIN CA 80 MG TABLET (FP) PO SCH (00:04)
--- NOTE | 2018-12-19 00:19 | CONSULT ---
Consult Consult Specialty:: endocrine Referred by:: clay valle MD Reason for Consultation:: hypothyroidism - History of Present Illness Chief Complaint: weakness and cold all the time History of Present Illness: 78 y/o male with past medical history of Afib, CAD s/p stents, HTN, HLD, prostate CA. Patient presented to the ER with complaints of rectal bleeding and melena. patient had been taking Plavix and since discharge has had rectal bleeding but it worsened yesterday. In ER noted with Hg 7.0.he has felt weak, and dizzy when standing,had cold intolerance,dry skin,and hair thinning - Past Medical History Cardio/Vascular: Yes: AFIB, CAD, HTN Renal/: Yes: Cancer (prostate) Psych: Yes: Addictions - Past Surgical History Past Surgical History: Yes: Stent - Alcohol/Substance Use Hx Alcohol Use: No - Smoking History Smoking history: Never smoked Have you smoked in the past 12 months: No - Social History ADL: Independent Home Medications - Allergies Allergies/Adverse Reactions: Allergies Allergy/AdvReac Type Severity Reaction Status Date / Time No Known Allergies Allergy Verified 12/15/18 13:30 - Home Medications Home Medications: Ambulatory Orders Atorvastatin Ca [Lipitor] 80 mg PO HS 09/19/18 Clopidogrel Bisulfate [Clopidogrel] 75 mg PO DAILY 11/23/18 Folic Acid 1 mg PO DAILY 11/23/18 Metoprolol Succinate 100 mg PO DAILY 11/23/18 Multivit-Min/Iron Fum/Folic AC [Pdktw-Ytraeuh-Pwdvzxsy Tablet] 1 tab PO DAILY Lisinopril [Prinivil] 20 mg PO DAILY #30 tablet 12/01/18 Warfarin Sodium [Coumadin] 4 mg PO HS #14 tablet MDD 1 12/01/18 Review of Systems - Review of Systems Constitutional: reports: Lethargy, Weakness Eyes: reports: No Symptoms HENT: reports: No Symptoms Neck: reports: No Symptoms Cardiovascular: reports: Shortness of Breath Respiratory: reports: Exercise Intolerance Gastrointestinal: reports: Bloating Genitourinary: reports: No Symptoms Musculoskeletal: reports: Joint Swelling, Muscle Pain, Muscle Cramps, Muscle Weakness Integumentary: reports: Rash Neurological: reports: Unsteady Gait, Weakness Endocrine: reports: Intolerance to Cold, Unexplained Weight Gain Physical Exam Vital Signs: Vital Signs Temperature 98.9 F 12/18/18 18:40 Pulse Rate 53 L 04/29/19 18:40 Respiratory Rate 20 12/18/18 18:40 Blood Pressure 106/48 L 12/18/18 18:40 O2 Sat by Pulse Oximetry (%) 97 12/18/18 14:02 Constitutional: Yes: Calm Eyes: Yes: EOM Intact HENT: Yes: Normocephalic Neck: Yes: Trachea Midline Cardiovascular: Yes: Regular Rate and Rhythm Respiratory: Yes: CTA Bilaterally Gastrointestinal: Yes: Normal Bowel Sounds ...Rectal Exam: Yes: Deferred Renal/: Yes: WNL Breast(s): Yes: WNL Musculoskeletal: Yes: WNL Extremities: Yes: WNL Neurological: Yes: Alert, Oriented Labs: CBC, BMP 12/18/18 05:30 12/18/18 05:30 Problem List - Problems (1) Hypothyroid Code(s): E03.9 - HYPOTHYROIDISM, UNSPECIFIED Qualifiers: 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 Qualified Code(s): E03.8 - Other specified hypothyroidism; E06.3 - Autoimmune thyroiditis (2) Anemia Code(s): D64.9 - ANEMIA, UNSPECIFIED Qualifiers: Anemia type: B12 deficiency (3) Atrial fibrillation Code(s): I48.91 - UNSPECIFIED ATRIAL FIBRILLATION (4) Rectal bleed Code(s): K62.5 - HEMORRHAGE OF ANUS AND RECTUM (5) Alcohol dependence with uncomplicated withdrawal Code(s): F10.230 - ALCOHOL DEPENDENCE WITH WITHDRAWAL, UNCOMPLICATED (6) Atrial fibrillation with rapid ventricular response Code(s): I48.91 - UNSPECIFIED ATRIAL FIBRILLATION (7) BPH (benign prostatic hyperplasia) Code(s): N40.0 - BENIGN PROSTATIC HYPERPLASIA WITHOUT LOWER URINRY TRACT SYMP Assessment/Plan Current Active Problems Anemia (Acute) Atrial fibrillation (Acute) GI bleeding (Acute) Hypothyroid (Acute) Rectal bleed (Acute) Abnormal Lab Results 12/18/18 12/18/18 12/18/18 05:30 05:30 05:30 Hct 34.5 L PT with INR 15.50 H INR 1.31 H Chloride 111 H Anion Gap 7 L Calcium 8.3 L Magnesium 2.7 H AST 11 L Albumin 3.0 L Laboratory Results - last 24 hr 12/18/18 12/18/18 12/18/18 05:30 05:30 05:30 WBC 7.2 RBC 4.15 Hgb 11.9 Hct 34.5 L MCV 83.2 MCH 28.7 MCHC 34.5 RDW 15.8 Plt Count 219 MPV 10.1 PT with INR 15.50 H INR 1.31 H Sodium 140 Potassium 3.9 Chloride 111 H Carbon Dioxide 23 Anion Gap 7 L BUN 16 Creatinine 0.7 Creat Clearance w eGFR 108.79 POC Glucometer Random Glucose 100 Calcium 8.3 L Magnesium 2.7 H Total Bilirubin 0.8 AST 11 L ALT 14 Alkaline Phosphatase 108 Total Protein 6.6 Albumin 3.0 L 12/18/18 06:40 WBC RBC Hgb Hct MCV MCH MCHC RDW Plt Count MPV PT with INR INR Sodium Potassium Chloride Carbon Dioxide Anion Gap BUN Creatinine Creat Clearance w eGFR POC Glucometer 126 Random Glucose Calcium Magnesium Total Bilirubin AST ALT Alkaline Phosphatase Total Protein Albumin Laboratory Tests 12/17/18 06:30 TSH 55.50 H D plan: ] hypothryoidism synthroid 50mcg am synthroid 25mcg pm slowly titrate dose to synthroid total 75mcg /day
[2018-12-19] MEDS: PANTOPRAZOLE SODIUM 80 MG in SODIUM CHLORIDE 100 ML IVPB SCH (01:46)
[2018-12-19] MEDS: LEVOTHYROXINE NA 50 MCG TABLET (FP) PO SCH (06:32)
--- NOTE | 2018-12-19 07:12 | PN.GI ---
GI Progress Note Subjective: Patient is s/p EGD and colonoscopy yesterday. Patient denies episodes of rectal bleeding or melena during the night. No complaints of dysphagia, nausea, vomiting, abdominal bleeding. Labs from 12/18 shows Hg 11.9, pending this morning Hg level. - Objective Vital Signs: Vital Signs Temperature 98.6 F 12/19/18 02:00 Pulse Rate 52 L 12/19/18 02:00 Respiratory Rate 20 12/19/18 02:00 Blood Pressure 105/40 L 12/19/18 02:00 O2 Sat by Pulse Oximetry (%) 98 12/18/18 22:00 Constitutional: No Distress, Calm Eyes: Yes: Conjunctiva Clear HENT: Yes: Atraumatic Neck: Yes: Supple Cardiovascular: Yes: Bradycardia Respiratory: Yes: Regular, CTA Bilaterally Gastrointestinal Inspection: Yes: WNL. No: Ascites, Distention, Hernia, Scars, Other ...Auscultate: Yes: Normoactive Bowel Sounds. No: Hyperactive Bowel Sounds, Hypoactive Bowel Sounds, No Bowel Sounds, Other ...Palpate: Yes: Soft. No: Firm/Rigid, Guarding, Hepatomegaly, Mass, Pulsatile Mass, Splenomegaly, Tenderness, Tenderness, Epigastium, Tenderness, Rebound, Other ...Percussion: Yes: Tympanitic. No: Dullness, Fluid Wave, Other Neurological: Yes: Alert, Oriented Psychiatric: Yes: Alert, Oriented Labs: INR, PTT INR 1.31 (0.83-1.09) H 12/18/18 05:30 Active Medications Generic Name Dose Route Start Last Admin Trade Name Freq PRN Reason Stop Dose Admin Amiodarone HCl 200 mg 12/17/18 15:45 12/18/18 10:37 Cordarone - PO 200 mg DAILY RAMYA Administration Aspirin 81 mg 12/17/18 15:42 12/18/18 10:35 Ecotrin - PO 81 mg DAILY RAMYA Administration Atorvastatin Calcium 80 mg 12/16/18 22:00 12/19/18 00:04 Lipitor - PO 80 mg HS RAMYA Administration Clopidogrel Bisulfate 75 mg 12/17/18 13:15 12/18/18 10:34 Plavix - PO 75 mg DAILY RAMYA Administration Folic Acid 1 mg 12/17/18 10:00 12/18/18 10:36 Folic Acid - PO 1 mg DAILY RAMYA Administration Pantoprazole Sodium 80 mg/ 100 mls @ 10 mls/hr 12/17/18 09:15 12/19/18 01:46 Sodium Chloride IVPB 10 mls/hr Q10H RAMYA Administration 8 MG/HR Levothyroxine Sodium 50 mcg 12/18/18 07:00 12/19/18 06:32 Synthroid - PO 50 mcg DAILY@0700 RAMYA Administration Lisinopril 40 mg 12/17/18 15:39 12/18/18 10:36 Prinivil PO 40 mg DAILY RAMYA Administration Multivitamins/Minerals/Vitamin C 1 tab 12/17/18 10:00 12/18/18 10:37 Tab-A-Vit - PO 1 tab DAILY RMAYA Administration Problem List - Problems (1) Anemia Assessment/Plan: >monitor Hg daily >current Hg 11.4 >transfusion protocol for hyperbaric oxygen hterapy spoke to patient and her at length and discussed clinical findings Code(s): D64.9 - ANEMIA, UNSPECIFIED Qualifiers: Anemia type: B12 deficiency (2) GI bleeding Assessment/Plan: >continue Pantoprazole drip >monitor Hg daily and transfuse if needed >IV hydration Code(s): K92.2 - GASTROINTESTINAL HEMORRHAGE, UNSPECIFIED (3) Rectal bleed Assessment/Plan: >continue Pantoprazole drip >monitor Hg daily and transfuse if needed >IV hydration Code(s): K62.5 - HEMORRHAGE OF ANUS AND RECTUM
[2018-12-19 07:35] LABS: BASO % 0.9 % (0-2.0); EOS % 3.4 % (0-4.5); HEMATOCRIT 31.7 % (35.4-49); HEMOGLOBIN 10.6 GM/dL (11.7-16.9); LYMPH % 21.2 % (8-40); MCH 27.8 pg (25.7-33.7); MCHC 33.4 g/dl (32.0-35.9); MEAN PLT VOLUME 10.2 fl (7.5-11.1); MONO % 6.5 % (3.8-10.2); PLATELET COUNT 217 K/MM3 (134-434); RBC 3.82 M/mm3 (4.00-5.60); RDW 15.9 % (11.9-15.9); WHITE BLOOD COUNT 6.7 K/mm3 (4.0-10.0)
[2018-12-19 07:51] LABS: ALBUMIN 2.8 g/dl (3.4-5.0); ALK PHOS 105 U/L (45-117); ANION GAP 9 MMOL/L (8-16); BILIRUBIN,TOTAL 0.4 mg/dL (0.2-1); BLOOD UREA NITROGEN 16 mg/dL (7-18); CALCIUM 7.7 mg/dL (8.5-10.1); CHLORIDE 112 mmol/L (98-107); CO2 21 mmol/L (21-32); CREATININE 0.7 mg/dL (0.55-1.3); GLUCOSE,RANDOM 115 mg/dL (74-106); POTASSIUM 4.1 mmol/L (3.5-5.1); SGOT/AST 12 U/L (15-37); SGPT/ALT 14 U/L (13-61); SODIUM 143 mmol/L (136-145); TOT PROT 5.9 g/dl (6.4-8.2)
[2018-12-19] MEDS ORDERED: PANTOPRAZOLE 40 MG TABLET (FP) PO SCH (10:00)
[2018-12-19] MEDS: MULTIVITAMINS (DAILY MVI) TABLET (FP) PO SCH (10:40)
[2018-12-19] MEDS: CLOPIDOGREL BISULFATE 75 MG TABLET (FP) PO SCH (10:40)
[2018-12-19] MEDS: ASPIRIN COATED 81 MG TABLET.EC PO SCH (10:40)
[2018-12-19] MEDS: LISINOPRIL 20 MG TABLET (FP) PO SCH (10:40)
[2018-12-19] MEDS: FOLIC ACID 1 MG TABLET (FP) PO SCH (10:40)
[2018-12-19] MEDS: AMIODARONE HCL 200 MG TABLET (FP) PO SCH (10:40)
--- NOTE | 2018-12-19 11:17 | PN ---
Progress Note, Physician History of Present Illness: seen and examined today in nad. denies further bleeding overnight. states he is going home today. - Current Medication List Current Medications: Active Medications Amiodarone HCl (Cordarone -) 200 mg PO DAILY [facility] Last Admin: 12/19/18 10:40 Dose: 200 mg Aspirin (Ecotrin -) 81 mg PO DAILY [facility] Last Admin: 12/19/18 10:40 Dose: Not Given Atorvastatin Calcium (Lipitor -) 80 mg PO HS [facility] Last Admin: 12/19/18 00:04 Dose: 80 mg Clopidogrel Bisulfate (Plavix -) 75 mg PO DAILY [facility] Last Admin: 12/19/18 10:40 Dose: 75 mg Folic Acid (Folic Acid -) 1 mg PO DAILY [facility] Last Admin: 12/19/18 10:40 Dose: 1 mg Levothyroxine Sodium (Synthroid -) 50 mcg PO DAILY@0700 [facility] Last Admin: 12/19/18 06:32 Dose: 50 mcg Lisinopril (Prinivil) 40 mg PO DAILY [facility] Last Admin: 12/19/18 10:40 Dose: 40 mg Multivitamins/Minerals/Vitamin C (Tab-A-Vit -) 1 tab PO DAILY [facility] Last Admin: 12/19/18 10:40 Dose: 1 tab Pantoprazole Sodium (Protonix -) 40 mg PO DAILY [facility] Last Admin: 12/19/18 10:40 Dose: 40 mg - Objective Vital Signs: Vital Signs Temperature 98.1 F 12/19/18 06:00 Pulse Rate 47 L 12/19/18 06:00 Respiratory Rate 20 12/19/18 06:00 Blood Pressure 112/50 L 12/19/18 06:00 O2 Sat by Pulse Oximetry (%) 98 12/18/18 22:00 Constitutional: Yes: No Distress, Calm Eyes: Yes: Conjunctiva Clear, EOM Intact HENT: Yes: Atraumatic, Normocephalic Neck: Yes: Supple, Trachea Midline Cardiovascular: Yes: Regular Rate and Rhythm, S1, S2. No: Bradycardia, Tachycardia, Pulse Irregular, Bruit, JVD, Gallop, Murmur, Rub, S3, S4, Varicosities Respiratory: Yes: Regular, CTA Bilaterally. No: Rales, Rhonchi, Wheezes Gastrointestinal: Yes: Normal Bowel Sounds, Soft. No: Distention, Tenderness Musculoskeletal: Yes: WNL Extremities: Yes: WNL Edema: No Peripheral Pulses WNL: Yes Peripheral Pulses: Left Doralis Pedis: 2+, Right Dorsalis Pedis: 2+ Neurological: Yes: Alert, Oriented Psychiatric: Yes: Alert, Oriented Labs: CBC, BMP 12/19/18 05:30 12/19/18 05:30 INR, PTT INR 1.31 (0.83-1.09) H 12/18/18 05:30 - ....Imaging Chest X-ray: Report Reviewed, Image Reviewed EKG: Report Reviewed, Image Reviewed Other: Report Reviewed, Image Reviewed Assessment/Plan 78 year-old man with a PMHx of HTN, HLD, paroxysmal atrial fibrillation on apixaban, CAD s/p PCI/stents 03/2017 at [facility] and s/p stent to ISR RCA 2017, 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 He was found to have severe anemia and received PRBC transfusion. Patient was recently admitted with GI bleeding, colonoscopy but was unable to done due to poor bowel prep. Since discharge patient has been taking Plavix and since discharge has had rectal bleeding but it worsened yesterday. In ER noted with Hg 7.0. Seen by GI. Stop AC and Plavix suggested. Tele shows sinus rhythm with mild bradycardia. No evidence of atrial fibrillation or pauses. ECG 12/16/2018 sinus rhythm at 58 BPM. LAD, RBBB. Echo 07/04/2019: Normal LV size, wall motion and systolic function. LVEF 60%. Normal RV. Normal LA and RA. No significant valvular abnormalities. GI bleed-with CAD and recent multivessel PCI, Pafib has been on dual antiplatelet therapy and eliquis -as per report recurrent GI bleed secondary to prior radiation effects -If ok with GI would Stop ASA and resume Eliquis and Plavix -if pt discharged home today, he has appointment with me for fup this week.
[2018-12-19] MEDS ORDERED: ASPIRIN 81 MG CHEWABLE TABLETS PO ONE (11:45)
[2018-12-19] MEDS ORDERED: WARFARIN NA 10 MG TABLET (FP) PO ONE (11:45)
[2018-12-19 14:41] VITALS: BP 141/57; PULSE 57; TEMP 98
--- NOTE | 2018-12-19 16:29 | DS ---
Physical Examination Vital Signs: Vital Signs Temperature 98 F 12/19/18 14:00 Pulse Rate 57 L 12/19/18 14:00 Respiratory Rate 20 12/19/18 14:00 Blood Pressure 141/57 L 12/19/18 14:00 O2 Sat by Pulse Oximetry (%) 99 12/19/18 09:00 Findings/Remarks: SEEN TODAY AND REVIEWED THE PATIENT'S CHART PATIENT NOW OFF ELIQUIS AND PLAVIX ON COUMADIN AND [id number] WHICH WOULD BE EASIER TO TREAT IF BLEEDING RE-OCCURS Constitutional: Yes: No Distress Eyes: Yes: WNL HENT: Yes: WNL Neck: Yes: WNL Cardiovascular: Yes: Pulse Irregular Respiratory: Yes: WNL Gastrointestinal: Yes: WNL Musculoskeletal: Yes: WNL Extremities: Yes: WNL Edema: No Peripheral Pulses WNL: Yes Integumentary: Yes: WNL Wound/Incision: Yes: Clean/Dry Neurological: Yes: WNL ...Motor Strength: WNL Psychiatric: Yes: WNL Labs: CBC, BMP 12/19/18 05:30 12/19/18 05:30 Discharge Summary Reason For Visit: RECTAL HEMORRHAGE Current Active Problems Anemia (Acute) Atrial fibrillation (Acute) GI bleeding (Acute) Hypothyroid (Acute) Rectal bleed (Acute) Procedures: Principal: LABS/CT SCAN Hospital Course: ADMITTED FOR HEMATOCHEZIA AND HEMATUREA ON ELIQUIS AND PLAVIX. PATIENT NOW SWITCHED TO COUMADIN AND [id number] IN THE CASE THAT A REPEAT BLEED OCCURS THIS WOULD EASIER TO REVERSE WITH FFP. Condition: Improved - Instructions Diet, Activity, Other Instructions: INR CHECK TuesdayDecember. HYPERBARIC CHAMBER TREATMENT FOR CHRONIC PROSTATITIS. Disposition: HOME - Home Medications Comprehensive Discharge Medication List: Ambulatory Orders Atorvastatin Ca [Lipitor] 80 mg PO HS 09/19/18 Folic Acid 1 mg PO DAILY 11/23/18 Multivit-Min/Iron Fum/Folic AC [Incbo-Yklutau-Hufyanwt Tablet] 1 tab PO DAILY Warfarin Sodium [Coumadin] 4 mg PO HS #14 tablet MDD 1 12/01/18 Amiodarone HCl [Cordarone -] 200 mg PO DAILY #30 tablet 12/19/18 Aspirin Coated [Ecotrin -] 81 mg PO DAILY #30 tablet.ec 12/19/18 Atorvastatin Ca [Lipitor] 80 mg PO HS tablet 12/19/18 Folic Acid - 1 mg PO DAILY tablet 12/19/18 Levothyroxine [Synthroid -] 50 mcg PO DAILY@0700 #30 tablet 12/19/18 Lisinopril [Prinivil] 40 mg PO DAILY #30 tablet 12/19/18 Metoprolol Succinate [Toprol XL -] 50 mg PO DAILY #30 tab.sr.24h 12/19/18 Multivitamins [Multivit ([facility] Formulary)] 1 tab PO DAILY tab 12/19/18 Pantoprazole Sodium [Protonix -] 40 mg PO DAILY #30 tablet.ec 12/19/18
== END 2018-12-19 17:39 | disposition home health service (06) | DRG 813 ==
LOC: JER 08:54 → JERBED 13:06 → J4W 12-17 00:09
PROVIDERS: ADMIT Family Medicine; ATTEND Family Medicine
DX: D68.32 Hemorrhagic disorder due to extrinsic circulating anticoagulants (principal); K62.5 Hemorrhage of anus and rectum; I48.91 Unspecified atrial fibrillation; I25.10 Atherosclerotic heart disease of native coronary artery without angina pectoris; E78.5 Hyperlipidemia, unspecified; I10 Essential (primary) hypertension; Z85.46 Personal history of malignant neoplasm of prostate; I48.0 Paroxysmal atrial fibrillation; D64.9 Anemia, unspecified; I45.10 Unspecified right bundle-branch block; K62.7 Radiation proctitis; R00.1 Bradycardia, unspecified; E03.9 Hypothyroidism, unspecified; F10.20 Alcohol dependence, uncomplicated; N40.0 Benign prostatic hyperplasia without lower urinary tract symptoms
CPT/HCPCS: 36415; 36430; 36511; 80053; 80061; 82272; 82550; 82962; 83721; 83735; 84100; 84436; 84439; 84443; 84484; 85025; 85027; 85610; 85730; 86850; 86900; 86901; 86922; 93005; 93010; 99285-25; P9038; P9058

== ENCOUNTER 2019-01-10 07:52 | Inpatient (IN) | payer OTHER ==
[2019-01-10] MEDS ORDERED: PANTOPRAZOLE SODIUM 40 MG VIAL IVPUSH ONE ×2 (08:53→11:23)
[2019-01-10 09:09] LABS: BASO % 0.9 % (0-2.0); EOS % 2.6 % (0-4.5); HEMATOCRIT 25.9 % (35.4-49); HEMOGLOBIN 8.4 GM/dL (11.7-16.9); LYMPH % 24.3 % (8-40); MCHC 32.5 g/dl (32.0-35.9); MEAN CELL VOLUME 83.1 fl (80-96); MEAN PLT VOLUME 10.9 fl (7.5-11.1); MONO % 7.3 % (3.8-10.2); NEUT % 64.9 % (42.8-82.8); PLATELET COUNT 185 K/MM3 (134-434); RBC 3.12 M/mm3 (4.00-5.60); RDW 17.2 % (11.9-15.9)
[2019-01-10] MEDS ORDERED: PANTOPRAZOLE SODIUM 40 MG/100 ML BAG IVPB ONE (09:13)
[2019-01-10 09:23] LABS: PROTHROMBIN TIME (PATIENT) 52.7 SEC (9.7-13.0)
[2019-01-10 09:25] LABS: INR 4.4 (0.83-1.09)
[2019-01-10] MEDS ORDERED: PHYTONADIONE 10 MG/1 ML AMP IVPB ONE (09:31)
--- NOTE | 2019-01-10 09:36 | PDOC ---
Documentation entered by Latisha Reed SCRIBE, acting as scribe for Te Do MD. Te Do MD: This documentation has been prepared by the Derek capone Adrianna, SCRIBE, under my direction and personally reviewed by me in its entirety. I confirm that the documentation accurately reflects all work, treatment, procedures, and medical decision making performed by me. History of Present Illness - General Chief Complaint: Diarrhea Stated Complaint: DIARRHEA Time Seen by Provider: 01/10/19 08:22 - History of Present Illness Initial Comments: Patient is a 78 Y M, with a past medical history of Diverticulosis, Martin's Esophagus, HTN, CAD (s/p 2 stents), HLD, paroxysmal Afib, prostate ca (2007 s/p radiation), and recurrent gi bleed, presents with rectal bleeding and black stool for 3 days. He reports 4-5 episodes per day of bright red blood coming from the rectum, and black stool. Patient denies abdominal pain, but endorses multiple stomach noises. He reports being seen in the ED for the same issue 3 times, and has had blood transfusions in the past. Patient endorses dizziness upon getting up and walking. Denies SOB, nausea, vomiting, diarrhea. Denies dysuria/frequency/urgency/hematuria, and fever/chills. Allergies: NKA Past surgical history: Colonoscopy, 2 stents Social history: None reported PCP: Dr. Tessy Myers GI: Dr. Hugo Kennedy Cardiology: Dr. Laz Gaitan 01/10/19 09:04 Past History - Past Medical History Allergies/Adverse Reactions: Allergies Allergy/AdvReac Type Severity Reaction Status Date / Time No Known Allergies Allergy Verified 12/15/18 13:30 Home Medications: Ambulatory Orders Amiodarone HCl [Cordarone -] 200 mg PO DAILY #30 tablet 12/19/18 Aspirin Coated [Ecotrin -] 81 mg PO DAILY #30 tablet.ec 12/19/18 Atorvastatin Ca [Lipitor] 80 mg PO HS tablet 12/19/18 Levothyroxine [Synthroid -] 50 mcg PO DAILY@0700 #30 tablet 12/19/18 Lisinopril [Prinivil] 40 mg PO DAILY #30 tablet 12/19/18 Metoprolol Succinate [Toprol XL -] 50 mg PO DAILY #30 tab.sr.24h 12/19/18 Multivitamins [Multivit ([facility] Formulary)] 1 tab PO DAILY tab 12/19/18 Pantoprazole Sodium [Protonix -] 40 mg PO DAILY #30 tablet.ec 12/19/18 Warfarin Sodium [Coumadin] 4 mg PO HS #30 tablet MDD 1 12/19/18 Cardiac Disorders: Yes (paroxysmal AFib) COPD: No HTN: Yes Hypercholesterolemia: Yes - Surgical History Cardiac Surgery: Yes (PCI) GI Surgery: No - Immunization History Immunization Up to Date: No - Suicide/Smoking/Psychosocial Hx Smoking History: Never smoked Have you smoked in the past 12 months: No Hx Alcohol Use: No Drug/Substance Use Hx: No Substance Use Type: None Hx Substance Use Treatment: No Review of Systems - Review of Systems Comments:: CONSTITUTIONAL: No fever, no chills, no fatigue EYES: No visual changes ENT: No ear pain, no sore throat CARDIOVASCULAR: No chest pain, no palpitations RESPIRATORY: No cough, no SOB GI: +Stomach noises. No abdominal pain, no nausea, no vomiting, no constipation, no diarrhea GENITOURINARY: No dysuria, no frequency, no hematuria RECTAL: +Blood in anus. MUSKULOSKELETAL: No back pain, no joint pain, no myalgias SKIN: No rash NEURO: +Dizziness upon getting up and walking. No headache 01/10/19 09:05 *Physical Exam - Vital Signs Last Vital Signs Temp Pulse Resp BP Pulse Ox 98.2 F 88 16 113/43 L 98 01/10/19 07:54 01/10/19 07:54 01/10/19 07:54 01/10/19 07:54 01/10/19 07:54 - Physical Exam Comments: CONSTITUTIONAL: Well-appearing; well-nourished; in no apparent distress HEAD: Normocephalic; atraumatic EYES: +Pale conjunctiva. PERRL; EOM intact ENMT: External appears normal; normal oropharynx NECK: Supple; non-tender; no cervical lymphadenopathy CARD: Normal S1, S2; no murmurs, rubs, or gallops RESP: Normal chest excursion with respiration; breath sounds clear and equal bilaterally; no wheezes, rhonchi, or rales ABD: Soft, non-distended; non-tender; no palpable organomegaly, no palpable hernias RECTAL: +Bright red blood at the anus. +Maroon blood in the rectum. EXT: Normal ROM in all four extremities; non-tender to palpation; distal pulses intact SKIN: Warm, dry, no rash NEURO: No focal neurological deficiencies. 01/10/19 09:05 Heart Score/ECG Review - Austin Austin: Left Austin Deviation - ECG Impressions Normal ECG: No Comment:: Right bundle branch block. 01/10/19 08:51 ED Treatment Course - LABORATORY CBC & Chemistry Diagram: 01/10/19 08:45 01/10/19 08:45 - ADDITIONAL ORDERS Additional order review: Laboratory Results 01/10/19 08:45 PT with INR 52.70 H INR 4.40 H* 01/10/19 08:45 RBC 3.12 L MCV 83.1 MCHC 32.5 RDW 17.2 H MPV 10.9 Neutrophils % 64.9 Lymphocytes % 24.3 Monocytes % 7.3 Eosinophils % 2.6 Basophils % 0.9 - RADIOLOGY Radiology Studies Ordered: Category Date Time Status CHEST X-RAY PORTABLE* [RAD] Stat Radiology 01/10/19 08:50 Completed Radiograph Interpretation: EXAM#: TYPE/EXAM: RESULT: [id number] RAD/CHEST X-RAY PORTABLE* Chest: Rectal bleeding Impression: New atelectatic changes left base. Reported By: Brian Villalobos MD 01/10/19 09:09 EXAM#: TYPE/EXAM: RESULT: [id number] CT/ABDOMEN/PELVIS CTA W/WO CONTR Abdomen / pelvis CT angiography (without and with contrast) Clinical information given: GI bleed IMPRESSION: No specific bleeding site/etiology is identified on this study. Additional evaluation utilizing a radionuclide bleeding scan may be considered. Colonic diverticulosis. Cholelithiasis. Reported By: Arron Das MD 01/10/19 12:27 01/10/19 16:37 - Consult/PCP Time Called: 09:28 (Spoke with Dr. Myers concerning patient's care ) - Additional Consults Time Called: 09:30 (paged Dr. Gaitan's service, pending call back) Consult/PCP: 10:15- second page to Dr. Gaitan's call service, pending call back Time Called: 09:30 (paged Dr. Kennedy's call service, pending call back ) Consult/PCP: 10:11- spoke with Dr. Kennedy concerning patient's care Medical Decision Making - Critical Care Time Total Critical Care Time (minutes): 55 Critical Care Statement: The care of this patient involved high complexity decision making to prevent further life threatening deterioration of the patient 's condition and/or to evaluate & treat vital organ system(s) failure or risk of failure. - Medical Decision Making 01/10/19 09:35 Patient is 78-year-old male with history of atrial fibrillation, on Coumadin, CAD status post stenting on aspirin with history of upper and lower GI bleeding presents with recurrent melena and bright red blood per rectum for the past 3 days, 4-5 bloody bowel movements per day with associated dizziness and weakness upon standing. In the ER, patient appears normotensive and is asymptomatic however his pulse pressure is noted to be widened. CBC reveals hematocrit of 25.9 and his INR is noted to be 4.40. At this time, patient will require reversal of anticoagulation with FFP and vitamin K. We'll also consider packed RBC transfusions. We'll administer Protonix. Will admit to the ICU. 01/10/19 09:57 Patient complains of being dizzy. We'll administer normal saline-500 mL bolus. Awaiting packed cells and FFP. 01/10/19 10:[address] Kennedy. He agrees with plan of packed cells, FFP and vitamin K to stabilize the patient and ICU admission. *DC/Admit/Observation/Transfer Diagnosis at time of Disposition: Rectal bleed - Discharge Dispostion Condition at time of disposition: Guarded Decision to Admit order: Yes - Referrals - Patient Instructions - Post Discharge Activity - Attestations Physician Attestion: 01/10/19 09:34 The documentation was prepared by the bradyibviral under my direct supervision. I have reviewed the documentation which correctly represents the findings, medical decision-making and critical action taken by me.
[2019-01-10] MEDS ORDERED: PHYTONADIONE 10 MG/1 ML AMP ONE (09:40)
[2019-01-10 09:55] LABS: ALBUMIN 3.4 g/dl (3.4-5.0); BILIRUBIN,TOTAL 0.2 mg/dL (0.2-1); CALCIUM 8.6 mg/dL (8.5-10.1); CREATININE 0.9 mg/dL (0.55-1.3); POTASSIUM 4.1 mmol/L (3.5-5.1); TOT PROT 6.7 g/dl (6.4-8.2)
[2019-01-10] MEDS ORDERED: SODIUM CHLORIDE 500 ML IV STA (09:57)
--- NOTE | 2019-01-10 11:22 | CONSULT ---
Consult Consult Specialty:: ICU Referred by:: Dr Myers Reason for Consultation:: GI bleed - History of Present Illness Chief Complaint: Bright red blood per rectum History of Present Illness: Patient is a 78 Y M, with a past medical history of Diverticulosis, Martin's Esophagus, HTN, CAD on ASA, plavix (s/p stents- 2016, 2017, 10/30/2018, 11/14/18) , HLD, paroxysmal Afib on coumadin, prostate ca (2007 s/p radiation), and recurrent gi bleed (last admissions 12/01/18 and 12/16/18), presents with rectal bleeding x1 day and black stool for 3 days. He reports 4-5 episodes per day of bright red blood coming from the rectum, and black stool at home and up to 5 episodes of shantel blood per rectum since being in the ED from 8am today. Pt reported dizziness and unsteady gait since last night. No hematuria, no bleeding from gums or any orifice. No hx of trauma, no palpitations, chest pain or loss of consciousness. Pt recently discharged 12/19 for GI bleed and transitioned off eliquis to coumadin due to bleeding risk. He had also got diagnostic EGD by Dr Kennedy 12/18/18 which showed normal esophageal mucosa, erosion of gastric antrum, duodenal antrum with no abnormalities in 3rd part of duodenum with protonix recommended daily. 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 He was found to have severe anemia and received PRBC transfusion. No recent colonoscopy due to poor bowel prep. Echo 07/04/2019: Normal LV size, wall motion and systolic function. LVEF 60%. Normal RV. Normal LA and RA. No significant valvular abnormalities. In ED: Patient dropped Hgb from 10.6 (12/19) >>8.4 (01/10/19) HR- 78, BP-113/43 (symptomatic with dizziness when sitting up) INR supratherapeutic at 4.40 on 4mg of warfarin (last dose yesterday) EKG in ED similar to prior (12/16/18) with sinus rhythm at BPM. LAD, RBBB. In ED, patient received 5mg vit K and iv protonix 40mg Per ED conversation with GI, CTA was requested as bleed was likely not UGI bleed FFP is pending and PRBCs pending - History Source History Provided By: Patient, Family Member, Medical Record Limitations to Obtaining History: No Limitations - Past Medical History Cardio/Vascular: Yes: AFIB, CAD, HTN Gastrointestinal: Yes: Diverticulosis, GERD, GI Bleed Renal/: Yes: Cancer (prostate) Psych: Yes: Addictions - Past Surgical History Past Surgical History: Yes: Stent - Alcohol/Substance Use Hx Alcohol Use: No - Smoking History Smoking history: Never smoked Have you smoked in the past 12 months: No - Social History Usual Living Arrangement: With Spouse ADL: Independent Home Medications - Allergies Allergies/Adverse Reactions: Allergies Allergy/AdvReac Type Severity Reaction Status Date / Time No Known Allergies Allergy Verified 12/15/18 13:30 - Home Medications Home Medications: Ambulatory Orders Amiodarone HCl [Cordarone -] 200 mg PO DAILY #30 tablet 12/19/18 Aspirin Coated [Ecotrin -] 81 mg PO DAILY #30 tablet.ec 12/19/18 Atorvastatin Ca [Lipitor] 80 mg PO HS tablet 12/19/18 Levothyroxine [Synthroid -] 50 mcg PO DAILY@0700 #30 tablet 12/19/18 Lisinopril [Prinivil] 40 mg PO DAILY #30 tablet 12/19/18 Metoprolol Succinate [Toprol XL -] 50 mg PO DAILY #30 tab.sr.24h 12/19/18 Multivitamins [Multivit ([facility] Formulary)] 1 tab PO DAILY tab 12/19/18 Pantoprazole Sodium [Protonix -] 40 mg PO DAILY #30 tablet.ec 12/19/18 Warfarin Sodium [Coumadin] 4 mg PO HS #30 tablet MDD 1 12/19/18 Review of Systems - Review of Systems Constitutional: denies: Chills, Diaphoresis, Fever, Loss of Appetite HENT: denies: Epistaxis, Gingival Bleeding, Throat Pain Cardiovascular: denies: Chest Pain, Edema, Palpitations, Shortness of Breath Respiratory: denies: Cough, Hemoptysis, SOB, SOB on Exertion, Wheezing Gastrointestinal: reports: Rectal Bleeding. denies: Abdominal Pain, Diarrhea, Indigestion Genitourinary: denies: Burning, Discharge, Dysuria, Hematuria Neurological: reports: Dizziness, Incoordination. denies: Change in LOC, Change in Speech, Confusion, Headache Hematology/Lymphatic: denies: Easily Bruised Physical Exam Vital Signs: Vital Signs Temperature 98.5 F 01/10/19 10:37 Pulse Rate 59 L 01/10/19 10:37 Respiratory Rate 16 01/10/19 10:37 Blood Pressure 124/45 L 01/10/19 10:37 O2 Sat by Pulse Oximetry (%) 100 01/10/19 10:37 Constitutional: Yes: Well Nourished Eyes: Yes: Conjunctiva Clear, EOM Intact. No: Sclera Icterus HENT: Yes: Atraumatic. No: Epistaxis, Nasal Congestion, Pharyngeal Erythema Neck: Yes: Supple Cardiovascular: Yes: S1, S2 Respiratory: Yes: CTA Bilaterally Gastrointestinal: Yes: Soft, Hyperactive Bowel Sounds, Rectal Bleeding Renal/: No: CVA Tenderness - Left, CVA Tenderness - Right, Hematuria Edema: No Peripheral Pulses WNL: Yes Neurological: Yes: Alert, Oriented, Cran Nerves II-XII Intact. No: Aphasia, Confusion, Dysarthria, Facial Droop, Lethargy, Seizure ...Motor Strength: WNL, LUE, LLE, RUE, RLE Labs: CBC, BMP 01/10/19 08:45 01/10/19 08:45 Assessment/Plan Ambulatory Orders Amiodarone HCl [Cordarone -] 200 mg PO DAILY #30 tablet 12/19/18 Aspirin Coated [Ecotrin -] 81 mg PO DAILY #30 tablet.ec 12/19/18 Atorvastatin Ca [Lipitor] 80 mg PO HS tablet 12/19/18 Levothyroxine [Synthroid -] 50 mcg PO DAILY@0700 #30 tablet 12/19/18 Lisinopril [Prinivil] 40 mg PO DAILY #30 tablet 12/19/18 Metoprolol Succinate [Toprol XL -] 50 mg PO DAILY #30 tab.sr.24h 12/19/18 Multivitamins [Multivit ([facility] Formulary)] 1 tab PO DAILY tab 12/19/18 Pantoprazole Sodium [Protonix -] 40 mg PO DAILY #30 tablet.ec 12/19/18 Warfarin Sodium [Coumadin] 4 mg PO HS #30 tablet MDD 1 12/19/18 Current Medications Pantoprazole Sodium (Protonix Iv) 40 mg IVPUSH BID [facility] Assessment/Plan: Patient is a 78 Y M, with a PMHx of Diverticulosis, Martin's Esophagus, HTN, CAD on ASA, plavix (s/p stents- 2016, 2017, 10/30/2018, 11/14/18), HLD, paroxysmal Afib on coumadin, prostate ca (2007 s/p radiation), and recurrent gi bleed (last admissions 12/01/18 and 12/16/18), presents with rectal bleeding x1 day and black stool for 3 days. Neuro: Alert and oriented Able to protect his airway Cont to monitor GI: Hx of Diverticulosis, Martin's Esophagus, recurrent GI bleed with symptomatic anemia H/H drop from10.4>>8.6 Likely lower GI bleed with supratherapeutic INR- 4.4 Pt received Vit K 5mg in ED FFP pending transfusion Pending PRBC transfusion Repeat CBC and coags post transfusion Recent endoscopy 12/18 did not show UGI source CTA-no bleeding source identified, pt with diverticulosis Iv protonix recieved in ED Cont iv protonix 40mg bid GI - Dr Kennedy on board, appreciate recs Card: Recent stents x2 11/07 paroxysmal Afib on coumadin Pt recently switched from eliquis to coumadin for GI bleed Also on ASA and plavix HTN, hold off BP meds Per prior cards notes- Dr Gaitan would consider DAPtherapy and hold AC if bleeding persists, will defer to cards on decision Last dose of warfarin last night, supratherapeutic INR Getting reversed with FFPs, received Vit K will get transfused EKG similar to prior, no chest painat this time Cont to monitor Pulm: Pt sating well on room air, protecting his airway Cont to monitor Hemonc: Recurrent GI bleeds s/p vit K Hx of Prostate cancer s/p radiation tx with ectasia on HBO CBC post FFP and PRBCs repeat coags Cont to monitor Renal: s/p CTA Continue to monitor Cont transfusions No standing fluids at this time PPx: No chemical PPx- with bleed Protonix iv 40mg bid FEN No standing fluids Monitor lytes, replete as needed NPO for now Dispo: ICU Visit type - Emergency Visit Emergency Visit: Yes ED Registration Date: 01/10/19 Care time: The patient presented to the Emergency Department on the above date and was hospitalized for further evaluation of their emergent condition. - New Patient This patient is new to me today: Yes Date on this admission: 01/10/19 - Critical Care Critical Care patient: Yes Total Critical Care Time (in minutes): 35 Critical Care Statement: The care of this patient involved high complexity decision making to prevent further life threatening deterioration of the patient 's condition and/or to evaluate & treat vital organ system(s) failure or risk of failure.
[2019-01-10] MEDS ORDERED: PANTOPRAZOLE SODIUM 80 MG in SODIUM CHLORIDE 100 ML IVPB SCH (11:30)
--- NOTE | 2019-01-10 13:04 | PN ---
Teaching Attending Note Name of Resident: Palma Wolff ATTENDING PHYSICIAN STATEMENT I saw and evaluated the patient. I reviewed the resident's note and discussed the case with the resident. I agree with the resident's findings and plan as documented. SUBJECTIVE: Pt seen and examined in the ICU. Briefly, 78yo male with h/o HTN, hyperlipidemia , CAD, atrial fibrillation on anticoagulation, diverticulosis who presents with BRBPR and dark stools. No shortness of breath or chest pain. Does report some dizziness. Denies abdominal pain, nausea or vomiting. H/H down 2g from about 1 month ago. Last EGD last month showed gastric erosions. Last colonoscopy in 2018 showing vascular ectasias. INR found to be supratherapeutic, PRBC and FFP ordered. OBJECTIVE: Vital Signs Period Temp Pulse Resp BP Sys/Rankin Pulse Ox Last 24 Hr 97.9 F-98.5 F 59-88 12-16 113-147/43-57 98-100 Intake & Output 01/07/19 01/08/19 01/09/19 01/10/19 23:59 23:59 23:59 23:59 Weight 69.309 kg Gen: NAD at rest Heart: RRR Lung: decreased breath sounds at the bases Abd: soft, nontender Ext: no edema CBC, BMP 01/10/19 08:45 01/10/19 08:45 Active Medications Pantoprazole Sodium (Protonix Iv) 40 mg IVPUSH BID RAMYA ASSESSMENT AND PLAN: GI bleed likely lower Acute Blood Loss Anemia Diverticulosis Atrial Fibrillation Supratherapeutic INR CAD HTN Hyperlipidemia - being transfused PRBC, FFP - monitor CBC, coags - GI eval - protonix - ensure large bore peripheral access - holding anticoagulation - rate control - NPO - IVF - DVT prophylaxis - ICU monitoring for now
--- NOTE | 2019-01-10 13:05 | EKG ---
Test Reason : Blood Pressure : / mmHG Vent. Rate : 074 BPM Atrial Rate : 074 BPM P-R Int : 146 ms QRS Dur : 132 ms QT Int : 432 ms P-R-T Axes : 020 -39 036 degrees QTc Int : 479 ms NORMAL SINUS RHYTHM LEFT AXIS DEVIATION RIGHT BUNDLE BRANCH BLOCK ABNORMAL ECG WHEN COMPARED WITH ECG OF 16-DEC-2018 09:34, NONSPECIFIC T WAVE ABNORMALITY NOW EVIDENT IN ANTERIOR LEADS Confirmed by KRISTIN CHUN, LUIS ([id number]) on 01/10/2019 1:05:21 PM Referred By: Confirmed By:LUIS FOSTER MD
--- NOTE | 2019-01-10 14:35 | CON.CARD ---
Consult Consult Specialty:: Cardiology - History of Present Illness Chief Complaint: GI bleeding History of Present Illness: 78 yo M with PAF, CAD sp RCA GRIFFIN 06/2018, LCx and LAD PCI 10/2018 normal EF. He has had GI bleeds on DAPT and AC, Plavix and eliquis and now with ASA and coumadin. His INR is supratherapeutic. He reports No dyspnea, chest pain. Getting blood. - History Source History Provided By: Patient Limitations to Obtaining History: No Limitations - Past Medical History Cardio/Vascular: Yes: AFIB, CAD, HTN Gastrointestinal: Yes: Diverticulosis, GERD, GI Bleed Renal/: Yes: Cancer (prostate) Psych: Yes: Addictions - Past Surgical History Past Surgical History: Yes: Stent - Alcohol/Substance Use Hx Alcohol Use: No - Smoking History Smoking history: Never smoked Have you smoked in the past 12 months: No - Social History Usual Living Arrangement: With Spouse ADL: Independent Home Medications - Allergies Allergies/Adverse Reactions: Allergies Allergy/AdvReac Type Severity Reaction Status Date / Time No Known Allergies Allergy Verified 12/15/18 13:30 - Home Medications Home Medications: Ambulatory Orders Amiodarone HCl [Cordarone -] 200 mg PO DAILY #30 tablet 12/19/18 Aspirin Coated [Ecotrin -] 81 mg PO DAILY #30 tablet.ec 12/19/18 Atorvastatin Ca [Lipitor] 80 mg PO HS tablet 12/19/18 Levothyroxine [Synthroid -] 50 mcg PO DAILY@0700 #30 tablet 12/19/18 Lisinopril [Prinivil] 40 mg PO DAILY #30 tablet 12/19/18 Metoprolol Succinate [Toprol XL -] 50 mg PO DAILY #30 tab.sr.24h 12/19/18 Multivitamins [Multivit ([facility] Formulary)] 1 tab PO DAILY tab 12/19/18 Pantoprazole Sodium [Protonix -] 40 mg PO DAILY #30 tablet.ec 12/19/18 Warfarin Sodium [Coumadin] 4 mg PO HS #30 tablet MDD 1 12/19/18 Review of Systems - Review of Systems Constitutional: reports: No Symptoms Eyes: reports: No Symptoms HENT: reports: No Symptoms Neck: reports: No Symptoms Cardiovascular: denies: Chest Pain, Edema, Palpitations, Shortness of Breath Respiratory: denies: Cough, Exercise Intolerance Gastrointestinal: reports: No Symptoms Genitourinary: reports: No Symptoms Vital Signs: Vital Signs Temperature 97.9 F 01/10/19 11:30 Pulse Rate 66 01/10/19 11:30 Respiratory Rate 16 01/10/19 11:30 Blood Pressure 147/57 L 01/10/19 11:30 O2 Sat by Pulse Oximetry (%) 100 01/10/19 12:22 Constitutional: Yes: Well Nourished, No Distress, Calm Eyes: Yes: Conjunctiva Clear, EOM Intact HENT: Yes: Atraumatic, Normocephalic Neck: Yes: Supple, Trachea Midline Respiratory: Yes: Regular, CTA Bilaterally Gastrointestinal: Yes: Normal Bowel Sounds, Soft Cardiovascular: Yes: Regular Rate and Rhythm JVD: No Carotid Bruit: No PMI: Non-Displaced Heart Sounds: Yes: S1, S2 Murmur: No: Systolic Murmur, Diastolic Murmur Edema: No - Other Data Labs, Other Data: CBC, BMP 01/10/19 08:45 01/10/19 08:45 INR, PTT INR 4.40 (0.83-1.09) H* 01/10/19 08:45 Imaging - Results EKG: Image Reviewed (nsr RBBB) Problem List - Problems (1) Rectal bleed Code(s): K62.5 - HEMORRHAGE OF ANUS AND RECTUM (2) Atrial fibrillation Code(s): I48.91 - UNSPECIFIED ATRIAL FIBRILLATION (3) CAD (coronary artery disease) Code(s): I25.10 - ATHSCL HEART DISEASE OF [place] CORONARY ARTERY W/O ANG PCTRS Assessment/Plan Ho multivessel PCI last 10/2018. Normal LV function without valvulopathy. PAF managed with amio. This is his 3red bout of severe GI bleeding on AC and antiplatlet therapy despite elevated INR. I don't think he is a suitable candidate for AC. He should be considered for Watchman device When GI status is stable and cleared from a GI perspective please start ASA and Plavix. out patent fu with Dr. Gaitan. No contraindications to GI procedures. Call with questions.
[2019-01-10 16:49] LABS: BASO % 0.8 % (0-2.0); HEMATOCRIT 26.1 % (35.4-49); HEMOGLOBIN 8.4 GM/dL (11.7-16.9); LYMPH % 26.9 % (8-40); MCH 27.2 pg (25.7-33.7); MCHC 32.4 g/dl (32.0-35.9); MEAN CELL VOLUME 84.1 fl (80-96); MEAN PLT VOLUME 10.9 fl (7.5-11.1); MONO % 7.6 % (3.8-10.2); NEUT % 61.7 % (42.8-82.8); PLATELET COUNT 142 K/MM3 (134-434); RDW 16.8 % (11.9-15.9); WHITE BLOOD COUNT 5.5 K/mm3 (4.0-10.0)
[2019-01-10 17:28] LABS: INR 1.72 (0.83-1.09); PROTHROMBIN TIME (PATIENT) 20.4 SEC (9.7-13.0)
[2019-01-10 17:31] LABS: ACTIVATED PTT 38.9 SECONDS (25.2-36.5)
[2019-01-10] MEDS: AMIODARONE HCL 200 MG TABLET (FP) PO SCH (19:49)
[2019-01-10] MEDS: ATORVASTATIN CA 80 MG TABLET (FP) PO SCH (21:14)
[2019-01-10] MEDS: PANTOPRAZOLE SODIUM 40 MG VIAL IVPUSH SCH (21:14)
[2019-01-10 21:52] LABS: BASO % 0.7 % (0-2.0); EOS % 4.1 % (0-4.5); HEMATOCRIT 24.3 % (35.4-49); LYMPH % 26.1 % (8-40); MCH 27.5 pg (25.7-33.7); MCHC 32.8 g/dl (32.0-35.9); MEAN PLT VOLUME 10.7 fl (7.5-11.1); MONO % 7.6 % (3.8-10.2); NEUT % 61.5 % (42.8-82.8); PLATELET COUNT 139 K/MM3 (134-434); RDW 16.1 % (11.9-15.9); WHITE BLOOD COUNT 6.1 K/mm3 (4.0-10.0)
[2019-01-11 01:36] LABS: BASO % 0.7 % (0-2.0); EOS % 4.2 % (0-4.5); HEMATOCRIT 25.6 % (35.4-49); HEMOGLOBIN 8.4 GM/dL (11.7-16.9); LYMPH % 24.9 % (8-40); MCH 27.4 pg (25.7-33.7); MCHC 32.7 g/dl (32.0-35.9); MEAN CELL VOLUME 83.8 fl (80-96); MEAN PLT VOLUME 10.4 fl (7.5-11.1); MONO % 7.6 % (3.8-10.2); NEUT % 62.6 % (42.8-82.8); PLATELET COUNT 142 K/MM3 (134-434); RBC 3.05 M/mm3 (4.00-5.60); RDW 16.8 % (11.9-15.9); WHITE BLOOD COUNT 6.2 K/mm3 (4.0-10.0)
[2019-01-11] MEDS: LEVOTHYROXINE NA 50 MCG TABLET (FP) PO SCH (06:20)
[2019-01-11 06:46] LABS: INR 1.25 (0.83-1.09); PROTHROMBIN TIME (PATIENT) 14.8 SEC (9.7-13.0)
[2019-01-11 06:48] LABS: ACTIVATED PTT 33.2 SECONDS (25.2-36.5)
[2019-01-11 06:58] LABS: BASO % 0.7 % (0-2.0); EOS % 4.6 % (0-4.5); HEMATOCRIT 24.4 % (35.4-49); HEMOGLOBIN 8.2 GM/dL (11.7-16.9); LYMPH % 23.1 % (8-40); MCH 27.8 pg (25.7-33.7); MCHC 33.7 g/dl (32.0-35.9); MEAN CELL VOLUME 82.4 fl (80-96); MEAN PLT VOLUME 10.6 fl (7.5-11.1); MONO % 6.7 % (3.8-10.2); NEUT % 64.9 % (42.8-82.8); PLATELET COUNT 147 K/MM3 (134-434); RBC 2.96 M/mm3 (4.00-5.60); WHITE BLOOD COUNT 5.2 K/mm3 (4.0-10.0)
[2019-01-11 07:13] LABS: ALBUMIN 3.2 g/dl (3.4-5.0); BILIRUBIN,TOTAL 0.7 mg/dL (0.2-1); CALCIUM 8.1 mg/dL (8.5-10.1); CREATININE 0.8 mg/dL (0.55-1.3); MAGNESIUM 1.9 mg/dL (1.8-2.4); PHOSPHOROUS 4.3 mg/dL (2.5-4.9); POTASSIUM 3.9 mmol/L (3.5-5.1); TOT PROT 6.2 g/dl (6.4-8.2)
--- NOTE | 2019-01-11 08:15 | CON.GI ---
Consult Consult Specialty:: GI Referred by:: Dr Te Do Reason for Consultation:: Rectal bleeding - History of Present Illness History of Present Illness: Patient is a 78 y/o male with past medical history of Diverticulosis, Barretts Esophagus, HTN, CAD (s/p stent placement x 2), HLD, Paroxysmal A-fib, Prostate CA (s/p radiation 2007), and recurrent GI bleeds. Patient states experiencing rectal bleeding and melena for 3 days after he was switched from Eliquis to Coumadin. Previous colonoscopy done 11/2018 showed moderate diverticulosis, 0.5cm polyp in descending colon, and radiation ectasias noted. Recommendation for hyperbaric oxygen treatment was made. Abdomen/Pelvic CTA shows no specific bleeding site or etiology identified, colonic diverticulosis, and cholelithiasis. In ER patient noted with Hg 8.0 and supratherapeutic INR 4.40. Coumadin is on hold and patient received 1U PRBC transfusion. Most current labs show Hg 8.2. During the night one episode of rectal bleeding reported. Patient states having 10lb weight loss in 2 weeks and experiencing poor appetite not accompanied with nausea, vomiting, abdominal pain. Patient reports having alternating episodes of diarrhea and constipation. - History Source History Provided By: Patient Limitations to Obtaining History: No Limitations - Past Medical History Cardio/Vascular: Yes: AFIB, CAD, HTN Gastrointestinal: Yes: Diverticulosis, GERD, GI Bleed Renal/: Yes: Cancer (prostate) Psych: Yes: Addictions - Past Surgical History Past Surgical History: Yes: Colonoscopy (11/2018), Stent - Alcohol/Substance Use Hx Alcohol Use: No - Smoking History Smoking history: Never smoked Have you smoked in the past 12 months: No - Social History Usual Living Arrangement: With Spouse ADL: Independent Home Medications - Allergies Allergies/Adverse Reactions: Allergies Allergy/AdvReac Type Severity Reaction Status Date / Time No Known Allergies Allergy Verified 12/15/18 13:30 - Home Medications Home Medications: Ambulatory Orders Amiodarone HCl [Cordarone -] 200 mg PO DAILY #30 tablet 12/19/18 Aspirin Coated [Ecotrin -] 81 mg PO DAILY #30 tablet.ec 12/19/18 Atorvastatin Ca [Lipitor] 80 mg PO HS tablet 12/19/18 Levothyroxine [Synthroid -] 50 mcg PO DAILY@0700 #30 tablet 12/19/18 Lisinopril [Prinivil] 40 mg PO DAILY #30 tablet 12/19/18 Metoprolol Succinate [Toprol XL -] 50 mg PO DAILY #30 tab.sr.24h 12/19/18 Multivitamins [Multivit ([facility] Formulary)] 1 tab PO DAILY tab 12/19/18 Pantoprazole Sodium [Protonix -] 40 mg PO DAILY #30 tablet.ec 12/19/18 Warfarin Sodium [Coumadin] 4 mg PO HS #30 tablet MDD 1 12/19/18 Review of Systems - Review of Systems Constitutional: reports: Loss of Appetite, Unintentional Wgt. Loss Eyes: reports: No Symptoms HENT: reports: No Symptoms Neck: reports: No Symptoms Cardiovascular: reports: No Symptoms Respiratory: reports: No Symptoms Gastrointestinal: reports: Melena, Rectal Bleeding Genitourinary: reports: No Symptoms Breasts: reports: No Symptoms Reported Musculoskeletal: reports: No Symptoms Integumentary: reports: No Symptoms Neurological: reports: No Symptoms Endocrine: reports: No Symptoms Hematology/Lymphatic: reports: No Symptoms Psychiatric: reports: No Symptoms Physical Exam-GI Vital Signs: Vital Signs Temperature 98.1 F 01/11/19 06:00 Pulse Rate 52 L 01/11/19 06:00 Respiratory Rate 15 01/11/19 06:00 Blood Pressure 132/56 L 01/11/19 06:00 O2 Sat by Pulse Oximetry (%) 100 01/10/19 21:00 Constitutional: Yes: No Distress, Calm Eyes: Yes: Conjunctiva Clear HENT: Yes: Atraumatic Cardiovascular: Yes: Regular Rate and Rhythm Respiratory: Yes: Regular, CTA Bilaterally Gastrointestinal Inspection: Yes: WNL. No: Ascites, Distention, Hernia, Scars, Other ...Auscultate: Yes: Normoactive Bowel Sounds. No: Hyperactive Bowel Sounds, Hypoactive Bowel Sounds, No Bowel Sounds, Other ...Palpate: Yes: Soft. No: Firm/Rigid, Guarding, Hepatomegaly, Mass, Pulsatile Mass, Splenomegaly, Tenderness, Tenderness, Epigastium, Tenderness, Rebound, Other ...Percussion: Yes: Tympanitic. No: Dullness, Fluid Wave, Other Neurological: Yes: Alert, Oriented Psychiatric: Yes: Alert, Oriented Labs: CBC, BMP 01/11/19 05:30 01/11/19 05:30 INR, PTT INR 1.25 (0.83-1.09) H 01/11/19 05:30 Imaging - Results Cat Scan: Report Reviewed Problem List - Problems (1) Rectal bleed Assessment/Plan: >monitor Hg daily >transfuse for Hg <8.0 >clear liquid diet >IV hydration >Pantoprazole Code(s): K62.5 - HEMORRHAGE OF ANUS AND RECTUM
[2019-01-11] MEDS: AMIODARONE HCL 200 MG TABLET (FP) PO SCH (09:32)
[2019-01-11] MEDS: PANTOPRAZOLE SODIUM 40 MG VIAL IVPUSH SCH ×2 (10:18→22:13)
--- NOTE | 2019-01-11 11:34 | PN ---
Physical Exam: SUBJECTIVE: Patient seen and examined at bedside this morning. No acute events overnight. Patient had 1 episode of BRBPR last night. Hgb was noted to be 8 and he received 1unit pRBC. Patient denies fever, chills, headache, chest pain, SOB , abdominal pain, diarrhea,urinary symptoms. OBJECTIVE: Vital Signs Temperature 97.7 F 01/11/19 10:00 Pulse Rate 57 L 01/11/19 10:00 Respiratory Rate 18 01/11/19 10:00 Blood Pressure 137/56 L 01/11/19 10:00 O2 Sat by Pulse Oximetry (%) 100 01/11/19 09:00 GENERAL: The patient is awake, alert, and fully oriented, in no acute distress. HEAD: Normal with no signs of trauma. EYES: PERRLA, EOMI, sclera anicteric, conjunctiva clear. ENT: oropharynx clear without exudates, moist mucous membranes. NECK: supple. LUNGS: Breath sounds equal, clear to auscultation bilaterally. HEART: Regular rate and rhythm, S1, S2 without murmur, rub or gallop. ABDOMEN: Soft, nontender, nondistended, normoactive bowel sounds. EXTREMITIES: 2+ pulses, warm, well-perfused, no edema. NEUROLOGICAL: Cranial nerves II through XII grossly intact. Normal speech, gait not observed. PSYCH: Normal mood, normal affect. SKIN: Warm, dry, normal turgor, no rashes or lesions noted Laboratory Results - last 24 hr 01/10/19 01/10/19 01/10/19 08:45 15:20 15:20 WBC 5.5 RBC 3.10 L Hgb 8.4 L Hct 26.1 L MCV 84.1 MCH 27.2 MCHC 32.4 RDW 16.8 H Plt Count 142 D MPV 10.9 Absolute Neuts (auto) 3.4 Neutrophils % 61.7 Lymphocytes % 26.9 Monocytes % 7.6 Eosinophils % 3.0 Basophils % 0.8 Nucleated RBC % 0 PT with INR 20.40 H INR 1.72 H PTT (Actin FS) 38.9 H Sodium Potassium Chloride Carbon Dioxide Anion Gap BUN Creatinine Est GFR (CKD-EPI)AfAm Est GFR (CKD-EPI)NonAf Random Glucose Calcium Phosphorus Magnesium Total Bilirubin AST ALT Alkaline Phosphatase Total Protein Albumin Blood Type O POSITIVE Antibody Screen Negative Crossmatch See Detail 01/10/19 01/11/19 01/11/19 21:00 01:20 05:30 WBC 6.1 6.2 5.2 RBC 2.90 L 3.05 L 2.96 L Hgb 8.0 L 8.4 L 8.2 L Hct 24.3 L 25.6 L 24.4 L MCV 84.0 83.8 82.4 MCH 27.5 27.4 27.8 MCHC 32.8 32.7 33.7 RDW 16.1 H 16.8 H 16.0 H Plt Count 139 142 147 MPV 10.7 10.4 10.6 Absolute Neuts (auto) 3.7 3.9 3.3 Neutrophils % 61.5 62.6 64.9 Lymphocytes % 26.1 24.9 23.1 Monocytes % 7.6 7.6 6.7 Eosinophils % 4.1 4.2 4.6 H Basophils % 0.7 0.7 0.7 Nucleated RBC % 0 0 0 PT with INR INR PTT (Actin FS) Sodium Potassium Chloride Carbon Dioxide Anion Gap BUN Creatinine Est GFR (CKD-EPI)AfAm Est GFR (CKD-EPI)NonAf Random Glucose Calcium Phosphorus Magnesium Total Bilirubin AST ALT Alkaline Phosphatase Total Protein Albumin Blood Type Antibody Screen Crossmatch 01/11/19 01/11/19 05:30 05:30 WBC RBC Hgb Hct MCV MCH MCHC RDW Plt Count MPV Absolute Neuts (auto) Neutrophils % Lymphocytes % Monocytes % Eosinophils % Basophils % Nucleated RBC % PT with INR 14.80 H INR 1.25 H PTT (Actin FS) 33.2 Sodium 143 Potassium 3.9 Chloride 108 H Carbon Dioxide 29 Anion Gap 6 L BUN 11 Creatinine 0.8 Est GFR (CKD-EPI)AfAm 98.47 Est GFR (CKD-EPI)NonAf 84.96 Random Glucose 108 H Calcium 8.1 L Phosphorus 4.3 Magnesium 1.9 Total Bilirubin 0.7 AST 11 L ALT 15 Alkaline Phosphatase 91 Total Protein 6.2 L Albumin 3.2 L Blood Type Antibody Screen Crossmatch Active Medications Generic Name Dose Route Start Last Admin Trade Name Freq PRN Reason Stop Dose Admin Amiodarone HCl 200 mg 01/10/19 19:15 01/11/19 09:32 Cordarone - PO 200 mg DAILY RAMYA Administration Atorvastatin Calcium 80 mg 01/10/19 22:00 01/10/19 21:14 Lipitor - PO 80 mg HS RAMYA Administration Levothyroxine Sodium 50 mcg 01/11/19 07:00 01/11/19 06:20 Synthroid - PO 50 mcg DAILY@0700 RAMYA Administration Pantoprazole Sodium 40 mg 01/10/19 22:00 01/11/19 10:18 Protonix Iv IVPUSH 40 mg BID RAMYA Administration ASSESSMENT/PLAN: Patient is a 78 year old female with past medical history of Diverticulosis, Martin's Esophagus, HTN, CAD on ASA, plavix (s/p stents- 2016, 2017, 10/30/2018 , 11/14/18), HLD, paroxysmal Afib on coumadin, prostate ca (2007 s/p radiation), and recurrent gi bleed (last admissions 12/01/18 and 12/16/18), presents with rectal bleeding x1 day and black stool for 3 days. #Neuro -awake, alert, no neurologic problems #Cardiovascular -Hx of recent multivessel stents, paroxysmal Afib on coumadin -Supratherapeutic INR of 4.4, now resolved, INR 1.25 today -Continue Amiodarone 200mg daily -Lipitor 80mg for HLD -Cardiology (Dr. Franco) consulted. Recommendations appreciated. -3rd GI bleeding on AC and antiplatelet therapy -patient not a suitable candidate for AC -would consider Watchman device -when cleared by GI, will restart ASA and Plavix. -follow up with Dr. Gaitan as outpatient. #Pulmo -Saturating well on room air -Oxygen supplementation PRN #GI -GI bleed, likely LGIB, on coumadin -Hx of diverticulosis -Supratherapeutic on admission, INR now down to 1.25 -CTA: no bleeding source identified, no masses, diverticulosis noted -Recent colonscopy and EGD reviewed -GI (Dr. Kennedy) consulted. -clear liquid diet -IV Protonix 40mg BID #Renal -renal function stable -will continue to monitor #Heme-Onc -INR 1.25 s/p 2u FFP and Vit K 5mg -Hgb 8.2 s/p 1u pRBC -Anemia 2/2 acute blood loss -will monitor CBC closely -Transfuse PRN to keep Hgb >8 #Endo -Hx of hypothyroidism on Synthroid 50mcg #FEN -Not on any standing fluids -Electrolytes wnl, Routine bmp monitoring -Clear liquid diet #Prophylaxis -DVT: No chemical ppx, early ambulation -GI: Protonix 40mg IV BID #Disposition -full code -transfer to tele Visit type - Emergency Visit Emergency Visit: Yes ED Registration Date: 01/10/19 Care time: The patient presented to the Emergency Department on the above date and was hospitalized for further evaluation of their emergent condition. - New Patient This patient is new to me today: Yes Date on this admission: 01/11/19 - Critical Care Critical Care patient: Yes Total Critical Care Time (in minutes): 37 Critical Care Statement: The care of this patient involved high complexity decision making to prevent further life threatening deterioration of the patient 's condition and/or to evaluate & treat vital organ system(s) failure or risk of failure.
--- NOTE | 2019-01-11 12:03 | PN ---
Teaching Attending Note Name of Resident: Sujata Briceno ATTENDING PHYSICIAN STATEMENT I saw and evaluated the patient. I reviewed the resident's note and discussed the case with the resident. I agree with the resident's findings and plan as documented. SUBJECTIVE: Patient seen and examined in the ICU. Awake and alert. Denies CP or SOB. Some BRBPR overnight x 1 episode. Slightly down trending H & H. OBJECTIVE: Intake & Output 01/08/19 01/09/19 01/10/19 01/11/19 23:59 23:59 23:59 23:59 Intake Total 1285 100 Output Total 1800 600 Balance -515 -500 Weight 152 lb 12.8 oz 152 lb 9.6 oz Last Vital Signs Temp Pulse Resp BP Pulse Ox 97.7 F 57 L 18 137/56 L 100 01/11/19 10:00 01/11/19 10:00 01/11/19 10:00 01/11/19 10:00 01/11/19 10:00 Active Medications Amiodarone HCl (Cordarone -) 200 mg PO DAILY [facility] Last Admin: 01/11/19 09:32 Dose: 200 mg Atorvastatin Calcium (Lipitor -) 80 mg PO HS [facility] Last Admin: 01/10/19 21:14 Dose: 80 mg Levothyroxine Sodium (Synthroid -) 50 mcg PO DAILY@0700 [facility] Last Admin: 01/11/19 06:20 Dose: 50 mcg Pantoprazole Sodium (Protonix Iv) 40 mg IVPUSH BID [facility] Last Admin: 01/11/19 10:18 Dose: 40 mg Gen: NAD at rest Heart: RRR Lung: decreased breath sounds at the bases Abd: soft, nontender Ext: no edema Laboratory Results - last 24 hr 01/10/19 01/10/19 01/10/19 08:45 15:20 15:20 WBC 5.5 RBC 3.10 L Hgb 8.4 L Hct 26.1 L MCV 84.1 MCH 27.2 MCHC 32.4 RDW 16.8 H Plt Count 142 D MPV 10.9 Absolute Neuts (auto) 3.4 Neutrophils % 61.7 Lymphocytes % 26.9 Monocytes % 7.6 Eosinophils % 3.0 Basophils % 0.8 Nucleated RBC % 0 PT with INR 20.40 H INR 1.72 H PTT (Actin FS) 38.9 H Sodium Potassium Chloride Carbon Dioxide Anion Gap BUN Creatinine Est GFR (CKD-EPI)AfAm Est GFR (CKD-EPI)NonAf Random Glucose Calcium Phosphorus Magnesium Total Bilirubin AST ALT Alkaline Phosphatase Total Protein Albumin Blood Type O POSITIVE Antibody Screen Negative Crossmatch See Detail 01/10/19 01/11/19 01/11/19 21:00 01:20 05:30 WBC 6.1 6.2 5.2 RBC 2.90 L 3.05 L 2.96 L Hgb 8.0 L 8.4 L 8.2 L Hct 24.3 L 25.6 L 24.4 L MCV 84.0 83.8 82.4 MCH 27.5 27.4 27.8 MCHC 32.8 32.7 33.7 RDW 16.1 H 16.8 H 16.0 H Plt Count 139 142 147 MPV 10.7 10.4 10.6 Absolute Neuts (auto) 3.7 3.9 3.3 Neutrophils % 61.5 62.6 64.9 Lymphocytes % 26.1 24.9 23.1 Monocytes % 7.6 7.6 6.7 Eosinophils % 4.1 4.2 4.6 H Basophils % 0.7 0.7 0.7 Nucleated RBC % 0 0 0 PT with INR INR PTT (Actin FS) Sodium Potassium Chloride Carbon Dioxide Anion Gap BUN Creatinine Est GFR (CKD-EPI)AfAm Est GFR (CKD-EPI)NonAf Random Glucose Calcium Phosphorus Magnesium Total Bilirubin AST ALT Alkaline Phosphatase Total Protein Albumin Blood Type Antibody Screen Crossmatch 01/11/19 01/11/19 05:30 05:30 WBC RBC Hgb Hct MCV MCH MCHC RDW Plt Count MPV Absolute Neuts (auto) Neutrophils % Lymphocytes % Monocytes % Eosinophils % Basophils % Nucleated RBC % PT with INR 14.80 H INR 1.25 H PTT (Actin FS) 33.2 Sodium 143 Potassium 3.9 Chloride 108 H Carbon Dioxide 29 Anion Gap 6 L BUN 11 Creatinine 0.8 Est GFR (CKD-EPI)AfAm 98.47 Est GFR (CKD-EPI)NonAf 84.96 Random Glucose 108 H Calcium 8.1 L Phosphorus 4.3 Magnesium 1.9 Total Bilirubin 0.7 AST 11 L ALT 15 Alkaline Phosphatase 91 Total Protein 6.2 L Albumin 3.2 L Blood Type Antibody Screen Crossmatch ASSESSMENT AND PLAN: GI bleed likely lower Acute Blood Loss Anemia Diverticulosis Atrial Fibrillation Supratherapeutic INR CAD HTN Hyperlipidemia - Normal transfusion thresholds: Hgb 8 - monitor CBC, coags - GI evaluation noted - Protonix - Maintain large bore peripheral access - Holding anticoagulation: Cardiology consult noted: should be evaluated for a Watchman device - Rate control - PO per GI - Mechanical VTE prophylaxis - Cardiac Telemetry monitoring Dr Malhotra
[2019-01-11 14:10] LABS: HEMATOCRIT 22.9 % (35.4-49); HEMOGLOBIN 7.6 GM/dL (11.7-16.9); MCH 27.6 pg (25.7-33.7); MEAN CELL VOLUME 83.5 fl (80-96); MEAN PLT VOLUME 10.5 fl (7.5-11.1); PLATELET COUNT 146 K/MM3 (134-434); RBC 2.74 M/mm3 (4.00-5.60); RDW 16.7 % (11.9-15.9); WHITE BLOOD COUNT 5.1 K/mm3 (4.0-10.0)
--- NOTE | 2019-01-11 14:33 | HP ---
Admitting History and Physical - Primary Care Physician PCP: Dorinda Guzman - Admission Chief Complaint: came in for BRBPR History of Present Illness: Patient is a 78 Y M, with a past medical history of Diverticulosis, Martin's Esophagus, HTN, CAD on ASA, plavix (s/p stents- 2016, 2017, 10/30/2018, 11/14/18) , HLD, paroxysmal Afib on coumadin, prostate ca (2007 s/p radiation), and recurrent gi bleed (last admissions 12/01/18 and 12/16/18), presents with rectal bleeding x1 day and black stool for 3 days. He reports 4-5 episodes per day of bright red blood coming from the rectum, and black stool at home and up to 5 episodes of shantel blood per rectum since being in the ED from 8am today. Pt reported dizziness and unsteady gait since last night. No hematuria, no bleeding from gums or any orifice. No hx of trauma, no palpitations, chest pain or loss of consciousness. Pt recently discharged 12/19 for GI bleed and transitioned off eliquis to coumadin due to bleeding risk. He had also got diagnostic EGD by Dr Kennedy 12/18/18 which showed normal esophageal mucosa, erosion of gastric antrum, duodenal antrum with no abnormalities in 3rd part of duodenum with protonix recommended daily. in ER found to have INR 4 range patient got vitamin K and FFP History Source: Patient - Past Medical History Cardiovascular: Yes: AFIB, CAD, HTN Gastrointestinal: Yes: Diverticulosis, GERD, GI Bleed Renal/: Yes: Cancer (prostate) Psych: Yes: Addictions - Past Surgical History Past Surgical History: Yes: Colonoscopy (11/2018), Stent - Smoking History Smoking history: Never smoked Have you smoked in the past 12 months: No - Alcohol/Substance Use Hx Alcohol Use: No - Social History ADL: Independent Home Medications - Allergies Allergies/Adverse Reactions: Allergies Allergy/AdvReac Type Severity Reaction Status Date / Time No Known Allergies Allergy Verified 12/15/18 13:30 - Home Medications Home Medications: Ambulatory Orders Amiodarone HCl [Cordarone -] 200 mg PO DAILY #30 tablet 12/19/18 Aspirin Coated [Ecotrin -] 81 mg PO DAILY #30 tablet.ec 12/19/18 Atorvastatin Ca [Lipitor] 80 mg PO HS tablet 12/19/18 Levothyroxine [Synthroid -] 50 mcg PO DAILY@0700 #30 tablet 12/19/18 Lisinopril [Prinivil] 40 mg PO DAILY #30 tablet 12/19/18 Metoprolol Succinate [Toprol XL -] 50 mg PO DAILY #30 tab.sr.24h 12/19/18 Multivitamins [Multivit ([facility] Formulary)] 1 tab PO DAILY tab 12/19/18 Pantoprazole Sodium [Protonix -] 40 mg PO DAILY #30 tablet.ec 12/19/18 Warfarin Sodium [Coumadin] 4 mg PO HS #30 tablet MDD 1 12/19/18 Review of Systems - Review of Systems Respiratory: reports: No Symptoms Gastrointestinal: reports: Rectal Bleeding Physical Examination Vital Signs: Vital Signs Temperature 97.7 F 01/11/19 10:00 Pulse Rate 57 L 01/11/19 10:00 Respiratory Rate 18 01/11/19 10:00 Blood Pressure 137/56 L 01/11/19 10:00 O2 Sat by Pulse Oximetry (%) 100 01/11/19 10:00 Constitutional: Yes: Calm Cardiovascular: Yes: Regular Rate and Rhythm, S1, S2 Respiratory: Yes: CTA Bilaterally Gastrointestinal: Yes: Normal Bowel Sounds, Soft Edema: No Labs: CBC, BMP 01/11/19 13:54 01/11/19 05:30 Problem List - Problems (1) Rectal bleed Assessment/Plan: pateint had episode of BRBPR today early in morning h/h is now 7.6 INR 1.25 after ffp and vitamin K Code(s): K62.5 - HEMORRHAGE OF ANUS AND RECTUM (2) Anemia Assessment/Plan: hold aspirin and plavix s/p prbc yesterday will give prbc today as well gi on board Code(s): D64.9 - ANEMIA, UNSPECIFIED Qualifiers: Anemia type: B12 deficiency (3) Atrial fibrillation Assessment/Plan: 3rd episode of bleeding since on AC cardiology on [place] possible watchman device amiodarone Code(s): I48.91 - UNSPECIFIED ATRIAL FIBRILLATION (4) CAD (coronary artery disease) Assessment/Plan: hold aspirin and plavix Code(s): I25.10 - ATHSCL HEART DISEASE OF [place] CORONARY ARTERY W/O ANG PCTRS (5) Hypothyroid Assessment/Plan: tsh ordered synthroid Code(s): E03.9 - HYPOTHYROIDISM, UNSPECIFIED
--- NOTE | 2019-01-11 18:46 | PN.GI ---
GI Progress Note Subjective: rectal bleeding x 1 episode this morning - Objective Vital Signs: Vital Signs Temperature 98.2 F 01/11/19 14:00 Pulse Rate 60 01/11/19 14:00 Respiratory Rate 20 01/11/19 14:00 Blood Pressure 129/49 L 01/11/19 14:00 O2 Sat by Pulse Oximetry (%) 100 01/11/19 10:00 Constitutional: Well Nourished Eyes: Yes: Conjunctiva Clear HENT: Yes: Atraumatic Neck: Yes: Supple Cardiovascular: Yes: Regular Rate and Rhythm Respiratory: Yes: CTA Bilaterally ...Palpate: Yes: Soft. No: Firm/Rigid, Guarding, Hepatomegaly, Mass, Pulsatile Mass, Splenomegaly, Tenderness Labs: CBC, BMP 01/11/19 13:54 01/11/19 05:30 INR, PTT INR 1.25 (0.83-1.09) H 01/11/19 05:30 Problem List - Problems (1) Rectal bleed Assessment/Plan: R> will need to continue hyperbaric oxygen treatment stat CTA for bleeding Code(s): K62.5 - HEMORRHAGE OF ANUS AND RECTUM
[2019-01-11] MEDS: ATORVASTATIN CA 80 MG TABLET (FP) PO SCH (22:13)
[2019-01-12] MEDS: LEVOTHYROXINE NA 50 MCG TABLET (FP) PO SCH (06:14)
[2019-01-12 06:23] LABS: BASO % 0.8 % (0-2.0); EOS % 4.4 % (0-4.5); HEMATOCRIT 27.4 % (35.4-49); HEMOGLOBIN 9.3 GM/dL (11.7-16.9); LYMPH % 21.6 % (8-40); MCH 28.6 pg (25.7-33.7); MCHC 33.9 g/dl (32.0-35.9); MEAN CELL VOLUME 84.2 fl (80-96); MEAN PLT VOLUME 10.6 fl (7.5-11.1); MONO % 6.8 % (3.8-10.2); NEUT % 66.4 % (42.8-82.8); PLATELET COUNT 162 K/MM3 (134-434); RBC 3.26 M/mm3 (4.00-5.60); RDW 16.1 % (11.9-15.9); WHITE BLOOD COUNT 6.4 K/mm3 (4.0-10.0)
[2019-01-12 06:32] LABS: INR 1.13 (0.83-1.09); PROTHROMBIN TIME (PATIENT) 13.4 SEC (9.7-13.0)
[2019-01-12 06:35] LABS: ACTIVATED PTT 32.7 SECONDS (25.2-36.5)
[2019-01-12 07:06] LABS: CALCIUM 8.1 mg/dL (8.5-10.1); CREATININE 0.7 mg/dL (0.55-1.3); MAGNESIUM 2.2 mg/dL (1.8-2.4); PHOSPHOROUS 4.5 mg/dL (2.5-4.9); POTASSIUM 3.9 mmol/L (3.5-5.1)
--- NOTE | 2019-01-12 07:30 | PN.GI ---
GI Progress Note Subjective: Patient had one episode of rectal bleeding with clots noted this morning. Pending Abdominaal CTA. Denies nausea, vomiting, diarrhea, constipation, or abdominal pain. - Objective Vital Signs: Vital Signs Temperature 98.5 F 01/12/19 06:28 Pulse Rate 55 L 01/12/19 06:28 Respiratory Rate 01/12/19 06:28 Blood Pressure 111/58 L 01/12/19 06:28 O2 Sat by Pulse Oximetry (%) 100 01/11/19 20:06 Constitutional: No Distress, Calm Eyes: Yes: Conjunctiva Clear HENT: Yes: Atraumatic Cardiovascular: Yes: Bradycardia Respiratory: Yes: Regular, CTA Bilaterally Gastrointestinal Inspection: Yes: WNL. No: Ascites, Distention, Hernia, Scars, Other ...Auscultate: Yes: Normoactive Bowel Sounds. No: Hyperactive Bowel Sounds, Hypoactive Bowel Sounds, No Bowel Sounds, Other ...Palpate: Yes: Soft. No: Firm/Rigid, Guarding, Hepatomegaly, Mass, Pulsatile Mass, Splenomegaly, Tenderness, Tenderness, Epigastium, Tenderness, Rebound, Other ...Percussion: Yes: Tympanitic. No: Dullness, Fluid Wave, Other Neurological: Yes: Alert, Oriented Psychiatric: Yes: Alert, Oriented Labs: CBC, BMP 01/12/19 05:30 01/12/19 05:30 INR, PTT INR 1.13 (0.83-1.09) H 01/12/19 05:30 Active Medications Generic Name Dose Route Start Last Admin Trade Name Freq PRN Reason Stop Dose Admin Amiodarone HCl 200 mg 01/10/19 19:15 01/11/19 09:32 Cordarone - PO 200 mg DAILY RAMAY Administration Atorvastatin Calcium 80 mg 01/10/19 22:00 01/11/19 22:13 Lipitor - PO 80 mg HS RAMYA Administration Levothyroxine Sodium 50 mcg 01/11/19 07:00 01/12/19 06:14 Synthroid - PO 50 mcg DAILY@0700 RAMYA Administration Pantoprazole Sodium 40 mg 01/10/19 22:00 01/11/19 22:13 Protonix Iv IVPUSH 40 mg BID RAMYA Administration Problem List - Problems (1) Rectal bleed Assessment/Plan: R> will need to continue hyperbaric oxygen treatment pantoprazole monitor Hg and transfuse for Hg <8.0 Abd CTA for bleeding ordered NPO status Citroma x 1 dose colonoscopy later in day Code(s): K62.5 - HEMORRHAGE OF ANUS AND RECTUM
[2019-01-12] MEDS ORDERED: MAGNESIUM CITRATE 300 ML BOTTLE PO ONE ×2 (08:49→09:30)
[2019-01-12] MEDS: AMIODARONE HCL 200 MG TABLET (FP) PO SCH ×2 (10:28→12:05)
[2019-01-12] MEDS: PANTOPRAZOLE SODIUM 40 MG VIAL IVPUSH SCH ×3 (10:28→21:43)
--- NOTE | 2019-01-12 11:51 | PN ---
Progress Note, Physician Chief Complaint: patient awake alert today had BRBPR today h/h improved yesterday after PRBC awaiting coloscopy today - Current Medication List Current Medications: Active Medications Amiodarone HCl (Cordarone -) 200 mg PO DAILY [facility] Last Admin: 01/12/19 10:28 Dose: Not Given Atorvastatin Calcium (Lipitor -) 80 mg PO HS [facility] Last Admin: 01/11/19 22:13 Dose: 80 mg Levothyroxine Sodium (Synthroid -) 50 mcg PO DAILY@0700 [facility] Last Admin: 01/12/19 06:14 Dose: 50 mcg Pantoprazole Sodium (Protonix Iv) 40 mg IVPUSH BID [facility] Last Admin: 01/12/19 10:28 Dose: Not Given - Objective Vital Signs: Vital Signs Temperature 98.5 F 01/12/19 06:28 Pulse Rate 55 L 01/12/19 06:28 Respiratory Rate 19 01/12/19 06:28 Blood Pressure 111/58 L 01/12/19 06:28 O2 Sat by Pulse Oximetry (%) 100 01/12/19 09:00 Constitutional: Yes: Calm, Thin Cardiovascular: Yes: Regular Rate and Rhythm, S1, S2 Respiratory: Yes: CTA Bilaterally Gastrointestinal: Yes: Normal Bowel Sounds, Soft Edema: No Neurological: Yes: Alert, Oriented Labs: CBC, BMP 01/12/19 05:30 01/12/19 05:30 INR, PTT INR 1.13 (0.83-1.09) H 01/12/19 05:30 Problem List - Problems (1) Rectal bleed Assessment/Plan: pateint had episode of BRBPR today early in morning h/h is now 9 range INR 1.13 today colosncopy today clear liquid diet yesterday NPO right now Code(s): K62.5 - HEMORRHAGE OF ANUS AND RECTUM (2) Anemia Assessment/Plan: hold aspirin and plavix s/p prbc yesterday will give prbc today as well gi on board for colonoscopy today Code(s): D64.9 - ANEMIA, UNSPECIFIED Qualifiers: Anemia type: B12 deficiency (3) Atrial fibrillation Assessment/Plan: 3rd episode of bleeding since on AC cardiology on [place] possible watchman device amiodarone Code(s): I48.91 - UNSPECIFIED ATRIAL FIBRILLATION (4) CAD (coronary artery disease) Assessment/Plan: hold aspirin and plavix Code(s): I25.10 - ATHSCL HEART DISEASE OF [place] CORONARY ARTERY W/O ANG PCTRS (5) Hypothyroid Assessment/Plan: tsh ordered noted to be elevated recheck tsh and free t4 synthroid Code(s): E03.9 - HYPOTHYROIDISM, UNSPECIFIED Assessment/Plan [id number] h/h repeat tsh ordered
--- NOTE | 2019-01-12 11:59 | PN ---
Teaching Attending Note Name of Resident: Sujata Briceno ATTENDING PHYSICIAN STATEMENT I saw and evaluated the patient. I reviewed the resident's note and discussed the case with the resident. I agree with the resident's findings and plan as documented. SUBJECTIVE: Patient seen and examined in the ICU. Awake and alert. Denies CP or SOB. Episode of BRBPR overnight requiring pRBCs transfusion. For endoscopic evaluation today. OBJECTIVE: Intake & Output 01/09/19 01/10/19 01/11/19 01/12/19 23:59 23:59 23:59 23:59 Intake Total 1285 1200 250 Output Total 1800 1380 300 Balance -515 -180 -50 Weight 152 lb 12.8 oz 152 lb 9.6 oz 150 lb 1.6 oz Last Vital Signs Temp Pulse Resp BP Pulse Ox 98.5 F 55 L 19 111/58 L 100 01/12/19 06:28 01/12/19 06:28 01/12/19 06:28 01/12/19 06:28 01/12/19 09:00 Active Medications Amiodarone HCl (Cordarone -) 200 mg PO DAILY [facility] Last Admin: 01/12/19 10:28 Dose: Not Given Atorvastatin Calcium (Lipitor -) 80 mg PO HS [facility] Last Admin: 01/11/19 22:13 Dose: 80 mg Levothyroxine Sodium (Synthroid -) 50 mcg PO DAILY@0700 [facility] Last Admin: 01/12/19 06:14 Dose: 50 mcg Pantoprazole Sodium (Protonix Iv) 40 mg IVPUSH BID [facility] Last Admin: 01/12/19 10:28 Dose: Not Given Gen: NAD at rest Heart: RRR Lung: decreased breath sounds at the bases Abd: soft, nontender Ext: no edema Laboratory Results - last 24 hr 01/10/19 01/11/19 01/12/19 08:45 13:54 05:30 WBC 5.1 6.4 RBC 2.74 L 3.26 L Hgb 7.6 L 9.3 L Hct 22.9 L 27.4 L D MCV 83.5 84.2 MCH 27.6 28.6 MCHC 33.0 33.9 RDW 16.7 H 16.1 H Plt Count 146 162 MPV 10.5 10.6 Absolute Neuts (auto) 4.2 Neutrophils % 66.4 Lymphocytes % 21.6 Monocytes % 6.8 Eosinophils % 4.4 Basophils % 0.8 Nucleated RBC % 0 PT with INR INR PTT (Actin FS) Sodium Potassium Chloride Carbon Dioxide Anion Gap BUN Creatinine Est GFR (CKD-EPI)AfAm Est GFR (CKD-EPI)NonAf Random Glucose Calcium Phosphorus Magnesium TSH Blood Type O POSITIVE Antibody Screen Negative Crossmatch See Detail 01/12/19 01/12/19 05:30 05:30 WBC RBC Hgb Hct MCV MCH MCHC RDW Plt Count MPV Absolute Neuts (auto) Neutrophils % Lymphocytes % Monocytes % Eosinophils % Basophils % Nucleated RBC % PT with INR 13.40 H INR 1.13 H PTT (Actin FS) 32.7 Sodium 143 Potassium 3.9 Chloride 110 H Carbon Dioxide 27 Anion Gap 7 L BUN 13 Creatinine 0.7 Est GFR (CKD-EPI)AfAm 104.03 Est GFR (CKD-EPI)NonAf 89.76 Random Glucose 94 Calcium 8.1 L Phosphorus 4.5 Magnesium 2.2 TSH 49.10 H D Blood Type Antibody Screen Crossmatch ASSESSMENT AND PLAN: GI bleed likely lower Acute Blood Loss Anemia Diverticulosis Atrial Fibrillation Supratherapeutic INR CAD HTN Hyperlipidemia - Normal transfusion thresholds: Hgb 8 - monitor CBC, coags - Protonix - Maintain large bore peripheral access - Holding anticoagulation: Cardiology consult noted: should be evaluated for a Watchman device - Rate control - PO per GI - Mechanical VTE prophylaxis - Cardiac Telemetry monitoring Dr Malhotra
[2019-01-12] MEDS ORDERED: MINERAL OIL ENEMA 133 ML ENEMA PR ONE (14:15)
[2019-01-12] MEDS ORDERED: EPINEPHrine 1:10,000 (P-F SYR) 1 MG/10 ML DISP.SYRIN IVPUSH ONE (15:10)
[2019-01-12] MEDS ORDERED: ACETAMINOPHEN 1000 MG/100 ML VIAL (NON FORMULARY) IVPB ONE (16:26)
--- NOTE | 2019-01-12 16:26 | PN ---
Physical Exam: SUBJECTIVE: Patient seen and examined at bedside this morning. Patient received 1 unit of prbc last night after hgb noted to be 7.6. This morning, patient had 2 episodes of BRBPR. Hgb this morning is 9.3. Patient denies fever, chills, headache, dizziness, chest pain, SOB, abdominal pain, diarrhea, urinary symptoms. OBJECTIVE: Vital Signs Temperature 98.8 F 01/12/19 14:00 Pulse Rate 69 01/12/19 14:00 Respiratory Rate 20 01/12/19 14:00 Blood Pressure 123/63 01/12/19 14:00 O2 Sat by Pulse Oximetry (%) 100 01/12/19 09:00 GENERAL: The patient is awake, alert, and fully oriented, in no acute distress. HEAD: Normal with no signs of trauma. EYES: PERRLA, EOMI, sclera anicteric, conjunctiva clear. ENT: oropharynx clear without exudates, moist mucous membranes. NECK: supple. LUNGS: Breath sounds equal, clear to auscultation bilaterally. HEART: Regular rate and rhythm, S1, S2 without murmur, rub or gallop. ABDOMEN: Soft, nontender, nondistended, normoactive bowel sounds. EXTREMITIES: 2+ pulses, warm, well-perfused, no edema. NEUROLOGICAL: Cranial nerves II through XII grossly intact. Normal speech, gait not observed. PSYCH: Normal mood, normal affect. SKIN: Warm, dry, normal turgor, no rashes or lesions noted Laboratory Results - last 24 hr 01/12/19 01/12/19 01/12/19 05:30 05:30 05:30 WBC 6.4 RBC 3.26 L Hgb 9.3 L Hct 27.4 L D MCV 84.2 MCH 28.6 MCHC 33.9 RDW 16.1 H Plt Count 162 MPV 10.6 Absolute Neuts (auto) 4.2 Neutrophils % 66.4 Lymphocytes % 21.6 Monocytes % 6.8 Eosinophils % 4.4 Basophils % 0.8 Nucleated RBC % 0 PT with INR 13.40 H INR 1.13 H PTT (Actin FS) 32.7 Sodium 143 Potassium 3.9 Chloride 110 H Carbon Dioxide 27 Anion Gap 7 L BUN 13 Creatinine 0.7 Est GFR (CKD-EPI)AfAm 104.03 Est GFR (CKD-EPI)NonAf 89.76 Random Glucose 94 Calcium 8.1 L Phosphorus 4.5 Magnesium 2.2 TSH 49.10 H D Active Medications Generic Name Dose Route Start Last Admin Trade Name Diamond PRN Reason Stop Dose Admin Amiodarone HCl 200 mg 01/10/19 19:15 01/12/19 12:05 Cordarone - PO 200 mg DAILY RAMYA Administration Atorvastatin Calcium 80 mg 01/10/19 22:00 01/11/19 22:13 Lipitor - PO 80 mg HS RAMYA Administration Levothyroxine Sodium 50 mcg 01/11/19 07:00 01/12/19 06:14 Synthroid - PO 50 mcg DAILY@0700 RAMYA Administration Pantoprazole Sodium 40 mg 01/10/19 22:00 01/12/19 12:05 Protonix Iv IVPUSH 40 mg BID RAMYA Administration ASSESSMENT/PLAN: Patient is a 78 year old female with past medical history of Diverticulosis, Martin's Esophagus, HTN, CAD on ASA, plavix (s/p stents- 2016, 2017, 10/30/2018 , 11/14/18), HLD, paroxysmal Afib on coumadin, prostate ca (2007 s/p radiation), and recurrent gi bleed (last admissions 12/01/18 and 12/16/18), presents with rectal bleeding x1 day and black stool for 3 days. #Neuro -awake, alert, no neurologic problems #Cardiovascular -Hx of recent multivessel stents, paroxysmal Afib on coumadin -Supratherapeutic INR of 4.4 on admission, now resolved -INR 1.13 -Continue Amiodarone 200mg daily -Lipitor 80mg for HLD -Cardiology (Dr. Franco) consulted. Recommendations appreciated. -3rd GI bleeding on AC and antiplatelet therapy -patient not a suitable candidate for AC -would consider Watchman device -when cleared by GI, will restart ASA and Plavix. -follow up with Dr. Gaitan as outpatient. #Pulmo -Saturating well on room air -Oxygen supplementation PRN #GI -GI bleed 2/2 LGIB, on coumadin -Hx of diverticulosis -GI (Dr. Kennedy) consulted. Recommendations appreciated. -CTA: Interval appearance of radiopaque material seen within the length of the colonic lumen including the rectum apparently representing acute blood. Trace amount of radiopaque material/blood within the terminal ileum. -Colonoscopy done today: Dieulafoy's lesion proximal descending colon, s/p application of three clips -Continue NPO -IV Protonix 40mg BID -IV fluids while NPO #Renal -renal function stable -will continue to monitor #Heme-Onc -Supratherapeutic INR s/p 2u FFP and Vit K 5mg, resolved -Anemia 2/2 acute blood loss -Hgb 9.3 today -will monitor CBC -Transfuse PRN to keep Hgb >8 #Endo -Hx of hypothyroidism on Synthroid 50mcg #FEN -IV NS @75cc/hr -Electrolytes wnl, Routine bmp monitoring -NPO #Prophylaxis -DVT: No chemical ppx, early ambulation -GI: Protonix 40mg IV BID #Disposition -full code -ICU monitoring Visit type - Emergency Visit Emergency Visit: Yes ED Registration Date: 01/10/19 Care time: The patient presented to the Emergency Department on the above date and was hospitalized for further evaluation of their emergent condition. - New Patient This patient is new to me today: No - Critical Care Critical Care patient: Yes Total Critical Care Time (in minutes): 36 Critical Care Statement: The care of this patient involved high complexity decision making to prevent further life threatening deterioration of the patient 's condition and/or to evaluate & treat vital organ system(s) failure or risk of failure.
--- NOTE | 2019-01-12 16:48 | PN ---
Progress Note (short form) - Note Progress Note: s/p colonoscopy with control of bleeding-- DX--Dieulafoy's lesion proximal descending colon, s/p application of three clips , injected epinephrine andused heater probe Problem List - Problems (1) Rectal bleed Code(s): K62.5 - HEMORRHAGE OF ANUS AND RECTUM
[2019-01-12] MEDS ORDERED: HYDROmorphone HCl 2 MG/ML VIAL IVPUSH ONE (17:01)
[2019-01-12] MEDS: SODIUM CHLORIDE 1,000 ML IV SCH (17:45)
[2019-01-12] MEDS: MUPIROCIN 2% TOPICAL OINTMENT FOR DECOLONIZATION NS SCH (21:43)
[2019-01-12] MEDS: ATORVASTATIN CA 80 MG TABLET (FP) PO SCH (21:44)
[2019-01-12] MEDS: CHLORHEXIDINE GLUCONATE 4% CLEANSER FOR DECOLONIZATION TP SCH (21:44)
[2019-01-13 06:31] LABS: BASO % 0.5 % (0-2.0); EOS % 3.8 % (0-4.5); HEMATOCRIT 25.5 % (35.4-49); HEMOGLOBIN 8.7 GM/dL (11.7-16.9); LYMPH % 17.4 % (8-40); MCH 28.9 pg (25.7-33.7); MEAN CELL VOLUME 84.9 fl (80-96); MEAN PLT VOLUME 10.4 fl (7.5-11.1); MONO % 6.1 % (3.8-10.2); NEUT % 72.2 % (42.8-82.8); PLATELET COUNT 169 K/MM3 (134-434); RBC 3.01 M/mm3 (4.00-5.60); RDW 15.9 % (11.9-15.9); WHITE BLOOD COUNT 6.6 K/mm3 (4.0-10.0)
[2019-01-13 06:44] LABS: INR 1.13 (0.83-1.09); PROTHROMBIN TIME (PATIENT) 13.3 SEC (9.7-13.0)
[2019-01-13 07:07] LABS: ALBUMIN 3.1 g/dl (3.4-5.0); BILIRUBIN,TOTAL 0.4 mg/dL (0.2-1); CALCIUM 7.8 mg/dL (8.5-10.1); CREATININE 0.7 mg/dL (0.55-1.3); MAGNESIUM 2.5 mg/dL (1.8-2.4); PHOSPHOROUS 3.6 mg/dL (2.5-4.9); POTASSIUM 3.9 mmol/L (3.5-5.1); TOT PROT 5.9 g/dl (6.4-8.2)
--- NOTE | 2019-01-13 08:49 | PN ---
Progress Note, Physician Chief Complaint: Rectal Bleeding Anemia Afib History of Present Illness: Previous notes and events reviewed awake and alert NAD s/p colonoscopy on 01/12/19 no reports of rectal bleeding during the night - Current Medication List Current Medications: Active Medications Amiodarone HCl (Cordarone -) 200 mg PO DAILY [facility] Last Admin: 01/12/19 12:05 Dose: 200 mg Atorvastatin Calcium (Lipitor -) 80 mg PO HS [facility] Last Admin: 01/12/19 21:44 Dose: Not Given Chlorhexidine Gluconate (Hibiclens For Decolonization -) 1 applic TP HS [facility] Last Admin: 01/12/19 21:44 Dose: 1 applic Sodium Chloride (Normal Saline -) 1,000 mls @ 75 mls/hr IV ASDIR [facility] Last Admin: 01/12/19 17:45 Dose: 75 mls/hr Levothyroxine Sodium (Synthroid -) 50 mcg PO DAILY@0700 [facility] Last Admin: 01/12/19 06:14 Dose: 50 mcg Mupirocin (Bactroban Ointment (For Decolonization) -) 1 applic NS BID [facility] Stop: 01/17/19 21:59 Last Admin: 01/12/19 21:43 Dose: 1 applic Pantoprazole Sodium (Protonix Iv) 40 mg IVPUSH BID [facility] Last Admin: 01/12/19 21:43 Dose: 40 mg - Objective Vital Signs: Vital Signs Temperature 98.4 F 01/13/19 06:00 Pulse Rate 52 L 01/13/19 06:00 Respiratory Rate 17 01/13/19 06:00 Blood Pressure 139/58 L 01/13/19 06:00 O2 Sat by Pulse Oximetry (%) 100 01/12/19 21:00 Constitutional: Yes: No Distress, Calm Eyes: Yes: Conjunctiva Clear HENT: Yes: Atraumatic Cardiovascular: Yes: Regular Rate and Rhythm Respiratory: Yes: Regular, CTA Bilaterally Gastrointestinal: Yes: Normal Bowel Sounds, Soft Musculoskeletal: Yes: WNL Extremities: Yes: WNL Edema: No Neurological: Yes: Alert, Oriented Psychiatric: Yes: Alert, Oriented Labs: CBC, BMP 01/13/19 05:30 01/13/19 05:30 INR, PTT INR 1.13 (0.83-1.09) H 01/13/19 05:30 Problem List - Problems (1) Rectal bleed Assessment/Plan: -s/p colonoscopy with endoclip x 3 -GI on board -pantoprazole -clear liquids--advance to regular diet if tolerates -Hg 8.7 -monitor Hg transfuse for Hg <8.0 -ASA and Plavix on hold--cardiology on board Code(s): K62.5 - HEMORRHAGE OF ANUS AND RECTUM (2) Anemia Assessment/Plan: -Hg 8.7 -monitor Hg and transfuse for Hg <8.0 -GI on board -ASA and Plavix on hold--cardiology on board Code(s): D64.9 - ANEMIA, UNSPECIFIED Qualifiers: Anemia type: B12 deficiency (3) Atrial fibrillation Assessment/Plan: -tele monitoring -cardiology on board -INR 1.13 -Coumadin on hold due to RB -Amiodarone -since continue to have episode of RB since on AC possible Watchman Device? Code(s): I48.91 - UNSPECIFIED ATRIAL FIBRILLATION (4) CAD (coronary artery disease) Assessment/Plan: -ASA and Plavix on hold due to RB Code(s): I25.10 - ATHSCL HEART DISEASE OF [place] CORONARY ARTERY W/O ANG PCTRS (5) HTN (hypertension) Code(s): I10 - ESSENTIAL (PRIMARY) HYPERTENSION (6) Hypothyroid Assessment/Plan: -TSH 67.8, T4 0.84 -Endo consult -Synthroid Code(s): E03.9 - HYPOTHYROIDISM, UNSPECIFIED Assessment/Plan see problem list SCDs
[2019-01-13] MEDS: LEVOTHYROXINE NA 50 MCG TABLET (FP) PO SCH (08:54)
--- NOTE | 2019-01-13 09:50 | PN ---
Teaching Attending Note Name of Resident: Liu Naylor ATTENDING PHYSICIAN STATEMENT I saw and evaluated the patient. I reviewed the resident's note and discussed the case with the resident. I agree with the resident's findings and plan as documented. SUBJECTIVE: Patient seen and examined in the ICU. Awake and alert. Denies CP or SOB. S/P Colonoscopy yesterday. Dieulafoy's lesion proximal descending colon, S/P application of three clips, injected epinephrine and heater probe. No occult bleeding overnight. No CP or SOB. OBJECTIVE: Intake & Output 01/10/19 01/11/19 01/12/19 01/13/19 23:59 23:59 23:59 23:59 Intake Total 1285 1200 250 900 Output Total 1800 1380 300 Balance -515 -180 -50 900 Weight 152 lb 12.8 oz 152 lb 9.6 oz 150 lb 150 lb Last Vital Signs Temp Pulse Resp BP Pulse Ox 98.2 F 54 L 20 106/47 L 100 01/13/19 08:00 01/13/19 08:00 01/13/19 08:00 01/13/19 08:00 01/13/19 09:00 Active Medications Amiodarone HCl (Cordarone -) 200 mg PO DAILY [facility] Last Admin: 01/12/19 12:05 Dose: 200 mg Atorvastatin Calcium (Lipitor -) 80 mg PO HS [facility] Last Admin: 01/12/19 21:44 Dose: Not Given Chlorhexidine Gluconate (Hibiclens For Decolonization -) 1 applic TP HS [facility] Last Admin: 01/12/19 21:44 Dose: 1 applic Sodium Chloride (Normal Saline -) 1,000 mls @ 75 mls/hr IV ASDIR [facility] Last Admin: 01/12/19 17:45 Dose: 75 mls/hr Levothyroxine Sodium (Synthroid -) 50 mcg PO DAILY@0700 [facility] Last Admin: 01/13/19 08:54 Dose: 50 mcg Mupirocin (Bactroban Ointment (For Decolonization) -) 1 applic NS BID [facility] Stop: 01/17/19 21:59 Last Admin: 01/12/19 21:43 Dose: 1 applic Pantoprazole Sodium (Protonix Iv) 40 mg IVPUSH BID [facility] Last Admin: 01/12/19 21:43 Dose: 40 mg Gen: NAD at rest Heart: RRR Lung: decreased breath sounds at the bases Abd: soft, nontender Ext: no edema Laboratory Results - last 24 hr 01/13/19 01/13/19 01/13/19 05:30 05:30 05:30 WBC 6.6 RBC 3.01 L Hgb 8.7 L Hct 25.5 L MCV 84.9 MCH 28.9 MCHC 34.0 RDW 15.9 Plt Count 169 MPV 10.4 Absolute Neuts (auto) 4.8 Neutrophils % 72.2 Lymphocytes % 17.4 Monocytes % 6.1 Eosinophils % 3.8 Basophils % 0.5 Nucleated RBC % 0 PT with INR 13.30 H INR 1.13 H Sodium 144 Potassium 3.9 Chloride 114 H Carbon Dioxide 23 Anion Gap 7 L BUN 8 Creatinine 0.7 Est GFR (CKD-EPI)AfAm 104.03 Est GFR (CKD-EPI)NonAf 89.76 Random Glucose 86 Calcium 7.8 L Phosphorus 3.6 Magnesium 2.5 H Total Bilirubin 0.4 AST 14 L ALT 14 Alkaline Phosphatase 93 Total Protein 5.9 L Albumin 3.1 L TSH 67.80 H D Free T4 0.84 ASSESSMENT AND PLAN: GI bleed likely lower Acute Blood Loss Anemia Diverticulosis Atrial Fibrillation Supratherapeutic INR CAD HTN Hyperlipidemia - Normal transfusion thresholds: Hgb 8 - monitor CBC, coags - Protonix - Maintain large bore peripheral access - Holding anticoagulation: Cardiology consult noted: should be evaluated for a Watchman device - Rate control - PO per GI - Mechanical VTE prophylaxis - Cardiac Telemetry monitoring Dr Malhotra
--- NOTE | 2019-01-13 10:21 | PN ---
Progress Note, Physician History of Present Illness: seen and examined in ICU. No new complaints, no events overnight. No more bloody BMs. - Current Medication List Current Medications: Active Medications Amiodarone HCl (Cordarone -) 200 mg PO DAILY [facility] Last Admin: 01/12/19 12:05 Dose: 200 mg Atorvastatin Calcium (Lipitor -) 80 mg PO HS [facility] Last Admin: 01/12/19 21:44 Dose: Not Given Chlorhexidine Gluconate (Hibiclens For Decolonization -) 1 applic TP HS [facility] Last Admin: 01/12/19 21:44 Dose: 1 applic Sodium Chloride (Normal Saline -) 1,000 mls @ 75 mls/hr IV ASDIR [facility] Last Admin: 01/12/19 17:45 Dose: 75 mls/hr Levothyroxine Sodium (Synthroid -) 50 mcg PO DAILY@0700 [facility] Last Admin: 01/13/19 08:54 Dose: 50 mcg Mupirocin (Bactroban Ointment (For Decolonization) -) 1 applic NS BID [facility] Stop: 01/17/19 21:59 Last Admin: 01/12/19 21:43 Dose: 1 applic Pantoprazole Sodium (Protonix Iv) 40 mg IVPUSH BID [facility] Last Admin: 01/12/19 21:43 Dose: 40 mg - Objective Vital Signs: Vital Signs Temperature 98.2 F 01/13/19 08:00 Pulse Rate 54 L 01/13/19 08:00 Respiratory Rate 20 01/13/19 08:00 Blood Pressure 106/47 L 01/13/19 08:00 O2 Sat by Pulse Oximetry (%) 100 01/13/19 09:00 Constitutional: Yes: Well Nourished, No Distress, Calm Eyes: Yes: Conjunctiva Clear, EOM Intact HENT: Yes: Atraumatic, Normocephalic Neck: Yes: Supple, Trachea Midline Cardiovascular: Yes: Regular Rate and Rhythm Respiratory: Yes: Regular, CTA Bilaterally Gastrointestinal: Yes: Normal Bowel Sounds, Soft. No: Tenderness Edema: No Neurological: Yes: Alert, Oriented Labs: CBC, BMP 01/13/19 05:30 01/13/19 05:30 INR, PTT INR 1.13 (0.83-1.09) H 01/13/19 05:30 Assessment/Plan Patient is a 78 year old female with past medical history of Diverticulosis, Martin's Esophagus, HTN, CAD on ASA, plavix (s/p stents- 2016, 2017, 10/30/2018 , 11/14/18), HLD, paroxysmal Afib on coumadin, prostate ca (2007 s/p radiation), and recurrent gi bleed (last admissions 12/01/18 and 12/16/18), presents with rectal bleeding x1 day and black stool for 3 days. #Neuro -awake, alert, no neurologic problems #Cardiovascular -Hx of recent multivessel stents, paroxysmal Afib on coumadin -Supratherapeutic INR of 4.4 on admission, now resolved -Continue Amiodarone 200mg daily -Lipitor 80mg for HLD -Cardiology (Dr. Franco) consulted: patient not a suitable candidate for AC , would consider Watchman device #Pulmo -Saturating well on room air #GI -GI bleed 2/2 LGIB, on coumadin -GI (Dr. Kennedy) consulted. Recommendations appreciated. -CTA: acute blood within the length of the colonic lumen including the rectum . -s/p colonoscopy yesterday: Dieulafoy's lesions in proximal descending colon , s/p application of three clips -IV protonix -tolerated CLD this am, will advance per GI this PM #Renal -renal function stable -will continue to monitor #Heme-Onc -Supratherapeutic INR s/p 2u FFP and Vit K 5mg, resolved -Anemia 2/2 acute blood loss -Hgb 8.7 today -will monitor CBC -Transfuse PRN to keep Hgb >8 #Endo -Hx of hypothyroidism on Synthroid 50mcg #FEN -IV NS @75cc/hr -Electrolytes wnl, Routine bmp monitoring -CLD advancing to full liquid diet #Prophylaxis -DVT: holding ac 2/2 GIB -GI: Protonix 40mg IV BID #Disposition -Patient stable for transfer to tele given h/o afib currently off ac
[2019-01-13] MEDS: AMIODARONE HCL 200 MG TABLET (FP) PO SCH (10:44)
[2019-01-13] MEDS: PANTOPRAZOLE SODIUM 40 MG VIAL IVPUSH SCH ×2 (10:44→22:48)
[2019-01-13] MEDS: MUPIROCIN 2% TOPICAL OINTMENT FOR DECOLONIZATION NS SCH (10:45)
--- NOTE | 2019-01-13 13:23 | PN.GI ---
GI Progress Note Subjective: no new complaints ; denies abd pain / melena / hematochezia. Feeling well tolerating clear liquid diet - Objective Vital Signs: Vital Signs Temperature 98.3 F 01/13/19 10:00 Pulse Rate 68 01/13/19 12:00 Respiratory Rate 20 01/13/19 10:00 Blood Pressure 139/60 01/13/19 12:00 O2 Sat by Pulse Oximetry (%) 100 01/13/19 09:00 Constitutional: Well Nourished Eyes: Yes: WNL HENT: Yes: WNL Neck: Yes: WNL Cardiovascular: Yes: WNL, Regular Rate and Rhythm Respiratory: Yes: WNL, Regular Gastrointestinal Inspection: Yes: WNL ...Auscultate: Yes: Normoactive Bowel Sounds Edema: No Labs: CBC, BMP 01/13/19 05:30 01/13/19 05:30 INR, PTT INR 1.13 (0.83-1.09) H 01/13/19 05:30 Problem List - Problems (1) GI bleed Assessment/Plan: advance to full liquid diet tonight h/h noted ; repeat in the am PPI will f/u Code(s): K92.2 - GASTROINTESTINAL HEMORRHAGE, UNSPECIFIED (2) Anemia Code(s): D64.9 - ANEMIA, UNSPECIFIED Qualifiers: Anemia type: B12 deficiency (3) GI bleed Code(s): K92.2 - GASTROINTESTINAL HEMORRHAGE, UNSPECIFIED
--- NOTE | 2019-01-13 22:00 | CONSULT ---
Consult Consult Specialty:: endocrine Referred by:: isiah lange md Reason for Consultation:: hypothyrodism/lola rudolph - History of Present Illness Chief Complaint: bleeding from coumadin History of Present Illness: 78 ymale,pmh hypothyroidism,afib,treated with amiodarone.cad,sp several stent placemetn, htn.admitted for brbpr,recently switched from eliquis to warfarin for fear of gibleeding again.had been taking warfarin and asa when he noted brbpr. has felt weakness and dizzy,and palpitations.he reported several episodes of this blood in his stools for which he presented to ed. - Past Medical History Cardio/Vascular: Yes: AFIB, CAD, HTN Gastrointestinal: Yes: Diverticulosis, GERD, GI Bleed Renal/: Yes: Cancer (prostate) Psych: Yes: Addictions - Past Surgical History Past Surgical History: Yes: Colonoscopy (11/2018), Stent - Alcohol/Substance Use Hx Alcohol Use: No - Smoking History Smoking history: Never smoked Have you smoked in the past 12 months: No - Social History Usual Living Arrangement: With Spouse ADL: Independent Home Medications - Allergies Allergies/Adverse Reactions: Allergies Allergy/AdvReac Type Severity Reaction Status Date / Time No Known Allergies Allergy Verified 12/15/18 13:30 - Home Medications Home Medications: Ambulatory Orders Amiodarone HCl [Cordarone -] 200 mg PO DAILY #30 tablet 12/19/18 Aspirin Coated [Ecotrin -] 81 mg PO DAILY #30 tablet.ec 12/19/18 Atorvastatin Ca [Lipitor] 80 mg PO HS tablet 12/19/18 Levothyroxine [Synthroid -] 50 mcg PO DAILY@0700 #30 tablet 12/19/18 Lisinopril [Prinivil] 40 mg PO DAILY #30 tablet 12/19/18 Metoprolol Succinate [Toprol XL -] 50 mg PO DAILY #30 tab.sr.24h 12/19/18 Multivitamins [Multivit ([facility] Formul[facility])] 1 tab PO DAILY tab 12/19/18 Pantoprazole Sodium [Protonix -] 40 mg PO DAILY #30 tablet.ec 12/19/18 Warfarin Sodium [Coumadin] 4 mg PO HS #30 tablet MDD 1 12/19/18 Review of Systems - Review of Systems Constitutional: reports: Loss of Appetite, Weakness Eyes: reports: Blurred Vision HENT: reports: No Symptoms Neck: reports: No Symptoms Cardiovascular: reports: Shortness of Breath Respiratory: reports: Exercise Intolerance, SOB on Exertion Gastrointestinal: reports: Bloating Genitourinary: reports: No Symptoms Breasts: reports: No Symptoms Reported Musculoskeletal: reports: No Symptoms, Muscle Weakness Integumentary: reports: No Symptoms Neurological: reports: Dizziness, Numbness, Weakness Endocrine: reports: Unexplained Weight Gain Physical Exam Vital Signs: Vital Signs Temperature 98.4 F 01/13/19 18:33 Pulse Rate 73 01/13/19 18:33 Respiratory Rate 20 01/13/19 18:33 Blood Pressure 160/80 01/13/19 18:33 O2 Sat by Pulse Oximetry (%) 100 01/13/19 09:00 Constitutional: Yes: Calm Eyes: Yes: EOM Intact HENT: Yes: Normocephalic Neck: Yes: Trachea Midline Cardiovascular: Yes: Regular Rate and Rhythm Respiratory: Yes: CTA Bilaterally Gastrointestinal: Yes: Normal Bowel Sounds ...Rectal Exam: Yes: Deferred Musculoskeletal: Yes: Muscle Pain, Muscle Weakness Extremities: Yes: WNL Edema: No Neurological: Yes: Alert, Oriented Labs: CBC, BMP 01/13/19 05:30 01/13/19 05:30 Problem List - Problems (1) GI bleed Code(s): K92.2 - GASTROINTESTINAL HEMORRHAGE, UNSPECIFIED (2) Rectal bleed Code(s): K62.5 - HEMORRHAGE OF ANUS AND RECTUM (3) Alcohol dependence with uncomplicated withdrawal Code(s): F10.230 - ALCOHOL DEPENDENCE WITH WITHDRAWAL, UNCOMPLICATED (4) Alcoholism /alcohol abuse Code(s): F10.20 - ALCOHOL DEPENDENCE, UNCOMPLICATED (5) Anemia Code(s): D64.9 - ANEMIA, UNSPECIFIED Qualifiers: Anemia type: B12 deficiency (6) Atrial fibrillation Code(s): I48.91 - UNSPECIFIED ATRIAL FIBRILLATION (7) Atrial fibrillation with rapid ventricular response Code(s): I48.91 - UNSPECIFIED ATRIAL FIBRILLATION (8) Hypothyroidism Code(s): E03.9 - HYPOTHYROIDISM, UNSPECIFIED Qualifiers: Hypothyroidism type: subclinical iodine-deficiency Qualified Code(s): E02 - Subclinical iodine-deficiency hypothyroidism Assessment/Plan Current Active Problems GI bleed (Acute) Hypothyroidism (Acute) Rectal bleed (Acute) Abnormal Lab Results 01/10/19 01/13/19 01/13/19 08:45 05:30 05:30 RBC 3.01 L Hgb 8.7 L Hct 25.5 L PT with INR 13.30 H INR 1.13 H Chloride Anion Gap Calcium Magnesium AST Total Protein Albumin TSH Crossmatch See Detail 01/13/19 05:30 RBC Hgb Hct PT with INR INR Chloride 114 H Anion Gap 7 L Calcium 7.8 L Magnesium 2.5 H AST 14 L Total Protein 5.9 L Albumin 3.1 L TSH 67.80 H D Crossmatch Laboratory Results - last 24 hr 01/10/19 01/13/19 01/13/19 08:45 05:30 05:30 WBC 6.6 RBC 3.01 L Hgb 8.7 L Hct 25.5 L MCV 84.9 MCH 28.9 MCHC 34.0 RDW 15.9 Plt Count 169 MPV 10.4 Absolute Neuts (auto) 4.8 Neutrophils % 72.2 Lymphocytes % 17.4 Monocytes % 6.1 Eosinophils % 3.8 Basophils % 0.5 Nucleated RBC % 0 PT with INR 13.30 H INR 1.13 H Sodium Potassium Chloride Carbon Dioxide Anion Gap BUN Creatinine Est GFR (CKD-EPI)AfAm Est GFR (CKD-EPI)NonAf Random Glucose Calcium Phosphorus Magnesium Total Bilirubin AST ALT Alkaline Phosphatase Total Protein Albumin TSH Free T4 Blood Type O POSITIVE Antibody Screen Negative Crossmatch See Detail 01/13/19 05:30 WBC RBC Hgb Hct MCV MCH MCHC RDW Plt Count MPV Absolute Neuts (auto) Neutrophils % Lymphocytes % Monocytes % Eosinophils % Basophils % Nucleated RBC % PT with INR INR Sodium 144 Potassium 3.9 Chloride 114 H Carbon Dioxide 23 Anion Gap 7 L BUN 8 Creatinine 0.7 Est GFR (CKD-EPI)AfAm 104.03 Est GFR (CKD-EPI)NonAf 89.76 Random Glucose 86 Calcium 7.8 L Phosphorus 3.6 Magnesium 2.5 H Total Bilirubin 0.4 AST 14 L ALT 14 Alkaline Phosphatase 93 Total Protein 5.9 L Albumin 3.1 L TSH 67.80 H D Free T4 0.84 Blood Type Antibody Screen Crossmatch plan: synthroid dose 50mcg given alone slow titrate as likely medication interferance in iodination cause of high tsh
[2019-01-13] MEDS: ATORVASTATIN CA 80 MG TABLET (FP) PO SCH (22:48)
[2019-01-14] MEDS: LEVOTHYROXINE NA 50 MCG TABLET (FP) PO SCH (06:18)
--- NOTE | 2019-01-14 07:47 | PN.GI ---
GI Progress Note Subjective: PT DENIES ABDOMINAL PAIN / MELENA/ BRBR - FEELING OK WANTS TO GO HOME - Objective Vital Signs: Vital Signs Temperature 97.9 F 01/14/19 06:00 Pulse Rate 57 L 01/14/19 06:00 Respiratory Rate 20 01/14/19 06:00 Blood Pressure 123/58 L 01/14/19 06:00 O2 Sat by Pulse Oximetry (%) 99 01/13/19 22:00 Constitutional: Well Nourished, No Distress, Calm Eyes: Yes: WNL HENT: Yes: WNL Neck: Yes: Supple Cardiovascular: Yes: WNL Respiratory: Yes: WNL, Regular, CTA Bilaterally Gastrointestinal Inspection: Yes: WNL ...Auscultate: Yes: Normoactive Bowel Sounds Edema: No Labs: CBC, BMP 01/13/19 05:30 01/13/19 05:30 INR, PTT INR 1.13 (0.83-1.09) H 01/13/19 05:30 Problem List - Problems (1) GI bleed Assessment/Plan: advance to REGULAR DIET ; ppi therapy repeat cbc in the am , if stable and no sign of further GI bleed he can be discharged with outpt f/u - Dr. Kennedy. Code(s): K92.2 - GASTROINTESTINAL HEMORRHAGE, UNSPECIFIED (2) Anemia Code(s): D64.9 - ANEMIA, UNSPECIFIED Qualifiers: Anemia type: B12 deficiency (3) GI bleed Code(s): K92.2 - GASTROINTESTINAL HEMORRHAGE, UNSPECIFIED
[2019-01-14 08:11] LABS: HEMOGLOBIN 8.1 GM/dL (11.7-16.9); MCH 28.3 pg (25.7-33.7); MCHC 32.6 g/dl (32.0-35.9); MEAN CELL VOLUME 86.7 fl (80-96); MEAN PLT VOLUME 10.6 fl (7.5-11.1); PLATELET COUNT 173 K/MM3 (134-434); RBC 2.88 M/mm3 (4.00-5.60); RDW 16.1 % (11.9-15.9); WHITE BLOOD COUNT 5.8 K/mm3 (4.0-10.0)
[2019-01-14 09:00] LABS: CALCIUM 8.2 mg/dL (8.5-10.1); CREATININE 0.7 mg/dL (0.55-1.3); MAGNESIUM 2.4 mg/dL (1.8-2.4); PHOSPHOROUS 4.4 mg/dL (2.5-4.9); POTASSIUM 3.8 mmol/L (3.5-5.1)
[2019-01-14] MEDS: AMIODARONE HCL 200 MG TABLET (FP) PO SCH (10:13)
[2019-01-14] MEDS: PANTOPRAZOLE SODIUM 40 MG VIAL IVPUSH SCH ×2 (10:13→21:37)
--- NOTE | 2019-01-14 10:51 | PN ---
Progress Note, Physician Chief Complaint: Rectal Bleeding Anemia Afib History of Present Illness: Previous notes and events reviewed awake and alert NAD s/p colonoscopy on 01/12/19 no reports of rectal bleeding during the night no complaints of chest pain or SOB - Current Medication List Current Medications: Active Medications Amiodarone HCl (Cordarone -) 200 mg PO DAILY [facility] Last Admin: 01/14/19 10:13 Dose: 200 mg Atorvastatin Calcium (Lipitor -) 80 mg PO HS [facility] Last Admin: 01/13/19 22:48 Dose: 80 mg Levothyroxine Sodium (Synthroid -) 50 mcg PO DAILY@0700 [facility] Last Admin: 01/14/19 06:18 Dose: 50 mcg Pantoprazole Sodium (Protonix Iv) 40 mg IVPUSH BID [facility] Last Admin: 01/14/19 10:13 Dose: 40 mg - Objective Vital Signs: Vital Signs Temperature 98.4 F 01/14/19 10:00 Pulse Rate 61 01/14/19 10:00 Respiratory Rate 18 01/14/19 10:00 Blood Pressure 150/68 01/14/19 10:00 O2 Sat by Pulse Oximetry (%) 99 01/13/19 22:00 Constitutional: Yes: No Distress, Calm Eyes: Yes: Conjunctiva Clear HENT: Yes: Atraumatic Cardiovascular: Yes: Bradycardia Respiratory: Yes: Regular, CTA Bilaterally Gastrointestinal: Yes: Normal Bowel Sounds, Soft Musculoskeletal: Yes: Muscle Weakness Extremities: Yes: WNL Edema: No Neurological: Yes: Alert, Oriented Psychiatric: Yes: Alert, Oriented Labs: CBC, BMP 01/14/19 05:45 01/14/19 05:45 INR, PTT INR 1.13 (0.83-1.09) H 01/13/19 05:30 Problem List - Problems (1) Rectal bleed Assessment/Plan: -s/p colonoscopy with endoclip x 3 -GI on board -pantoprazole -full liquid diet -Hg 8.1 -monitor Hg transfuse for Hg <8.0 -ASA and Plavix on hold--cardiology on board Code(s): K62.5 - HEMORRHAGE OF ANUS AND RECTUM (2) Anemia Assessment/Plan: -Hg 8.1 -monitor Hg and transfuse for Hg <8.0 -GI on board -ASA and Plavix on hold--cardiology on board Code(s): D64.9 - ANEMIA, UNSPECIFIED Qualifiers: Anemia type: B12 deficiency (3) Atrial fibrillation Assessment/Plan: -tele monitoring -cardiology on board -INR 1.13 -Coumadin on hold due to RB -Amiodarone -since continue to have episode of RB since on AC possible Watchman Device? Code(s): I48.91 - UNSPECIFIED ATRIAL FIBRILLATION (4) CAD (coronary artery disease) Assessment/Plan: -ASA and Plavix on hold due to RB Code(s): I25.10 - ATHSCL HEART DISEASE OF [place] CORONARY ARTERY W/O ANG PCTRS (5) HTN (hypertension) Code(s): I10 - ESSENTIAL (PRIMARY) HYPERTENSION (6) Hypothyroid Assessment/Plan: -TSH 67.8, T4 0.84 -Endo consult -Synthroid Code(s): E03.9 - HYPOTHYROIDISM, UNSPECIFIED Assessment/Plan see problem list SCDs
[2019-01-14] MEDS: CHLORHEXIDINE GLUCONATE 4% CLEANSER FOR DECOLONIZATION TP SCH (16:15)
[2019-01-14] MEDS: MUPIROCIN 2% TOPICAL OINTMENT FOR DECOLONIZATION NS SCH (16:15)
[2019-01-14] MEDS: SODIUM CHLORIDE 1,000 ML IV SCH (16:15)
[2019-01-14] MEDS ORDERED: cloNIDine HCL 0.1 MG TABLET PO ONE (17:41)
[2019-01-14] MEDS ORDERED: FLU VACCINE QUAD 60 MCG/0.5 ML (MDV 18-19) IM ONE (18:15)
[2019-01-14] MEDS: ATORVASTATIN CA 80 MG TABLET (FP) PO SCH (21:37)
[2019-01-15] MEDS: LEVOTHYROXINE NA 50 MCG TABLET (FP) PO SCH (06:32)
[2019-01-15 07:05] LABS: HEMATOCRIT 26.4 % (35.4-49); HEMOGLOBIN 8.5 GM/dL (11.7-16.9); MCHC 32.3 g/dl (32.0-35.9); MEAN CELL VOLUME 86.6 fl (80-96); MEAN PLT VOLUME 9.9 fl (7.5-11.1); PLATELET COUNT 189 K/MM3 (134-434); RBC 3.05 M/mm3 (4.00-5.60); RDW 16.7 % (11.9-15.9); WHITE BLOOD COUNT 5.7 K/mm3 (4.0-10.0)
[2019-01-15 07:25] LABS: INR 1.15 (0.83-1.09); PROTHROMBIN TIME (PATIENT) 13.6 SEC (9.7-13.0)
[2019-01-15 07:38] LABS: ALBUMIN 3.2 g/dl (3.4-5.0); BILIRUBIN,TOTAL 0.7 mg/dL (0.2-1); CALCIUM 8.5 mg/dL (8.5-10.1); CREATININE 0.9 mg/dL (0.55-1.3); TOT PROT 6.3 g/dl (6.4-8.2)
[2019-01-15] MEDS: PANTOPRAZOLE SODIUM 40 MG VIAL IVPUSH SCH ×2 (09:29→21:38)
[2019-01-15] MEDS: AMIODARONE HCL 200 MG TABLET (FP) PO SCH (09:30)
--- NOTE | 2019-01-15 09:31 | PN.GI ---
GI Progress Note Subjective: NO MELENA/ BRBR / ABD PAIN - Objective Vital Signs: Vital Signs Temperature 97.9 F 01/15/19 06:00 Pulse Rate 55 L 01/15/19 06:00 Respiratory Rate 20 01/15/19 06:00 Blood Pressure 129/62 01/15/19 06:00 O2 Sat by Pulse Oximetry (%) 99 01/14/19 22:00 Constitutional: Well Nourished, No Distress Eyes: Yes: WNL HENT: Yes: WNL Neck: Yes: WNL Cardiovascular: Yes: WNL, Regular Rate and Rhythm Respiratory: Yes: WNL, Regular, CTA Bilaterally Gastrointestinal Inspection: Yes: WNL ...Auscultate: Yes: Normoactive Bowel Sounds Musculoskeletal: Yes: WNL Extremities: Yes: WNL Edema: No Labs: CBC, BMP 01/15/19 06:00 01/15/19 06:00 INR, PTT INR 1.15 (0.83-1.09) H 01/15/19 06:00 Problem List - Problems (1) GI bleed Assessment/Plan: REGULAR DIET ; ppi therapy H/H STABLE NO OBJECTION TO DISCHARGE WITH OUTPT F/U (WITH DR. GALINDO) Code(s): K92.2 - GASTROINTESTINAL HEMORRHAGE, UNSPECIFIED (2) Anemia Code(s): D64.9 - ANEMIA, UNSPECIFIED Qualifiers: Anemia type: B12 deficiency (3) GI bleed Code(s): K92.2 - GASTROINTESTINAL HEMORRHAGE, UNSPECIFIED
--- NOTE | 2019-01-15 11:08 | PN ---
Progress Note, Physician Chief Complaint: Rectal Bleeding Anemia Afib History of Present Illness: Previous notes and events reviewed awake and alert NAD s/p colonoscopy on 01/12/19 no reports of rectal bleeding during the night Hg stable no complaints of chest pain or SOB - Current Medication List Current Medications: Active Medications Amiodarone HCl (Cordarone -) 200 mg PO DAILY [facility] Last Admin: 01/15/19 09:30 Dose: 200 mg Atorvastatin Calcium (Lipitor -) 80 mg PO HS [facility] Last Admin: 01/14/19 21:37 Dose: 80 mg Levothyroxine Sodium (Synthroid -) 50 mcg PO DAILY@0700 [facility] Last Admin: 01/15/19 06:32 Dose: 50 mcg Pantoprazole Sodium (Protonix Iv) 40 mg IVPUSH BID [facility] Last Admin: 01/15/19 09:29 Dose: 40 mg - Objective Vital Signs: Vital Signs Temperature 99.3 F 01/15/19 10:00 Pulse Rate 58 L 01/15/19 10:00 Respiratory Rate 18 01/15/19 10:00 Blood Pressure 139/54 L 01/15/19 10:00 O2 Sat by Pulse Oximetry (%) 99 01/15/19 09:00 Constitutional: Yes: No Distress, Calm Eyes: Yes: Conjunctiva Clear HENT: Yes: Atraumatic Cardiovascular: Yes: Bradycardia Respiratory: Yes: Regular, CTA Bilaterally Gastrointestinal: Yes: Normal Bowel Sounds, Soft Musculoskeletal: Yes: Muscle Weakness Extremities: Yes: WNL Edema: No Neurological: Yes: Alert, Oriented Psychiatric: Yes: Alert, Oriented Labs: CBC, BMP 01/15/19 06:00 01/15/19 06:00 INR, PTT INR 1.15 (0.83-1.09) H 01/15/19 06:00 Problem List - Problems (1) Rectal bleed Assessment/Plan: -s/p colonoscopy with endoclip x 3 -GI on board -pantoprazole -full liquid diet -Hg 8.5 -monitor Hg transfuse for Hg <8.0 -ASA and Plavix on hold--cardiology on board Code(s): K62.5 - HEMORRHAGE OF ANUS AND RECTUM (2) Anemia Assessment/Plan: -Hg 8.5 -monitor Hg and transfuse for Hg <8.0 -GI on board -ASA and Plavix on hold--cardiology on board Code(s): D64.9 - ANEMIA, UNSPECIFIED Qualifiers: Anemia type: B12 deficiency (3) Atrial fibrillation Assessment/Plan: -tele monitoring -cardiology on board -INR 1.15 -Coumadin on hold due to RB -Amiodarone -since continue to have episode of RB since on AC possible Watchman Device? Code(s): I48.91 - UNSPECIFIED ATRIAL FIBRILLATION (4) CAD (coronary artery disease) Assessment/Plan: -ASA and Plavix on hold due to RB Code(s): I25.10 - ATHSCL HEART DISEASE OF [place] CORONARY ARTERY W/O ANG PCTRS (5) HTN (hypertension) Code(s): I10 - ESSENTIAL (PRIMARY) HYPERTENSION (6) Hypothyroid Assessment/Plan: -TSH 67.8, T4 0.84 -Endo consult -Synthroid Code(s): E03.9 - HYPOTHYROIDISM, UNSPECIFIED (7) GI bleed Assessment/Plan: -2/2 to COumadin -GI on board Code(s): K92.2 - GASTROINTESTINAL HEMORRHAGE, UNSPECIFIED Assessment/Plan see problem list SCDs
[2019-01-15] MEDS: ATORVASTATIN CA 80 MG TABLET (FP) PO SCH (21:37)
[2019-01-16] MEDS: LEVOTHYROXINE NA 50 MCG TABLET (FP) PO SCH (06:27)
[2019-01-16 07:05] LABS: HEMATOCRIT 25.9 % (35.4-49); HEMOGLOBIN 8.7 GM/dL (11.7-16.9); MCH 28.3 pg (25.7-33.7); MCHC 33.4 g/dl (32.0-35.9); MEAN CELL VOLUME 84.6 fl (80-96); MEAN PLT VOLUME 9.8 fl (7.5-11.1); PLATELET COUNT 194 K/MM3 (134-434); RBC 3.06 M/mm3 (4.00-5.60); RDW 16.8 % (11.9-15.9); WHITE BLOOD COUNT 6.4 K/mm3 (4.0-10.0)
[2019-01-16 09:10] LABS: ALBUMIN 3.4 g/dl (3.4-5.0); CALCIUM 8.4 mg/dL (8.5-10.1); CREATININE 0.9 mg/dL (0.55-1.3); TOT PROT 6.6 g/dl (6.4-8.2)
[2019-01-16 09:11] LABS: BILIRUBIN,TOTAL 0.5 mg/dL (0.2-1)
--- NOTE | 2019-01-16 09:47 | PN.GI ---
GI Progress Note Subjective: PATIENT REPORTS HE IS DOING WELL ; DENIES ABDOMINAL PAIN / N/V / MELENA / BRBR - Objective Vital Signs: Vital Signs Temperature 97.9 F 01/16/19 06:20 Pulse Rate 59 L 01/16/19 06:20 Respiratory Rate 18 01/16/19 06:20 Blood Pressure 137/62 01/16/19 06:20 O2 Sat by Pulse Oximetry (%) 98 01/15/19 21:00 Constitutional: Well Nourished, No Distress Eyes: Yes: WNL HENT: Yes: WNL Neck: Yes: WNL Cardiovascular: Yes: WNL, Regular Rate and Rhythm Respiratory: Yes: WNL, Regular, CTA Bilaterally Extremities: Yes: WNL Edema: No Labs: CBC, BMP 01/16/19 05:30 01/16/19 05:30 INR, PTT INR 1.15 (0.83-1.09) H 01/15/19 06:00 Problem List - Problems (1) GI bleed Assessment/Plan: REGULAR DIET ; ppi therapy ANTIPLATELET REGIMEN STARTED - AM CBC HE SHOULD BE MONITORED 24 HOURS PRIOR TO DISCHARGE FOR ANY SIGN OF BLEEDING WHILE ON ASA / PLAVIX Code(s): K92.2 - GASTROINTESTINAL HEMORRHAGE, UNSPECIFIED (2) Anemia Code(s): D64.9 - ANEMIA, UNSPECIFIED Qualifiers: Anemia type: B12 deficiency (3) GI bleed Code(s): K92.2 - GASTROINTESTINAL HEMORRHAGE, UNSPECIFIED
--- NOTE | 2019-01-16 09:55 | PN ---
Progress Note, Physician - Current Medication List Current Medications: Active Medications Amiodarone HCl (Cordarone -) 200 mg PO DAILY [facility] Last Admin: 01/15/19 09:30 Dose: 200 mg Aspirin (Ecotrin -) 81 mg PO DAILY [facility] Atorvastatin Calcium (Lipitor -) 80 mg PO HS [facility] Last Admin: 01/15/19 21:37 Dose: 80 mg Levothyroxine Sodium (Synthroid -) 50 mcg PO DAILY@0700 [facility] Last Admin: 01/16/19 06:27 Dose: 50 mcg Pantoprazole Sodium (Protonix Iv) 40 mg IVPUSH BID [facility] Last Admin: 01/15/19 21:38 Dose: 40 mg - Objective Vital Signs: Vital Signs Temperature 97.9 F 01/16/19 06:20 Pulse Rate 59 L 01/16/19 06:20 Respiratory Rate 18 01/16/19 06:20 Blood Pressure 137/62 01/16/19 06:20 O2 Sat by Pulse Oximetry (%) 98 01/15/19 21:00 Cardiovascular: Yes: Pulse Irregular, S1, S2 Respiratory: Yes: Regular, CTA Bilaterally Gastrointestinal: Yes: Normal Bowel Sounds, Soft. No: Tenderness Labs: CBC, BMP 01/16/19 05:30 01/16/19 05:30 INR, PTT INR 1.15 (0.83-1.09) H 01/15/19 06:00 Assessment/Plan - Problems (1) Rectal bleed Assessment/Plan: -s/p colonoscopy with endoclip x 3 -GI on board -pantoprazole - diet per gi -Hg 8.5 -monitor Hg transfuse for Hg <8.0 -ASA and Plavix on hold--cardiology on board Code(s): K62.5 - HEMORRHAGE OF ANUS AND RECTUM (2) Anemia Assessment/Plan: -Hg 8.5 -monitor Hg and transfuse for Hg <8.0 -GI on board -ASA resumed per Gi -Plavix on hold--cardiology on board Code(s): D64.9 - ANEMIA, UNSPECIFIED Qualifiers: Anemia type: B12 deficiency (3) Atrial fibrillation Assessment/Plan: -tele monitoring -cardiology on board -INR 1.15 -Coumadin on hold due to RB--will d/w cardio -Amiodarone -since continue to have episode of RB since on AC possible Watchman Device? Code(s): I48.91 - UNSPECIFIED ATRIAL FIBRILLATION (4) CAD (coronary artery disease) Assessment/Plan: -On ASA -Plavix on hold due to RB Code(s): I25.10 - ATHSCL HEART DISEASE OF [place] CORONARY ARTERY W/O ANG PCTRS (5) HTN (hypertension) Code(s): I10 - ESSENTIAL (PRIMARY) HYPERTENSION (6) Hypothyroid Assessment/Plan: -TSH 67.8, T4 0.84 -Endo consult -Synthroid
[2019-01-16] MEDS: ASPIRIN COATED 81 MG TABLET.EC PO SCH (10:12)
[2019-01-16] MEDS: AMIODARONE HCL 200 MG TABLET (FP) PO SCH (10:12)
[2019-01-16] MEDS: PANTOPRAZOLE SODIUM 40 MG VIAL IVPUSH SCH ×2 (10:54→21:40)
--- NOTE | 2019-01-16 12:26 | PN ---
Progress Note, Physician History of Present Illness: seen and examined today in [facility]. no overnight events. no new complaints. - Current Medication List Current Medications: Active Medications Amiodarone HCl (Cordarone -) 200 mg PO DAILY [facility] Last Admin: 01/16/19 10:12 Dose: 200 mg Aspirin (Ecotrin -) 81 mg PO DAILY [facility] Last Admin: 01/16/19 10:12 Dose: 81 mg Atorvastatin Calcium (Lipitor -) 80 mg PO HS [facility] Last Admin: 01/15/19 21:37 Dose: 80 mg Clopidogrel Bisulfate (Plavix -) 75 mg PO DAILY [facility] Levothyroxine Sodium (Synthroid -) 50 mcg PO DAILY@0700 [facility] Last Admin: 01/16/19 06:27 Dose: 50 mcg Pantoprazole Sodium (Protonix Iv) 40 mg IVPUSH BID [facility] Last Admin: 01/16/19 10:54 Dose: 40 mg - Objective Vital Signs: Vital Signs Temperature 97.9 F 01/16/19 06:20 Pulse Rate 59 L 01/16/19 06:20 Respiratory Rate 18 01/16/19 06:20 Blood Pressure 137/62 01/16/19 06:20 O2 Sat by Pulse Oximetry (%) 98 01/15/19 21:00 Constitutional: Yes: No Distress, Calm Eyes: Yes: Conjunctiva Clear, EOM Intact HENT: Yes: Atraumatic, Normocephalic Neck: Yes: Supple, Trachea Midline Cardiovascular: Yes: Regular Rate and Rhythm, S1, S2. No: Bradycardia, Tachycardia, Pulse Irregular, Bruit, JVD, Gallop, Murmur, Rub, S3, S4, Varicosities Respiratory: Yes: Regular, CTA Bilaterally. No: Rales, Rhonchi, Wheezes Gastrointestinal: Yes: Normal Bowel Sounds, Soft. No: Distention, Tenderness Musculoskeletal: Yes: WNL Extremities: Yes: WNL Edema: No Peripheral Pulses WNL: Yes Peripheral Pulses: Left Doralis Pedis: 2+, Right Dorsalis Pedis: 2+ Neurological: Yes: Alert, Oriented Psychiatric: Yes: Alert, Oriented Labs: CBC, BMP 01/16/19 05:30 01/16/19 05:30 INR, PTT INR 1.15 (0.83-1.09) H 01/15/19 06:00 - ....Imaging Chest X-ray: Report Reviewed, Image Reviewed EKG: Report Reviewed, Image Reviewed Other: Report Reviewed, Image Reviewed (tele-nsr, no arrhythmias recorded) Assessment/Plan Ho multivessel PCI last 10/2018. Normal LV function without valvulopathy. PAF managed with amio. Recurrent severe GI bleeding on AC and antiplatelet therapy. Taken off full AC On ASA 81mg daily alone at this time S/p colonoscopy with Endoclip x3 If safe from a GI standpoint start Plavix 75mg daily in conjunction with ASA 81mg daily If not considered safe to start Plavix at this time then cont ASA 81mg daily alone. Close outpatient fup in my office within 1-2 weeks of discharge. Call with questions.
[2019-01-16] MEDS: ATORVASTATIN CA 80 MG TABLET (FP) PO SCH (21:40)
[2019-01-16 23:22] VITALS: BMI 24.6
[2019-01-17] MEDS: LEVOTHYROXINE NA 50 MCG TABLET (FP) PO SCH (06:22)
[2019-01-17 09:57] LABS: BASO % 0.6 % (0-2.0); EOS % 4.3 % (0-4.5); HEMATOCRIT 29.2 % (35.4-49); HEMOGLOBIN 9.4 GM/dL (11.7-16.9); MCH 28.1 pg (25.7-33.7); MCHC 32.3 g/dl (32.0-35.9); MEAN CELL VOLUME 86.9 fl (80-96); MONO % 5.4 % (3.8-10.2); NEUT % 72.7 % (42.8-82.8); PLATELET COUNT 229 K/MM3 (134-434); RBC 3.36 M/mm3 (4.00-5.60)
[2019-01-17] MEDS ORDERED: CLOPIDOGREL BISULFATE 75 MG TABLET (FP) PO SCH (10:00)
[2019-01-17] MEDS: ASPIRIN COATED 81 MG TABLET.EC PO SCH (10:27)
[2019-01-17] MEDS: AMIODARONE HCL 200 MG TABLET (FP) PO SCH (10:27)
[2019-01-17] MEDS: PANTOPRAZOLE SODIUM 40 MG VIAL IVPUSH SCH (10:28)
--- NOTE | 2019-01-17 11:05 | DS ---
Physical Examination Vital Signs: Vital Signs Temperature 98.4 F 01/17/19 06:00 Pulse Rate 71 01/17/19 06:00 Respiratory Rate 17 01/17/19 06:00 Blood Pressure 135/50 L 01/17/19 06:00 O2 Sat by Pulse Oximetry (%) 99 01/16/19 21:00 Cardiovascular: Yes: S1, S2 Respiratory: Yes: Regular, CTA Bilaterally Gastrointestinal: Yes: Normal Bowel Sounds, Soft Labs: CBC, BMP 01/17/19 09:35 Discharge Summary Reason For Visit: RECTAL HEMORRHAGE Current Active Problems GI bleed (Acute) Hypothyroidism (Acute) Rectal bleed (Acute) Hospital Course: - Problems (1) Rectal bleed Assessment/Plan: -s/p colonoscopy with endoclip x 3 -GI on board -pantoprazole - diet per gi -Hgb stable -monitor Hg transfuse for Hg <8.0 -ASA and Plavix resumed--cardiology on board Code(s): K62.5 - HEMORRHAGE OF ANUS AND RECTUM (2) Anemia Assessment/Plan: -Hgb stable -monitor Hg and transfuse for Hg <8.0 -GI on board -ASA resumed per Gi -Plavix resumed--cardiology on board Code(s): D64.9 - ANEMIA, UNSPECIFIED Qualifiers: Anemia type: B12 deficiency (3) Atrial fibrillation Assessment/Plan: -tele monitoring -cardiology on board -Amiodarone -since continue to have episode of RB since on AC possible Watchman Device? Code(s): I48.91 - UNSPECIFIED ATRIAL FIBRILLATION (4) CAD (coronary artery disease) Assessment/Plan: -On ASA -Plavix on hold due to RB Code(s): I25.10 - ATHSCL HEART DISEASE OF [place] CORONARY ARTERY W/O ANG PCTRS (5) HTN (hypertension) Vital Signs Period Temp Pulse Resp BP Sys/Rankin Pulse Ox Last 24 Hr 97.7 F-98.4 F 56-71 17-18 124-158/44-65 99-99 Code(s): I10 - ESSENTIAL (PRIMARY) HYPERTENSION (6) Hypothyroid Assessment/Plan: -TSH 67.8, T4 0.84 -Endo consult -Synthroid Condition: Improved - Instructions Referrals: Dorinda Guzman MD [Primary Care Provider] - 1 Week Janes Rutledge MD [Non Staff, Medical] - 1 Week Hugo Kennedy MD [Staff Physician] - 2 Weeks Disposition: HOME - Home Medications Comprehensive Discharge Medication List: Ambulatory Orders Amiodarone HCl [Cordarone -] 200 mg PO DAILY #30 tablet 12/19/18 Aspirin Coated [Ecotrin -] 81 mg PO DAILY #30 tablet.ec 12/19/18 Atorvastatin Ca [Lipitor] 80 mg PO HS tablet 12/19/18 Levothyroxine [Synthroid -] 50 mcg PO DAILY@0700 #30 tablet 12/19/18 Clopidogrel Bisulfate [Plavix -] 75 mg PO DAILY tablet 01/17/19 Pantoprazole Sodium [Protonix -] 40 mg PO BID #60 tablet.ec 01/17/19
[2019-01-17 12:51] LABS: ALBUMIN 3.6 g/dl (3.4-5.0); BILIRUBIN,TOTAL 0.5 mg/dL (0.2-1); CALCIUM 9.2 mg/dL (8.5-10.1); POTASSIUM 4.1 mmol/L (3.5-5.1); TOT PROT 7.3 g/dl (6.4-8.2)
[2019-01-17 16:11] VITALS: BP 139/73; PULSE 63; TEMP 98
--- NOTE | 2019-01-17 16:52 | PN.GI ---
GI Progress Note Subjective: no new complaints - feeling well denies GI bleed - Objective Vital Signs: Vital Signs Temperature 98 F 01/17/19 14:10 Pulse Rate 63 01/17/19 14:10 Respiratory Rate 20 01/17/19 14:10 Blood Pressure 139/73 01/17/19 14:10 O2 Sat by Pulse Oximetry (%) 99 01/17/19 09:00 Constitutional: Well Nourished, No Distress Eyes: Yes: WNL HENT: Yes: WNL Neck: Yes: WNL, Supple Cardiovascular: Yes: WNL Respiratory: Yes: WNL, Regular Gastrointestinal Inspection: Yes: WNL ...Auscultate: Yes: Normoactive Bowel Sounds Musculoskeletal: Yes: WNL Extremities: Yes: WNL Edema: No Labs: CBC, BMP 01/17/19 09:35 01/17/19 09:35 INR, PTT INR 1.15 (0.83-1.09) H 01/15/19 06:00 Problem List - Problems (1) GI bleed Assessment/Plan: REGULAR DIET ; ppi therapy ANTIPLATELET REGIMEN STARTED - H/H STABLE NO OBJECTION TO DC HOME FROM A GI PERSPECTIVE Code(s): K92.2 - GASTROINTESTINAL HEMORRHAGE, UNSPECIFIED (2) Anemia Code(s): D64.9 - ANEMIA, UNSPECIFIED Qualifiers: Anemia type: B12 deficiency (3) GI bleed Code(s): K92.2 - GASTROINTESTINAL HEMORRHAGE, UNSPECIFIED
== END 2019-01-17 17:01 | disposition home or self-care (01) | DRG 813 ==
LOC: JER 07:52 → JERBED 09:43 → JICU 11:23 → J4W 01-13 21:44
PROVIDERS: ADMIT Family Medicine; ATTEND Family Medicine
PROC: 3E0H8GC Introduction of Other Therapeutic Substance into Lower GI, Via Natural or Artificial Opening Endoscopic (ICD-10-PCS; 2019-01-12)
PROC: 0W3P8ZZ Control Bleeding in Gastrointestinal Tract, Via Natural or Artificial Opening Endoscopic (ICD-10-PCS; principal; 2019-01-12 14:00)
DX: D68.32 Hemorrhagic disorder due to extrinsic circulating anticoagulants (principal); K63.81 Dieulafoy lesion of intestine; D62 Acute posthemorrhagic anemia; K92.2 Gastrointestinal hemorrhage, unspecified; F10.230 Alcohol dependence with withdrawal, uncomplicated; E78.5 Hyperlipidemia, unspecified; I11.9 Hypertensive heart disease without heart failure; K57.90 Diverticulosis of intestine, part unspecified, without perforation or abscess without bleeding; K21.9 Gastro-esophageal reflux disease without esophagitis; I45.10 Unspecified right bundle-branch block; K22.70 Barrett's esophagus without dysplasia; I25.10 Atherosclerotic heart disease of native coronary artery without angina pectoris; I48.0 Paroxysmal atrial fibrillation; I10 Essential (primary) hypertension; E53.8 Deficiency of other specified B group vitamins; E02 Subclinical iodine-deficiency hypothyroidism; Z85.46 Personal history of malignant neoplasm of prostate
CPT/HCPCS: 36415; 36430; 36511; 71045-TC-FY; 74174-TC; 80048; 80053; 83735; 84100; 84439; 84443; 85025; 85027; 85610; 85730; 86850; 86900; 86901; 86922; 93005; 93010; 99283-25; J0735; J7030; P9017; P9038; P9058

== ENCOUNTER 2019-02-19 11:23 | Day surgery (SDC) | payer OTHER ==
[~2019-02-19 11:23] MED LIST: IRON SUCROSE INJECTION 200 MG in SODIUM CHLORIDE 100 ML IVPB ONE
[2019-02-19 13:20] VITALS: PULSE 57
[2019-02-19 13:38] VITALS: BP 134/67; TEMP 98.1
== END 2019-02-19 13:45 | disposition home or self-care (01) ==
LOC: JASU-ENDO 11:23
PROVIDERS: ATTEND Family Medicine
PROC: 3E033GC Introduction of Other Therapeutic Substance into Peripheral Vein, Percutaneous Approach (ICD-10-PCS; principal; 2019-02-19)
DX: D50.9 Iron deficiency anemia, unspecified (principal)
CPT/HCPCS: 96365; J1756

== ENCOUNTER 2020-05-27 11:40 | Emergency (ER) | payer OTHER ==
[2020-05-27 11:52] VITALS: BP 179/54; PULSE 55; TEMP 98.2; BMI 25.7
--- NOTE | 2020-05-27 14:32 | PDOC ---
History of Present Illness - General Chief Complaint: Pain Stated Complaint: RT HAND INJURY Time Seen by Provider: 05/27/20 12:02 - History of Present Illness Initial Comments: 05/27/20 14:29 79-year-old male multiple comorbidities he he is unaware of presents for evaluation of right upper extremity weakness x1 month also he states he has been walking same over the last month. No systemic symptoms fever chills or night sweats. Past History - Medical History Allergies/Adverse Reactions: Allergies Allergy/AdvReac Type Severity Reaction Status Date / Time No Known Allergies Allergy Verified 12/15/18 13:30 Home Medications: Ambulatory Orders Amiodarone HCl [Cordarone -] 200 mg PO DAILY #30 tablet 12/19/18 Aspirin Coated [Ecotrin -] 81 mg PO DAILY #30 tablet.ec 12/19/18 Atorvastatin Ca [Lipitor] 80 mg PO HS tablet 12/19/18 Levothyroxine [Synthroid -] 50 mcg PO DAILY@0700 #30 tablet 12/19/18 Clopidogrel Bisulfate [Plavix -] 75 mg PO DAILY tablet 01/17/19 Pantoprazole Sodium [Protonix -] 40 mg PO BID #60 tablet.ec 01/17/19 Cardiac Disorders: Yes (paroxysmal AFib) COPD: No GI Disorders: (Rectal bleed, colonoscopy) HTN: Yes Hypercholesterolemia: Yes - Surgical History Cardiac Surgery: Yes (PCI) GI Surgery: No - Immunization History Immunization Up to Date: No - Psycho-Social/Smoking History Smoking History: Never smoked Have you smoked in the past 12 months: No - Substance Abuse Hx (Audit-C & DAST Scrn) How often the patient has a drink containing alcohol: Never Score: In Men: 4 or > Positive; In Women: 3 or > Positive: 0 Screen Result (Pos requires Nsg. Audit-10AR): Negative In the last yr the pt used illegal drug/Rx for NonMed reason: No Score: Yes response is considered Positive: 0 Screen Result (Positive result requires Nsg. DAST-10): Negative Review of Systems - Review of Systems Constitutional: No: Chills, Fever, Night Sweats Neurological: Yes: Weakness, Unsteady Gait *Physical Exam - Vital Signs Last Vital Signs Temp Pulse Resp BP Pulse Ox 98.2 F 55 L 18 179/54 H 100 05/27/20 11:49 05/27/20 11:49 10/06/20 11:49 05/27/20 11:49 05/27/20 11:49 - Physical Exam General Appearance: Yes: Nourished, Appropriately Dressed. No: Apparent Distress HEENT: positive: Symmetrical Neck: positive: Supple Respiratory/Chest: negative: Respiratory Distress Gastrointestinal/Abdominal: negative: Tender Musculoskeletal: positive: Normal Inspection Extremity: positive: Normal Inspection Integumentary: positive: Normal Color, Dry, Warm Neurologic: positive: Fully Oriented, Alert, Normal Mood/Affect, Other (3 out of 5 strength right upper extremity as compared to the left) ED Treatment Course - RADIOLOGY Radiology Studies Ordered: Category Date Time Status CERVICAL SPINE CT W/O CONTR [CT] Stat CT Scan 05/27/20 12:[address] WITHOUT CONTRAST [CT] Stat CT Scan 05/27/20 12:12 Completed Medical Decision Making - Medical Decision Making 05/27/20 14:31 CAT scan results reviewed patient to follow-up with neurology I have reviewed the pathophysiology with the patient. They are in agreement with the treatment plan all questions were answered to their satisfaction. Understanding for follow-up without fail was also conveyed to the patient. Again they are in agreement. Discharge - Discharge Information Problems reviewed: Yes Clinical Impression/Diagnosis: Acute right-sided muscle weakness Condition: Stable Disposition: HOME - Admission No - Follow up/Referral Referrals: Dorinda Guzman MD [Primary Care Provider] - Yfn Brown MD [Staff Physician] - - Patient Discharge Instructions Additional Instructions: Return to the emergency room for further issues and without fail follow-up with neurology in 1 to 2 days for further evaluation and treatment options. - Post Discharge Activity
== END 2020-05-27 14:35 | disposition home or self-care (01) ==
LOC: JERFT 11:40
DX: M62.81 Muscle weakness (generalized) (principal)
CPT/HCPCS: 70450-TC; 72125-TC; 99284-25

== ENCOUNTER 2020-07-18 16:05 | Emergency (ER) | payer OTHER ==
[2020-07-18 16:21] VITALS: TEMP 97.7; BMI 28.3
[2020-07-18 18:35] LABS: BASO % 0.8 % (0-2.0); EOS % 3.2 % (0-4.5); HEMATOCRIT 38.1 % (35.4-49); HEMOGLOBIN 12.6 GM/dL (11.7-16.9); MCH 31.2 pg (25.7-33.7); MEAN CELL VOLUME 94.7 fl (80-96); MEAN PLT VOLUME 10.8 fl (7.5-11.1); MONO % 6.4 % (3.8-10.2); NEUT % 55.6 % (42.8-82.8); PLATELET COUNT 128 K/MM3 (134-434); RBC 4.02 M/mm3 (4.00-5.60); RDW 14.8 % (11.9-15.9); WHITE BLOOD COUNT 3.9 K/mm3 (4.0-10.0)
[2020-07-18 18:36] LABS: EPI CELLS 0 /uL (0-25.1); HYALINE CASTS 0 /uL (0-3.1); PH,URINE 5.5 (5.0-8.0); URINE APPEARANCE CLEAR; URINE BACTERIA 3 /uL (0-1359); URINE BILIRUBIN NEGATIVE (NEGATIVE); URINE COLOR YELLOW; URINE GLUCOSE (UA) NEGATIVE (NEGATIVE); URINE KETONE NEGATIVE (NEGATIVE); URINE LEUK ESTERASE NEGATIVE (NEGATIVE); URINE NITRITE NEGATIVE (NEGATIVE); URINE PROTEIN NEGATIVE (NEGATIVE); URINE RBC 18 /uL (0-23.9); URINE WBC 1 /uL (0-25.8)
[2020-07-18 18:37] LABS: CHLORIDE 106 mmol/L (98-107); SODIUM 142 mmol/L (136-145)
[2020-07-18 18:39] LABS: ALBUMIN 3.4 g/dl (3.4-5.0); ANION GAP 8 MMOL/L (8-16); BLOOD UREA NITROGEN 12.6 mg/dL (7-18); CALCIUM 8.7 mg/dL (8.5-10.1); CO2 29 mmol/L (21-32); GLUCOSE,RANDOM 107 mg/dL (74-106)
[2020-07-18 18:42] LABS: CREATININE 0.8 mg/dL (0.55-1.3); SGPT/ALT 14 U/L (13-61)
[2020-07-18 18:43] LABS: SGOT/AST 15 U/L (15-37)
[2020-07-18 18:44] LABS: BILIRUBIN,TOTAL 0.3 mg/dL (0.2-1)
[2020-07-18 18:45] LABS: ALK PHOS 112 U/L (45-117)
[2020-07-18] MEDS ORDERED: ACETAMINOPHEN 1000 MG/100 ML VIAL (NON FORMULARY) IVPB ONE (19:10)
[2020-07-18 19:30] LABS: PROTHROMBIN TIME (PATIENT) 12.3 SEC (9.7-13.0)
[2020-07-18] MEDS ORDERED: ACETAMINOPHEN INJECTION 100 ML IVPB ONE (19:30)
[2020-07-18 19:47] VITALS: BP 154/60; PULSE 56
== END 2020-07-18 21:01 | disposition home or self-care (01) ==
LOC: JER 16:05
DX: R19.7 Diarrhea, unspecified (principal); R10.9 Unspecified abdominal pain
CPT/HCPCS: 36415; 71045-TC-FY; 74177-TC; 80053; 81003; 82272; 83605; 83690; 84443; 84484; 85025; 85610; 85730; 87086; 93005; 93010; 99285-25; C9803; Q9967; U0003

== ENCOUNTER 2020-08-18 08:19 | Inpatient (IN) | payer OTHER ==
[2020-08-18 08:43] VITALS: BMI 26.6
[2020-08-18] MEDS ORDERED: ACETAMINOPHEN 1000 MG/100 ML VIAL (NON FORMULARY) IVPB ONE (08:56)
[2020-08-18] MEDS ORDERED: ONDANSETRON 4 MG/2 ML VIAL IVPUSH ONE (08:58)
[2020-08-18] MEDS ORDERED: ACETAMINOPHEN INJECTION 100 ML IVPB ONE (09:03)
[2020-08-18] MEDS ORDERED: ONDANSETRON 4 MG/2 ML VIAL ONE (09:03)
[2020-08-18 09:42] LABS: BASO % 0.3 % (0-2.0); EOS % 0.1 % (0-4.5); HEMATOCRIT 37.6 % (35.4-49); HEMOGLOBIN 12.8 GM/dL (11.7-16.9); LYMPH % 16.8 % (8-40); MEAN PLT VOLUME 11.3 fl (7.5-11.1); MONO % 12.5 % (3.8-10.2); NEUT % 70.3 % (42.8-82.8); PLATELET COUNT 121 K/MM3 (134-434); RDW 14.3 % (11.9-15.9); WHITE BLOOD COUNT 4.4 K/mm3 (4.0-10.0)
[2020-08-18 09:55] LABS: INR 1.06 (0.83-1.09); PROTHROMBIN TIME (PATIENT) 12.8 SEC (9.7-13.0)
[2020-08-18 09:58] LABS: ACTIVATED PTT 34.5 SECONDS (25.2-36.5)
[2020-08-18 10:05] LABS: CHLORIDE 106 mmol/L (98-107); POTASSIUM 4.2 mmol/L (3.5-5.1); SODIUM 141 mmol/L (136-145)
[2020-08-18 10:07] LABS: CALCIUM 8.7 mg/dL (8.5-10.1)
[2020-08-18 10:08] LABS: ALBUMIN 3.4 g/dl (3.4-5.0); ANION GAP 7 MMOL/L (8-16); BLOOD UREA NITROGEN 14.1 mg/dL (7-18); CO2 28 mmol/L (21-32); GLUCOSE,RANDOM 128 mg/dL (74-106)
[2020-08-18 10:11] LABS: CREATININE 0.7 mg/dL (0.55-1.3); PHOSPHOROUS 3.7 mg/dL (2.5-4.9); SGOT/AST 26 U/L (15-37); SGPT/ALT 28 U/L (13-61)
[2020-08-18 10:12] LABS: BILIRUBIN,TOTAL 0.5 mg/dL (0.2-1); TOT PROT 7.2 g/dl (6.4-8.2)
[2020-08-18 10:13] LABS: ALK PHOS 92 U/L (45-117)
[2020-08-18 10:22] LABS: N-TERMINAL BNP 573.1 pg/ml (5-450)
[2020-08-18] MEDS ORDERED: IBUPROFEN 400 MG TABLET (FP) PO ONE ×2 (11:22→11:30)
[2020-08-18 12:12] LABS: EPI CELLS 4 /uL (0-25.1); HYALINE CASTS 2 /uL (0-3.1); PH,URINE 5.5 (5.0-8.0); URINE APPEARANCE CLOUDY; URINE BACTERIA 30 /uL (0-1359); URINE BILIRUBIN NEGATIVE (NEGATIVE); URINE COLOR YELLOW; URINE GLUCOSE (UA) NEGATIVE (NEGATIVE); URINE KETONE NEGATIVE (NEGATIVE); URINE LEUK ESTERASE NEGATIVE (NEGATIVE); URINE NITRITE NEGATIVE (NEGATIVE); URINE PROTEIN TRACE (NEGATIVE); URINE RBC 302 /uL (0-23.9); URINE UROBILINOGEN 0.2 mg/dL (0.2-1.0); URINE WBC 6 /uL (0-25.8)
[2020-08-18] MEDS ORDERED: BENZOCAINE/MENTH/CETYLPYRD CL 1 EACH LOZENGE MM PRN (12:30)
[2020-08-18 13:06] LABS: LDH 173 U/L (87-246)
[2020-08-18] MEDS ORDERED: HEPARIN NA (PORCINE) 5,000 UNITS/ML 1ML VIAL ONE ×2 (13:57→21:35)
[2020-08-18] MEDS: HEPARIN NA (PORCINE) 5,000 UNITS/ML 1ML VIAL SQ SCH ×2 (13:58→21:47)
[2020-08-18] MEDS ORDERED: ASPIRIN COATED 81 MG TABLET.EC ONE (14:51)
[2020-08-18] MEDS ORDERED: FAMOTIDINE 20 MG TABLET ONE (14:52)
[2020-08-18] MEDS ORDERED: cloBAZam 10 MG TABLET ONE (14:52)
[2020-08-18] MEDS: cloBAZam 10 MG TABLET PO SCH (14:54)
[2020-08-18] MEDS: ASPIRIN COATED 81 MG TABLET.EC PO SCH (14:54)
[2020-08-18] MEDS: FAMOTIDINE 20 MG TABLET PO SCH (14:54)
[2020-08-18] MEDS ORDERED: DEXTROSE 5% IVPB SCH (15:15)
[2020-08-18] MEDS ORDERED: CEFTRIAXONE IVPB SCH (15:15)
[2020-08-18] MEDS ORDERED: WATER IVPB SCH (15:15)
[2020-08-18] MEDS: INSULIN SLIDING SCALE (NOVOLOG) 1 VIAL SQ SCH ×2 (16:44→21:48)
[2020-08-18] MEDS: metoPROLOL SUCCINATE 25 MG TAB.SR.24H (FP) PO SCH (16:47)
[2020-08-18] MEDS: ZINC SULFATE 220 MG CAPSULE (FP) PO SCH (16:48)
[2020-08-18] MEDS ORDERED: ZINC SULFATE 220 MG CAPSULE (FP) ONE (16:48)
[2020-08-18] MEDS: CHOLECALCIFEROL (VIT D3) 400 UNIT (10 MCG) TABLET PO SCH (18:12)
[2020-08-18] MEDS ORDERED: ASCORBIC ACID 500 MG TABLET (FP) ONE (21:34)
[2020-08-18] MEDS ORDERED: PANTOPRAZOLE 40 MG TABLET ONE (21:34)
[2020-08-18] MEDS: PANTOPRAZOLE 40 MG TABLET PO SCH (21:48)
[2020-08-18] MEDS: ASCORBIC ACID 500 MG TABLET (FP) PO SCH (21:48)
[2020-08-18] MEDS ORDERED: PATIENT'S OWN MEDICATION (NON-FORMULARY) (Icosapent Ethyl [Vascepa] 1 GM Capsule) PO SCH (22:00)
[2020-08-18] MEDS: DIVALPROEX SODIUM 125 MG SPRINKLE CAPS PO SCH (23:37)
[2020-08-19] MEDS ORDERED: HEPARIN NA (PORCINE) 5,000 UNITS/ML 1ML VIAL ONE (06:09)
[2020-08-19] MEDS: HEPARIN NA (PORCINE) 5,000 UNITS/ML 1ML VIAL SQ SCH ×3 (06:36→21:52)
[2020-08-19] MEDS: INSULIN SLIDING SCALE (NOVOLOG) 1 VIAL SQ SCH ×4 (06:36→22:45)
[2020-08-19] MEDS: LEVOTHYROXINE NA 150 MCG TABLET PO SCH (06:36)
[2020-08-19 07:42] LABS: BASO % 0.3 % (0-2.0); HEMATOCRIT 38.7 % (35.4-49); LYMPH % 24.6 % (8-40); MCHC 33.6 g/dl (32.0-35.9); MEAN CELL VOLUME 95.3 fl (80-96); MEAN PLT VOLUME 11.8 fl (7.5-11.1); MONO % 8.9 % (3.8-10.2); NEUT % 66.2 % (42.8-82.8); PLATELET COUNT 120 K/MM3 (134-434); RBC 4.07 M/mm3 (4.00-5.60); RDW 14.3 % (11.9-15.9); WHITE BLOOD COUNT 3.5 K/mm3 (4.0-10.0)
[2020-08-19 08:01] LABS: POTASSIUM 4.1 mmol/L (3.5-5.1)
[2020-08-19 08:16] LABS: CALCIUM 8.6 mg/dL (8.5-10.1)
[2020-08-19 08:17] LABS: BLOOD UREA NITROGEN 13.9 mg/dL (7-18); MAGNESIUM 2.1 mg/dL (1.8-2.4)
[2020-08-19 08:20] LABS: CREATININE 0.8 mg/dL (0.55-1.3)
[2020-08-19] MEDS ORDERED: ALBUTEROL SO4 HFA INHALER IH PRN (08:54)
[2020-08-19] MEDS ORDERED: ASCORBIC ACID 500 MG TABLET (FP) ONE (09:34)
[2020-08-19] MEDS ORDERED: ASPIRIN 81 MG CHEWABLE TABLETS ONE (09:34)
[2020-08-19] MEDS ORDERED: DIVALPROEX SODIUM 500 MG TABLET E.C. ONE (09:35)
[2020-08-19] MEDS ORDERED: cloBAZam 10 MG TABLET ONE (09:35)
[2020-08-19] MEDS ORDERED: PANTOPRAZOLE 40 MG TABLET ONE (09:35)
[2020-08-19] MEDS ORDERED: SENNOSIDES 8.6MG TABLET (FP) PO ONE (09:36)
[2020-08-19] MEDS ORDERED: FAMOTIDINE 20 MG TABLET ONE (09:36)
[2020-08-19] MEDS ORDERED: ZINC SULFATE 220 MG CAPSULE (FP) ONE (09:36)
[2020-08-19] MEDS ORDERED: CHOLECALCIFEROL (VIT D3) 1,000 UNIT (25 MCG) TABLET ONE (09:36)
[2020-08-19] MEDS ORDERED: metoPROLOL SUCCINATE 25 MG TAB.SR.24H (FP) ONE (09:36)
[2020-08-19] MEDS ORDERED: CEFTRIAXONE 2 GM/100 ML BAG IVPB ONE (09:37)
[2020-08-19] MEDS: DIVALPROEX SODIUM 125 MG SPRINKLE CAPS PO SCH (09:40)
[2020-08-19] MEDS: ZINC SULFATE 220 MG CAPSULE (FP) PO SCH (09:41)
[2020-08-19] MEDS: ASPIRIN COATED 81 MG TABLET.EC PO SCH (09:41)
[2020-08-19] MEDS: CEFTRIAXONE 2 GM in DEXTROSE 5%-WATER - 2 GM/50 ML IVPB IVPB SCH (09:41)
[2020-08-19] MEDS: PANTOPRAZOLE 40 MG TABLET PO SCH ×2 (09:41→21:52)
[2020-08-19] MEDS: cloBAZam 10 MG TABLET PO SCH (09:41)
[2020-08-19] MEDS: FAMOTIDINE 20 MG TABLET PO SCH (09:41)
[2020-08-19] MEDS: ASCORBIC ACID 500 MG TABLET (FP) PO SCH ×2 (09:42→21:52)
[2020-08-19] MEDS: SENNOSIDES 8.6MG TABLET (FP) PO SCH (09:42)
[2020-08-19] MEDS: metoPROLOL SUCCINATE 25 MG TAB.SR.24H (FP) PO SCH (09:42)
[2020-08-19] MEDS: CHOLECALCIFEROL (VIT D3) 400 UNIT (10 MCG) TABLET PO SCH (09:42)
[2020-08-19] MEDS ORDERED: AZITHROMYCIN IVPB 500 MG in DEXTROSE 5%-WATER - 250 ML IVPB ONE (10:11)
[2020-08-19] MEDS ORDERED: AZITHROMYCIN IVPB 500 MG/250 ML BAG IVPB ONE (10:13)
[2020-08-19] MEDS ORDERED: DEXAMETHASONE SOD PHOSPHATE 10 MG/1 ML VIAL ONE (10:24)
[2020-08-19] MEDS: DEXAMETHASONE SOD PHOSPHATE 4 MG/1 ML VIAL IVPUSH SCH (10:26)
[2020-08-19] MEDS ORDERED: ACETAMINOPHEN 1000 MG/100 ML VIAL (NON FORMULARY) IVPB PRN (13:05)
[2020-08-19] MEDS ORDERED: DEXTROSE 5%-WATER - 50 ML IVPB ONE (13:25)
[2020-08-19] MEDS ORDERED: guaiFENesin/CODEINE 5 ML UNIT-DOSE CUPS PO PRN (13:37)
[2020-08-19] MEDS ORDERED: REMDESIVIR 200 MG in SODIUM CHLORIDE 210 ML IVPB ONE ×2 (13:57→15:00)
[2020-08-19] MEDS: LISINOPRIL 10 MG TABLET PO SCH (16:02)
[2020-08-19 17:46] LABS: ARTERIAL BLD GAS O2 SATURATION 96.9 mmHg (95-98); ARTERIAL BLOOD GAS BASE EXCESS 1.4 mmol/L (-2-2); ARTERIAL BLOOD GAS PO2 90.3 mmHg (80-100); ARTERIAL BLOOD GAS pH 7.408 (7.350-7.450)
[2020-08-19 17:47] LABS: ALLENS TEST POSITIVE
[2020-08-19] MEDS ORDERED: PT OWN MED DRAWER 7, Y5N ONE (21:32)
[2020-08-19] MEDS: DIVALPROEX NA *ER* EXTEND REL 500 MG TABLET.SA (FP) PO SCH (21:51)
[2020-08-19] MEDS: levETIRAcetam 500 MG TABLET (FP) PO SCH (21:52)
[2020-08-20] MEDS: HEPARIN NA (PORCINE) 5,000 UNITS/ML 1ML VIAL SQ SCH ×3 (05:58→21:27)
[2020-08-20] MEDS: LEVOTHYROXINE NA 150 MCG TABLET PO SCH (05:59)
[2020-08-20] MEDS: INSULIN SLIDING SCALE (NOVOLOG) 1 VIAL SQ SCH ×4 (06:06→21:26)
[2020-08-20 09:15] LABS: BASO % 0.2 % (0-2.0); HEMATOCRIT 35.5 % (35.4-49); HEMOGLOBIN 11.9 GM/dL (11.7-16.9); LYMPH % 15.5 % (8-40); MCH 31.8 pg (25.7-33.7); MCHC 33.5 g/dl (32.0-35.9); MEAN CELL VOLUME 94.8 fl (80-96); MEAN PLT VOLUME 11.7 fl (7.5-11.1); MONO % 5.6 % (3.8-10.2); NEUT % 78.7 % (42.8-82.8); PLATELET COUNT 116 K/MM3 (134-434); RBC 3.75 M/mm3 (4.00-5.60); RDW 14.3 % (11.9-15.9); WHITE BLOOD COUNT 4.9 K/mm3 (4.0-10.0)
[2020-08-20] MEDS ORDERED: DEXTROSE 5%-WATER - 50 ML IVPB ONE (09:15)
[2020-08-20] MEDS: SENNOSIDES 8.6MG TABLET (FP) PO SCH (09:27)
[2020-08-20] MEDS: FAMOTIDINE 20 MG TABLET PO SCH (09:27)
[2020-08-20] MEDS: ZINC SULFATE 220 MG CAPSULE (FP) PO SCH (09:27)
[2020-08-20] MEDS: DEXAMETHASONE SOD PHOSPHATE 4 MG/1 ML VIAL IVPUSH SCH (09:27)
[2020-08-20] MEDS: levETIRAcetam 500 MG TABLET (FP) PO SCH ×2 (09:28→21:27)
[2020-08-20] MEDS: OMEGA-3 ACID ETHYL ESTERS (FATTY-ACIDS) 1 GM CAPSULE (FP) PO SCH ×2 (09:28→23:09)
[2020-08-20] MEDS: LISINOPRIL 10 MG TABLET PO SCH (09:28)
[2020-08-20] MEDS: PANTOPRAZOLE 40 MG TABLET PO SCH ×2 (09:28→21:27)
[2020-08-20] MEDS: metoPROLOL SUCCINATE 25 MG TAB.SR.24H (FP) PO SCH (09:28)
[2020-08-20] MEDS: CHOLECALCIFEROL (VIT D3) 400 UNIT (10 MCG) TABLET PO SCH (09:28)
[2020-08-20 09:29] LABS: POTASSIUM 3.8 mmol/L (3.5-5.1)
[2020-08-20] MEDS: ASPIRIN COATED 81 MG TABLET.EC PO SCH (09:29)
[2020-08-20] MEDS: CEFTRIAXONE 2 GM in DEXTROSE 5%-WATER - 2 GM/50 ML IVPB IVPB SCH (09:30)
[2020-08-20] MEDS: DIVALPROEX NA *ER* EXTEND REL 500 MG TABLET.SA (FP) PO SCH ×2 (09:30→23:10)
[2020-08-20 09:38] LABS: ALBUMIN 3.1 g/dl (3.4-5.0); BLOOD UREA NITROGEN 27.3 mg/dL (7-18)
[2020-08-20 09:41] LABS: CREATININE 0.9 mg/dL (0.55-1.3)
[2020-08-20 09:42] LABS: BILIRUBIN,TOTAL 0.5 mg/dL (0.2-1); TOT PROT 7.1 g/dl (6.4-8.2)
[2020-08-20 09:47] LABS: MAGNESIUM 2.3 mg/dL (1.8-2.4)
[2020-08-20] MEDS: ASCORBIC ACID 500 MG TABLET (FP) PO SCH ×2 (10:17→21:27)
[2020-08-20] MEDS: AZITHROMYCIN IVPB 250 MG in DEXTROSE 5%-WATER - 250 ML IVPB SCH (11:07)
[2020-08-20 11:30] LABS: ERYTHROCYTE SEDIMENTATION RATE 96 mm/hr (0-20)
[2020-08-20] MEDS ORDERED: INSULIN (NOVOLOG) ASPART 100 UNITS/ML 10ML VIAL ONE (12:26)
[2020-08-20] MEDS ORDERED: REMDESIVIR 100 MG in SODIUM CHLORIDE 230 ML IVPB SCH (13:57)
[2020-08-20] MEDS: REMDESIVIR 100 MG in SODIUM CHLORIDE 230 ML IVPB SCH (16:56)
[2020-08-20] MEDS ORDERED: PT OWN MED DRAWER 7, Y5N ONE (21:06)
[2020-08-21] MEDS: HEPARIN NA (PORCINE) 5,000 UNITS/ML 1ML VIAL SQ SCH ×3 (05:26→22:12)
[2020-08-21] MEDS: INSULIN SLIDING SCALE (NOVOLOG) 1 VIAL SQ SCH ×4 (06:15→22:13)
[2020-08-21] MEDS: LEVOTHYROXINE NA 150 MCG TABLET PO SCH (06:15)
[2020-08-21 08:35] LABS: BASO % 0.2 % (0-2.0); HEMOGLOBIN 10.9 GM/dL (11.7-16.9); LYMPH % 14.2 % (8-40); MCH 32.2 pg (25.7-33.7); MEAN CELL VOLUME 94.7 fl (80-96); MEAN PLT VOLUME 11.3 fl (7.5-11.1); MONO % 7.9 % (3.8-10.2); NEUT % 77.7 % (42.8-82.8); PLATELET COUNT 130 K/MM3 (134-434); RBC 3.38 M/mm3 (4.00-5.60); RDW 14.4 % (11.9-15.9); WHITE BLOOD COUNT 4.5 K/mm3 (4.0-10.0)
[2020-08-21 08:49] LABS: POTASSIUM 3.8 mmol/L (3.5-5.1)
[2020-08-21 08:53] LABS: CALCIUM 8.2 mg/dL (8.5-10.1)
[2020-08-21 08:54] LABS: ALBUMIN 2.9 g/dl (3.4-5.0); BLOOD UREA NITROGEN 32.3 mg/dL (7-18); MAGNESIUM 2.7 mg/dL (1.8-2.4)
[2020-08-21 08:57] LABS: CREATININE 0.7 mg/dL (0.55-1.3)
[2020-08-21 08:58] LABS: BILIRUBIN,TOTAL 0.2 mg/dL (0.2-1)
[2020-08-21 08:59] LABS: TOT PROT 6.6 g/dl (6.4-8.2)
[2020-08-21] MEDS ORDERED: DEXTROSE 5%-WATER - 50 ML IVPB ONE (09:54)
[2020-08-21] MEDS: CEFTRIAXONE 2 GM in DEXTROSE 5%-WATER - 2 GM/50 ML IVPB IVPB SCH (09:59)
[2020-08-21] MEDS: DEXAMETHASONE SOD PHOSPHATE 4 MG/1 ML VIAL IVPUSH SCH (10:01)
[2020-08-21] MEDS: FAMOTIDINE 20 MG TABLET PO SCH (10:02)
[2020-08-21] MEDS: CHOLECALCIFEROL (VIT D3) 400 UNIT (10 MCG) TABLET PO SCH (10:02)
[2020-08-21] MEDS: PANTOPRAZOLE 40 MG TABLET PO SCH ×2 (10:02→22:12)
[2020-08-21] MEDS: ASCORBIC ACID 500 MG TABLET (FP) PO SCH ×2 (10:02→22:12)
[2020-08-21] MEDS: levETIRAcetam 500 MG TABLET (FP) PO SCH ×2 (10:02→22:12)
[2020-08-21] MEDS: SENNOSIDES 8.6MG TABLET (FP) PO SCH (10:02)
[2020-08-21] MEDS: metoPROLOL SUCCINATE 25 MG TAB.SR.24H (FP) PO SCH (10:02)
[2020-08-21] MEDS: ZINC SULFATE 220 MG CAPSULE (FP) PO SCH (10:02)
[2020-08-21] MEDS ORDERED: PT OWN MED DRAWER 7, Y5N ONE ×3 (10:03→21:23)
[2020-08-21] MEDS: OMEGA-3 ACID ETHYL ESTERS (FATTY-ACIDS) 1 GM CAPSULE (FP) PO SCH ×2 (10:04→22:12)
[2020-08-21] MEDS: ASPIRIN COATED 81 MG TABLET.EC PO SCH (10:06)
[2020-08-21] MEDS: DIVALPROEX NA *ER* EXTEND REL 500 MG TABLET.SA (FP) PO SCH ×2 (10:06→22:12)
[2020-08-21] MEDS: AZITHROMYCIN IVPB 250 MG in DEXTROSE 5%-WATER - 250 ML IVPB SCH (10:06)
[2020-08-21] MEDS: LISINOPRIL 10 MG TABLET PO SCH (10:23)
[2020-08-21] MEDS: REMDESIVIR 100 MG in SODIUM CHLORIDE 230 ML IVPB SCH (11:17)
[2020-08-21 12:40] LABS: ERYTHROCYTE SEDIMENTATION RATE 82 mm/hr (0-20)
[2020-08-22] MEDS: INSULIN SLIDING SCALE (NOVOLOG) 1 VIAL SQ SCH ×4 (06:42→21:39)
[2020-08-22] MEDS: HEPARIN NA (PORCINE) 5,000 UNITS/ML 1ML VIAL SQ SCH ×3 (06:43→21:38)
[2020-08-22] MEDS: LEVOTHYROXINE NA 150 MCG TABLET PO SCH (06:43)
[2020-08-22 09:55] LABS: BASO % 0.1 % (0-2.0); HEMATOCRIT 36.4 % (35.4-49); HEMOGLOBIN 12.1 GM/dL (11.7-16.9); MCH 31.7 pg (25.7-33.7); MCHC 33.3 g/dl (32.0-35.9); MEAN CELL VOLUME 95.4 fl (80-96); MEAN PLT VOLUME 11.2 fl (7.5-11.1); MONO % 6.7 % (3.8-10.2); NEUT % 78.2 % (42.8-82.8); PLATELET COUNT 166 K/MM3 (134-434); RBC 3.81 M/mm3 (4.00-5.60); RDW 14.5 % (11.9-15.9); WHITE BLOOD COUNT 5.7 K/mm3 (4.0-10.0)
[2020-08-22 10:17] LABS: POTASSIUM 4.3 mmol/L (3.5-5.1)
[2020-08-22 10:23] LABS: BLOOD UREA NITROGEN 24.6 mg/dL (7-18); CALCIUM 8.6 mg/dL (8.5-10.1)
[2020-08-22 10:24] LABS: MAGNESIUM 2.8 mg/dL (1.8-2.4)
[2020-08-22 10:26] LABS: PHOSPHOROUS 3.8 mg/dL (2.5-4.9)
[2020-08-22 10:28] LABS: BILIRUBIN,TOTAL 0.2 mg/dL (0.2-1); CREATININE 0.7 mg/dL (0.55-1.3); TOT PROT 7.1 g/dl (6.4-8.2)
[2020-08-22] MEDS ORDERED: DEXTROSE 5%-WATER - 50 ML IVPB ONE (10:38)
[2020-08-22] MEDS: ASPIRIN COATED 81 MG TABLET.EC PO SCH (10:46)
[2020-08-22] MEDS: LISINOPRIL 10 MG TABLET PO SCH (10:47)
[2020-08-22] MEDS: CHOLECALCIFEROL (VIT D3) 400 UNIT (10 MCG) TABLET PO SCH (10:47)
[2020-08-22] MEDS: FAMOTIDINE 20 MG TABLET PO SCH (10:47)
[2020-08-22] MEDS: ASCORBIC ACID 500 MG TABLET (FP) PO SCH ×2 (10:47→21:38)
[2020-08-22] MEDS: metoPROLOL SUCCINATE 25 MG TAB.SR.24H (FP) PO SCH (10:47)
[2020-08-22] MEDS: levETIRAcetam 500 MG TABLET (FP) PO SCH ×2 (10:47→21:38)
[2020-08-22] MEDS: ZINC SULFATE 220 MG CAPSULE (FP) PO SCH (10:47)
[2020-08-22] MEDS: SENNOSIDES 8.6MG TABLET (FP) PO SCH (10:47)
[2020-08-22] MEDS: PANTOPRAZOLE 40 MG TABLET PO SCH ×2 (10:48→21:38)
[2020-08-22] MEDS: CEFTRIAXONE 2 GM in DEXTROSE 5%-WATER - 2 GM/50 ML IVPB IVPB SCH (10:50)
[2020-08-22] MEDS: DEXAMETHASONE SOD PHOSPHATE 4 MG/1 ML VIAL IVPUSH SCH (10:50)
[2020-08-22] MEDS ORDERED: PT OWN MED DRAWER 7, Y5N ONE ×3 (10:59→21:36)
[2020-08-22 11:00] LABS: ERYTHROCYTE SEDIMENTATION RATE 88 mm/hr (0-20)
[2020-08-22] MEDS: DIVALPROEX NA *ER* EXTEND REL 500 MG TABLET.SA (FP) PO SCH ×2 (11:05→21:38)
[2020-08-22] MEDS: OMEGA-3 ACID ETHYL ESTERS (FATTY-ACIDS) 1 GM CAPSULE (FP) PO SCH ×2 (11:05→21:39)
[2020-08-22] MEDS: REMDESIVIR 100 MG in SODIUM CHLORIDE 230 ML IVPB SCH (12:05)
[2020-08-22] MEDS: AZITHROMYCIN IVPB 250 MG in DEXTROSE 5%-WATER - 250 ML IVPB SCH (15:04)
[2020-08-22] MEDS ORDERED: INSULIN (NOVOLOG) ASPART 100 UNITS/ML 10ML VIAL ONE (16:47)
[2020-08-23] MEDS: LEVOTHYROXINE NA 150 MCG TABLET PO SCH (06:20)
[2020-08-23] MEDS: HEPARIN NA (PORCINE) 5,000 UNITS/ML 1ML VIAL SQ SCH ×3 (06:21→21:14)
[2020-08-23] MEDS: INSULIN SLIDING SCALE (NOVOLOG) 1 VIAL SQ SCH ×4 (06:31→21:14)
[2020-08-23] MEDS ORDERED: PT OWN MED DRAWER 7, Y5N ONE ×2 (09:40→21:09)
[2020-08-23] MEDS ORDERED: DEXTROSE 5%-WATER - 50 ML IVPB ONE (09:40)
[2020-08-23] MEDS: CEFTRIAXONE 2 GM in DEXTROSE 5%-WATER - 2 GM/50 ML IVPB IVPB SCH (09:56)
[2020-08-23] MEDS: DEXAMETHASONE SOD PHOSPHATE 4 MG/1 ML VIAL IVPUSH SCH (09:58)
[2020-08-23] MEDS: levETIRAcetam 500 MG TABLET (FP) PO SCH ×2 (09:59→21:14)
[2020-08-23] MEDS: LISINOPRIL 10 MG TABLET PO SCH (09:59)
[2020-08-23] MEDS: CHOLECALCIFEROL (VIT D3) 400 UNIT (10 MCG) TABLET PO SCH (09:59)
[2020-08-23] MEDS: OMEGA-3 ACID ETHYL ESTERS (FATTY-ACIDS) 1 GM CAPSULE (FP) PO SCH ×2 (09:59→21:14)
[2020-08-23] MEDS: DIVALPROEX NA *ER* EXTEND REL 500 MG TABLET.SA (FP) PO SCH ×2 (09:59→21:14)
[2020-08-23] MEDS: ZINC SULFATE 220 MG CAPSULE (FP) PO SCH (09:59)
[2020-08-23] MEDS: ASCORBIC ACID 500 MG TABLET (FP) PO SCH ×2 (09:59→21:14)
[2020-08-23] MEDS: PANTOPRAZOLE 40 MG TABLET PO SCH ×2 (09:59→21:13)
[2020-08-23] MEDS: SENNOSIDES 8.6MG TABLET (FP) PO SCH (10:00)
[2020-08-23] MEDS: FAMOTIDINE 20 MG TABLET PO SCH (10:00)
[2020-08-23] MEDS: metoPROLOL SUCCINATE 25 MG TAB.SR.24H (FP) PO SCH (10:00)
[2020-08-23] MEDS: ASPIRIN COATED 81 MG TABLET.EC PO SCH (10:00)
[2020-08-23] MEDS: REMDESIVIR 100 MG in SODIUM CHLORIDE 230 ML IVPB SCH (10:52)
[2020-08-23] MEDS ORDERED: INSULIN (NOVOLOG) ASPART 100 UNITS/ML 10ML VIAL ONE ×2 (11:27→21:08)
[2020-08-24] MEDS: INSULIN SLIDING SCALE (NOVOLOG) 1 VIAL SQ SCH ×2 (06:22→11:16)
[2020-08-24] MEDS: HEPARIN NA (PORCINE) 5,000 UNITS/ML 1ML VIAL SQ SCH ×2 (06:53→14:30)
[2020-08-24] MEDS: LEVOTHYROXINE NA 150 MCG TABLET PO SCH (06:53)
[2020-08-24 09:25] LABS: BASO % 0.4 % (0-2.0); EOS % 1.5 % (0-4.5); HEMATOCRIT 35.3 % (35.4-49); LYMPH % 28.1 % (8-40); MCH 31.6 pg (25.7-33.7); MEAN PLT VOLUME 11.3 fl (7.5-11.1); PLATELET COUNT 187 K/MM3 (134-434); RDW 14.5 % (11.9-15.9); WHITE BLOOD COUNT 5.5 K/mm3 (4.0-10.0)
[2020-08-24 09:38] LABS: CALCIUM 8.3 mg/dL (8.5-10.1)
[2020-08-24 09:39] LABS: BLOOD UREA NITROGEN 20.8 mg/dL (7-18)
[2020-08-24 09:40] LABS: ALBUMIN 2.7 g/dl (3.4-5.0)
[2020-08-24 09:41] LABS: BILIRUBIN,TOTAL 0.5 mg/dL (0.2-1); CREATININE 0.7 mg/dL (0.55-1.3)
[2020-08-24 09:42] LABS: TOT PROT 6.2 g/dl (6.4-8.2)
[2020-08-24] MEDS ORDERED: DEXTROSE 5%-WATER - 50 ML IVPB ONE (10:33)
[2020-08-24 10:37] LABS: ANISOCYTOSIS 1+; MACROCYTOSIS 0; PLATELET ESTIMATE NORMAL
[2020-08-24] MEDS: CEFTRIAXONE 2 GM in DEXTROSE 5%-WATER - 2 GM/50 ML IVPB IVPB SCH (10:48)
[2020-08-24] MEDS: PANTOPRAZOLE 40 MG TABLET PO SCH (10:48)
[2020-08-24] MEDS: ASPIRIN COATED 81 MG TABLET.EC PO SCH (10:48)
[2020-08-24] MEDS: DEXAMETHASONE SOD PHOSPHATE 4 MG/1 ML VIAL IVPUSH SCH (10:48)
[2020-08-24] MEDS: metoPROLOL SUCCINATE 25 MG TAB.SR.24H (FP) PO SCH (10:49)
[2020-08-24] MEDS: ASCORBIC ACID 500 MG TABLET (FP) PO SCH (10:49)
[2020-08-24] MEDS: SENNOSIDES 8.6MG TABLET (FP) PO SCH (10:49)
[2020-08-24] MEDS: levETIRAcetam 500 MG TABLET (FP) PO SCH (10:49)
[2020-08-24] MEDS: LISINOPRIL 10 MG TABLET PO SCH (10:49)
[2020-08-24] MEDS: ZINC SULFATE 220 MG CAPSULE (FP) PO SCH (10:49)
[2020-08-24] MEDS: CHOLECALCIFEROL (VIT D3) 400 UNIT (10 MCG) TABLET PO SCH (10:49)
[2020-08-24] MEDS: OMEGA-3 ACID ETHYL ESTERS (FATTY-ACIDS) 1 GM CAPSULE (FP) PO SCH (10:50)
[2020-08-24] MEDS: DIVALPROEX NA *ER* EXTEND REL 500 MG TABLET.SA (FP) PO SCH (10:50)
[2020-08-24] MEDS: FAMOTIDINE 20 MG TABLET PO SCH (10:51)
[2020-08-24] MEDS ORDERED: INSULIN (NOVOLOG) ASPART 100 UNITS/ML 10ML VIAL ONE (11:09)
[2020-08-24 14:23] VITALS: BP 141/68; PULSE 52; TEMP 97.4
== END 2020-08-24 16:48 | disposition home or self-care (01) | DRG 177 ==
LOC: JER 08:19 → JERBED 11:14 → J6S 08-19 11:36
PROVIDERS: ADMIT Internal Medicine
PROC: XW13325 Transfusion of Convalescent Plasma (Nonautologous) into Peripheral Vein, Percutaneous Approach, New Technology Group 5 (ICD-10-PCS; principal; 2020-08-19)
PROC: XW033E5 Introduction of Remdesivir Anti-infective into Peripheral Vein, Percutaneous Approach, New Technology Group 5 (ICD-10-PCS; 2020-08-19)
DX: U07.1 COVID-19 (principal); J12.89 Other viral pneumonia; J96.01 Acute respiratory failure with hypoxia; N39.0 Urinary tract infection, site not specified; I25.10 Atherosclerotic heart disease of native coronary artery without angina pectoris; I10 Essential (primary) hypertension; K22.70 Barrett's esophagus without dysplasia; I48.0 Paroxysmal atrial fibrillation; K57.90 Diverticulosis of intestine, part unspecified, without perforation or abscess without bleeding; G40.909 Epilepsy, unspecified, not intractable, without status epilepticus; E03.9 Hypothyroidism, unspecified; D69.6 Thrombocytopenia, unspecified; E11.9 Type 2 diabetes mellitus without complications; I35.1 Nonrheumatic aortic (valve) insufficiency; F10.20 Alcohol dependence, uncomplicated; R10.9 Unspecified abdominal pain; R41.82 Altered mental status, unspecified; Z95.5 Presence of coronary angioplasty implant and graft; Z85.46 Personal history of malignant neoplasm of prostate
CPT/HCPCS: 36415; 36430; 36600; 71045-TC-FY; 71250-TC; 80048; 80053; 80164; 81003; 82550; 82728; 82803; 82962; 83605; 83615; 83735; 83880; 84100; 84439; 84443; 84484; 85025; 85379; 85610; 85651; 85730; 86140; 86850; 86900; 86901; 87040; 87070; 87086; 87205; 87804; 87807; 87899; 93005; 93010; 94010; 94761; 97116-GP; 97162-GP; 99285-25; C9399; C9803; G0480; J0131; J1644; P9017; U0003

== ENCOUNTER 2024-06-11 15:53 | Inpatient (IN) | payer OTHER ==
[2024-06-11 16:09] VITALS: BMI 25.0
[2024-06-11 16:43] LABS: BASO % 0.6 % (0-2.0); EOS % 1.9 % (0-4.5); HEMATOCRIT 39.9 % (35.4-49); LYMPH % 36.3 % (8-40); MCHC 32.6 g/dl (32.0-35.9); MEAN CELL VOLUME 92.1 fl (80-96); MEAN PLT VOLUME 10.8 fl (7.5-11.1); MONO % 8.2 % (3.8-10.2); PLATELET COUNT 204 10^3/uL (134-434); RBC 4.34 M/mm3 (4.00-5.60); RDW 15.3 % (11.9-15.9); WHITE BLOOD COUNT 10.2 K/mm3 (4.0-10.0)
[2024-06-11] MEDS ORDERED: dilTIAZem HCL 125 MG/25 ML - 25 ML VIAL ONE ×2 (16:47→20:48)
[2024-06-11] MEDS: dilTIAZem HCL 50 MG/10 ML - 10 ML VIAL IVPUSH ONE ×2 (16:58→20:52)
[2024-06-11] MEDS ORDERED: MAGNESIUM SULFATE IN WATER 2 GM/50 ML IVPB IVPB ONE (16:58)
[2024-06-11] MEDS: SODIUM CHLORIDE 0.9% 500 ML INFUS.BAG IV ONE (16:58)
[2024-06-11 17:02] LABS: MAGNESIUM 2.2 mg/dL (1.8-2.4); POTASSIUM 4.4 mmol/L (3.5-5.1)
[2024-06-11 17:04] LABS: ALBUMIN 3.4 g/dl (3.4-5.0); BLOOD UREA NITROGEN 18.4 mg/dL (7-18); CALCIUM 8.9 mg/dL (8.5-10.1)
[2024-06-11] MEDS: MAGNESIUM SULFATE IN WATER 2 GM/50 ML IVPB IVPB ONE (17:06)
[2024-06-11 17:07] LABS: CREATININE 1.1 mg/dL (0.55-1.3)
[2024-06-11 17:09] LABS: BILIRUBIN,TOTAL 0.2 mg/dL (0.2-1)
[2024-06-11] MEDS: dilTIAZem HCL 30 MG TABLET PO ONE (18:00)
[2024-06-11 20:48] LABS: EPI CELLS 2 /uL (0-25.1); HYALINE CASTS 0 /uL (0-3.1); PH,URINE 5.5 (5.0-8.0); URINE APPEARANCE CLEAR; URINE BACTERIA 8 /uL (0-1359); URINE BILIRUBIN NEGATIVE (NEGATIVE); URINE COLOR YELLOW; URINE GLUCOSE (UA) NEGATIVE (NEGATIVE); URINE KETONE NEGATIVE (NEGATIVE); URINE LEUK ESTERASE NEGATIVE (NEGATIVE); URINE NITRITE NEGATIVE (NEGATIVE); URINE PROTEIN NEGATIVE (NEGATIVE); URINE RBC 17 /uL (0-23.9); URINE UROBILINOGEN 0.2 mg/dL (0.2-1.0); URINE WBC 2 /uL (0-25.8)
[2024-06-11 22:04] LABS: HIV INTERPRETATION NEGATIVE (NEGATIVE)
[2024-06-12] MEDS ORDERED: METOPROLOL TARTRATE 5 MG/5 ML VIAL ONE ×4 (03:09→20:07)
[2024-06-12] MEDS: METOPROLOL TARTRATE 5 MG/5 ML VIAL IVPUSH PRN (03:15)
[2024-06-12] MEDS ORDERED: ACETAMINOPHEN 325 MG TABLET (FP) PO PRN (06:33)
[2024-06-12] MEDS ORDERED: LEVOTHYROXINE NA 125 MCG TABLET (FP) PO SCH (07:00)
[2024-06-12 07:47] LABS: BASO % 0.6 % (0-2.0); EOS % 1.8 % (0-4.5); HEMATOCRIT 40.5 % (35.4-49); HEMOGLOBIN 13.2 GM/dL (11.7-16.9); LYMPH % 34.4 % (8-40); MCH 30.2 pg (25.7-33.7); MCHC 32.5 g/dl (32.0-35.9); MEAN PLT VOLUME 11.1 fl (7.5-11.1); MONO % 6.9 % (3.8-10.2); NEUT % 56.3 % (42.8-82.8); PLATELET COUNT 180 10^3/uL (134-434); RBC 4.36 M/mm3 (4.00-5.60); RDW 15.4 % (11.9-15.9); WHITE BLOOD COUNT 7.5 K/mm3 (4.0-10.0)
[2024-06-12] MEDS ORDERED: levETIRAcetam 500 MG TABLET (FP) PO ONE ×2 (08:49→20:59)
[2024-06-12] MEDS ORDERED: LIDOCAINE 5% TOPICAL PATCH ONE (08:58)
[2024-06-12 09:05] LABS: ALBUMIN 3.2 g/dl (3.4-5.0); BILIRUBIN,TOTAL 0.4 mg/dL (0.2-1); BLOOD UREA NITROGEN 13.5 mg/dL (7-18); CALCIUM 8.5 mg/dL (8.5-10.1); CREATININE 0.9 mg/dL (0.55-1.3); POTASSIUM 4.5 mmol/L (3.5-5.1); TOT PROT 6.7 g/dl (6.4-8.2)
[2024-06-12] MEDS: levETIRAcetam 250 MG TABLET PO SCH (09:05)
[2024-06-12] MEDS: LEVOTHYROXINE 112 MCG, LEVOTHYROXINE 25 MCG PO SCH (09:05)
[2024-06-12] MEDS: sitaGLIPtin PHOSPHATE 50 MG TABLET PO SCH (09:05)
[2024-06-12] MEDS: LIDOCAINE 5% TOPICAL PATCH TP SCH (09:06)
[2024-06-12] MEDS ORDERED: levETIRAcetam 500 MG/5 ML ORAL SOLUTION (UNIT-DOSE CUPS) PO SCH (10:00)
[2024-06-12] MEDS ORDERED: LEVOTHYROXINE NA 112 MCG TABLET (FP) PO SCH ×2 (16:40→16:41)
[2024-06-12] MEDS ORDERED: FUROSEMIDE 40 MG/4 ML INJECTABLE VIAL ONE (19:11)
[2024-06-12] MEDS: FUROSEMIDE 40 MG/4 ML INJECTABLE VIAL IVPUSH ONE (19:17)
[2024-06-12] MEDS ORDERED: DIVALPROEX NA *ER* EXTEND REL 250 MG TABLET.SA ONE (21:00)
[2024-06-12] MEDS: DIVALPROEX NA *ER* EXTEND REL 250 MG TABLET.SA PO SCH (21:08)
[2024-06-12] MEDS: LIDOCAINE PATCH REMOVAL MC SCH (22:19)
[2024-06-13] MEDS ORDERED: METOPROLOL TARTRATE 5 MG/5 ML VIAL ONE (00:51)
[2024-06-13 06:32] LABS: BASO % 0.6 % (0-2.0); EOS % 1.7 % (0-4.5); HEMATOCRIT 39.4 % (35.4-49); HEMOGLOBIN 12.9 GM/dL (11.7-16.9); LYMPH % 30.5 % (8-40); MCH 30.1 pg (25.7-33.7); MCHC 32.7 g/dl (32.0-35.9); MEAN CELL VOLUME 92.2 fl (80-96); MONO % 8.1 % (3.8-10.2); NEUT % 59.1 % (42.8-82.8); PLATELET COUNT 172 10^3/uL (134-434); RBC 4.28 M/mm3 (4.00-5.60); RDW 15.5 % (11.9-15.9); WHITE BLOOD COUNT 7.5 K/mm3 (4.0-10.0)
[2024-06-13 06:52] LABS: BLOOD UREA NITROGEN 16.5 mg/dL (7-18); CALCIUM 8.9 mg/dL (8.5-10.1)
[2024-06-13 06:55] LABS: ALBUMIN 3.1 g/dl (3.4-5.0)
[2024-06-13 06:56] LABS: CREATININE 0.8 mg/dL (0.55-1.3)
[2024-06-13 06:57] LABS: BILIRUBIN,TOTAL 0.4 mg/dL (0.2-1); TOT PROT 6.4 g/dl (6.4-8.2)
[2024-06-13 07:01] LABS: N-TERMINAL BNP 3594.1 pg/ml (5-450)
[2024-06-13] MEDS: LEVOTHYROXINE 112 MCG, LEVOTHYROXINE 25 MCG PO SCH (08:10)
[2024-06-13] MEDS ORDERED: FUROSEMIDE 40 MG/4 ML INJECTABLE VIAL IVPUSH SCH (10:00)
[2024-06-13] MEDS ORDERED: DIVALPROEX SODIUM 500 MG TABLET E.C. ONE (11:19)
[2024-06-13] MEDS: METOPROLOL TARTRATE 50 MG TABLET (FP) PO SCH (11:30)
[2024-06-13] MEDS: FUROSEMIDE 40 MG/4 ML INJECTABLE VIAL IVPUSH SCH (14:03)
[2024-06-13] MEDS ORDERED: FUROSEMIDE 40 MG/4 ML INJECTABLE VIAL ONE (14:04)
[2024-06-14] MEDS: METOPROLOL TARTRATE 50 MG TABLET (FP) PO SCH ×2 (09:50→21:29)
[2024-06-14] MEDS: EMPAGLIFLOZIN (JARDIANCE) 10 MG TABLET PO SCH (10:45)
[2024-06-14] MEDS ORDERED: METOPROLOL TARTRATE 50 MG TABLET (FP) PO SCH (20:05)
[2024-06-15] MEDS: EMPAGLIFLOZIN (JARDIANCE) 10 MG TABLET PO SCH (06:46)
[2024-06-15] MEDS: FUROSEMIDE 40 MG TABLET (FP) PO SCH (10:21)
[2024-06-15] MEDS: METOPROLOL TARTRATE 50 MG TABLET (FP) PO SCH (10:21)
[2024-06-17] MEDS: APIXABAN 5 MG TABLET PO SCH (09:10)
[2024-06-17 11:18] LABS: BASO % 0.7 % (0-2.0); EOS % 1.3 % (0-4.5); HEMATOCRIT 41.7 % (35.4-49); HEMOGLOBIN 13.9 GM/dL (11.7-16.9); LYMPH % 26.2 % (8-40); MCH 30.5 pg (25.7-33.7); MCHC 33.3 g/dl (32.0-35.9); MEAN CELL VOLUME 91.6 fl (80-96); MEAN PLT VOLUME 10.3 fl (7.5-11.1); MONO % 7.2 % (3.8-10.2); NEUT % 64.6 % (42.8-82.8); PLATELET COUNT 197 10^3/uL (134-434); RBC 4.56 M/mm3 (4.00-5.60); RDW 15.4 % (11.9-15.9); WHITE BLOOD COUNT 8.2 K/mm3 (4.0-10.0)
[2024-06-17 11:35] LABS: CALCIUM 8.6 mg/dL (8.5-10.1)
[2024-06-17 11:37] LABS: ALBUMIN 3.2 g/dl (3.4-5.0)
[2024-06-17 11:39] LABS: CREATININE 1.1 mg/dL (0.55-1.3)
[2024-06-17 11:41] LABS: BILIRUBIN,TOTAL 0.6 mg/dL (0.2-1)
[2024-06-18 08:12] LABS: BASO % 0.9 % (0-2.0); EOS % 2.1 % (0-4.5); HEMATOCRIT 41.2 % (35.4-49); HEMOGLOBIN 13.9 GM/dL (11.7-16.9); LYMPH % 36.9 % (8-40); MCH 30.6 pg (25.7-33.7); MCHC 33.8 g/dl (32.0-35.9); MEAN CELL VOLUME 90.5 fl (80-96); MEAN PLT VOLUME 11.1 fl (7.5-11.1); MONO % 7.7 % (3.8-10.2); NEUT % 52.4 % (42.8-82.8); PLATELET COUNT 186 10^3/uL (134-434); RBC 4.55 M/mm3 (4.00-5.60); RDW 15.3 % (11.9-15.9); WHITE BLOOD COUNT 7.4 K/mm3 (4.0-10.0)
[2024-06-18] MEDS: METOPROLOL SUCCINATE 100 MG, METOPROLOL SUCCINATE 50 MG PO SCH (10:13)
[2024-06-19] MEDS: SACUBITRIL/VALSARTAN 24 MG-26 MG TABLET PO SCH (21:36)
[2024-06-20 09:11] LABS: POTASSIUM 4.1 mmol/L (3.5-5.1)
[2024-06-20 09:13] LABS: ALBUMIN 3.3 g/dl (3.4-5.0); CALCIUM 9.1 mg/dL (8.5-10.1)
[2024-06-20 09:14] LABS: BLOOD UREA NITROGEN 25.5 mg/dL (7-18); MAGNESIUM 2.5 mg/dL (1.8-2.4)
[2024-06-20 09:17] LABS: CREATININE 1.1 mg/dL (0.55-1.3)
[2024-06-20 09:20] LABS: BILIRUBIN,TOTAL 0.5 mg/dL (0.2-1)
[2024-06-21 08:50] LABS: BASO % 0.7 % (0-2.0); EOS % 1.9 % (0-4.5); HEMATOCRIT 43.3 % (35.4-49); HEMOGLOBIN 14.5 GM/dL (11.7-16.9); LYMPH % 39.2 % (8-40); MCH 30.5 pg (25.7-33.7); MCHC 33.5 g/dl (32.0-35.9); MEAN CELL VOLUME 90.8 fl (80-96); MEAN PLT VOLUME 11.5 fl (7.5-11.1); MONO % 5.5 % (3.8-10.2); NEUT % 52.7 % (42.8-82.8); PLATELET COUNT 201 10^3/uL (134-434); RBC 4.77 M/mm3 (4.00-5.60); RDW 15.4 % (11.9-15.9); WHITE BLOOD COUNT 8.1 K/mm3 (4.0-10.0)
[2024-06-21 09:19] LABS: ALBUMIN 3.2 g/dl (3.4-5.0); BLOOD UREA NITROGEN 23.4 mg/dL (7-18); CALCIUM 8.9 mg/dL (8.5-10.1)
[2024-06-21] MEDS: VALSARTAN 40 MG TABLET PO SCH (09:20)
[2024-06-21] MEDS: FUROSEMIDE 20 MG TABLET (FP) PO SCH (09:20)
[2024-06-21 09:24] LABS: BILIRUBIN,TOTAL 0.5 mg/dL (0.2-1); TOT PROT 6.8 g/dl (6.4-8.2)
[2024-06-21 14:15] VITALS: BP 93/57; PULSE 91; RESP 19; TEMP 97.8
== END 2024-06-21 17:04 | disposition home or self-care (01) | DRG 309 ==
LOC: JER 15:53 → JERBED 18:03 → J4W 06-13 18:42
PROVIDERS: ADMIT Internal Medicine; ATTEND Family Medicine
DX: I48.91 Unspecified atrial fibrillation (principal); I24.89 Other forms of acute ischemic heart disease; I50.20 Unspecified systolic (congestive) heart failure; I10 Essential (primary) hypertension; G40.909 Epilepsy, unspecified, not intractable, without status epilepticus; E03.9 Hypothyroidism, unspecified; E11.9 Type 2 diabetes mellitus without complications; F10.91 Alcohol use, unspecified, in remission; I25.10 Atherosclerotic heart disease of native coronary artery without angina pectoris; Z95.5 Presence of coronary angioplasty implant and graft
CPT/HCPCS: 36415; 71045-TC-FY; 80053; 80061; 80177; 81003; 82962; 83735; 83880; 84439; 84443; 84484; 85025; 86803; 87086; 87389; 93005; 93010; 93306-TC; 93308; 99291

== ENCOUNTER 2024-09-05 10:57 | Day surgery (SDC) | payer OTHER ==
[2024-09-03 15:39] VITALS: BMI 23.9
[2024-09-05 13:23] VITALS: PULSE 86; RESP 19
[2024-09-05 13:29] VITALS: BP 93/53; TEMP 97.1
== END 2024-09-05 13:22 | disposition home or self-care (01) ==
LOC: FASU-ENDO 10:57
PROVIDERS: ATTEND Internal Medicine Gastroenterology
PROC: 0DB68ZX Excision of Stomach, Via Natural or Artificial Opening Endoscopic, Diagnostic (ICD-10-PCS; 2024-09-05)
PROC: 0DB58ZX Excision of Esophagus, Via Natural or Artificial Opening Endoscopic, Diagnostic (ICD-10-PCS; 2024-09-05)
PROC: 0DB98ZX Excision of Duodenum, Via Natural or Artificial Opening Endoscopic, Diagnostic (ICD-10-PCS; principal; 2024-09-05 12:01)
DX: K29.50 Unspecified chronic gastritis without bleeding (principal); K21.00 Gastro-esophageal reflux disease with esophagitis, without bleeding; K22.70 Barrett's esophagus without dysplasia; R10.13 Epigastric pain
CPT/HCPCS: 82010; 82962; 88305-TC; 88342-TC